=== PATIENT | male | born 1960 | race Caucasian/White ===

== ENCOUNTER 2017-02-06 20:48 | Emergency (ER) | payer BC ==
--- NOTE | 2017-02-06 20:49 | PDOC ---
Rapid Medical Evaluation Time Seen by Provider: 02/06/17 20:49 Medical Evaluation: Allergies Allergy/AdvReac Type Severity Reaction Status Date / Time levofloxacin [From Levaquin] Allergy Verified 06/23/15 22:44 I have performed a brief in-person evaluation of this patient. The patient presents with a chief complaint of: "My catheter does not feel right." Pertinent physical exam findings: ABS: SNTND. No palpable bladder. Davis catheter in place. I have ordered the following: UA, C&S The patient will proceed to the ED for further evaluation.
[2017-02-06 21:01] VITALS: BP 186/102; PULSE 62; TEMP 98.2; BMI 41.1
--- NOTE | 2017-02-07 00:02 | PDOC ---
History of Present Illness - History of Present Illness Initial Comments: 02/07/17 00:05 56 y/o M with a PMHx of HTN, diabetes, enlarged prostate presents to the ED for urinary catheter removal. Patient had a routine visit with his urologist today who placed a catheter due to urinary retention. However, patient states it is normal to have urinary retention without his herbal diuretic, which he forgot to take today. Patient has no other complaints. Denies fever, chills. Allergies: Levaquin <Nanda Cooley - Last Filed: 02/07/17 01:00> <Bossman Garcia - Last Filed: 02/07/17 02:06> - General Chief Complaint: Urinary Catheter Problem Stated Complaint: PERSONAL Time Seen by Provider: 02/06/17 20:49 Past History <Nanda Cooley - Last Filed: 02/07/17 01:00> - Past Medical History COPD: No Diabetes: Yes HTN: Yes - Surgical History Abdominal Surgery: Yes (LEFT INGUINAL AND UMBILICAL HERNIA REPAIR.) - Immunization History Immunization Up to Date: Yes - Suicide/Smoking/Psychosocial Hx Smoking History: Never smoked Have you smoked in the past 12 months: No Number of Cigarettes Smoked Daily: 0 Information on smoking cessation initiated: No Hx Alcohol Use: No Drug/Substance Use Hx: No Substance Use Type: None <Bossman Garcia - Last Filed: 02/07/17 02:06> - Past Medical History Allergies/Adverse Reactions: Allergies Allergy/AdvReac Type Severity Reaction Status Date / Time levofloxacin [From Levaquin] Allergy Verified 02/06/17 20:58 Home Medications: Ambulatory Orders Amlodipine Besylate [Norvasc -] 10 mg PO DAILY 06/23/13 Silodosin [Rapaflo] 8 mg PO DAILY 06/23/13 Glipizide [Glipizide Xl] 0 mg PO DAILY 06/23/15 Clonidine HCl 0.2 mg PO TID 02/07/17 Nebivolol HCl/Valsartan [Byvalson 5 mg-80 mg Tablet] 1 each PO DAILY 02/07/17 Review of Systems - Review of Systems Comments:: 02/07/17 00:06 CONSTITUTIONAL: No fever, no chills, no fatigue EYES: No visual changes ENT: No ear pain, no sore throat CARDIOVASCULAR: No chest pain, no palpitations RESPIRATORY: No cough, no SOB GI: No abdominal pain, no nausea, no vomiting, no constipation, no diarrhea GENITOURINARY: No dysuria, no frequency, no hematuria MUSCULOSKELETAL: No back pain, no joint pain, no myalgias SKIN: No rash NEURO: No headache <Nanda Cooley - Last Filed: 02/07/17 01:00> *Physical Exam - Vital Signs Last Vital Signs Temp Pulse Resp BP Pulse Ox 98.2 F 62 20 186/102 97 02/06/17 20:59 02/06/17 20:59 02/06/17 20:59 02/06/17 20:59 02/06/17 20:59 - Physical Exam Comments: 02/07/17 00:06 CONSTITUTIONAL: Well-appearing; well-nourished; in no apparent distress. Morbidly obese. HEAD: Normocephalic; atraumatic EYES: PERRL; EOM intact ENMT: External appears normal; normal oropharynx NECK: Supple; nontender; no cervical lymphadenopathy CARD: Normal S1, S2; no murmurs, rubs, or gallops RESP: Normal chest excursion with respiration; breath sounds clear and equal bilaterally; no wheezes, rhonchi, or rales ABD: Soft, non-distended; non-tender; no palpable organomegaly, no palpable hernias EXT: Normal ROM in all four extremities; non-tender to palpation; distal pulses intact. +2 pitting edema in bilateral lower extremities. SKIN: Warm, dry, no rash NEURO: No focal neurological deficiencies. <Nanda Cooley - Last Filed: 02/07/17 01:00> - Vital Signs Last Vital Signs Temp Pulse Resp BP Pulse Ox 98.2 F 62 20 186/102 97 02/06/17 20:59 02/06/17 20:59 02/06/17 20:59 02/06/17 20:59 02/06/17 20:59 <Bossman Garcia - Last Filed: 02/07/17 02:06> Medical Decision Making - Medical Decision Making 02/07/17 02:03 Patient's 56-year-old male with history of BPH, diabetes presents to the ER with local discomfort at the site of the Davis catheter insertion. Davis catheter was in inserted at the patient's urologist office. Patient stated that he is unable to ambulate and is unable to sleep due to catheter and patient requested that the catheter be removed. Davis catheter was removed without complications. Patient has not been able to void after the removal but reports that he feels no urgency to urinate at this time and wishes to be discharged. Advised the patient to follow-up with urology promptly if he is unable to void after a period Of several hours begin's to feel pressure sensation in his abdomen or his flanks. Patient's expressed understanding and will be discharged with follow-up. <Bossman Garcia - Last Filed: 02/07/17 02:06> *DC/Admit/Observation/Transfer - Attestations Scribe Attestion: 02/07/17 00:06 Documentation prepared by Nanda Cooley, acting as medical dosimetrist for Bossman Garcia MD. <Nanda Cooley - Last Filed: 02/07/17 01:00> - Attestations Physician Attestion: 02/07/17 02:03 The documentation was prepared by the scribe under my direct supervision. I have reviewed the documentation which correctly represents the findings, medical decision-making and critical action taken by me. <Bossman Garcia - Last Filed: 02/07/17 02:06> Diagnosis at time of Disposition: Retention of urine - Discharge Dispostion Disposition: HOME Condition at time of disposition: Stable - Referrals Referrals: Milton Samuels MD [Staff Physician] - - Patient Instructions Printed Discharge Instructions: DI for Urinary Retention in Men Additional Instructions: Follow-up with urology promptly if you're unable to urinate after a period of several hours we began to experience pressure in the lower abdomen or back return immediately for severe pain, fever, blood in the urine.
== END 2017-02-07 02:13 | disposition home or self-care (01) ==
LOC: JER 20:48
DX: R33.9 Retention of urine, unspecified (principal); I10 Essential (primary) hypertension; E11.9 Type 2 diabetes mellitus without complications; N40.0 Benign prostatic hyperplasia without lower urinary tract symptoms
CPT/HCPCS: 99282-25

== ENCOUNTER 2017-08-07 15:56 | Inpatient (IN) | payer OTHER ==
--- NOTE | 2017-08-07 16:07 | PDOC ---
Rapid Medical Evaluation Time Seen by Provider: 08/07/17 16:07 Medical Evaluation: Allergies Allergy/AdvReac Type Severity Reaction Status Date / Time levofloxacin [From Levaquin] Allergy Verified 07/31/17 01:41 08/07/17 16:08 56 year old male with HTN, NIDDM seen here 07/31 with right great toe infection. Started on Bactrim + Keflex, subsequently started on amoxicillin by our COPY WORKER per culture results. Culture grew multiple organisms. Returns today with continued oozing, also with fevers ("105"), malaise, shortness of breath. T 102.5 orally. Left great toe ulceration without surrounding erythema, dry Plan: -Sepsis labs/styles-culture -Tylenol 650mg -Xray R foot -To Main ED for further evaluation
[2017-08-07] MEDS ORDERED: ACETAMINOPHEN 325 MG TABLET (FP) PO ONE ×2 (16:16→17:04)
[2017-08-07] MEDS ORDERED: VANCOMYCIN 2,000 MG in DEXTROSE 5%-WATER - 250 ML IVPB ONE (16:44)
--- NOTE | 2017-08-07 16:48 | PDOC ---
Attending Attestation - HPI HPI: 08/07/17 18:25 56 year old male with past medical history of HTN and Diabetes presents to the emergency department with right big toe infection. Despite antibiotic prescribed , the patient presents with discharge, fever, SOB, chills, and malaise. <Tamiko Morris - Last Filed: 08/07/17 18:43> - Resident Resident Name: AsiaJay - ED Attending Attestation I have performed the following: I have examined & evaluated the patient, The case was reviewed & discussed with the resident, I agree w/resident's findings & plan, Exceptions are as noted - Physicial Exam PE: 08/07/17 18:47 Patient is awake and alert, morbidly obese, febrile, diaphoretic and tachypneic , in mild respiratory distress Normocephalic, atraumatic + Abrasion to bridge of nose with surrounding erythema No JVD + Diffuse crackles bilaterally, tachypneic and dyspneic RRR +Soft, nondistended, large reducible ventral hernia noted + +3 pitting edema bilaterally with chronic venous stasis dermatitis Right great toe: Large calluses noted with several small areas of coagulated blood and a large ulcer to the base of the right great toe; Dorsalis pedis/tibialis posterior +2 bilaterally - Medical Decision Making 08/07/17 18:49 Patient is a morbidly obese 56-year-old male with multiple comorbidities who presents to the ER with erythematous draining right foot toe infection, malaise , generalized weakness and shortness of breath. In the ER, patient is noted to be tachypneic and dyspneic as well as febrile. Patient is also hypoxemic with room oxygen saturation of 93% improving to 100% on 2 L via nasal cannula. Blood cultures are been obtained. Right great toe Wound culture obtained previously revealed strep group B as well as Enterococcus faecalis. Chest x-ray reveals cardiomegaly, cephalization, prominent pulmonary arteries, as well as interstitial and mild pulmonary edema. Antipyretics a been administered. Vancomycin and Zosyn has been administered for suspected osteomyelitis. Foot x- ray reveals fluid adjacent to the the distal phalanx of the right great toe. Patient is also noted to be hyperglycemic without increased anion gap. Will administer IV Lasix as well as subcutaneous insulin. Will admit for further evaluation and treatment. <Bossman Garcia - Last Filed: 08/07/17 18:52>
[2017-08-07] MEDS ORDERED: PIPERACILLIN/TAZOB 4.5 GM 4.5 GM in DEXTROSE 5%-WATER 100 ML IVPB ONE (16:53)
[2017-08-07] MEDS: SODIUM CHLORIDE 1,000 ML IV STA ×2 (17:33→18:06)
[2017-08-07 17:34] LABS: VENOUS PC02 37.6 mmHg (38-52); VENOUS PH 7.48 (7.32-7.42); VENOUS PO2 32.8 mmHg (28-48)
[2017-08-07 17:34] LABS: BASO % 0.6 % (0-2.0); EOS % 0.7 % (0-4.5); HEMATOCRIT 31.2 % (35.4-49); HEMOGLOBIN 10.8 GM/dL (11.7-16.9); LYMPH % 11.6 % (8-40); MCH 27.8 pg (25.7-33.7); MCHC 34.7 g/dl (32.0-35.9); MEAN CELL VOLUME 80.1 fl (80-96); MEAN PLT VOLUME 9.2 fl (7.5-11.1); MONO % 8.2 % (3.8-10.2); NEUT % 78.9 % (42.8-82.8); PLATELET COUNT 172 K/MM3 (134-434); RBC 3.89 M/mm3 (4.00-5.60); WHITE BLOOD COUNT 5.7 K/mm3 (4.0-10.0)
[2017-08-07] MEDS ORDERED: PIPERACILLIN/TAZOBACTAM 2.25 GM VIAL IVPB ONE (17:36)
[2017-08-07] MEDS ORDERED: ACETAMINOPHEN 325 MG TABLET (FP) ONE (17:36)
[2017-08-07] MEDS ORDERED: VANCOMYCIN 1 GRAM (PRE-DOCKED) 2,000 MG/500 ML BAG IVPB ONE (17:37)
[2017-08-07 17:47] LABS: INR 1.45 (0.82-1.09); PROTHROMBIN TIME (PATIENT) 16.4 SEC (9.7-13.0)
[2017-08-07 17:49] LABS: ACTIVATED PTT 22.1 SECONDS (26.9-34.4)
[2017-08-07 17:58] LABS: ALK PHOS 76 U/L (45-117); ANION GAP 6 (8-16); BLOOD UREA NITROGEN 13 mg/dL (7-18); CHLORIDE 99 mmol/L (98-107); CO2 28 mmol/L (21-32); CREATININE 1.3 mg/dL (0.7-1.3); POTASSIUM 3.6 mmol/L (3.5-5.1); SGOT/AST 18 U/L (15-37); SGPT/ALT 17 U/L (12-78); SODIUM 133 mmol/L (136-145); TOT PROT 6.4 g/dl (6.4-8.2)
[2017-08-07] MEDS ORDERED: FUROSEMIDE 40 MG/4 ML INJECTABLE VIAL ONE (17:58)
[2017-08-07] MEDS ORDERED: FUROSEMIDE 40 MG/4 ML INJECTABLE VIAL IVPUSH ONE (18:01)
[2017-08-07 18:07] LABS: GLUCOSE,RANDOM 433 mg/dL (74-106)
--- NOTE | 2017-08-07 18:10 | PDOC ---
History of Present Illness - General History Source: Patient Exam Limitations: No Limitations - History of Present Illness Initial Comments: 08/07/17 18:03 56 year old male with HTN, NIDDM seen here 07/31 with right 1st toe infection. Started on clinda IV then Rx for Bactrim + Keflex, subsequently started on amoxicillin by our CASKET COVERER per culture results. Culture grew multiple organisms. Returns today with continued oozing, also with fevers ("105"), malaise, shortness of breath and chills. Currently pain-free toe. Denies nausea, vomiting, headache , change in vision. 08/07/17 18:34 <Jay Betancourt - Last Filed: 08/07/17 18:45> <Bossman Garcia - Last Filed: 08/07/17 19:29> - General Chief Complaint: Respiratory Stated Complaint: RT TOE INJURY Time Seen by Provider: 08/07/17 16:07 Past History - Past Medical History COPD: No Diabetes: Yes HTN: Yes - Surgical History Abdominal Surgery: Yes (LEFT INGUINAL AND UMBILICAL HERNIA REPAIR.) - Immunization History Immunization Up to Date: Yes - Suicide/Smoking/Psychosocial Hx Smoking History: Never smoked Have you smoked in the past 12 months: No Number of Cigarettes Smoked Daily: 0 Information on smoking cessation initiated: No Hx Alcohol Use: Yes (socially) Drug/Substance Use Hx: No Substance Use Type: None <Jay Betancourt - Last Filed: 08/07/17 18:45> <Bossman Garcia - Last Filed: 08/07/17 19:29> - Past Medical History Allergies/Adverse Reactions: Allergies Allergy/AdvReac Type Severity Reaction Status Date / Time ciprofloxacin [From Cipro] Allergy pain Verified 08/07/17 16:10 levofloxacin [From Levaquin] Allergy Verified 08/07/17 16:08 Home Medications: Ambulatory Orders Amlodipine Besylate [Norvasc -] 10 mg PO DAILY 06/23/13 Clonidine HCl 0.2 mg PO TID 02/07/17 Valsartan/Hydrochlorothiazide [Valsartan-Hctz 160-12.5 mg Tab] 5 mg PO DAILY 04/25 Cephalexin [Keflex] 500 mg PO TID #21 capsule 07/31/17 Sitagliptin Phosphate [Januvia] 0 mg PO DAILY 07/31/17 Sulfamethoxazole/Trimethoprim [Bactrim Ds -] 1 tab PO BID #14 tablet 07/31/17 Amoxicillin - [Amoxicillin 500mg Capsule -] 500 mg PO BID #14 capsule 08/04/17 Review of Systems - Review of Systems Able to Perform ROS?: Yes Is the patient limited Georgian proficient: No Constitutional: Yes: See HPI, Diaphoresis, Malaise HEENTM: No: Symptoms Reported Respiratory: Yes: Shortness of Breath. No: Productive cough, Hemoptysis Cardiac (ROS): No: Symptoms Reported ABD/GI: No: Symptoms Reported : No: Symptoms Reported Integumentary: Yes: See HPI Neurological: Yes: Paresthesia <Jay Betancourt - Last Filed: 08/07/17 18:45> *Physical Exam - Vital Signs Last Vital Signs Temp Pulse Resp BP Pulse Ox 102.2 F H 69 22 142/77 96 08/07/17 17:50 08/07/17 16:10 08/07/17 16:10 08/07/17 16:10 08/07/17 16:10 - Physical Exam General Appearance: Yes: Appropriately Dressed, Moderate Distress, Obese. No: Alcohol on Breath, Intoxicated HEENT: positive: EOMI, MANDO, Normal ENT Inspection, Other (flushed face) Respiratory/Chest: positive: Rapid RR, Crackles. negative: Chest Tender Cardiovascular: positive: Regular Rhythm, Regular Rate, S1, S2 Gastrointestinal/Abdominal: positive: Normal Bowel Sounds, Flat, Soft. negative : Tender Extremity: positive: Normal Capillary Refill, Normal Inspection, Normal Range of Motion Integumentary: positive: Warm, Diaphoresis, Other Neurologic: positive: Fully Oriented, Alert, Normal Mood/Affect, Normal Response , Motor Strength 5/5, Numbness (over small area of the toe) <Jay Betancourt - Last Filed: 08/07/17 18:45> - Vital Signs Last Vital Signs Temp Pulse Resp BP Pulse Ox 102.2 F H 69 22 142/77 96 08/07/17 17:50 08/07/17 16:10 08/07/17 16:10 08/07/17 16:10 08/07/17 16:10 <Bossman Garcia - Last Filed: 08/07/17 19:29> ED Treatment Course - LABORATORY CBC & Chemistry Diagram: 08/07/17 17:20 05/02/18 17:20 - ADDITIONAL ORDERS Additional order review: Laboratory Results 08/07/17 17:19 VBG pH 7.48 H POC VBG pCO2 37.6 L POC VBG pO2 32.8 Mixed VBG HCO3 27.4 H 08/07/17 17:20 RBC 3.89 L MCV 80.1 MCHC 34.7 RDW 15.0 MPV 9.2 Neutrophils % 78.9 D Lymphocytes % 11.6 D Monocytes % 8.2 Eosinophils % 0.7 D Basophils % 0.6 - RADIOLOGY Radiology Studies Ordered: Category Date Time Status TOE(S) RIGHT [RAD] Stat Radiology 08/07/17 16:51 Taken - Medications Given in the ED: ED Medications Discontinued Medications Generic Name Dose Route Start Last Admin Trade Name Freq PRN Reason Stop Dose Admin Acetaminophen 650 mg 08/07/17 16:16 08/07/17 17:34 Tylenol - PO 08/07/17 16:17 650 mg ONCE ONE Administration Acetaminophen 325 mg 08/07/17 17:04 08/07/17 17:34 Tylenol - PO 08/07/17 17:05 325 mg ONCE ONE Administration Sodium Chloride 1,000 mls @ 1,000 mls/hr 08/07/17 16:15 08/07/17 17:33 Normal Saline - IV 08/07/17 17:14 1,000 mls/hr ASDIR STA Administration Piperacillin Sod/Tazobactam 100 mls @ 200 mls/hr 08/07/17 16:53 08/07/17 17: 34 Sod 4.5 gm/ Dextrose IVPB 08/07/17 17:22 200 mls/hr ONCE ONE Administration Protocol <Jay Betancourt - Last Filed: 08/07/17 18:45> - LABORATORY CBC & Chemistry Diagram: 08/07/17 17:20 08/07/17 17:20 - ADDITIONAL ORDERS Additional order review: Laboratory Results 08/07/17 08/07/17 08/07/17 17:20 17:20 17:20 PT with INR 16.40 H INR 1.45 H D PTT (Actin FS) 22.1 L VBG pH POC VBG pCO2 POC VBG pO2 Mixed VBG HCO3 Sodium 133 L Potassium 3.6 Chloride 99 Carbon Dioxide 28 Anion Gap 6 L BUN 13 Creatinine 1.3 D Creat Clearance w eGFR 57.31 Random Glucose 433 H* Lactic Acid 1.9 Calcium 8.0 L Total Bilirubin 2.0 H D AST 18 D ALT 17 Alkaline Phosphatase 76 D Total Protein 6.4 Albumin 3.0 L 08/07/17 17:19 PT with INR INR PTT (Actin FS) VBG pH 7.48 H POC VBG pCO2 37.6 L POC VBG pO2 32.8 Mixed VBG HCO3 27.4 H Sodium Potassium Chloride Carbon Dioxide Anion Gap BUN Creatinine Creat Clearance w eGFR Random Glucose Lactic Acid Calcium Total Bilirubin AST ALT Alkaline Phosphatase Total Protein Albumin 08/07/17 17:20 RBC 3.89 L MCV 80.1 MCHC 34.7 RDW 15.0 MPV 9.2 Neutrophils % 78.9 D Lymphocytes % 11.6 D Monocytes % 8.2 Eosinophils % 0.7 D Basophils % 0.6 - RADIOLOGY Radiology Studies Ordered: Category Date Time Status DUPLEX VASCUL US-2LEGS [US] Stat Ultrasound 08/07/17 18:45 Ordered - Medications Given in the ED: ED Medications Discontinued Medications Generic Name Dose Route Start Last Admin Trade Name Sanyaq PRN Reason Stop Dose Admin Acetaminophen 650 mg 08/07/17 16:16 08/07/17 17:34 Tylenol - PO 08/07/17 16:17 650 mg ONCE ONE Administration Acetaminophen 325 mg 08/07/17 17:04 08/07/17 17:34 Tylenol - PO 08/07/17 17:05 325 mg ONCE ONE Administration Furosemide 40 mg 08/07/17 18:01 08/07/17 18:05 Lasix Injection - IVPUSH 08/07/17 18:02 40 mg ONCE ONE Administration Sodium Chloride 1,000 mls @ 1,000 mls/hr 08/07/17 16:15 08/07/17 18:06 Normal Saline - IV 08/07/17 17:14 Not Given ASDIR STA Piperacillin Sod/Tazobactam 100 mls @ 200 mls/hr 08/07/17 16:53 08/07/17 17: 34 Sod 4.5 gm/ Dextrose IVPB 08/07/17 17:22 200 mls/hr ONCE ONE Administration Protocol Insulin Detemir 12 units 08/07/17 18:30 08/07/17 19:09 Levemir Vial SQ 08/07/17 18:31 12 units ONCE ONE Administration <Bossman Garcia - Last Filed: 08/07/17 19:29> Medical Decision Making - Medical Decision Making 08/07/17 18:38 56M with pmh of uncontrolled diabetes presents with chronic 1st toes persistent infection. Septic protocol started in [facility] labs pending Chest xray pending but evidence of cephalization on pre-read patient started on nc o2 Toe xray pending with evidence of fluid near distal phalanx Patient diuresed, started on vanc-zosyn Fluids on hold for now. Will admit to hospitalist. <Jay Betancourt - Last Filed: 08/07/17 18:45> *DC/Admit/Observation/Transfer <Jay Betancourt - Last Filed: 08/07/17 18:45> - Discharge Dispostion Admit: Yes <Bossman Garcia - Last Filed: 08/07/17 19:29> Diagnosis at time of Disposition: Acute osteomyelitis of toe of right foot, Hyperglycemia Acute CHF Qualifiers: Heart failure type: unspecified Qualified Code(s): I50.9 - Heart failure, unspecified - Discharge Dispostion Condition at time of disposition: Fair
[2017-08-07] MEDS ORDERED: LACTATED RINGERS SOLUTION 1,000 ML/1,000 ML INFUS.BAG IV SCH (18:30)
[2017-08-07] MEDS ORDERED: INSULIN (LEVEMIR) 100 UNITS/ML UNITS SQ ONE ×2 (18:30→19:03)
[2017-08-07] MEDS ORDERED: VANCOMYCIN 2,000 MG in SODIUM CHLORIDE 500 ML IVPB ONE (18:45)
[2017-08-07 19:06] LABS: URINE APPEARANCE CLEAR; URINE BILIRUBIN NEGATIVE (<2.0 mg/dL); URINE COLOR YELLOW; URINE GLUCOSE (UA) 3+ (NEGATIVE); URINE KETONE NEGATIVE (NEGATIVE); URINE LEUK ESTERASE NEGATIVE (NEGATIVE); URINE NITRITE NEGATIVE (NEGATIVE); URINE UROBILINOGEN NEGATIVE mg/dL (0.2-1.0)
[2017-08-07 20:07] LABS: URINE PROTEIN 1+ (NEGATIVE)
--- NOTE | 2017-08-07 21:25 | HP ---
CHIEF COMPLAINT: Fevers PCP: [facility] on [address] HISTORY OF PRESENT ILLNESS: 56yo M with PMHx of uncontrolled DM who presents w/ R big toe drainage and fevers. Introduced foreign object under nail 1 week ago, has since noticed fluid filled blisters that have opened up and drained clear/yellow fluid. Seen in [facility] couple days ago, sent home on PO abx (Bactrim+Keflex) for cellulitis. It was switched to Amoxicillin when superficial wound cx results returned. He continued to have fevers, diaphoresis, dec PO intake, lightheadedness, and malaise. The drainage has crusted over. Denies toe pain. Doesn't check home BGMs bc he doesnt own a glucometer. In the ER, the patient had Tm 102.5. Given Vanc/Zosyn. As per ER notes he was SOB w/ O2 sats in the low 90s and lung crackles, given Lasix 40mg IV. Recent Travel: Denies PAST MEDICAL HISTORY: HTN, DM2, Sleep Apnea PAST SURGICAL HISTORY: L inguinal hernia repair, umbilical hernia repair Social History: Smoking: None Alcohol: Social drinker Drugs: None Allergies: ciprofloxacin [From Cipro] Allergy (Verified 08/07/17 16:10) pain pain in the tendon of feet levofloxacin [From Levaquin] Allergy (Verified 08/07/17 16:08) HOME MEDICATIONS: Home Medications Medication Instructions Recorded Amlodipine Besylate [Norvasc -] 10 mg PO DAILY 06/23/13 Clonidine HCl 0.2 mg PO TID 02/07/17 Sitagliptin Phosphate [Januvia] 50 mg PO DAILY 07/31/17 Amoxicillin - [Amoxicillin 500mg 500 mg PO BID #14 capsule 08/04/17 Capsule -] Amlodipine Besylate 0.5 mg PO DAILY 08/07/17 Atenolol [Tenormin -] 25 mg PO DAILY 08/07/17 Candesartan Cilexetil [Atacand 4 mg PO DAILY 08/07/17 (Nf) -] Clonidine HCl 0.1 mg PO BID 08/07/17 Furosemide [Lasix -] 40 mg PO Q2D 08/07/17 Glipizide [Glipizide ER] 10 mg PO BID 08/07/17 Metformin HCl [Metformin HCl ER] 500 mg PO DAILY 08/07/17 Nebivolol HCl/Valsartan [Byvalson 1 tab PO BID 08/07/17 5 mg-80 mg Tablet] Omeprazole 10 mg PO 08/07/17 REVIEW OF SYSTEMS CONSTITUTIONAL: +fevers, chills, diaphoresis, malaise, LOAAbsent: weight change HEENT: Absent: rhinorrhea, nasal congestion, throat pain, throat swelling, difficulty swallowing, mouth swelling, ear pain, eye pain, visual changes CARDIOVASCULAR: Absent: chest pain, syncope, palpitations, irregular heart rate , lightheadedness, peripheral edema RESPIRATORY: Absent: cough, shortness of breath, dyspnea with exertion, orthopnea, wheezing, stridor, hemoptysis GASTROINTESTINAL:Absent: abdominal pain, abdominal distension, nausea, vomiting , diarrhea, constipation, melena, hematochezia GENITOURINARY: Absent: dysuria, frequency, urgency, hesitancy, hematuria, flank pain, genital pain MUSCULOSKELETAL: Absent: myalgia, arthralgia, joint swelling, back pain, neck pain SKIN: Absent:itching, pallor HEMATOLOGIC/IMMUNOLOGIC: Absent: easy bleeding, easy bruising, lymphadenopathy, frequent infections ENDOCRINE:Absent: unexplained weight gain, unexplained weight loss, heat intolerance, cold intolerance NEUROLOGIC: Absent: headache, focal weakness or paresthesias, dizziness, unsteady gait, seizure, mental status changes, bladder or bowel incontinence PSYCHIATRIC: Absent: anxiety, depression, suicidal or homicidal ideation, hallucinations. PHYSICAL EXAMINATION Vital Signs Period Temp Pulse Resp BP Sys/Olmedo Pulse Ox Last 24 Hr 102.2 F-102.5 F 69 22 142/77 96-96 GEN: AAOx3, NAD, Lying comfortably HEENT: PERRLA, EOMi, no JVD, white scrapable plaques, mild diaphoresis CV: S1, S2, RRR, 2/6 systolic murmur in RUSB LUNG: CTABL no crackles ABD: Obese, distended, nontender, normoactive BS MSK: Bilateral venous stasis changes w/ 2+ pitting edema. R toe is swollen, mild erythema, linear break in the medial hallux, no active drainage, yellow/crust surrounding toe, dried blood around the nail. No foot ulcers present bilaterally. DP, TP pulses intact. Gross sensation intact. 5/5 musc strength NEURO: CN 2-12 intact, no sensation or msk deficits, no faciald barb ASSESSMENT/PLAN: 56yo M with PMHx of uncontrolled DM who presents w/ R big toe drainage and fevers, found to have diabetic foot infection. # Diabetic Foot Infection -- From direct innoculation of foreign object, has open wound, no drianage. Not septic kit. Broad coverage w/ IV Vanc & Zosyn. ID consult. Podiatry consulted to obtain culture from deeper fluid pocket. Low threshold to suspect osteo in light of elevated ESR/CRP. Will get MRI R foot. # Uncontrolled NIDDM -- Hold januvia for now, continue BGM + ISS ACHS, Start long acting levemir 10u HS, A1c pending. Start preventative ASA # SOB -- According to ER notes, pt was SOB, received Lasix 40, and has cardiomegaly w / pulmonary congestion on CXR. COuld be early CHF? However, not overloaded on our exam. Will obtain echo. O2 as needed. # Diarrhea -- Has had diarrhea for past 2 days, has been on PO abx, r/o C.diff # BLLE Edema -- From venous stasis according to patient. Check echo. F/u duplex. Will provide Tedds. Norvasc held. # GAETANO -- Discussed w/ Dr Guaman, believes pt is dehydrated and advised to start low dose fluids. Careful monitoring in setting of possibly chf. Will get Ulytes calculate FeUrea. Renal sono. Hold ARB # HTN -- Controlled. Continue clonidine, HCTz. Hold norvasc for edema, hold ARB for Gaetano # Elevated Tbili -- No abd tenderness, hold off on imaging. Will trend and fractionate # Pseudohyponatremia -- Corrected for hyperglyc is wnl # Oral j carlos -- Likely from long standing uncontrolled DM, Nystatin s&s # ANA MARÍA -- Uses CPAP at home prn. Continue # FEN/PPx -- IVF 50cc/hr, diabetic diet, HSQ tid # Dispo -- Admit to med/surg Case d/w Dr Chapa & Dr Rowena Alexis MD - pGy1 Night Artificial Limb Fitter Visit type - Emergency Visit Emergency Visit: Yes ED Registration Date: 08/07/17 Care time: The patient presented to the Emergency Department on the above date and was hospitalized for further evaluation of their emergent condition. - New Patient This patient is new to me today: Yes Date on this admission: 08/12/17 - Critical Care Critical Care patient: No Hospitalist Screening - Colonoscopy Questionnaire Colonoscopy Questionnaire: Colonoscopy Questionnaire - Patient: 50 - 75 years old and never had a screening colonoscopy: Unknown History of colon or rectal polyps, or CA: Unknown History of IBD, Crohn's disease or UC: Unknown History of abdominal radiation therapy as a child: Unknown - Relative: 1 with colon or rectal CA, or polyps at age 60 or younger: Unknown Colon or rectal CA diagnosed at age 45 or younger: Unknown Multiple relatives with colon or rectal CA: Unknown - Outcome: Screening Result: Negative Screen
[2017-08-07] MEDS ORDERED: SODIUM CHLORIDE 1,000 ML IV SCH (21:30)
[2017-08-07] MEDS: INSULIN SLIDING SCALE (NOVOLOG) 1 VIAL SQ SCH (21:55)
[2017-08-07] MEDS ORDERED: cloNIDine HCL 0.1 MG TABLET ONE (21:57)
[2017-08-07] MEDS ORDERED: INSULIN (NOVOLOG) ASPART 100 UNITS/ML 10ML VIAL ONE (21:58)
--- NOTE | 2017-08-07 22:01 | MSN ---
Admitting History and Physical - Admission Chief Complaint: Right great toe infection History of Present Illness: Patient is a 56 year old male with pertinent past medical hx of poorly controlled diabetes, and HTN that presented to the ER because of fever, chills, SOB, nausea, diarrhea, and toe lesion. One week prior to presenting to the ER the patient had pain in the right great toe that the patient attributed to an ingrown toenail. The patient took a filing tool form the pharmacy and removed a portion of the nail that he believed to be causing the pain. The patient stated feeling well until he the next day when his right great toe began to blister and drain fluid. The patient went to the ER and was sent home on PO batrim + keflex that was later switched to amoxicillin for suspected superficial skin infection. The patient stated feeling in his usual state of health until yesterday when he began having fevers, chills, nausea, SOB, diaphoresis and two boughts of loose stools. The patient stated that he was having extreme fatigue. The patient denies any vomiting or abdominal pain and was not having any pain in his right great toe. The patient went to to PCP and then returned to the ER where he was started on IV vancomycin and zosyn. He was also treated with lasix for crackles heard by the ER physician. The patient at this time is in no distress and denies any fever, chills, SOB, chest pain, or foot pain. The patients only current complaints are fatigue and diaphoresis. History Source: Patient Limitations to Obtaining History: No Limitations - Past Medical History Cardiovascular: Yes: HTN Musculoskeletal: Yes: Other (ulceration of the right great toe) Endocrine: Yes: Diabetes Mellitus - Past Surgical History Past Surgical History: Yes: Hernia Repair (abdominal hernia repair) - Smoking History Smoking history: Never smoked Have you smoked in the past 12 months: No Aproximately how many cigarettes per day: 0 - Alcohol/Substance Use Hx Alcohol Use: Yes (socially) Home Medications - Allergies Allergies/Adverse Reactions: Allergies Allergy/AdvReac Type Severity Reaction Status Date / Time ciprofloxacin [From Cipro] Allergy pain Verified 08/07/17 16:10 levofloxacin [From Levaquin] Allergy Verified 08/07/17 16:08 - Home Medications Home Medications: Ambulatory Orders Amlodipine Besylate [Norvasc -] 10 mg PO DAILY 03/18/14 Clonidine HCl 0.2 mg PO TID 02/07/17 Sitagliptin Phosphate [Januvia] 50 mg PO DAILY 07/31/17 Amoxicillin - [Amoxicillin 500mg Capsule -] 500 mg PO BID #14 capsule 08/04/17 Amlodipine Besylate 0.5 mg PO DAILY 08/07/17 Atenolol [Tenormin -] 25 mg PO DAILY 08/07/17 Candesartan Cilexetil [Atacand (Nf) -] 4 mg PO DAILY 08/07/17 Clonidine HCl 0.1 mg PO BID 08/07/17 Furosemide [Lasix -] 40 mg PO Q2D 08/07/17 Glipizide [Glipizide ER] 10 mg PO BID 08/07/17 Metformin HCl [Metformin HCl ER] 500 mg PO DAILY 08/07/17 Nebivolol HCl/Valsartan [Byvalson 5 mg-80 mg Tablet] 1 tab PO BID 08/07/17 Omeprazole 10 mg PO 08/07/17 Review of Systems - Review of Systems Constitutional: reports: Chills, Fever Cardiovascular: reports: Edema, Shortness of Breath Respiratory: reports: SOB. denies: Cough Gastrointestinal: reports: Bloating, Diarrhea, Nausea Musculoskeletal: reports: Joint Swelling (swelling redness and lesion on the right great toe) Endocrine: reports: Excessive Sweating Physical Examination Vital Signs: Vital Signs Temperature 102.2 F H 08/07/17 17:50 Pulse Rate 69 08/07/17 16:10 Respiratory Rate 22 08/07/17 16:10 Blood Pressure 142/77 08/07/17 16:10 O2 Sat by Pulse Oximetry (%) 96 08/07/17 16:30 Constitutional: Yes: Well Nourished, No Distress, Diaphoresis Eyes: Yes: Conjunctiva Clear HENT: Yes: Thrush Neck: Yes: Trachea Midline Cardiovascular: Yes: Regular Rate and Rhythm Respiratory: Yes: Regular, CTA Bilaterally Gastrointestinal: Yes: Normal Bowel Sounds, Abdomen, Obese, Distention Extremities: Yes: Other (bilateral venous stasis, changes, intact sensation and 2/4 dorselis pedis pulses bilaterally) Edema: Yes Edema: LLE: 2+, RLE: 2+ Peripheral Pulses WNL: Yes Peripheral Pulses: Left Doralis Pedis: 2+, Right Dorsalis Pedis: 2+ Labs: CBC, BMP 08/07/17 17:20 08/07/17 17:20 Assessment/Plan Patient is a 56 year old male with a pertinent past medical hx of HTN and poorly controlled diabetes presenting for fevers, chills, nauseas, SOB and open rigthgret toe lesion. Plan: # Right great toe wound - osteomyelitis vs cellulitis secondary to foreign object vs infected diabetic foot ulcer secondary to poor diabetic control - continue empiric broad spectrum abx coverage with IV vanc and zosyn - x-ray showed soft tissue swelling of the right great toe inconclusive for osteomylelits - Order MRI to R/O osteomyelitis - obtain deep tissue culture of the wound - obtain ESR and CRP - obtain lactic acid - consult with ID - COnsult with podiatry # SOB - secondary to CHF vs response to systemic infection - chest x-ray showed cardiomegaly and moderately distinguished lung markings inconclusive for CHF - EKG showed left axis deviation - order echo cardiogram to R/O CHF - of BNP to asses for fluid overloaded state - hold lasix for now to allow for gentle hydration # Diarrhea - possibly secondary to C.diff due to previous abx use vs infectious process - will obtain C. diff toxin # Diabetes - uncontrolled diabetic with random glucose of 433 - obtain A1C - start insulin sliding scale - was instructed to follow with endocrinology to better control diabetic glucose level # Thrush - possibly secondary to high blood glucose level - nystatin swish and spit ordered - obtain HIV test to R/O immunocompromised state - # HTN - continue at home medication at this time F/E/N -Diabetic diet Dispo- -admitted for osteomyelitis work up
[2017-08-07] MEDS: cloNIDine HCL 0.1 MG TABLET PO SCH (22:20)
[2017-08-08] MEDS ORDERED: PIPERACILLIN/TAZOB 3.375 GM 3.375 GM in DEXTROSE 5%-WATER - 50 ML IVPB ONE ×3 (01:30→06:00)
--- NOTE | 2017-08-08 01:56 | PN ---
Teaching Attending Note Name of Resident: Christelle Alexis ATTENDING PHYSICIAN STATEMENT I saw and evaluated the patient. Chart, data, imaging reviewed. I reviewed the resident's note and discussed the case with the resident. I agree with the resident's findings and plan as documented. SUBJECTIVE: 56yo man with uncontrolled DM who presents w/ c/o right tor pain and swelling for about 2 weeks. 1 week ago seen in ER and prescribed Bactrim and Keflex for suspected toe cellulitis which later switched to amoxacillin as per superficial culture. Returning now with fever up to 102.5F and worsening right toe pain and swelling. Reported trying to "dig out nail" in his toe with a foreign object. Pt reports never being hospitalized for DM related complications in the past. Given vancomycin/zosyn in ER. Was given IV furosemide in ER due to crackles appreciated on lung auscultation. Patient also with diarrhea with 2-3 loose bms/ day for the last 2 days. OBJECTIVE: Last Vital Signs Temp Pulse Resp BP Pulse Ox 98.9 F 64 20 153/80 99 08/08/17 00:41 08/08/17 00:41 08/08/17 00:41 08/08/17 00:41 08/08/17 00:41 general- morbidly obese, nontoxic heent-oral thrush present cv-s1+S2+rrr chest b/l air entry sounds abdomen -obese, bs+, nontender ext-right toe swollen, warm to touch, crusted drainage, break in skin seen, b/l lower extremity venous stasis changes Abnormal Lab Results 08/07/17 08/07/17 08/07/17 17:19 17:20 17:20 RBC 3.89 L Hgb 10.8 L Hct 31.2 L ESR PT with INR 16.40 H INR 1.45 H D PTT (Actin FS) 22.1 L VBG pH 7.48 H POC VBG pCO2 37.6 L Mixed VBG HCO3 27.4 H Sodium Anion Gap Random Glucose Calcium Total Bilirubin C-Reactive Protein Albumin Urine Protein Urine Glucose (UA) 08/07/17 08/07/17 08/07/17 17:20 18:40 21:50 RBC Hgb Hct ESR PT with INR INR PTT (Actin FS) VBG pH POC VBG pCO2 Mixed VBG HCO3 Sodium 133 L Anion Gap 6 L Random Glucose 433 H* Calcium 8.0 L Total Bilirubin 2.0 H D C-Reactive Protein 6.4 H Albumin 3.0 L Urine Protein 1+ H Urine Glucose (UA) 3+ H 08/07/17 21:50 RBC Hgb Hct ESR 41 H PT with INR INR PTT (Actin FS) VBG pH POC VBG pCO2 Mixed VBG HCO3 Sodium Anion Gap Random Glucose Calcium Total Bilirubin C-Reactive Protein Albumin Urine Protein Urine Glucose (UA) ASSESSMENT AND PLAN: 56yo man w/ uncontrolled DM, probable neuropathy in feet, with right toe soft tissue infection. Moderate suspicion for osteomyelitis of right hallux. Likely infection introduced from foreign object. Does not meet criteria for sepsis. Lactate was wnl. -iv fluid hydration -c/w vancomycin/ zosyn -esr, crp -podiatry consult -id consult -local foot care -f/u right foot xray read -MRI of foot to evaluate for OM #Hyperglycemia - no anion gap. Low suspicion for DKA or HHS. pseudohyponatremia secondary to hyperglycemia. Corrected Na wnl -check urine and serum for ketones -consider endocrine evaluation and clinical unit educator -a1c -lipid panel -Insulin sliding scale -levemir 10 units qhs -start ASA #Diarrhea- should r/o cdiff colitis given recent antibiotic use -send stool for cdiff toxin pcr #GAETANO/ likely prerenal azotemia from dehydration from hyperglycemia -urine lytes, cr -renal u/s -i/o, daily weights -avoid nephrotoxic meds #Lower extremity swelling- likely secondary to venous stasis changes -transthoracic echo to r/o CHF -DVT ppx- heparin sc
[2017-08-08] MEDS ORDERED: VANCOMYCIN 2,000 MG in DEXTROSE 5%-WATER - 500 ML IVPB ONE ×2 (06:00→07:00)
[2017-08-08] MEDS ORDERED: PT OWN MED DRAWER 7, Y5N ONE (06:04)
[2017-08-08] MEDS: cloNIDine HCL 0.1 MG TABLET PO SCH ×3 (06:06→21:52)
[2017-08-08] MEDS: ACETAMINOPHEN 325 MG TABLET (FP) PO PRN ×2 (06:06→18:26)
[2017-08-08] MEDS: HEPARIN NA (PORCINE) 5,000 UNITS/ML 1ML VIAL SQ SCH ×3 (06:07→21:52)
[2017-08-08] MEDS: NYSTATIN 500,000 UNITS/5 ML SUSPENSION PO SCH ×4 (06:14→17:27)
[2017-08-08] MEDS: INSULIN SLIDING SCALE (NOVOLOG) 1 VIAL SQ SCH ×4 (06:15→22:27)
[2017-08-08 07:58] LABS: HEMOGLOBIN 10.8 GM/dL (11.7-16.9); MCH 27.5 pg (25.7-33.7); MCHC 34.9 g/dl (32.0-35.9); MEAN CELL VOLUME 78.7 fl (80-96); MEAN PLT VOLUME 9.4 fl (7.5-11.1); PLATELET COUNT 161 K/MM3 (134-434); RBC 3.94 M/mm3 (4.00-5.60); RDW 14.7 % (11.9-15.9); WHITE BLOOD COUNT 4.8 K/mm3 (4.0-10.0)
[2017-08-08 08:59] LABS: CHLORIDE 101 mmol/L (98-107); POTASSIUM 3.1 mmol/L (3.5-5.1); SODIUM 137 mmol/L (136-145)
[2017-08-08 09:06] LABS: ALBUMIN 2.9 g/dl (3.4-5.0); ALK PHOS 69 U/L (45-117); ANION GAP 7 (8-16); BLOOD UREA NITROGEN 13 mg/dL (7-18); CO2 29 mmol/L (21-32); CREATININE 1.1 mg/dL (0.7-1.3); GLUCOSE,RANDOM 283 mg/dL (74-106); SGOT/AST 14 U/L (15-37); SGPT/ALT 17 U/L (12-78); TOT PROT 6.2 g/dl (6.4-8.2)
--- NOTE | 2017-08-08 09:23 | PN ---
Physical Exam: SUBJECTIVE: Patient seen and examined - Pt with improving SOB on CPAP during interview. No pain, numbness/tingling at lesions site on R foot. Denies PHILLIP, CP, ab pain, back pain. very diaphoretic on exam, states he feels alternating fevers/chills for last few days; endorsing mild fatigue; chronic LE swelling and large abdomen; endorsing diarrhea for last 2 days OBJECTIVE: Vital Signs Intake & Output 08/05/17 08/06/17 08/07/17 08/08/17 23:59 23:59 23:59 23:59 Intake Total 800 Output Total 400 Balance 400 Weight 127.006 kg 144.356 kg Period Temp Pulse Resp BP Sys/Olmedo Pulse Ox Last 24 Hr 98.0 F-102.5 F 64-78 20-22 119-169/69-92 95-99 GENERAL: obese, middle-aged man on CPAP, markedly diaphoretic HEAD: NCAT EYES: PERRL, extraocular movements intact, sclera anicteric, conjunctiva clear. No ptosis. ENT: Ears normal, nares patent, oropharynx clear without exudates, moist mucous membranes. NECK: Trachea midline, full range of motion, supple. LUNGS: decreased air entry at bases, no crackles/rhonchi/wheezing HEART: Regular rate and rhythm, S1, S2 without murmur, rub or gallop. ABDOMEN: Globular, Soft, nontender, normoactive bowel sounds, no guarding, no rebound, no hepatosplenomegaly, no masses. EXTREMITIES: 2+ pulses, warm, well-perfused, 2+ LE non-pitting edema, BL stasis dermatitis NEUROLOGICAL: Cranial nerves II through XII grossly intact. Normal speech, gait not observed. PSYCH: Normal mood, normal affect. SKIN: Warm, dry, normal turgor, no rashes or lesions noted Laboratory Results - last 24 hr CBC, BMP 08/07/17 17:20 08/08/17 06:30 08/07/17 08/07/17 08/07/17 06:30 17:19 17:20 WBC 4.8 5.7 RBC 3.94 L 3.89 L Hgb 10.8 L 10.8 L Hct 31.0 L 31.2 L MCV 78.7 L 80.1 MCH 27.5 27.8 MCHC 34.9 34.7 RDW 14.7 15.0 Plt Count 161 D 172 MPV 9.4 9.2 Neutrophils % 78.9 D Lymphocytes % 11.6 D Monocytes % 8.2 Eosinophils % 0.7 D Basophils % 0.6 ESR PT with INR INR PTT (Actin FS) VBG pH 7.48 H POC VBG pCO2 37.6 L POC VBG pO2 32.8 Mixed VBG HCO3 27.4 H Sodium Potassium Chloride Carbon Dioxide Anion Gap BUN Creatinine Creat Clearance w eGFR POC Glucometer Random Glucose Hemoglobin A1c % Lactic Acid Calcium Phosphorus Magnesium Total Bilirubin Direct Bilirubin AST ALT Alkaline Phosphatase Creatine Kinase Troponin I C-Reactive Protein Total Protein Albumin Triglycerides Cholesterol Total LDL Cholesterol HDL Cholesterol Urine Color Urine Appearance Urine pH Ur Specific [place] Urine Protein Urine Glucose (UA) Urine Ketones Urine Blood Urine Nitrite Urine Bilirubin Urine Urobilinogen Ur Leukocyte Esterase Urine WBC (Auto) Urine RBC (Auto) Blood Type Antibody Screen 08/07/17 08/07/17 08/07/17 17:20 17:20 17:20 WBC RBC Hgb Hct MCV MCH MCHC RDW Plt Count MPV Neutrophils % Lymphocytes % Monocytes % Eosinophils % Basophils % ESR PT with INR 16.40 H INR 1.45 H D PTT (Actin FS) 22.1 L VBG pH POC VBG pCO2 POC VBG pO2 Mixed VBG HCO3 Sodium 133 L Potassium 3.6 Chloride 99 Carbon Dioxide 28 Anion Gap 6 L BUN 13 Creatinine 1.3 D Creat Clearance w eGFR 57.31 POC Glucometer Random Glucose 433 H* Hemoglobin A1c % Lactic Acid 1.9 Calcium 8.0 L Phosphorus Magnesium Total Bilirubin 2.0 H D Direct Bilirubin AST 18 D ALT 17 Alkaline Phosphatase 76 D Creatine Kinase Troponin I C-Reactive Protein Total Protein 6.4 Albumin 3.0 L Triglycerides Cholesterol Total LDL Cholesterol HDL Cholesterol Urine Color Urine Appearance Urine pH Ur Specific [place] Urine Protein Urine Glucose (UA) Urine Ketones Urine Blood Urine Nitrite Urine Bilirubin Urine Urobilinogen Ur Leukocyte Esterase Urine WBC (Auto) Urine RBC (Auto) Blood Type Antibody Screen 08/07/17 08/07/17 08/07/17 18:40 21:45 21:50 WBC RBC Hgb Hct MCV MCH MCHC RDW Plt Count MPV Neutrophils % Lymphocytes % Monocytes % Eosinophils % Basophils % ESR PT with INR INR PTT (Actin FS) VBG pH POC VBG pCO2 POC VBG pO2 Mixed VBG HCO3 Sodium Potassium Chloride Carbon Dioxide Anion Gap BUN Creatinine Creat Clearance w eGFR POC Glucometer [phone] Random Glucose Hemoglobin A1c % Lactic Acid 1.0 Calcium Phosphorus Magnesium Total Bilirubin Direct Bilirubin AST ALT Alkaline Phosphatase Creatine Kinase Troponin I C-Reactive Protein Total Protein Albumin Triglycerides Cholesterol Total LDL Cholesterol HDL Cholesterol Urine Color Yellow Urine Appearance Clear Urine pH 6.0 Ur Specific [place] 1.028 Urine Protein 1+ H Urine Glucose (UA) 3+ H Urine Ketones Negative Urine Blood Negative Urine Nitrite Negative Urine Bilirubin Negative Urine Urobilinogen Negative Ur Leukocyte Esterase Negative Urine WBC (Auto) 2 Urine RBC (Auto) 1 Blood Type Antibody Screen 08/07/17 08/07/17 08/07/17 21:50 21:50 21:50 WBC RBC Hgb Hct MCV MCH MCHC RDW Plt Count MPV Neutrophils % Lymphocytes % Monocytes % Eosinophils % Basophils % ESR 41 H PT with INR INR PTT (Actin FS) VBG pH POC VBG pCO2 POC VBG pO2 Mixed VBG HCO3 Sodium Potassium Chloride Carbon Dioxide Anion Gap BUN Creatinine Creat Clearance w eGFR POC Glucometer Random Glucose Hemoglobin A1c % 11.2 H Lactic Acid Calcium Phosphorus Magnesium Total Bilirubin Direct Bilirubin AST ALT Alkaline Phosphatase Creatine Kinase Troponin I C-Reactive Protein 6.4 H Total Protein Albumin Triglycerides Cholesterol Total LDL Cholesterol HDL Cholesterol Urine Color Urine Appearance Urine pH Ur Specific [place] Urine Protein Urine Glucose (UA) Urine Ketones Urine Blood Urine Nitrite Urine Bilirubin Urine Urobilinogen Ur Leukocyte Esterase Urine WBC (Auto) Urine RBC (Auto) Blood Type Antibody Screen 08/07/17 08/08/17 08/08/17 22:00 02:52 06:13 WBC RBC Hgb Hct MCV MCH MCHC RDW Plt Count MPV Neutrophils % Lymphocytes % Monocytes % Eosinophils % Basophils % ESR PT with INR INR PTT (Actin FS) VBG pH POC VBG pCO2 POC VBG pO2 Mixed VBG HCO3 Sodium Potassium Chloride Carbon Dioxide Anion Gap BUN Creatinine Creat Clearance w eGFR POC Glucometer 357 306 Random Glucose Hemoglobin A1c % Lactic Acid Calcium Phosphorus Magnesium Total Bilirubin Direct Bilirubin AST ALT Alkaline Phosphatase Creatine Kinase Troponin I 0.05 D C-Reactive Protein Total Protein Albumin Triglycerides Cholesterol Total LDL Cholesterol HDL Cholesterol Urine Color Urine Appearance Urine pH Ur Specific [place] Urine Protein Urine Glucose (UA) Urine Ketones Urine Blood Urine Nitrite Urine Bilirubin Urine Urobilinogen Ur Leukocyte Esterase Urine WBC (Auto) Urine RBC (Auto) Blood Type Antibody Screen 08/08/17 08/08/17 08/08/17 06:30 06:30 06:30 WBC RBC Hgb Hct MCV MCH MCHC RDW Plt Count MPV Neutrophils % Lymphocytes % Monocytes % Eosinophils % Basophils % ESR PT with INR INR PTT (Actin FS) VBG pH POC VBG pCO2 POC VBG pO2 Mixed VBG HCO3 Sodium 137 Potassium 3.1 L Chloride 101 Carbon Dioxide 29 Anion Gap 7 L BUN 13 Creatinine 1.1 Creat Clearance w eGFR > 60 POC Glucometer Random Glucose 283 H D Hemoglobin A1c % Lactic Acid Calcium 8.0 L Phosphorus 3.0 Magnesium 2.0 Total Bilirubin 2.0 H Direct Bilirubin AST 14 L D ALT 17 Alkaline Phosphatase 69 Creatine Kinase 56 Troponin I 0.06 H C-Reactive Protein Total Protein 6.2 L Albumin 2.9 L Triglycerides Cholesterol Total LDL Cholesterol HDL Cholesterol Urine Color Urine Appearance Urine pH Ur Specific [place] Urine Protein Urine Glucose (UA) Urine Ketones Urine Blood Urine Nitrite Urine Bilirubin Urine Urobilinogen Ur Leukocyte Esterase Urine WBC (Auto) Urine RBC (Auto) Blood Type B POSITIVE Antibody Screen Negative 08/08/17 08/08/17 07:15 07:15 WBC RBC Hgb Hct MCV MCH MCHC RDW Plt Count MPV Neutrophils % Lymphocytes % Monocytes % Eosinophils % Basophils % ESR PT with INR INR PTT (Actin FS) VBG pH POC VBG pCO2 POC VBG pO2 Mixed VBG HCO3 Sodium Potassium Chloride Carbon Dioxide Anion Gap BUN Creatinine Creat Clearance w eGFR POC Glucometer Random Glucose Hemoglobin A1c % Lactic Acid Calcium Phosphorus Magnesium Total Bilirubin Direct Bilirubin Cancelled AST ALT Alkaline Phosphatase Creatine Kinase Troponin I C-Reactive Protein Total Protein Albumin Triglycerides Cancelled Cholesterol Cancelled Total LDL Cholesterol Cancelled HDL Cholesterol Cancelled Urine Color Urine Appearance Urine pH Ur Specific [place] Urine Protein Urine Glucose (UA) Urine Ketones Urine Blood Urine Nitrite Urine Bilirubin Urine Urobilinogen Ur Leukocyte Esterase Urine WBC (Auto) Urine RBC (Auto) Blood Type Antibody Screen Active Medications Generic Name Dose Route Start Last Admin Trade Name Freq PRN Reason Stop Dose Admin Acetaminophen 650 mg 08/07/17 20:33 08/08/17 06:06 Tylenol - PO 650 mg Q6H PRN Administration FEVER Aspirin 81 mg 08/08/17 10:00 Ecotrin - PO DAILY TROY Clonidine 0.2 mg 08/07/17 22:00 08/08/17 06:06 Catapres - PO 0.2 mg TID TROY Administration Heparin Sodium (Porcine) 5,000 unit 08/08/17 06:00 08/08/17 06:07 Heparin - SQ 5,000 unit TID TROY Administration Hydrochlorothiazide 12.5 mg 08/08/17 10:00 Hctz - PO DAILY TROY Sodium Chloride 1,000 mls @ 50 mls/hr 08/07/17 21:30 08/07/17 23:17 Normal Saline - IV 08/08/17 21:21 50 mls/hr ASDIR TROY Administration Insulin Aspart 1 vial 08/07/17 22:00 08/08/17 06:15 Novolog Vial Sliding Scale - SQ 8 units ACHS TROY Administration Protocol Insulin Detemir 10 units 08/08/17 22:00 Levemir Vial SQ HS TROY Nystatin 500,000 units 08/08/17 00:00 08/08/17 06:14 Nystatin Oral Suspension - PO 500,000 units Q6HPO TROY Administration Micro pending Foot/toe XR R- 08/07 no abnormalities noted CXR 08/07 - cardiomegaly, perihilar fullness Bladder/renal U/s 08/07 - IMPRESSION: Markedly over distended urinary bladder without gross wall thickening. Bilateral ureteral jets were not visualized. Markedly enlarged prostate gland with a volume of 218 cc. Large amount of postvoid urine residue is equal to 1168 cc. Moderate bilateral renal hydronephrosis that may be due to over distended urinary bladder. R foot MRI 08/08 - pending ECHO 08/08 -RV/LR normal, mild AR LE duplex 08/07 - No dvts noted ASSESSMENT/PLAN: 56yo M with PMHx of uncontrolled DM who presents w/ R big toe drainage and fevers, found to have diabetic foot infection. ID, podiatry consulted. r/o osteomyelitis. # Diabetic Foot Infection - suspicion for osteomyelitis; elevated ESR 41 - empiric abx - vanc/zosyn per ID - ID consulted, following - Podiatry consulted, following - f/u all cultures -MRI of R foot pending -XR of R foot normal -HIV pending - bactroban # Uncontrolled NIDDM - A1C 11.2 - hold januvia - BGM, ISS -levemir 10u qhs - ASA # SOB - improved; likely secondary to volume overload - possibly secondary to CHF; no BNP sent - ECHO as above - O2 prn - CPAP at night - Lasix 40mg IV prn if sob # Diarrhea - last two days - f/u c diff studies - monitor # Chronic LE edema/statis dermatitis - hold norvasc - LE duplex neg, echo normal # GAETANO - resolved -c/w home arb # HTN c/w clonidine, hctz # Elevated Tbili -trend, no imaging at this time # Oral j carlos -- nystatin s+s # ANA MARÍA -c/w home CPAP PPX HSQ FEN NS 50cc/hr daily lytes diabetic diet # Dispo M/S Case d/w Dr. Blayne Wooten, PGY1 Visit type - Emergency Visit Emergency Visit: Yes ED Registration Date: 08/07/17 Care time: The patient presented to the Emergency Department on the above date and was hospitalized for further evaluation of their emergent condition. - New Patient This patient is new to me today: No - Critical Care Critical Care patient: No - Discharge Referral Referred to [facility] Med [facility] No
--- NOTE | 2017-08-08 09:35 | PN ---
Progress Note (short form) - Note Progress Note: ID Full note dictated Selected Entries 08/08/17 06:45 Temperature 101.7 F H Pulse Rate 70 Respiratory 20 Rate Blood Pressure 169/88 Toe right foot swollen abscess cellultitis Microbiology 07/31/17 03:05 Toe - Right Hallux Gram Stain - Final 07/31/17 03:05 Toe - Right Hallux Wound Culture - Final Strep Agalactiae Group B Enterococcus Faecalis Staphylococcus Coagulase Neg Laboratory Tests 08/07/17 08/07/17 08/07/17 17:20 21:50 21:50 WBC 5.7 Hgb 10.8 L Hct 31.2 L Plt Count 172 ESR 41 H BUN Creatinine ALT Alkaline Phosphatase Creatine Kinase C-Reactive Protein 6.4 H 08/08/17 08/08/17 06:30 06:30 WBC Hgb Hct Plt Count ESR BUN 13 Creatinine 1.1 ALT 17 Alkaline Phosphatase 69 Creatine Kinase 56 C-Reactive Protein Assessment Diabetic skin and soft tissue infection underlying abscess Rule out osteo Plan Vanco Zosyn MRI Surgical valuation for debridment drainage Marshall HAHN
--- NOTE | 2017-08-08 09:41 | PN ---
Problem List - Problems (1) Diabetic infection of right foot Code(s): E11.628 - TYPE 2 DIABETES MELLITUS WITH OTHER SKIN COMPLICATIONS; L08.9 - LOCAL INFECTION OF THE SKIN AND SUBCUTANEOUS TISSUE, UNSP (2) Diabetes Code(s): E11.9 - TYPE 2 DIABETES MELLITUS WITHOUT COMPLICATIONS
[2017-08-08] MEDS: VANCOMYCIN 2,000 MG in DEXTROSE 5%-WATER - 500 ML IVPB SCH ×2 (09:59→21:53)
[2017-08-08] MEDS ORDERED: VALSARTAN 160 MG TABLET (UD) PO SCH (10:00)
[2017-08-08] MEDS ORDERED: HYDROCHLOROTHIAZIDE 12.5 MG CAPSULE (FP) PO SCH (10:00)
[2017-08-08] MEDS ORDERED: PATIENT'S OWN MEDICATION (NON-FORMULARY) (Valsartan/Hydrochlorothiazide [Valsartan-Hctz 16 PO SCH (10:00)
[2017-08-08] MEDS ORDERED: amLODIPine BESYLATE 10 MG TABLET (FP) PO SCH (10:00)
[2017-08-08] MEDS ORDERED: PIPERACILLIN/TAZOBACTAM 4.5 GM VIAL IVPB ONE ×3 (10:02→22:11)
[2017-08-08] MEDS ORDERED: DEXTROSE 5%-WATER 100 ML IVPB ONE ×3 (10:02→22:11)
[2017-08-08] MEDS: PIPERACILLIN/TAZOB 4.5 GM 4.5 GM in DEXTROSE 5%-WATER 100 ML IVPB SCH ×2 (10:16→17:27)
[2017-08-08] MEDS: ASPIRIN COATED 81 MG TABLET.EC PO SCH (10:16)
--- NOTE | 2017-08-08 10:39 | CONS ---
INFECTIOUS DISEASE CONSULTATION DATE OF CONSULTATION: DATE OF DICTATION: 08/08/2017 This is a 56-year-old diabetic male with morbid obesity, who presents for evaluation of right great toe pain, drainage, and fevers. He notes trying to remove part of the nail over a week ago and had been seen in the emergency room within the last week and prescribed a combination of Bactrim and Keflex for cellulitis. His antibiotic was then apparently switched to amoxicillin. Because of fever, pain in the great toe, lightheadedness, and malaise, he came back to the emergency room where his temperature was noted to be 102.5. He was given a dose of vancomycin and Zosyn. He denies any shortness of breath, abdominal pain, or urinary complaints. He works as a undercar specialist in the [employer], lives alone, does not smoke, has no history of recent travel or HIV risk factors. He has no pets or other unusual hobbies. PAST MEDICAL HISTORY: Includes sleep apnea; diabetes, type 2; hypertension; left inguinal hernia repair; umbilical hernia repair. SOCIAL HISTORY: Nonsmoker, occasional alcohol. No drug use. HIV status unknown. ALLERGIES: QUINOLONES, reportedly with pain in the tendons of his feet. MEDICATIONS: Amlodipine, Januvia, amoxicillin, Atacand, clonidine, Lasix, glipizide, metformin, nebivolol, omeprazole. REVIEW OF SYSTEMS: Respiratory: No cough or shortness of breath. Cardiac: No chest pain, palpitations. Gastrointestinal: No abdominal pain, nausea, vomiting, diarrhea. Genitourinary: No dysuria, hematuria. PHYSICAL EXAMINATION: General: Revealed a morbidly obese male, weighing 318 pounds. Vital Signs: Temperature 101.7, respirations 20, blood pressure 170/88, pulse 70. Neck: Supple. Lungs: Clear P&A. Heart: S1, S2. Regular rhythm without audible murmur. Abdomen: Soft, nontender, without hepatosplenomegaly. Extremities: Bilateral edema noted in both legs with chronic venous stasis changes, some superficial necrotic ulcerations noted on both lower extremities. The right foot was more swollen, with swelling of the right toe. No active drainage noted. Some crusting around the base of the nailbed with dried blood. No actual open ulcers seen. LABORATORY DATA: The white count 5.7, hemoglobin 10.8, platelets 172. INR 1.45. BUN 13, creatinine 1.1. Lactic acid 1. Liver enzymes within normal limit. CRP of 6.4. Total protein 6.2. Urinalysis: WBCs 2, RBCs 1, protein 1+, glucose 3+. HIV test pending. X-ray of the toe shows no evidence of foreign body, soft tissue emphysema. No mention of bone destruction. ASSESSMENT: Suspect diabetic toe abscess with cellulitis. Patient with 102 fever, previously treated with p.o. antibiotics, Bactrim and Keflex, and then amoxicillin. Previous wound culture dated July 31 was streptococcus group B, Enterococcus faecalis, and staphylococcus, coagulase negative. PLAN: Blood and urine cultures sent. Empiric therapy with vancomycin and Zosyn. Surgical consultation for suspected need for incision and drainage of underlying abscess, plantar great toe. Podiatric consult with Dr. Skaggs has been requested. VERITO ADAME M.D. [id number]
--- NOTE | 2017-08-08 11:29 | EKG ---
Test Reason : Blood Pressure : / mmHG Vent. Rate : 069 BPM Atrial Rate : 069 BPM P-R Int : 174 ms QRS Dur : 116 ms QT Int : 386 ms P-R-T Axes : 006 -57 097 degrees QTc Int : 413 ms NORMAL SINUS RHYTHM LEFT AXIS DEVIATION T WAVE ABNORMALITY, CONSIDER LATERAL ISCHEMIA ABNORMAL ECG WHEN COMPARED WITH ECG OF 06-JUN-2017 00:45, T WAVE INVERSION LESS EVIDENT IN LATERAL LEADS Confirmed by THOMAS HAHN, VANDANA ([id number]) on 08/08/2017 11:29:24 AM Referred By: Confirmed By:VANDANA GUZMAN MD
[2017-08-08] MEDS ORDERED: INSULIN (NOVOLOG) ASPART 100 UNITS/ML 10ML VIAL ONE ×2 (12:02→21:38)
--- NOTE | 2017-08-08 12:14 | CONSULT ---
Consult - text type - Consultation Consultation Note: Podiatry Consultation: 56 year old poorly controlled diabetic M presents with R great toe ulcer and infection. Patient states that he had ingrown nail about 7-10 days ago that he treated himself. He noticed progressive pain/swelling and eventually redness which prompted ED visit. Patient presented to ED 07/31 for abx, did not note improvement. Most recent temp is 101.7 F, otherwise VSS. PMHx: DM, HTN, sleep apnea Meds: noted ALL: cipro, levaquin JOSE MIGUEL: R foot: pedal pulses palpable, TG wnl, CFT brisk to all toes. There is chronic swelling bilateral feet and lower extremities. There is a plantar great toe IPJ ulcer with mixed fibrogranular base, probes deep, no purulence, no fluctuance, no streaking cellulitis, no soft tissue crepitus. There is mild purulent drainge from the medial fold of the great toe nail. There are no ischemic changes. WBC: 5.7 ESR: 41 Wound Cx 07/31: strep, staph, enterococcus R foot Xr: no evidence of osteomyelitis, no foreign body Imp: 56 year old DM M with R great toe diabetic ulcer 1. IV abx 2. New wound culture obtained 3. Wound care Rx bactroban 4. F/u MRI 5. Will follow Uma Skaggs DPM
[2017-08-08] MEDS ORDERED: POTASSIUM CHLORIDE ORAL LIQUID 20 MEQ/15 ML PO ONE (13:58)
[2017-08-08 14:49] LABS: BILIRUBIN,DIRECT 0.5 mg/dL (0.0-0.2); CHOLESTEROL 123 mg/dL (50-200); HDL CHOLESTEROL 19 mg/dL (40-60); TRIGLYCERIDES 134 mg/dL (35-160)
--- NOTE | 2017-08-08 15:12 | MSN ---
Progress Note (short form) - Note Progress Note: CHIEF COMPLAINT: fever, malaise, diaphoresis, R toe infection HISTORY OF PRESENT ILLNESS Misha Torres is a 56 year old male with a significant past medical history of uncontrolled diabetes who was admitted to the hospital with a R great toe infection. The patient had used a tool in order to remove an ingrown toenail that was causing him pain and subsequently developed bleeding and drainage of the wound with clear/yellow fluid. The patient originally presented to the hospital several days prior to this admission and was sent out with antibiotics Bactrim/Keflex that was subsequently changed to amoxicillin per cultures. The day prior to admission, the patient developed a fever, diaphoresis, decreased PO intake, lightheadedness, malaise. The patient also endorsed diarrhea that was present for a couple of days after starting antibiotics. In the ED, it was noted that the patient's temperature was 102.5, but had no white count. Additionally, random glucose was 433. the patient was started on Vancomycin/ Zosyn, given fluids. He was noted to have crackles in his lungs and was a given a one time dose of Lasix IV 40mg. Since admission, there were no significant overnight events. Patient was seen and examined at the bedside. Patient stated that he continued to feel feverish, had chills, and was sweating profusely. Patient endorsed weakness and fatigue. Patient stated that he had some mild shortness of breath that was improved from the previous day. Patient denied chest pain, headaches, blurry vision, lightheadedness, abd pain, n/v/c/d. Family History: unremarkable Smoking: denies Alcohol: social Drugs: denies REVIEW OF SYSTEMS CONSTITUTIONAL: fever, chills, diaphoresis, generalized weakness Absent: malaise, loss of appetite, weight change HEENT: Absent: rhinorrhea, nasal congestion, throat pain, throat swelling, difficulty swallowing, mouth swelling, ear pain, eye pain, visual changes CARDIOVASCULAR: Absent: chest pain, syncope, palpitations, irregular heart rate, lightheadedness , peripheral edema RESPIRATORY: shortness of breath (mild) Absent: cough, dyspnea with exertion, orthopnea, wheezing, stridor, hemoptysis GASTROINTESTINAL: Absent: abdominal pain, abdominal distension, nausea, vomiting, diarrhea, constipation, melena, hematochezia GENITOURINARY: Absent: dysuria, frequency, urgency, hesitancy, hematuria, flank pain, genital pain MUSCULOSKELETAL: Absent: myalgia, arthralgia, joint swelling, back pain, neck pain SKIN: swelling of legs Absent: rash, itching, pallor HEMATOLOGIC/IMMUNOLOGIC: Absent: easy bleeding, easy bruising, lymphadenopathy, frequent infections ENDOCRINE: Absent: unexplained weight gain, unexplained weight loss, heat intolerance, cold intolerance NEUROLOGIC: Absent: headache, focal weakness or paresthesias, dizziness, unsteady gait, seizure, mental status changes, bladder or bowel incontinence PSYCHIATRIC: Absent: anxiety, depression, suicidal or homicidal ideation, hallucinations. PHYSICAL EXAMINATION: GENERAL: Awake, alert, and fully oriented, in mild distress. Obese middle aged male laying in bed. HEAD: Normal with no signs of trauma. Redness on the nasal bridge secondary to CPAP mask EYES: Pupils equal, round and reactive to light, extraocular movements intact, sclera anicteric, conjunctiva clear. No lid lag. EARS, NOSE, THROAT: Ears normal, nares patent, oropharynx contains scrapable white plaques. Moist mucous membranes. NECK: Normal range of motion, supple without lymphadenopathy, JVD, or masses. LUNGS: Breath sounds equal, clear to auscultation bilaterally. No wheezes, and no crackles. No accessory muscle use. HEART: Regular rate and rhythm, normal S1 and S2 without murmur, rub or gallop. ABDOMEN: Soft, nontender, obese, normoactive bowel sounds, no guarding, no rebound, no masses. No hepatomegaly or splenomegaly. MUSCULOSKELETAL: Normal range of motion at all joints. No bony deformities or tenderness. No CVA tenderness. UPPER EXTREMITIES: 2+ pulses, warm, well-perfused. No cyanosis. No clubbing. Cap refill <2 seconds. No peripheral edema LOWER EXTREMITIES: 2+ pulses, warm, well-perfused. No calf tenderness. 2+ peripheral edema bilaterally. NEUROLOGICAL: Cranial nerves II-XII intact. Normal speech. PSYCHIATRIC: Cooperative. Good eye contact. Appropriate mood and affect. SKIN: Warm, dry, normal turgor. On bilateral lower extremities, chronic venous stasis dermatitis noted. On R great toe, sloughing of skin present with dried blood and dried discharge from toe. Foul-smelling yellow discharge able to be expressed from toe with pressure. CBC, BMP 08/07/17 17:20 08/08/17 06:30 INR, PTT INR 1.45 (0.82-1.09) H D 08/07/17 17:20 CMP Sodium 137 mmol/L (136-145) 08/08/17 06:30 Potassium 3.1 mmol/L (3.5-5.1) L 08/08/17 06:30 Chloride 101 mmol/L (98-107) 08/08/17 06:30 Carbon Dioxide 29 mmol/L (21-32) 08/08/17 06:30 Anion Gap 7 (8-16) L 08/08/17 06:30 BUN 13 mg/dL (7-18) 08/08/17 06:30 Creatinine 1.1 mg/dL (0.7-1.3) 08/08/17 06:30 Creat Clearance w eGFR > 60 (>60) 08/08/17 06:30 POC Glucometer 301 UNITS (80-120) 08/08/17 12:00 Random Glucose 283 mg/dL (74-106) H D 08/08/17 06:30 Hemoglobin A1c % 11.2 % (4.8-6.0) H 08/07/17 21:50 Lactic Acid 1.0 mmol/L (0.0-2.0) 08/07/17 21:50 Calcium 8.0 mg/dL (8.5-10.1) L 08/08/17 06:30 Phosphorus 3.0 mg/dL (2.5-4.9) 08/08/17 06:30 Magnesium 2.0 mg/dL (1.8-2.4) 08/08/17 06:30 Total Bilirubin 2.0 mg/dL (0.2-1.0) H 08/08/17 06:30 Direct Bilirubin Cancelled 08/08/17 07:15 AST 14 U/L (15-37) L D 08/08/17 06:30 ALT 17 U/L (12-78) 08/08/17 06:30 Alkaline Phosphatase 69 U/L (45-117) 08/08/17 06:30 Creatine Kinase 56 IU/L (39-308) 08/08/17 06:30 Troponin I 0.06 ng/ml (0.00-0.05) H 08/08/17 06:30 C-Reactive Protein 6.4 MG/DL (0.00-0.3) H 08/07/17 21:50 Total Protein 6.2 g/dl (6.4-8.2) L 08/08/17 06:30 Albumin 2.9 g/dl (3.4-5.0) L 08/08/17 06:30 Active Medications Generic Name Dose Route Start Last Admin Trade Name Freq PRN Reason Stop Dose Admin Acetaminophen 650 mg 08/07/17 20:33 08/08/17 06:06 Tylenol - PO 650 mg Q6H PRN Administration FEVER Aspirin 81 mg 08/08/17 10:00 08/08/17 10:16 Ecotrin - PO 81 mg DAILY TROY Administration Clonidine 0.2 mg 08/07/17 22:00 08/08/17 14:31 Catapres - PO 0.2 mg TID TROY Administration Heparin Sodium (Porcine) 5,000 unit 08/08/17 06:00 08/08/17 14:31 Heparin - SQ 5,000 unit TID TROY Administration Hydrochlorothiazide 12.5 mg 08/08/17 10:00 08/08/17 10:16 Hctz - PO 12.5 mg DAILY TROY Administration Sodium Chloride 1,000 mls @ 50 mls/hr 08/07/17 21:30 08/07/17 23:17 Normal Saline - IV 08/08/17 21:21 50 mls/hr ASDIR TROY Administration Vancomycin HCl 2,000 mg/ 500 mls @ 250 mls/hr 08/08/17 10:00 08/08/17 09:59 Dextrose IVPB Not Given BID TROY Piperacillin Sod/Tazobactam 100 mls @ 200 mls/hr 08/08/17 10:00 08/08/17 10: 16 Sod 4.5 gm/ Dextrose IVPB 200 mls/hr Q8H-IV TROY Administration Insulin Aspart 1 vial 08/07/17 22:00 08/08/17 12:03 Novolog Vial Sliding Scale - SQ 8 units ACHS TROY Administration Protocol Insulin Detemir 10 units 08/08/17 22:00 Levemir Vial SQ HS TROY Mupirocin 1 applic 08/09/17 10:00 Bactroban 2% Ointment - TP DAILY TROY Nystatin 500,000 units 08/08/17 00:00 08/08/17 12:03 Nystatin Oral Suspension - PO 500,000 units Q6HPO TROY Administration IMAGING: FOOT X-RAY: Intact osseous structures, no evidence of foreign body. Soft tissue emphysematous changes CHEST X-RAY: enlarged heart, periphilar markings VENOUS DUPLEX: No evidence of DVT ECHOCARDIOGRAM: Left ventricular size and function within normal limits. Right ventricular size within normal limits. Mild aortic regurgitation BLADDER ULTRASOUND: Overdistended bladder, enlarged prostate, postvoid residual of 1168 cc, moderate bilateral renal hydronephrosis FOOT MRI: pending ASSESMENT/PLAN: Diabetic Foot Ulcer - Temp 101.7, no leukocytosis - CRP 6.4, ESR 41 - lactic 1.0 within normal limits - Vancomycin/Zosyn empirically - ID consulted, recs appreciated - Podiatry consulted, recs appreciated - Deep wound culture obtained, pending results - x-ray of foot within normal limits - MRI of foot obtained, results pending - Bactroban wound care Diabetes Mellitus - BGM - ISS - Levemir 10 units qhs - Ha1c 11.2 Shortness of breath - currently breathing well on room air - O2 as needed, continue to monitor - Echo within normal limits Diarrhea - no further episodes since admission - c diff toxin ordered Bilateral lower extremity swelling - venous duplex negative for DVT - Echo within normal limits - follow up outpatient for venous insufficiency HTN - continue home medications - hold home norvasc due to leg edema Oral candidiasis - nystatin - HIV test to rule out immunocompromised state Obstructive sleep apnea - continue CPAP F/E/N - gentle hydration of NS at 50 cc/hr - K 3.1, repleted, continue to monitor - replete as necessary - diabetic diet DVT PPx - heparin 5000 units subq tid Disposition - admitted to med-surg Problem List - Problems (1) Diabetic infection of right foot Code(s): E11.628 - TYPE 2 DIABETES MELLITUS WITH OTHER SKIN COMPLICATIONS; L08.9 - LOCAL INFECTION OF THE SKIN AND SUBCUTANEOUS TISSUE, UNSP (2) Hyperglycemia Code(s): R73.9 - HYPERGLYCEMIA, UNSPECIFIED (3) Cellulitis of toe of right foot Code(s): L03.031 - CELLULITIS OF RIGHT TOE (4) Diabetes Code(s): E11.9 - TYPE 2 DIABETES MELLITUS WITHOUT COMPLICATIONS
--- NOTE | 2017-08-08 18:53 | PN ---
Teaching Attending Note Name of Resident: Reed Wooten ATTENDING PHYSICIAN STATEMENT I saw and evaluated the patient. I reviewed the resident's note and discussed the case with the resident. I agree with the resident's findings and plan as documented. SUBJECTIVE: Patient denies SOB. He says right foot pain is better. OBJECTIVE: Vital Signs Period Temp Pulse Resp BP Sys/Olmedo Pulse Ox Last 24 Hr 98.0 F-101.7 F 53-78 18-20 119-175/69-102 95-99 HEART: S1S2, RRR LUNGS: Clear ABDOMEN: Obese, soft, non-tender, non-distended, normal BS EXTREMITIES: 1+ edema with chronic changes Laboratory Results - last 24 hr 08/07/17 08/07/17 08/07/17 06:30 17:19 17:20 WBC 4.8 5.7 RBC 3.94 L 3.89 L Hgb 10.8 L 10.8 L Hct 31.0 L 31.2 L MCV 78.7 L 80.1 MCH 27.5 27.8 MCHC 34.9 34.7 RDW 14.7 15.0 Plt Count 161 D 172 MPV 9.4 9.2 Neutrophils % 78.9 D Lymphocytes % 11.6 D Monocytes % 8.2 Eosinophils % 0.7 D Basophils % 0.6 ESR PT with INR INR PTT (Actin FS) VBG pH 7.48 H POC VBG pCO2 37.6 L POC VBG pO2 32.8 Mixed VBG HCO3 27.4 H Sodium Potassium Chloride Carbon Dioxide Anion Gap BUN Creatinine Creat Clearance w eGFR POC Glucometer Random Glucose Hemoglobin A1c % Lactic Acid Calcium Phosphorus Magnesium Total Bilirubin Direct Bilirubin AST ALT Alkaline Phosphatase Creatine Kinase Troponin I C-Reactive Protein Total Protein Albumin Triglycerides Cholesterol Total LDL Cholesterol HDL Cholesterol Urine Color Urine Appearance Urine pH Ur Specific Imperial Urine Protein Urine Glucose (UA) Urine Ketones Urine Blood Urine Nitrite Urine Bilirubin Urine Urobilinogen Ur Leukocyte Esterase Urine WBC (Auto) Urine RBC (Auto) Blood Type Antibody Screen 08/07/17 08/07/17 08/07/17 17:20 17:20 18:40 WBC RBC Hgb Hct MCV MCH MCHC RDW Plt Count MPV Neutrophils % Lymphocytes % Monocytes % Eosinophils % Basophils % ESR PT with INR 16.40 H INR 1.45 H D PTT (Actin FS) 22.1 L VBG pH POC VBG pCO2 POC VBG pO2 Mixed VBG HCO3 Sodium Potassium Chloride Carbon Dioxide Anion Gap BUN Creatinine Creat Clearance w eGFR POC Glucometer Random Glucose Hemoglobin A1c % Lactic Acid 1.9 Calcium Phosphorus Magnesium Total Bilirubin Direct Bilirubin AST ALT Alkaline Phosphatase Creatine Kinase Troponin I C-Reactive Protein Total Protein Albumin Triglycerides Cholesterol Total LDL Cholesterol HDL Cholesterol Urine Color Yellow Urine Appearance Clear Urine pH 6.0 Ur Specific Imperial 1.028 Urine Protein 1+ H Urine Glucose (UA) 3+ H Urine Ketones Negative Urine Blood Negative Urine Nitrite Negative Urine Bilirubin Negative Urine Urobilinogen Negative Ur Leukocyte Esterase Negative Urine WBC (Auto) 2 Urine RBC (Auto) 1 Blood Type Antibody Screen 08/07/17 08/07/17 08/07/17 21:45 21:50 21:50 WBC RBC Hgb Hct MCV MCH MCHC RDW Plt Count MPV Neutrophils % Lymphocytes % Monocytes % Eosinophils % Basophils % ESR PT with INR INR PTT (Actin FS) VBG pH POC VBG pCO2 POC VBG pO2 Mixed VBG HCO3 Sodium Potassium Chloride Carbon Dioxide Anion Gap BUN Creatinine Creat Clearance w eGFR POC Glucometer [phone] Random Glucose Hemoglobin A1c % Lactic Acid 1.0 Calcium Phosphorus Magnesium Total Bilirubin Direct Bilirubin AST ALT Alkaline Phosphatase Creatine Kinase Troponin I C-Reactive Protein 6.4 H Total Protein Albumin Triglycerides Cholesterol Total LDL Cholesterol HDL Cholesterol Urine Color Urine Appearance Urine pH Ur Specific Imperial Urine Protein Urine Glucose (UA) Urine Ketones Urine Blood Urine Nitrite Urine Bilirubin Urine Urobilinogen Ur Leukocyte Esterase Urine WBC (Auto) Urine RBC (Auto) Blood Type Antibody Screen 08/07/17 08/07/17 08/07/17 21:50 21:50 22:00 WBC RBC Hgb Hct MCV MCH MCHC RDW Plt Count MPV Neutrophils % Lymphocytes % Monocytes % Eosinophils % Basophils % ESR 41 H PT with INR INR PTT (Actin FS) VBG pH POC VBG pCO2 POC VBG pO2 Mixed VBG HCO3 Sodium Potassium Chloride Carbon Dioxide Anion Gap BUN Creatinine Creat Clearance w eGFR POC Glucometer Random Glucose Hemoglobin A1c % 11.2 H Lactic Acid Calcium Phosphorus Magnesium Total Bilirubin Direct Bilirubin AST ALT Alkaline Phosphatase Creatine Kinase Troponin I 0.05 D C-Reactive Protein Total Protein Albumin Triglycerides Cholesterol Total LDL Cholesterol HDL Cholesterol Urine Color Urine Appearance Urine pH Ur Specific [place] Urine Protein Urine Glucose (UA) Urine Ketones Urine Blood Urine Nitrite Urine Bilirubin Urine Urobilinogen Ur Leukocyte Esterase Urine WBC (Auto) Urine RBC (Auto) Blood Type Antibody Screen 08/08/17 08/08/17 08/08/17 02:52 06:13 06:30 WBC RBC Hgb Hct MCV MCH MCHC RDW Plt Count MPV Neutrophils % Lymphocytes % Monocytes % Eosinophils % Basophils % ESR PT with INR INR PTT (Actin FS) VBG pH POC VBG pCO2 POC VBG pO2 Mixed VBG HCO3 Sodium 137 Potassium 3.1 L Chloride 101 Carbon Dioxide 29 Anion Gap 7 L BUN 13 Creatinine 1.1 Creat Clearance w eGFR > 60 POC Glucometer 357 306 Random Glucose 283 H D Hemoglobin A1c % Lactic Acid Calcium 8.0 L Phosphorus 3.0 Magnesium 2.0 Total Bilirubin 2.0 H Direct Bilirubin 0.5 H AST 14 L D ALT 17 Alkaline Phosphatase 69 Creatine Kinase Troponin I C-Reactive Protein Total Protein 6.2 L Albumin 2.9 L Triglycerides 134 Cholesterol 123 Total LDL Cholesterol 99 HDL Cholesterol 19 L Urine Color Urine Appearance Urine pH Ur Specific [place] Urine Protein Urine Glucose (UA) Urine Ketones Urine Blood Urine Nitrite Urine Bilirubin Urine Urobilinogen Ur Leukocyte Esterase Urine WBC (Auto) Urine RBC (Auto) Blood Type Antibody Screen 08/08/17 08/08/17 08/08/17 06:30 06:30 07:15 WBC RBC Hgb Hct MCV MCH MCHC RDW Plt Count MPV Neutrophils % Lymphocytes % Monocytes % Eosinophils % Basophils % ESR PT with INR INR PTT (Actin FS) VBG pH POC VBG pCO2 POC VBG pO2 Mixed VBG HCO3 Sodium Potassium Chloride Carbon Dioxide Anion Gap BUN Creatinine Creat Clearance w eGFR POC Glucometer Random Glucose Hemoglobin A1c % Lactic Acid Calcium Phosphorus Magnesium Total Bilirubin Direct Bilirubin Cancelled AST ALT Alkaline Phosphatase Creatine Kinase 56 Troponin I 0.06 H C-Reactive Protein Total Protein Albumin Triglycerides Cholesterol Total LDL Cholesterol HDL Cholesterol Urine Color Urine Appearance Urine pH Ur Specific [place] Urine Protein Urine Glucose (UA) Urine Ketones Urine Blood Urine Nitrite Urine Bilirubin Urine Urobilinogen Ur Leukocyte Esterase Urine WBC (Auto) Urine RBC (Auto) Blood Type B POSITIVE Antibody Screen Negative 08/08/17 08/08/17 08/08/17 07:15 12:00 17:19 WBC RBC Hgb Hct MCV MCH MCHC RDW Plt Count MPV Neutrophils % Lymphocytes % Monocytes % Eosinophils % Basophils % ESR PT with INR INR PTT (Actin FS) VBG pH POC VBG pCO2 POC VBG pO2 Mixed VBG HCO3 Sodium Potassium Chloride Carbon Dioxide Anion Gap BUN Creatinine Creat Clearance w eGFR POC Glucometer 301 232 Random Glucose Hemoglobin A1c % Lactic Acid Calcium Phosphorus Magnesium Total Bilirubin Direct Bilirubin AST ALT Alkaline Phosphatase Creatine Kinase Troponin I C-Reactive Protein Total Protein Albumin Triglycerides Cancelled Cholesterol Cancelled Total LDL Cholesterol Cancelled HDL Cholesterol Cancelled Urine Color Urine Appearance Urine pH Ur Specific [place] Urine Protein Urine Glucose (UA) Urine Ketones Urine Blood Urine Nitrite Urine Bilirubin Urine Urobilinogen Ur Leukocyte Esterase Urine WBC (Auto) Urine RBC (Auto) Blood Type Antibody Screen Current Medications Generic Name Dose Route Start Last Admin Trade Name Freq PRN Reason Stop Dose Admin Acetaminophen 650 mg 08/07/17 20:33 08/08/17 18:26 Tylenol - PO 650 mg Q6H PRN Administration FEVER Aspirin 81 mg 08/08/17 10:00 08/08/17 10:16 Ecotrin - PO 81 mg DAILY TROY Administration Clonidine 0.4 mg 08/08/17 22:00 Catapres - PO TID TROY Heparin Sodium (Porcine) 5,000 unit 08/08/17 06:00 08/08/17 14:31 Heparin - SQ 5,000 unit TID TROY Administration Sodium Chloride 1,000 mls @ 50 mls/hr 08/07/17 21:30 08/07/17 23:17 Normal Saline - IV 08/08/17 21:21 50 mls/hr ASDIR TROY Administration Vancomycin HCl 2,000 mg/ 500 mls @ 250 mls/hr 08/08/17 10:00 08/08/17 09:59 Dextrose IVPB Not Given BID TROY Piperacillin Sod/Tazobactam 100 mls @ 200 mls/hr 08/08/17 10:00 08/08/17 17: 27 Sod 4.5 gm/ Dextrose IVPB 200 mls/hr Q8H-IV TROY Administration Insulin Aspart 1 vial 08/07/17 22:00 08/08/17 17:27 Novolog Vial Sliding Scale - SQ 4 units ACHS TROY Administration Protocol Insulin Detemir 10 units 08/08/17 22:00 Levemir Vial SQ HS TROY Mupirocin 1 applic 08/09/17 10:00 Bactroban 2% Ointment - TP DAILY [facility] Nystatin 500,000 units 08/08/17 00:00 08/08/17 17:27 Nystatin Oral Suspension - PO 500,000 units Q6HPO TROY Administration Tamsulosin HCl 0.4 mg 08/09/17 08:30 Flomax - PO 0830 [facility] ASSESSMENT AND PLAN: This is a 56 year old man with a history of type 2 DM, HTN, BPH who presented to the ED with fever and drainage from an ulcer on his right 1st toe. 1. Infected ulcer of right 1st toe with cellulitis and osteomyelitis - Podiatry input appreciated - Follow-up wound culture - Continue Zosyn, Vancomycin - Wound care - MRI shows bone marrow edema of right 1st distal phalanx 2. Type 2 DM, uncontrolled - HgbA1c 11.2 - Januvia held - Start Levemir - Continue Novolog sliding scale 3. Possible acute diastolic heart failure - SOB improved with Lasix IV - Echo shows normal LV, normal RV, mild AR 4. Chronic venous insufficiency of both legs 5. HTN - Continue Clonidine 6. Indirect hyperbilirubinemia 7. Pseudohyponatremia secondary to hyperglycemia 8. Hypokalemia - Replete potassium 9. Oral candidiasis - Continue Nystatin swish and swallow 10. ANA MARÍA - Continue CPAP at night 11. BPH with bladder outlet obstruction, urinary retention, bilateral hydronephrosis - Restart Flomax - Monitor urine output, bladder distention - may need Davis
[2017-08-08] MEDS: INSULIN (LEVEMIR) 100 UNITS/ML UNITS SQ SCH (22:27)
[2017-08-09] MEDS: PIPERACILLIN/TAZOB 4.5 GM 4.5 GM in DEXTROSE 5%-WATER 100 ML IVPB SCH ×3 (02:00→17:16)
[2017-08-09] MEDS: INSULIN SLIDING SCALE (NOVOLOG) 1 VIAL SQ SCH ×4 (06:39→21:12)
[2017-08-09] MEDS: HEPARIN NA (PORCINE) 5,000 UNITS/ML 1ML VIAL SQ SCH ×3 (06:39→21:12)
[2017-08-09] MEDS: cloNIDine HCL 0.1 MG TABLET PO SCH ×3 (06:39→21:12)
[2017-08-09] MEDS: NYSTATIN 500,000 UNITS/5 ML SUSPENSION PO SCH ×5 (06:39→22:59)
--- NOTE | 2017-08-09 06:40 | PN ---
Physical Exam: SUBJECTIVE: Patient seen and examined - temp 101.1 overnight; chester to 53, BP up to 175 systolic overnight; pt complaining of fever/chills overnight, given tylenol with good relief; No BM since admission; No further episodes of SOB or dyspnea; denies n/v/d, PHILLIP, cp, cough, ab pain, back pain; still with LE edema; R medial base of 1st hallux with trace purulent drainage, no erythema or edema, nonpainful to palpation OBJECTIVE: Vital Signs Intake & Output 08/06/17 08/07/17 08/08/17 08/09/17 23:59 23:59 23:59 23:59 Intake Total 800 2200 Output Total 400 300 Balance 400 1900 Weight 127.006 kg 144.356 kg Period Temp Pulse Resp BP Sys/Olmedo Pulse Ox Last 24 Hr 98.2 F-101.7 F 53-71 18-20 125-175/75-102 96-96 GENERAL: Obese man, NAD, on CPAP HEAD: NCAT EYES: PERRL, extraocular movements intact, sclera anicteric, conjunctiva clear. No ptosis. ENT: Ears normal, nares patent, oropharynx clear without exudates, moist mucous membranes. NECK: Trachea midline, full range of motion, supple. LUNGS: CTABL, good air entry, no crackles/rhonchi/wheezing HEART: Regular rate and rhythm, S1, S2 without murmur, rub or gallop. ABDOMEN: Globular, Soft, nontender, normoactive bowel sounds, no guarding, no rebound, no hepatosplenomegaly, no masses. EXTREMITIES: 2+ pulses, warm, well-perfused, 2+ LE non-pitting edema, BL stasis dermatitis. 1st R MTP joint w/ exposed lesion with purulent drainage, minimal erythema/edema; Preserved sensation and motor function in all extremities. 1+ pulses DP/PT BL in LEs. NEUROLOGICAL: Cranial nerves II through XII grossly intact. Normal speech, gait not observed. PSYCH: Normal mood, normal affect. SKIN: Warm, dry, normal turgor, no rashes or lesions noted Laboratory Results - last 24 hr CBC, BMP 08/09/17 05:35 08/09/17 05:35 08/07/17 17:20 08/08/17 06:30 08/07/17 08/07/17 08/07/17 06:30 17:20 21:50 WBC 4.8 5.7 RBC 3.94 L 3.89 L Hgb 10.8 L 10.8 L Hct 31.0 L 31.2 L MCV 78.7 L 80.1 MCH 27.5 27.8 MCHC 34.9 34.7 RDW 14.7 15.0 Plt Count 161 D 172 MPV 9.4 9.2 Neutrophils % 78.9 D Lymphocytes % 11.6 D Monocytes % 8.2 Eosinophils % 0.7 D Basophils % 0.6 Sodium Potassium Chloride Carbon Dioxide Anion Gap BUN Creatinine Creat Clearance w eGFR POC Glucometer Random Glucose Hemoglobin A1c % 11.2 H Calcium Phosphorus Magnesium Total Bilirubin Direct Bilirubin AST ALT Alkaline Phosphatase Creatine Kinase Troponin I Total Protein Albumin Triglycerides Cholesterol Total LDL Cholesterol HDL Cholesterol Ur Random Sodium Ur Random Potassium Ur Random Chloride Ur Random Urea Nitrogn Urine Creatinine HIV 1&2 Ag/Ab, 4th Gen Blood Type Antibody Screen 08/07/17 08/08/17 08/08/17 22:00 06:13 06:30 WBC RBC Hgb Hct MCV MCH MCHC RDW Plt Count MPV Neutrophils % Lymphocytes % Monocytes % Eosinophils % Basophils % Sodium 137 Potassium 3.1 L Chloride 101 Carbon Dioxide 29 Anion Gap 7 L BUN 13 Creatinine 1.1 Creat Clearance w eGFR > 60 POC Glucometer 306 Random Glucose 283 H D Hemoglobin A1c % Calcium 8.0 L Phosphorus 3.0 Magnesium 2.0 Total Bilirubin 2.0 H Direct Bilirubin 0.5 H AST 14 L D ALT 17 Alkaline Phosphatase 69 Creatine Kinase Troponin I Total Protein 6.2 L Albumin 2.9 L Triglycerides 134 Cholesterol 123 Total LDL Cholesterol 99 HDL Cholesterol 19 L Ur Random Sodium Ur Random Potassium Ur Random Chloride Ur Random Urea Nitrogn Urine Creatinine HIV 1&2 Ag/Ab, 4th Gen Non reactive Blood Type Antibody Screen 08/08/17 08/08/17 08/08/17 06:30 06:30 07:15 WBC RBC Hgb Hct MCV MCH MCHC RDW Plt Count MPV Neutrophils % Lymphocytes % Monocytes % Eosinophils % Basophils % Sodium Potassium Chloride Carbon Dioxide Anion Gap BUN Creatinine Creat Clearance w eGFR POC Glucometer Random Glucose Hemoglobin A1c % Calcium Phosphorus Magnesium Total Bilirubin Direct Bilirubin Cancelled AST ALT Alkaline Phosphatase Creatine Kinase 56 Troponin I 0.06 H Total Protein Albumin Triglycerides Cholesterol Total LDL Cholesterol HDL Cholesterol Ur Random Sodium Ur Random Potassium Ur Random Chloride Ur Random Urea Nitrogn Urine Creatinine HIV 1&2 Ag/Ab, 4th Gen Blood Type B POSITIVE Antibody Screen Negative 08/08/17 08/08/17 08/08/17 07:15 12:00 17:19 WBC RBC Hgb Hct MCV MCH MCHC RDW Plt Count MPV Neutrophils % Lymphocytes % Monocytes % Eosinophils % Basophils % Sodium Potassium Chloride Carbon Dioxide Anion Gap BUN Creatinine Creat Clearance w eGFR POC Glucometer 301 232 Random Glucose Hemoglobin A1c % Calcium Phosphorus Magnesium Total Bilirubin Direct Bilirubin AST ALT Alkaline Phosphatase Creatine Kinase Troponin I Total Protein Albumin Triglycerides Cancelled Cholesterol Cancelled Total LDL Cholesterol Cancelled HDL Cholesterol Cancelled Ur Random Sodium Ur Random Potassium Ur Random Chloride Ur Random Urea Nitrogn Urine Creatinine HIV 1&2 Ag/Ab, 4th Gen Blood Type Antibody Screen 08/08/17 08/08/17 08/08/17 18:15 18:15 18:15 WBC RBC Hgb Hct MCV MCH MCHC RDW Plt Count MPV Neutrophils % Lymphocytes % Monocytes % Eosinophils % Basophils % Sodium Potassium Chloride Carbon Dioxide Anion Gap BUN Creatinine Creat Clearance w eGFR POC Glucometer Random Glucose Hemoglobin A1c % Calcium Phosphorus Magnesium Total Bilirubin Direct Bilirubin AST ALT Alkaline Phosphatase Creatine Kinase Troponin I Total Protein Albumin Triglycerides Cholesterol Total LDL Cholesterol HDL Cholesterol Ur Random Sodium 64 Ur Random Potassium 36.8 Ur Random Chloride 86 Ur Random Urea Nitrogn 552 Urine Creatinine 104.0 HIV 1&2 Ag/Ab, 4th Gen Blood Type Antibody Screen 08/08/17 22:25 WBC RBC Hgb Hct MCV MCH MCHC RDW Plt Count MPV Neutrophils % Lymphocytes % Monocytes % Eosinophils % Basophils % Sodium Potassium Chloride Carbon Dioxide Anion Gap BUN Creatinine Creat Clearance w eGFR POC Glucometer 263 Random Glucose Hemoglobin A1c % Calcium Phosphorus Magnesium Total Bilirubin Direct Bilirubin AST ALT Alkaline Phosphatase Creatine Kinase Troponin I Total Protein Albumin Triglycerides Cholesterol Total LDL Cholesterol HDL Cholesterol Ur Random Sodium Ur Random Potassium Ur Random Chloride Ur Random Urea Nitrogn Urine Creatinine HIV 1&2 Ag/Ab, 4th Gen Blood Type Antibody Screen Active Medications Generic Name Dose Route Start Last Admin Trade Name Freq PRN Reason Stop Dose Admin Acetaminophen 650 mg 08/07/17 20:33 08/08/17 18:26 Tylenol - PO 650 mg Q6H PRN Administration FEVER Aspirin 81 mg 08/08/17 10:00 08/08/17 10:16 Ecotrin - PO 81 mg DAILY TROY Administration Clonidine 0.4 mg 08/08/17 22:00 08/08/17 21:52 Catapres - PO 0.4 mg TID TROY Administration Heparin Sodium (Porcine) 5,000 unit 08/08/17 06:00 08/08/17 21:52 Heparin - SQ 5,000 unit TID TROY Administration Vancomycin HCl 2,000 mg/ 500 mls @ 250 mls/hr 08/08/17 10:00 08/08/17 21:53 Dextrose IVPB 250 mls/hr BID TROY Administration Piperacillin Sod/Tazobactam 100 mls @ 200 mls/hr 08/08/17 10:00 08/09/17 02: 00 Sod 4.5 gm/ Dextrose IVPB 200 mls/hr Q8H-IV TROY Administration Insulin Aspart 1 vial 08/07/17 22:00 08/08/17 22:27 Novolog Vial Sliding Scale - SQ 6 units ACHS TROY Administration Protocol Insulin Detemir 10 units 08/08/17 22:00 08/08/17 22:27 Levemir Vial SQ 10 units HS TROY Administration Mupirocin 1 applic 08/09/17 10:00 Bactroban 2% Ointment - TP DAILY [facility] Nystatin 500,000 units 08/08/17 00:00 08/09/17 00:00 Nystatin Oral Suspension - PO 500,000 units Q6HPO TROY Administration Tamsulosin HCl 0.4 mg 08/09/17 08:30 Flomax - PO 0830 [facility] Microbiology 08/07/17 17:28 Blood - Peripheral Venous Blood Culture - Preliminary NO GROWTH OBTAINED AFTER 24 HOURS, INCUBATION TO CONTINUE FOR 4 DAYS. 08/07/17 17:20 Blood - Peripheral Venous Blood Culture - Preliminary NO GROWTH OBTAINED AFTER 24 HOURS, INCUBATION TO CONTINUE FOR 4 DAYS. 08/08/17 12:15 Toe - Right Hallux Gram Stain - Final Foot/toe XR R- 08/07 no abnormalities noted CXR 08/07 - cardiomegaly, perihilar fullness Bladder/renal U/s 08/07 - IMPRESSION: Markedly over distended urinary bladder without gross wall thickening. Bilateral ureteral jets were not visualized. Markedly enlarged prostate gland with a volume of 218 cc. Large amount of postvoid urine residue is equal to 1168 cc. Moderate bilateral renal hydronephrosis that may be due to over distended urinary bladder. R foot MRI 08/08 - Impression: Edema bone long distal phalanx of the great toe compatible with early osteomyelitis. Perifocal extensive soft tissue swelling compatible with cellulitis with small ulceration. Flexor and model photographers' tendons unremarkable. ECHO 5/3 -RV/LR normal, mild AR LE duplex 5/2 - No dvts noted ASSESSMENT/PLAN: 56yo M with PMHx of uncontrolled DM who presents w/ R big toe drainage and fevers, found to have diabetic foot infection. ID, podiatry consulted. r/o osteomyelitis. # Diabetic Foot Infection - Imaging confirmed osteomyelitis; elevated ESR 41 - empiric abx - vanc/zosyn per ID, day 2 - ID consulted, following - Podiatry consulted, following -wound cultures + for group D strep species -HIV negative - bactroban - will f/u podiatry/ID recommendations for further management # Uncontrolled NIDDM - A1C 11.2 - hold januvia - BGM, ISS -levemir 10u qhs - ASA # SOB - no respiratory symptoms; likely secondary to volume overload - ECHO as above - O2 prn - CPAP at night - Lasix 40mg IV prn if sob # Diarrhea - - f/u c diff studies - monitor # Chronic LE edema/statis dermatitis - hold norvasc - LE duplex neg, echo normal # HTN -c/w clonidine; holding HCTZ/ ARB # Elevated Tbili - 2 -> 1.8 -trend, no imaging at this time # Oral j carlos -- nystatin s+s # ANA MARÍA -c/w home CPAP PPX HSQ FEN PO hydration daily lytes diabetic diet # Dispo M/S Discussed with Dr. Myles Wooten, PGY1 Visit type - Emergency Visit Emergency Visit: Yes ED Registration Date: 08/07/17 Care time: The patient presented to the Emergency Department on the above date and was hospitalized for further evaluation of their emergent condition. - New Patient This patient is new to me today: No - Critical Care Critical Care patient: No - Discharge Referral Referred to [facility] Med P.C.: No
[2017-08-09] MEDS ORDERED: INSULIN (NOVOLOG) ASPART 100 UNITS/ML 10ML VIAL ONE ×3 (06:54→21:06)
[2017-08-09] MEDS ORDERED: INSULIN (LEVEMIR) 100 UNITS/ML UNITS SQ ONE (06:55)
[2017-08-09 07:24] LABS: EOS % 6.9 % (0-4.5); HEMOGLOBIN 10.6 GM/dL (11.7-16.9); LYMPH % 21.1 % (8-40); MCH 27.7 pg (25.7-33.7); MCHC 35.5 g/dl (32.0-35.9); MEAN CELL VOLUME 77.9 fl (80-96); MEAN PLT VOLUME 9.3 fl (7.5-11.1); MONO % 12.6 % (3.8-10.2); NEUT % 58.4 % (42.8-82.8); PLATELET COUNT 161 K/MM3 (134-434); RBC 3.84 M/mm3 (4.00-5.60); RDW 14.8 % (11.9-15.9); WHITE BLOOD COUNT 3.9 K/mm3 (4.0-10.0)
[2017-08-09 07:40] LABS: CHLORIDE 99 mmol/L (98-107); POTASSIUM 3.1 mmol/L (3.5-5.1); SODIUM 136 mmol/L (136-145)
[2017-08-09 07:52] LABS: ALBUMIN 2.6 g/dl (3.4-5.0); ALK PHOS 73 U/L (45-117); ANION GAP 9 (8-16); BILIRUBIN,TOTAL 1.8 mg/dL (0.2-1.0); BLOOD UREA NITROGEN 13 mg/dL (7-18); CALCIUM 7.9 mg/dL (8.5-10.1); CO2 28 mmol/L (21-32); CREATININE 0.9 mg/dL (0.7-1.3); GLUCOSE,RANDOM 240 mg/dL (74-106); SGOT/AST 14 U/L (15-37); SGPT/ALT 16 U/L (12-78); TOT PROT 5.8 g/dl (6.4-8.2)
--- NOTE | 2017-08-09 08:34 | MSN ---
Progress Note (short form) - Note Progress Note: CHIEF COMPLAINT: fever, malaise, diaphoresis, R toe infection HISTORY OF PRESENT ILLNESS Overnight, patient did have a fever of 101.1 and complained of diaphoresis but stated that he slept for a couple of hours overall. Patient was seen and examined at the bedside. Patient stated that he continued to feel warm, sweaty, and had generalized weakness but stated it was improved from yesterday. Patient endorsed that his lower extremities were still swollen. Patient stated he was nervous about his current condition. Patient denied any further episodes of diarrhea. Patient denied chest pain, shortness of breath, headaches, dizziness, lightheadedness, abd pain, lower extremity pain, n/v/c/d. Smoking: denies Alcohol: social Drugs: denies REVIEW OF SYSTEMS CONSTITUTIONAL: fever, chills, diaphoresis, generalized weakness Absent: malaise, loss of appetite, weight change HEENT: Absent: rhinorrhea, nasal congestion, throat pain, throat swelling, difficulty swallowing, mouth swelling, ear pain, eye pain, visual changes CARDIOVASCULAR: Absent: chest pain, syncope, palpitations, irregular heart rate, lightheadedness , peripheral edema RESPIRATORY: Absent: cough, shortness of breath, dyspnea with exertion, orthopnea, wheezing, stridor, hemoptysis GASTROINTESTINAL: Absent: abdominal pain, abdominal distension, nausea, vomiting, diarrhea, constipation, melena, hematochezia GENITOURINARY: Absent: dysuria, frequency, urgency, hesitancy, hematuria, flank pain, genital pain MUSCULOSKELETAL: Absent: myalgia, arthralgia, joint swelling, back pain, neck pain SKIN: swelling of legs Absent: rash, itching, pallor HEMATOLOGIC/IMMUNOLOGIC: Absent: easy bleeding, easy bruising, lymphadenopathy, frequent infections ENDOCRINE: Absent: unexplained weight gain, unexplained weight loss, heat intolerance, cold intolerance NEUROLOGIC: Absent: headache, focal weakness or paresthesias, dizziness, unsteady gait, seizure, mental status changes, bladder or bowel incontinence PSYCHIATRIC: Absent: anxiety, depression, suicidal or homicidal ideation, hallucinations. PHYSICAL EXAMINATION: GENERAL: Awake, alert, and fully oriented, in mild distress. Obese middle aged male laying in bed. HEAD: Normal with no signs of trauma. Redness on the nasal bridge secondary to CPAP mask covered by adhesive bandage EYES: Pupils equal, round and reactive to light, extraocular movements intact, sclera anicteric, conjunctiva clear. No lid lag. EARS, NOSE, THROAT: Ears normal, nares patent, oropharynx contains scrapable white plaques. Moist mucous membranes. NECK: Normal range of motion, supple without lymphadenopathy, JVD, or masses. LUNGS: Breath sounds equal, clear to auscultation bilaterally. No wheezes, and no crackles. No accessory muscle use. HEART: Regular rate and rhythm, normal S1 and S2 without murmur, rub or gallop. ABDOMEN: Soft, nontender, obese, normoactive bowel sounds, no guarding, no rebound, no masses. No hepatomegaly or splenomegaly. MUSCULOSKELETAL: Normal range of motion at all joints. No bony deformities or tenderness. No CVA tenderness. UPPER EXTREMITIES: 2+ pulses, warm, well-perfused. No cyanosis. No clubbing. Cap refill <2 seconds. No peripheral edema LOWER EXTREMITIES: 2+ pulses, warm, well-perfused. No calf tenderness. 2+ peripheral edema bilaterally. NEUROLOGICAL: Cranial nerves II-XII intact. Normal speech. PSYCHIATRIC: Cooperative. Good eye contact. Appropriate mood and affect. SKIN: Warm, dry, normal turgor. On bilateral lower extremities, chronic venous stasis dermatitis noted. On R great toe, sloughing of skin present with dried blood and dried discharge from toe. Ulcerated wound present on medial side of R great toe with slough present and purulent drainage. Non-painful to palpation. CBC, BMP 08/09/17 05:35 08/09/17 05:35 CMP Sodium 136 mmol/L (136-145) 08/09/17 05:35 Potassium 3.1 mmol/L (3.5-5.1) L 08/09/17 05:35 Chloride 99 mmol/L (98-107) 08/09/17 05:35 Carbon Dioxide 28 mmol/L (21-32) 08/09/17 05:35 Anion Gap 9 (8-16) 08/09/17 05:35 BUN 13 mg/dL (7-18) 08/09/17 05:35 Creatinine 0.9 mg/dL (0.7-1.3) 08/09/17 05:35 Creat Clearance w eGFR > 60 (>60) 08/09/17 05:35 POC Glucometer 258 UNITS (80-120) 08/09/17 06:30 Random Glucose 240 mg/dL (74-106) H 08/09/17 05:35 Hemoglobin A1c % 11.2 % (4.8-6.0) H 08/07/17 21:50 Lactic Acid 1.0 mmol/L (0.0-2.0) 08/07/17 21:50 Calcium 7.9 mg/dL (8.5-10.1) L 08/09/17 05:35 Phosphorus 3.0 mg/dL (2.5-4.9) 08/08/17 06:30 Magnesium 2.0 mg/dL (1.8-2.4) 08/08/17 06:30 Total Bilirubin 1.8 mg/dL (0.2-1.0) H 08/09/17 05:35 Direct Bilirubin Cancelled 08/08/17 07:15 AST 14 U/L (15-37) L 08/09/17 05:35 ALT 16 U/L (12-78) 08/09/17 05:35 Alkaline Phosphatase 73 U/L (45-117) 08/09/17 05:35 Creatine Kinase 56 IU/L (39-308) 08/08/17 06:30 Troponin I 0.06 ng/ml (0.00-0.05) H 08/08/17 06:30 C-Reactive Protein 6.4 MG/DL (0.00-0.3) H 08/07/17 21:50 Total Protein 5.8 g/dl (6.4-8.2) L 08/09/17 05:35 Albumin 2.6 g/dl (3.4-5.0) L 08/09/17 05:35 Current Medications Generic Name Dose Route Start Last Admin Trade Name Freq PRN Reason Stop Dose Admin Acetaminophen 650 mg 08/07/17 20:33 08/08/17 18:26 Tylenol - PO 650 mg Q6H PRN Administration FEVER Aspirin 81 mg 08/08/17 10:00 08/08/17 10:16 Ecotrin - PO 81 mg DAILY TROY Administration Clonidine 0.4 mg 08/08/17 22:00 08/09/17 06:39 Catapres - PO 0.4 mg TID TROY Administration Heparin Sodium (Porcine) 5,000 unit 08/08/17 06:00 08/09/17 06:39 Heparin - SQ 5,000 unit TID TROY Administration Vancomycin HCl 2,000 mg/ 500 mls @ 250 mls/hr 08/08/17 10:00 08/08/17 21:53 Dextrose IVPB 250 mls/hr BID TROY Administration Piperacillin Sod/Tazobactam 100 mls @ 200 mls/hr 08/08/17 10:00 08/09/17 02: 00 Sod 4.5 gm/ Dextrose IVPB 200 mls/hr Q8H-IV TROY Administration Insulin Aspart 1 vial 08/07/17 22:00 08/09/17 06:39 Novolog Vial Sliding Scale - SQ 6 units ACHS TROY Administration Protocol Insulin Detemir 10 units 08/08/17 22:00 08/08/17 22:27 Levemir Vial SQ 10 units HS TROY Administration Mupirocin 1 applic 08/09/17 10:00 Bactroban 2% Ointment - TP DAILY [facility] Nystatin 500,000 units 08/08/17 00:00 08/09/17 06:39 Nystatin Oral Suspension - PO 500,000 units Q6HPO TROY Administration Tamsulosin HCl 0.4 mg 08/09/17 08:30 Flomax - PO 0830 [facility] IM[facility]: FOOT X-RAY: Intact osseous structures, no evidence of foreign body. Soft tissue emphysematous changes CHEST X-RAY: enlarged heart, periphilar markings VENOUS DUPLEX: No evidence of DVT ECHOCARDIOGRAM: Left ventricular size and function within normal limits. Right ventricular size within normal limits. Mild aortic regurgitation BLADDER ULTRASOUND: Overdistended bladder, enlarged prostate, postvoid residual of 1168 cc, moderate bilateral renal hydronephrosis FOOT MRI: edema compatible with early osteomyelitis, perifocal soft tissue swelling compatible with cellulitis ASSESMENT/PLAN: Diabetic Foot Ulcer - Temp 101.1, no leukocytosis - CRP 6.4, ESR 41 - lactic 1.0 within normal limits - Vancomycin/Zosyn empirically - ID consulted, recs appreciated - Podiatry consulted, recs appreciated - Deep wound culture obtained, pending results - x-ray of foot within normal limits - MRI of foot obtained showing compatibility with early osteomyelitis - cultures growing Group D strep/enterococcus - Bactroban wound care Diabetes Mellitus - BGM - ISS - Levemir 10 units qhs - Ha1c 11.2 Shortness of breath - currently breathing well on room air - O2 as needed, continue to monitor - Echo within normal limits Diarrhea - no further episodes since admission - c diff toxin ordered Bilateral lower extremity swelling - venous duplex negative for DVT - Echo within normal limits - follow up outpatient for venous insufficiency HTN - continue home medications - hold home norvasc due to leg edema Oral candidiasis - nystatin - HIV test to rule out immunocompromised state Obstructive sleep apnea - continue CPAP F/E/N - gentle hydration of NS at 50 cc/hr - K 3.1, repleted, continue to monitor - replete as necessary - diabetic diet DVT PPx - heparin 5000 units subq tid Disposition - admitted to med-surg Problem List - Problems (1) Diabetic infection of right foot Code(s): E11.628 - TYPE 2 DIABETES MELLITUS WITH OTHER SKIN COMPLICATIONS; L08.9 - LOCAL INFECTION OF THE SKIN AND SUBCUTANEOUS TISSUE, UNSP (2) Hyperglycemia Code(s): R73.9 - HYPERGLYCEMIA, UNSPECIFIED (3) Cellulitis of toe of right foot Code(s): L03.031 - CELLULITIS OF RIGHT TOE (4) Diabetes Code(s): E11.9 - TYPE 2 DIABETES MELLITUS WITHOUT COMPLICATIONS
[2017-08-09] MEDS ORDERED: POTASSIUM CHLORIDE ORAL LIQUID 20 MEQ/15 ML PO ONE (08:49)
[2017-08-09] MEDS: TAMSULOSIN HCL 0.4 MG CAP.ER.24H (FP) PO SCH (09:00)
[2017-08-09] MEDS ORDERED: DEXTROSE 5%-WATER 100 ML IVPB ONE ×2 (09:47→17:07)
[2017-08-09] MEDS ORDERED: PIPERACILLIN/TAZOBACTAM 4.5 GM VIAL IVPB ONE ×2 (09:47→17:07)
[2017-08-09] MEDS: ASPIRIN COATED 81 MG TABLET.EC PO SCH (09:50)
[2017-08-09] MEDS: MUPIROCIN 2% TOPICAL OINTMENT 22 GM TUBE TP SCH (09:51)
[2017-08-09] MEDS: VANCOMYCIN 2,000 MG in DEXTROSE 5%-WATER - 500 ML IVPB SCH ×2 (11:42→21:13)
--- NOTE | 2017-08-09 15:14 | PN ---
Progress Note, Physician Chief Complaint: ID Vancomycin and Zosyn - Current Medication List Current Medications: Active Medications Acetaminophen (Tylenol -) 650 mg PO Q6H PRN PRN Reason: FEVER Last Admin: 08/08/17 18:26 Dose: 650 mg Aspirin (Ecotrin -) 81 mg PO DAILY [facility] Last Admin: 08/09/17 09:50 Dose: 81 mg Clonidine (Catapres -) 0.4 mg PO TID [facility] Last Admin: 08/09/17 14:04 Dose: 0.4 mg Heparin Sodium (Porcine) (Heparin -) 5,000 unit SQ TID [facility] Last Admin: 08/09/17 14:04 Dose: 5,000 unit Vancomycin HCl 2,000 mg/ (Dextrose) 500 mls @ 250 mls/hr IVPB BID [facility] Last Admin: 08/09/17 11:42 Dose: 250 mls/hr Piperacillin Sod/Tazobactam (Sod 4.5 gm/ Dextrose) 100 mls @ 200 mls/hr IVPB Q8H-IV [facility] Last Admin: 08/09/17 09:51 Dose: 200 mls/hr Insulin Aspart (Novolog Vial Sliding Scale -) 1 vial SQ ACHS [facility] PRN Reason: Protocol Last Admin: 08/09/17 11:50 Dose: 8 units Insulin Detemir (Levemir Vial) 10 units SQ HS [facility] Last Admin: 08/08/17 22:27 Dose: 10 units Mupirocin (Bactroban 2% Ointment -) 1 applic TP DAILY [facility] Last Admin: 08/09/17 09:51 Dose: 1 appful Nystatin (Nystatin Oral Suspension -) 500,000 units PO Q6HPO [facility] Last Admin: 08/09/17 12:57 Dose: 500,000 units Tamsulosin HCl (Flomax -) 0.4 mg PO 0830 [facility] Last Admin: 08/09/17 09:00 Dose: 0.4 mg - Objective Vital Signs: Vital Signs Temperature 99.7 F H 08/09/17 14:00 Pulse Rate 59 L 08/09/17 14:00 Respiratory Rate 20 08/09/17 09:40 Blood Pressure 133/74 08/09/17 14:00 O2 Sat by Pulse Oximetry (%) 96 08/08/17 21:00 HENT: Yes: WNL, Atraumatic Neck: Yes: Supple Cardiovascular: Yes: S1, S2 Respiratory: Yes: WNL, Regular, CTA Bilaterally Gastrointestinal: Yes: WNL, Normal Bowel Sounds, Soft. No: Tenderness, Tenderness, Rebound Extremities: Yes: Other (Unchanged open toe wound pressure some drainage erythema) Labs: CBC, BMP 08/09/17 05:35 08/09/17 05:35 INR, PTT INR 1.45 (0.82-1.09) H D 08/07/17 17:20 Problem List - Problems (1) Diabetic infection of right foot Code(s): E11.628 - TYPE 2 DIABETES MELLITUS WITH OTHER SKIN COMPLICATIONS; L08.9 - LOCAL INFECTION OF THE SKIN AND SUBCUTANEOUS TISSUE, UNSP (2) Diabetes Code(s): E11.9 - TYPE 2 DIABETES MELLITUS WITHOUT COMPLICATIONS Assessment/Plan Microbiology 08/08/17 12:15 Toe - Right Hallux Gram Stain - Final 08/08/17 12:15 Toe - Right Hallux Wound Culture - Preliminary Group D Strep Or Entero Coccus Pending Organism Laboratory Tests 08/07/17 08/07/17 08/09/17 21:50 22:00 05:35 WBC 3.9 L D Hct 30.0 L Plt Count 161 ESR 41 H BUN Creatinine Total Bilirubin AST ALT Alkaline Phosphatase HIV 1&2 Ag/Ab, 4th Gen Non reactive 08/09/17 05:35 WBC Hct Plt Count ESR BUN 13 Creatinine 0.9 Total Bilirubin 1.8 H AST 14 L ALT 16 Alkaline Phosphatase 73 HIV 1&2 Ag/Ab, 4th Gen Assessment Osteomyelitis in DM Wound c/s preliminary Leukopenic ? HIV is negative Plan Continue current antibiotic Check vanco level trough
--- NOTE | 2017-08-09 18:25 | PN ---
Teaching Attending Note Name of Resident: Reed Wooten ATTENDING PHYSICIAN STATEMENT I saw and evaluated the patient. I reviewed the resident's note and discussed the case with the resident. I agree with the resident's findings and plan as documented. SUBJECTIVE: OBJECTIVE: Vital Signs Temperature 98.8 F 08/09/17 15:17 Pulse Rate 55 L 08/09/17 15:17 Respiratory Rate 18 08/09/17 15:17 Blood Pressure 146/82 08/09/17 15:17 O2 Sat by Pulse Oximetry (%) 98 08/09/17 09:00 CBCD WBC 3.9 K/mm3 (4.0-10.0) L D 08/09/17 05:35 RBC 3.84 M/mm3 (4.00-5.60) L 08/09/17 05:35 Hgb 10.6 GM/dL (11.7-16.9) L 08/09/17 05:35 Hct 30.0 % (35.4-49) L 08/09/17 05:35 MCV 77.9 fl (80-96) L 08/09/17 05:35 MCHC 35.5 g/dl (32.0-35.9) 08/09/17 05:35 RDW 14.8 % (11.9-15.9) 08/09/17 05:35 Plt Count 161 K/MM3 (134-434) 08/09/17 05:35 MPV 9.3 fl (7.5-11.1) 08/09/17 05:35 CMP Sodium 136 mmol/L (136-145) 08/09/17 05:35 Potassium 3.1 mmol/L (3.5-5.1) L 08/09/17 05:35 Chloride 99 mmol/L (98-107) 08/09/17 05:35 Carbon Dioxide 28 mmol/L (21-32) 08/09/17 05:35 Anion Gap 9 (8-16) 08/09/17 05:35 BUN 13 mg/dL (7-18) 08/09/17 05:35 Creatinine 0.9 mg/dL (0.7-1.3) 08/09/17 05:35 Creat Clearance w eGFR > 60 (>60) 08/09/17 05:35 Random Glucose 240 mg/dL (74-106) H 08/09/17 05:35 Calcium 7.9 mg/dL (8.5-10.1) L 08/09/17 05:35 Total Bilirubin 1.8 mg/dL (0.2-1.0) H 08/09/17 05:35 AST 14 U/L (15-37) L 08/09/17 05:35 ALT 16 U/L (12-78) 08/09/17 05:35 Alkaline Phosphatase 73 U/L (45-117) 08/09/17 05:35 Total Protein 5.8 g/dl (6.4-8.2) L 08/09/17 05:35 Albumin 2.6 g/dl (3.4-5.0) L 08/09/17 05:35 CARDIAC ENZYMES Creatine Kinase 56 IU/L (39-308) 08/08/17 06:30 Troponin I 0.06 ng/ml (0.00-0.05) H 08/08/17 06:30 Current Medications Generic Name Dose Route Start Last Admin Trade Name Sanyaq PRN Reason Stop Dose Admin Acetaminophen 650 mg 08/07/17 20:33 08/08/17 18:26 Tylenol - PO 650 mg Q6H PRN Administration FEVER Aspirin 81 mg 08/08/17 10:00 08/09/17 09:50 Ecotrin - PO 81 mg DAILY TROY Administration Clonidine 0.4 mg 08/08/17 22:00 08/09/17 14:04 Catapres - PO 0.4 mg TID TROY Administration Heparin Sodium (Porcine) 5,000 unit 08/08/17 06:00 08/09/17 14:04 Heparin - SQ 5,000 unit TID TROY Administration Vancomycin HCl 2,000 mg/ 500 mls @ 250 mls/hr 08/08/17 10:00 08/09/17 11:42 Dextrose IVPB 250 mls/hr BID TROY Administration Piperacillin Sod/Tazobactam 100 mls @ 200 mls/hr 08/08/17 10:00 08/09/17 17: 16 Sod 4.5 gm/ Dextrose IVPB 200 mls/hr Q8H-IV TROY Administration Insulin Aspart 1 vial 08/07/17 22:00 08/09/17 16:55 Novolog Vial Sliding Scale - SQ 8 units ACHS TROY Administration Protocol Insulin Detemir 10 units 08/08/17 22:00 08/08/17 22:27 Levemir Vial SQ 10 units HS TROY Administration Mupirocin 1 applic 08/09/17 10:00 08/09/17 09:51 Bactroban 2% Ointment - TP 1 appful DAILY TROY Administration Nystatin 500,000 units 08/08/17 00:00 08/09/17 17:16 Nystatin Oral Suspension - PO 500,000 units Q6HPO TROY Administration Tamsulosin HCl 0.4 mg 08/09/17 08:30 08/09/17 09:00 Flomax - PO 0.4 mg 0830 TROY Administration Home Medications Medication Instructions Recorded Amlodipine Besylate [Norvasc -] 10 mg PO DAILY 06/23/13 Clonidine HCl 0.4 mg PO TID 02/07/17 Sitagliptin Phosphate [Januvia] 50 mg PO DAILY 07/31/17 Glipizide [Glipizide ER] 10 mg PO BID 08/07/17 Nebivolol HCl/Valsartan [Byvalson 1 tab PO BID 08/07/17 5 mg-80 mg Tablet] Tamsulosin HCl 0.4 mg PO DAILY 08/08/17 Microbiology 08/07/17 17:28 Blood - Peripheral Venous Blood Culture - Preliminary NO GROWTH OBTAINED AFTER 48 HOURS, INCUBATION TO CONTINUE FOR 3 DAYS. 08/07/17 17:20 Blood - Peripheral Venous Blood Culture - Preliminary NO GROWTH OBTAINED AFTER 48 HOURS, INCUBATION TO CONTINUE FOR 3 DAYS. 08/08/17 12:15 Toe - Right Hallux Gram Stain - Final 08/08/17 12:15 Toe - Right Hallux Wound Culture - Preliminary Group D Strep Or Entero Coccus Pending Organism 08/07/17 18:40 Urine - Urine Clean Catch Urine Culture - Final NO GROWTH OBTAINED ASSESSMENT AND PLAN: This is a 56 year old man with a history of type 2 DM, HTN, BPH who presented to the ED with fever and drainage from an ulcer on his right 1st toe. # Right 1st toe infected ulcer/cellulitis with Osteomyelitis on Zosyn and Vancomycin , pending wound culture, MRI shows bone marrow edema of right 1st distal phalanx # Type 2 DM, uncontrolled , HgbA1c 11.2 ,on Levemir now with sliding scale Novolog , Januvia is on hold # Possible acute diastolic heart failure on IV LAsix ;Echo shows normal LV, normal RV, mild AR # BPH with bladder outlet obstruction, urinary retention, bilateral hydronephrosis, on Flomax , monitor urine output, bladder distention , may need Davis # Chronic venous insufficiency of both legs # HTN continue Clonidine # Indirect hyperbilirubinemia # Pseudohyponatremia secondary to hyperglycemia # Hypokalemia replete potassium # Oral candidiasis continue Nystatin swish and swallow # ANA MARÍA continue CPAP at night DVT Px: Heparin
[2017-08-09] MEDS: INSULIN (LEVEMIR) 100 UNITS/ML UNITS SQ SCH (21:12)
[2017-08-10] MEDS ORDERED: DEXTROSE 5%-WATER 100 ML IVPB ONE ×3 (00:06→16:19)
[2017-08-10] MEDS ORDERED: PIPERACILLIN/TAZOBACTAM 4.5 GM VIAL IVPB ONE ×3 (00:06→16:17)
[2017-08-10] MEDS: PIPERACILLIN/TAZOB 4.5 GM 4.5 GM in DEXTROSE 5%-WATER 100 ML IVPB SCH ×3 (01:01→17:39)
[2017-08-10] MEDS: cloNIDine HCL 0.1 MG TABLET PO SCH ×3 (05:54→21:58)
[2017-08-10] MEDS: NYSTATIN 500,000 UNITS/5 ML SUSPENSION PO SCH ×3 (05:54→17:40)
[2017-08-10] MEDS: HEPARIN NA (PORCINE) 5,000 UNITS/ML 1ML VIAL SQ SCH ×3 (05:54→21:59)
[2017-08-10] MEDS: INSULIN SLIDING SCALE (NOVOLOG) 1 VIAL SQ SCH ×4 (06:10→22:02)
[2017-08-10] MEDS ORDERED: INSULIN (LEVEMIR) 100 UNITS/ML UNITS SQ ONE (06:30)
[2017-08-10] MEDS ORDERED: INSULIN (NOVOLOG) ASPART 100 UNITS/ML 10ML VIAL ONE (06:30)
--- NOTE | 2017-08-10 07:23 | PN ---
Progress Note (short form) - Note Progress Note: Podiatry F/U: Seen/evaluated at bedside, NAD. Denies F/V/N/C/SOB/CP. Afebrile, VSS. JOSE MIGUEL: R foot: plantar medial hallux diabetic ulcer granular base, hyperkeratotic borders, probing present, no purulent drainage, no fluctuance, periwound erythema improving, no soft tissue crepitus, no streaking cellulitis, no signs of active infection. Minimal tenderness to palpation. WBC: 3.9 Wound Cx: group D strep, pending org MRI R Foot: early osteomyelitis distal phalanx hallux Imp: 56 year old DM M with R great toe ulcer, osteomyelitis 1. Discussed treatment options with patient. He wants to attempt to salvage the toe and treat with course of IV abx. I discussed the importance of appropriate glycemic management, protected weightbearing with surgical offloading shoe and good wound care. 2. Will need PICC line, home nursing services for IV abx and dressing changes. Dressing changes with collagen/Ag changed 3x/week. 3. Partial WB R heel with surgical offloading shoe. 4. Glycemic control. 5. Can f/u as outpatient in wound healing center. [phone]. Uma Skaggs DPM
[2017-08-10 07:50] LABS: BASO % 0.8 % (0-2.0); HEMOGLOBIN 10.6 GM/dL (11.7-16.9); LYMPH % 28.2 % (8-40); MCH 27.7 pg (25.7-33.7); MCHC 35.2 g/dl (32.0-35.9); MEAN CELL VOLUME 78.6 fl (80-96); MEAN PLT VOLUME 9.5 fl (7.5-11.1); MONO % 12.2 % (3.8-10.2); NEUT % 50.8 % (42.8-82.8); PLATELET COUNT 183 K/MM3 (134-434); RBC 3.82 M/mm3 (4.00-5.60); RDW 14.9 % (11.9-15.9); WHITE BLOOD COUNT 4.3 K/mm3 (4.0-10.0)
--- NOTE | 2017-08-10 08:34 | PN ---
Progress Note (short form) - Note Progress Note: Vital Signs Temperature 97.8 F 08/10/17 06:00 Pulse Rate 48 L 08/10/17 06:00 Respiratory Rate 14 08/10/17 06:00 Blood Pressure 144/87 08/10/17 06:00 O2 Sat by Pulse Oximetry (%) 96 08/09/17 21:00 GENERAL: Obese man, NAD, on CPAP HEAD: NCAT EYES: PERRL, extraocular movements intact, sclera anicteric, conjunctiva clear. No ptosis. ENT: Ears normal, nares patent, oropharynx clear without exudates, moist mucous membranes. NECK: Trachea midline, full range of motion, supple. LUNGS: CTABL, good air entry, no crackles/rhonchi/wheezing HEART: Regular rate and rhythm, S1, S2 without murmur, rub or gallop. ABDOMEN: Globular, Soft, nontender, normoactive bowel sounds, no guarding, no rebound, no hepatosplenomegaly, no masses. EXTREMITIES: 2+ pulses, warm, well-perfused, 2+ LE non-pitting edema, BL stasis dermatitis. 1st R MTP joint w/ exposed lesion with purulent drainage, minimal erythema/edema; Preserved sensation and motor function in all extremities. 1+ pulses DP/PT BL in LEs. NEUROLOGICAL: Cranial nerves II through XII grossly intact. Normal speech, gait not observed. PSYCH: Normal mood, normal affect. SKIN: Warm, dry, normal turgor, no rashes or lesions noted CBCD WBC 4.3 K/mm3 (4.0-10.0) 08/10/17 06:00 RBC 3.82 M/mm3 (4.00-5.60) L 08/10/17 06:00 Hgb 10.6 GM/dL (11.7-16.9) L 08/10/17 06:00 Hct 30.0 % (35.4-49) L 08/10/17 06:00 MCV 78.6 fl (80-96) L 08/10/17 06:00 MCHC 35.2 g/dl (32.0-35.9) 08/10/17 06:00 RDW 14.9 % (11.9-15.9) 08/10/17 06:00 Plt Count 183 K/MM3 (134-434) 08/10/17 06:00 MPV 9.5 fl (7.5-11.1) 08/10/17 06:00 CMP Sodium 136 mmol/L (136-145) 08/09/17 05:35 Potassium 3.1 mmol/L (3.5-5.1) L 08/09/17 05:35 Chloride 99 mmol/L (98-107) 08/09/17 05:35 Carbon Dioxide 28 mmol/L (21-32) 08/09/17 05:35 Anion Gap 9 (8-16) 08/09/17 05:35 BUN 13 mg/dL (7-18) 08/09/17 05:35 Creatinine 0.9 mg/dL (0.7-1.3) 08/09/17 05:35 Creat Clearance w eGFR > 60 (>60) 08/09/17 05:35 Random Glucose 240 mg/dL (74-106) H 08/09/17 05:35 Calcium 7.9 mg/dL (8.5-10.1) L 08/09/17 05:35 Total Bilirubin 1.8 mg/dL (0.2-1.0) H 08/09/17 05:35 AST 14 U/L (15-37) L 08/09/17 05:35 ALT 16 U/L (12-78) 08/09/17 05:35 Alkaline Phosphatase 73 U/L (45-117) 08/09/17 05:35 Total Protein 5.8 g/dl (6.4-8.2) L 08/09/17 05:35 Albumin 2.6 g/dl (3.4-5.0) L 08/09/17 05:35 CARDIAC ENZYMES Creatine Kinase 56 IU/L (39-308) 08/08/17 06:30 Troponin I 0.06 ng/ml (0.00-0.05) H 08/08/17 06:30 Current Medications Generic Name Dose Route Start Last Admin Trade Name Freq PRN Reason Stop Dose Admin Acetaminophen 650 mg 08/07/17 20:33 08/08/17 18:26 Tylenol - PO 650 mg Q6H PRN Administration FEVER Aspirin 81 mg 08/08/17 10:00 08/09/17 09:50 Ecotrin - PO 81 mg DAILY TROY Administration Clonidine 0.4 mg 08/08/17 22:00 08/10/17 05:54 Catapres - PO 0.4 mg TID TROY Administration Heparin Sodium (Porcine) 5,000 unit 08/08/17 06:00 08/10/17 05:54 Heparin - SQ 5,000 unit TID TROY Administration Vancomycin HCl 2,000 mg/ 500 mls @ 250 mls/hr 08/08/17 10:00 08/09/17 21:13 Dextrose IVPB Not Given BID TROY Piperacillin Sod/Tazobactam 100 mls @ 200 mls/hr 08/08/17 10:00 08/10/17 01: 01 Sod 4.5 gm/ Dextrose IVPB 200 mls/hr Q8H-IV TROY Administration Insulin Aspart 1 vial 08/07/17 22:00 08/10/17 06:10 Novolog Vial Sliding Scale - SQ Not Given ACHS [facility] Protocol Insulin Detemir 10 units 08/08/17 22:00 08/09/17 21:12 Levemir Vial SQ 10 units HS TROY Administration Mupirocin 1 applic 08/09/17 10:00 08/09/17 09:51 Bactroban 2% Ointment - TP 1 appful DAILY TROY Administration Nystatin 500,000 units 08/08/17 00:00 08/10/17 05:54 Nystatin Oral Suspension - PO 500,000 units Q6HPO TROY Administration Tamsulosin HCl 0.4 mg 08/09/17 08:30 08/09/17 09:00 Flomax - PO 0.4 mg 0830 TROY Administration Home Medications Medication Instructions Recorded Amlodipine Besylate [Norvasc -] 10 mg PO DAILY 06/23/13 Clonidine HCl 0.4 mg PO TID 02/07/17 Sitagliptin Phosphate [Januvia] 50 mg PO DAILY 07/31/17 Glipizide [Glipizide ER] 10 mg PO BID 08/07/17 Nebivolol HCl/Valsartan [Byvalson 1 tab PO BID 08/07/17 5 mg-80 mg Tablet] Tamsulosin HCl 0.4 mg PO DAILY 08/08/17 Microbiology 08/07/17 17:28 Blood - Peripheral Venous Blood Culture - Preliminary NO GROWTH OBTAINED AFTER 72 HOURS, INCUBATION TO CONTINUE FOR 2 DAYS. 08/07/17 17:20 Blood - Peripheral Venous Blood Culture - Preliminary NO GROWTH OBTAINED AFTER 72 HOURS, INCUBATION TO CONTINUE FOR 2 DAYS. 08/08/17 12:15 Toe - Right Hallux Gram Stain - Final 08/08/17 12:15 Toe - Right Hallux Wound Culture - Preliminary Group D Strep Or Entero Coccus Staphylococcus Coagulase Neg 08/07/17 18:40 Urine - Urine Clean Catch Urine Culture - Final NO GROWTH OBTAINED ASSESSMENT AND PLAN: This is a 56 year old man with a history of type 2 DM, HTN, BPH who presented to the ED with fever and drainage from an ulcer on his right 1st toe. # Right 1st toe infected ulcer/cellulitis with Osteomyelitis on Zosyn and Vancomycin , pending wound culture, MRI shows bone marrow edema of right 1st distal phalanx # Type 2 DM, uncontrolled , HgbA1c 11.2 ,on Levemir now with sliding scale Novolog , Januvia is on hold # Possible acute diastolic heart failure on IV LAsix ;Echo shows normal LV, normal RV, mild AR # BPH with bladder outlet obstruction, urinary retention, bilateral hydronephrosis, on Flomax , monitor urine output, bladder distention , may need Davis # Chronic venous insufficiency of both legs # HTN continue Clonidine # Indirect hyperbilirubinemia # Pseudohyponatremia secondary to hyperglycemia # Hypokalemia replete potassium # Oral candidiasis continue Nystatin swish and swallow # ANA MARÍA continue CPAP at night DVT Px: Heparin
[2017-08-10 08:56] LABS: ALBUMIN 2.7 g/dl (3.4-5.0); ANION GAP 11 (8-16); BILIRUBIN,TOTAL 1.2 mg/dL (0.2-1.0); BLOOD UREA NITROGEN 14 mg/dL (7-18); CALCIUM 8.5 mg/dL (8.5-10.1); CHLORIDE 100 mmol/L (98-107); CO2 28 mmol/L (21-32); CREATININE 0.9 mg/dL (0.7-1.3); GLUCOSE,RANDOM 110 mg/dL (74-106); MAGNESIUM 2.1 mg/dL (1.8-2.4); PHOSPHOROUS 4.1 mg/dL (2.5-4.9); POTASSIUM 3.1 mmol/L (3.5-5.1); SGOT/AST 18 U/L (15-37); SGPT/ALT 20 U/L (12-78); SODIUM 139 mmol/L (136-145); TOT PROT 6.1 g/dl (6.4-8.2)
[2017-08-10 08:57] LABS: ALK PHOS 87 U/L (45-117)
[2017-08-10] MEDS: ASPIRIN COATED 81 MG TABLET.EC PO SCH (09:52)
[2017-08-10] MEDS: TAMSULOSIN HCL 0.4 MG CAP.ER.24H (FP) PO SCH (09:53)
[2017-08-10] MEDS: MUPIROCIN 2% TOPICAL OINTMENT 22 GM TUBE TP SCH (09:56)
[2017-08-10] MEDS: VANCOMYCIN 2,000 MG in DEXTROSE 5%-WATER - 500 ML IVPB SCH ×2 (12:34→22:21)
[2017-08-10] MEDS: INSULIN (LEVEMIR) 100 UNITS/ML UNITS SQ SCH (21:59)
[2017-08-10] MEDS: ACETAMINOPHEN 325 MG TABLET (FP) PO PRN (22:53)
[2017-08-11] MEDS: NYSTATIN 500,000 UNITS/5 ML SUSPENSION PO SCH ×4 (00:11→17:12)
[2017-08-11] MEDS ORDERED: DEXTROSE 5%-WATER 100 ML IVPB ONE ×3 (02:15→16:45)
[2017-08-11] MEDS ORDERED: PIPERACILLIN/TAZOBACTAM 4.5 GM VIAL IVPB ONE ×3 (02:15→16:45)
[2017-08-11] MEDS: PIPERACILLIN/TAZOB 4.5 GM 4.5 GM in DEXTROSE 5%-WATER 100 ML IVPB SCH ×3 (02:19→17:04)
[2017-08-11] MEDS: INSULIN SLIDING SCALE (NOVOLOG) 1 VIAL SQ SCH ×4 (06:38→21:45)
[2017-08-11] MEDS: HEPARIN NA (PORCINE) 5,000 UNITS/ML 1ML VIAL SQ SCH ×3 (06:39→21:46)
[2017-08-11] MEDS: cloNIDine HCL 0.1 MG TABLET PO SCH ×3 (06:39→21:47)
--- NOTE | 2017-08-11 07:34 | PN ---
Physical Exam: SUBJECTIVE: Patient seen and examined endorsing fevers, copious diaphoresis overnight; No pain, numbness or excessive drainage from wound site; denies c/n/v/d, CP, cough, sob, ab pain, back pain, LE edema; denies any further episodes of dyspnea or sob; plan for discharge with PICC line for IV abx early this week OBJECTIVE: Vital Signs Intake & Output 08/08/17 08/09/17 08/10/17 08/11/17 23:59 23:59 23:59 23:59 Intake Total 2200 1350 2700 Output Total 300 750 Balance 1900 1350 1950 Weight 144.356 kg 144.242 kg Period Temp Pulse Resp BP Sys/Olmedo Pulse Ox Last 24 Hr 97.7 F-98.6 F 49-57 16-18 143-164/85-99 96-96 GENERAL: morbidly obese man, on CPAP, NAD HEAD: NCAT EYES: PERRL, extraocular movements intact, sclera anicteric, conjunctiva clear. No ptosis. ENT: Ears normal, nares patent, oropharynx clear without exudates, moist mucous membranes. NECK: Trachea midline, full range of motion, supple. LUNGS: CTABL, good air entry, no crackles/rhonchi/wheezing HEART: Regular rate and rhythm, S1, S2 without murmur, rub or gallop. ABDOMEN: Globular, Soft, nontender, normoactive bowel sounds, no guarding, no rebound, no hepatosplenomegaly, no masses. EXTREMITIES: 2+ pulses, warm, well-perfused, 2+ LE non-pitting edema, BL stasis dermatitis. 1st R DIP joint w/ exposed lesion with trace purulent drainage, no erythema/edema noted; Preserved sensation and motor function in all extremities. 2+ pulses DP/PT BL in LEs. NEUROLOGICAL: Cranial nerves II through XII grossly intact. Normal speech, gait not observed. PSYCH: Normal mood, normal affect. SKIN: Warm, dry, normal turgor, no rashes or lesions noted Laboratory Results - last 24 hr CBC, BMP 08/10/17 06:00 08/10/17 06:00 08/10/17 08/10/17 08/10/17 06:00 06:00 06:00 WBC 4.3 RBC 3.82 L Hgb 10.6 L Hct 30.0 L MCV 78.6 L MCH 27.7 MCHC 35.2 RDW 14.9 Plt Count 183 MPV 9.5 Neutrophils % 50.8 Lymphocytes % 28.2 D Monocytes % 12.2 H Eosinophils % 8.0 H Basophils % 0.8 Sodium 139 Potassium 3.1 L Chloride 100 Carbon Dioxide 28 Anion Gap 11 BUN 14 Creatinine 0.9 Creat Clearance w eGFR > 60 POC Glucometer Random Glucose 110 H D Calcium 8.5 Phosphorus 4.1 D Magnesium 2.1 Total Bilirubin 1.2 H D AST 18 D ALT 20 D Alkaline Phosphatase 87 Total Protein 6.1 L Albumin 2.7 L Random Vancomycin 10.267 08/10/17 08/10/17 08/10/17 12:30 17:36 21:57 WBC RBC Hgb Hct MCV MCH MCHC RDW Plt Count MPV Neutrophils % Lymphocytes % Monocytes % Eosinophils % Basophils % Sodium Potassium Chloride Carbon Dioxide Anion Gap BUN Creatinine Creat Clearance w eGFR POC Glucometer 169 250 213 Random Glucose Calcium Phosphorus Magnesium Total Bilirubin AST ALT Alkaline Phosphatase Total Protein Albumin Random Vancomycin 08/11/17 05:52 WBC RBC Hgb Hct MCV MCH MCHC RDW Plt Count MPV Neutrophils % Lymphocytes % Monocytes % Eosinophils % Basophils % Sodium Potassium Chloride Carbon Dioxide Anion Gap BUN Creatinine Creat Clearance w eGFR POC Glucometer 175 Random Glucose Calcium Phosphorus Magnesium Total Bilirubin AST ALT Alkaline Phosphatase Total Protein Albumin Random Vancomycin Active Medications Generic Name Dose Route Start Last Admin Trade Name Freq PRN Reason Stop Dose Admin Acetaminophen 650 mg 08/07/17 20:33 08/10/17 22:53 Tylenol - PO 650 mg Q6H PRN Administration FEVER Aspirin 81 mg 08/08/17 10:00 08/10/17 09:52 Ecotrin - PO 81 mg DAILY TROY Administration Clonidine 0.4 mg 08/08/17 22:00 08/11/17 06:39 Catapres - PO 0.4 mg TID TROY Administration Heparin Sodium (Porcine) 5,000 unit 08/08/17 06:00 08/11/17 06:39 Heparin - SQ 5,000 unit TID TROY Administration Vancomycin HCl 2,000 mg/ 500 mls @ 250 mls/hr 08/08/17 10:00 08/10/17 22:21 Dextrose IVPB 250 mls/hr BID TROY Administration Piperacillin Sod/Tazobactam 100 mls @ 200 mls/hr 08/08/17 10:00 08/11/17 02: 19 Sod 4.5 gm/ Dextrose IVPB 200 mls/hr Q8H-IV TROY Administration Insulin Aspart 1 vial 08/07/17 22:00 08/11/17 06:38 Novolog Vial Sliding Scale - SQ 2 units ACHS TROY Administration Protocol Insulin Detemir 10 units 08/08/17 22:00 08/10/17 21:59 Levemir Vial SQ 10 units HS TROY Administration Mupirocin 1 applic 08/09/17 10:00 08/10/17 09:56 Bactroban 2% Ointment - TP 1 appful DAILY TROY Administration Nystatin 500,000 units 08/08/17 00:00 08/11/17 06:38 Nystatin Oral Suspension - PO 500,000 units Q6HPO TROY Administration Tamsulosin HCl 0.4 mg 08/09/17 08:30 08/10/17 09:53 Flomax - PO 0.4 mg 0830 TROY Administration Microbiology 08/07/17 17:28 Blood - Peripheral Venous Blood Culture - Preliminary NO GROWTH OBTAINED AFTER 72 HOURS, INCUBATION TO CONTINUE FOR 2 DAYS. 08/07/17 17:20 Blood - Peripheral Venous Blood Culture - Preliminary NO GROWTH OBTAINED AFTER 72 HOURS, INCUBATION TO CONTINUE FOR 2 DAYS. 08/08/17 12:15 Toe - Right Hallux Gram Stain - Final 08/08/17 12:15 Toe - Right Hallux Wound Culture - Preliminary Group D Strep Or Entero Coccus Staphylococcus Coagulase Neg 08/07/17 18:40 Urine - Urine Clean Catch Urine Culture - Final NO GROWTH OBTAINED 08/08/17 12:15 Toe - Right Hallux Gram Stain - Final Foot/toe XR R- 08/07 no abnormalities noted CXR 08/07 - cardiomegaly, perihilar fullness Bladder/renal U/s 08/07 - IMPRESSION: Markedly over distended urinary bladder without gross wall thickening. Bilateral ureteral jets were not visualized. Markedly enlarged prostate gland with a volume of 218 cc. Large amount of postvoid urine residue is equal to 1168 cc. Moderate bilateral renal hydronephrosis that may be due to over distended urinary bladder. R foot MRI 08/08 - Impression: Edema bone long distal phalanx of the great toe compatible with early osteomyelitis. Perifocal extensive soft tissue swelling compatible with cellulitis with small ulceration. Flexor and ui designer tendons unremarkable. ECHO /3 -RV/LR normal, mild AR LE duplex / - No dvts noted ASSESSMENT/PLAN: 56yo M with PMHx of uncontrolled DM who presents w/ R big toe drainage and fevers, found to have diabetic foot infection. ID, podiatry consulted. r/o osteomyelitis. # Diabetic Foot Infection - Imaging confirmed osteomyelitis; elevated ESR 41 - empiric abx - vanc/zosyn per ID, day 4 - ID consulted, following - Podiatry consulted, following - wound cultures + for Enterococcus, coag negative staph -HIV negative - bactroban - plan for discharge with PICC line ,VNS and IV abx per podiatry - Partial WB, dressing changes 3x/week, Natasha # Uncontrolled NIDDM - A1C 11.2 - hold januvia - BGM, ISS -levemir 10u qhs - ASA # SOB - no respiratory symptoms today; likely secondary to volume overload - ECHO as above - O2 prn - CPAP at night - Lasix 40mg IV prn if sob # Chronic LE edema/statis dermatitis - no significant change from baseline - continue holding norvasc - LE duplex neg, echo normal # HTN -c/w clonidine; holding HCTZ/ ARB # Oral j carlos - nystatin s+s # ANA MARÍA -c/w home CPAP PPX HSQ FEN PO hydration daily lytes diabetic diet # Dispo M/S Discussed with Dr. Myles Wooten, PGY1 Visit type - Emergency Visit Emergency Visit: Yes ED Registration Date: 08/07/17 Care time: The patient presented to the Emergency Department on the above date and was hospitalized for further evaluation of their emergent condition. - New Patient This patient is new to me today: No - Critical Care Critical Care patient: No - Discharge Referral Referred to [facility] Med P.C.: No
[2017-08-11] MEDS: TAMSULOSIN HCL 0.4 MG CAP.ER.24H (FP) PO SCH ×2 (09:30→10:47)
[2017-08-11] MEDS: ASPIRIN COATED 81 MG TABLET.EC PO SCH (10:47)
[2017-08-11] MEDS: VANCOMYCIN 2,000 MG in DEXTROSE 5%-WATER - 500 ML IVPB SCH ×2 (10:48→21:46)
[2017-08-11] MEDS: MUPIROCIN 2% TOPICAL OINTMENT 22 GM TUBE TP SCH (10:56)
--- NOTE | 2017-08-11 13:47 | PN ---
Progress Note, Physician History of Present Illness: Awake, alert in bed No c/o foot pain Mo c/o fever/ chills Afebrile WBC WNL - Current Medication List Current Medications: Active Medications Acetaminophen (Tylenol -) 650 mg PO Q6H PRN PRN Reason: FEVER Last Admin: 08/10/17 22:53 Dose: 650 mg Aspirin (Ecotrin -) 81 mg PO DAILY [facility] Last Admin: 08/11/17 10:47 Dose: 81 mg Clonidine (Catapres -) 0.4 mg PO TID [facility] Last Admin: 08/11/17 06:39 Dose: 0.4 mg Heparin Sodium (Porcine) (Heparin -) 5,000 unit SQ TID [facility] Last Admin: 08/11/17 06:39 Dose: 5,000 unit Vancomycin HCl 2,000 mg/ (Dextrose) 500 mls @ 250 mls/hr IVPB BID [facility] Last Admin: 08/11/17 10:48 Dose: 250 mls/hr Piperacillin Sod/Tazobactam (Sod 4.5 gm/ Dextrose) 100 mls @ 200 mls/hr IVPB Q8H-IV [facility] Last Admin: 08/11/17 10:00 Dose: 200 mls/hr Insulin Aspart (Novolog Vial Sliding Scale -) 1 vial SQ ACHS [facility] PRN Reason: Protocol Last Admin: 08/11/17 06:38 Dose: 2 units Insulin Detemir (Levemir Vial) 10 units SQ HS [facility] Last Admin: 08/10/17 21:59 Dose: 10 units Mupirocin (Bactroban 2% Ointment -) 1 applic TP DAILY [facility] Last Admin: 08/11/17 10:56 Dose: 1 applic Nystatin (Nystatin Oral Suspension -) 500,000 units PO Q6HPO [facility] Last Admin: 08/11/17 06:38 Dose: 500,000 units Tamsulosin HCl (Flomax -) 0.4 mg PO 0830 [facility] Last Admin: 08/11/17 10:47 Dose: 0.4 mg - Objective Vital Signs: Vital Signs Temperature 98.4 F 08/11/17 10:00 Pulse Rate 51 L 08/11/17 10:00 Respiratory Rate 16 08/11/17 10:00 Blood Pressure 155/92 08/11/17 10:00 O2 Sat by Pulse Oximetry (%) 96 08/11/17 09:00 Constitutional: Yes: No Distress, Obese Cardiovascular: Yes: Regular Rate and Rhythm, S1, S2 Respiratory: Yes: CTA Bilaterally Gastrointestinal: Yes: Normal Bowel Sounds, Soft, Abdomen, Obese. No: Tenderness Extremities: Yes: Other (Dry ulcer R great toe. Decreased erythema L LE) Labs: CBC, BMP 08/10/17 06:00 08/10/17 06:00 INR, PTT INR 1.45 (0.82-1.09) H D 08/07/17 17:20 Assessment/Plan Osteomyelitis R great toe Infected foot ulcer Cellulitis L LE Continue vancomycon/ zosyn Local wound care
--- NOTE | 2017-08-11 13:48 | PN ---
Progress Note, Physician History of Present Illness: Awake, alert in bed No c/o foot pain Mo c/o fever/ chills Afebrile WBC WNL - Current Medication List Current Medications: Active Medications Acetaminophen (Tylenol -) 650 mg PO Q6H PRN PRN Reason: FEVER Last Admin: 08/10/17 22:53 Dose: 650 mg Aspirin (Ecotrin -) 81 mg PO DAILY [facility] Last Admin: 08/11/17 10:47 Dose: 81 mg Clonidine (Catapres -) 0.4 mg PO TID [facility] Last Admin: 08/11/17 06:39 Dose: 0.4 mg Heparin Sodium (Porcine) (Heparin -) 5,000 unit SQ TID [facility] Last Admin: 08/11/17 06:39 Dose: 5,000 unit Vancomycin HCl 2,000 mg/ (Dextrose) 500 mls @ 250 mls/hr IVPB BID [facility] Last Admin: 08/11/17 10:48 Dose: 250 mls/hr Piperacillin Sod/Tazobactam (Sod 4.5 gm/ Dextrose) 100 mls @ 200 mls/hr IVPB Q8H-IV [facility] Last Admin: 08/11/17 10:00 Dose: 200 mls/hr Insulin Aspart (Novolog Vial Sliding Scale -) 1 vial SQ ACHS [facility] PRN Reason: Protocol Last Admin: 08/11/17 06:38 Dose: 2 units Insulin Detemir (Levemir Vial) 10 units SQ HS [facility] Last Admin: 08/10/17 21:59 Dose: 10 units Mupirocin (Bactroban 2% Ointment -) 1 applic TP DAILY [facility] Last Admin: 08/11/17 10:56 Dose: 1 applic Nystatin (Nystatin Oral Suspension -) 500,000 units PO Q6HPO [facility] Last Admin: 08/11/17 06:38 Dose: 500,000 units Tamsulosin HCl (Flomax -) 0.4 mg PO 0830 [facility] Last Admin: 08/11/17 10:47 Dose: 0.4 mg - Objective Vital Signs: Vital Signs Temperature 98.4 F 08/11/17 10:00 Pulse Rate 51 L 08/11/17 10:00 Respiratory Rate 16 08/11/17 10:00 Blood Pressure 155/92 08/11/17 10:00 O2 Sat by Pulse Oximetry (%) 96 08/11/17 09:00 Labs: CBC, BMP 08/10/17 06:00 08/10/17 06:00 INR, PTT INR 1.45 (0.82-1.09) H D 08/07/17 17:20
--- NOTE | 2017-08-11 20:50 | PN ---
Teaching Attending Note Name of Resident: Reed Wooten ATTENDING PHYSICIAN STATEMENT I saw and evaluated the patient. I reviewed the resident's note and discussed the case with the resident. I agree with the resident's findings and plan as documented. SUBJECTIVE: Patient is comfortable with no acute distress OBJECTIVE: Vital Signs Temperature 97.1 F L 08/11/17 18:00 Pulse Rate 49 L 08/11/17 18:00 Respiratory Rate 18 08/11/17 18:00 Blood Pressure 146/87 08/11/17 18:00 O2 Sat by Pulse Oximetry (%) 96 08/11/17 09:00 CBCD WBC 4.3 K/mm3 (4.0-10.0) 08/10/17 06:00 RBC 3.82 M/mm3 (4.00-5.60) L 08/10/17 06:00 Hgb 10.6 GM/dL (11.7-16.9) L 08/10/17 06:00 Hct 30.0 % (35.4-49) L 08/10/17 06:00 MCV 78.6 fl (80-96) L 08/10/17 06:00 MCHC 35.2 g/dl (32.0-35.9) 08/10/17 06:00 RDW 14.9 % (11.9-15.9) 08/10/17 06:00 Plt Count 183 K/MM3 (134-434) 08/10/17 06:00 MPV 9.5 fl (7.5-11.1) 08/10/17 06:00 CMP Sodium 139 mmol/L (136-145) 08/10/17 06:00 Potassium 3.1 mmol/L (3.5-5.1) L 08/10/17 06:00 Chloride 100 mmol/L (98-107) 08/10/17 06:00 Carbon Dioxide 28 mmol/L (21-32) 08/10/17 06:00 Anion Gap 11 (8-16) 08/10/17 06:00 BUN 14 mg/dL (7-18) 08/10/17 06:00 Creatinine 0.9 mg/dL (0.7-1.3) 08/10/17 06:00 Creat Clearance w eGFR > 60 (>60) 08/10/17 06:00 Random Glucose 110 mg/dL (74-106) H D 08/10/17 06:00 Calcium 8.5 mg/dL (8.5-10.1) 08/10/17 06:00 Total Bilirubin 1.2 mg/dL (0.2-1.0) H D 08/10/17 06:00 AST 18 U/L (15-37) D 08/10/17 06:00 ALT 20 U/L (12-78) D 08/10/17 06:00 Alkaline Phosphatase 87 U/L (45-117) 08/10/17 06:00 Total Protein 6.1 g/dl (6.4-8.2) L 08/10/17 06:00 Albumin 2.7 g/dl (3.4-5.0) L 08/10/17 06:00 CARDIAC ENZYMES Creatine Kinase 56 IU/L (39-308) 08/08/17 06:30 Troponin I 0.06 ng/ml (0.00-0.05) H 08/08/17 06:30 Current Medications Generic Name Dose Route Start Last Admin Trade Name Sanyaq PRN Reason Stop Dose Admin Acetaminophen 650 mg 08/07/17 20:33 08/10/17 22:53 Tylenol - PO 650 mg Q6H PRN Administration FEVER Aspirin 81 mg 08/08/17 10:00 08/11/17 10:47 Ecotrin - PO 81 mg DAILY TROY Administration Clonidine 0.4 mg 08/08/17 22:00 08/11/17 14:30 Catapres - PO 0.4 mg TID TROY Administration Heparin Sodium (Porcine) 5,000 unit 08/08/17 06:00 08/11/17 14:31 Heparin - SQ 5,000 unit TID TROY Administration Vancomycin HCl 2,000 mg/ 500 mls @ 250 mls/hr 08/08/17 10:00 08/11/17 10:48 Dextrose IVPB 250 mls/hr BID TROY Administration Piperacillin Sod/Tazobactam 100 mls @ 200 mls/hr 08/08/17 10:00 08/11/17 17: 04 Sod 4.5 gm/ Dextrose IVPB 200 mls/hr Q8H-IV TROY Administration Insulin Aspart 1 vial 08/07/17 22:00 08/11/17 17:03 Novolog Vial Sliding Scale - SQ 6 units ACHS TROY Administration Protocol Insulin Detemir 10 units 08/08/17 22:00 08/10/17 21:59 Levemir Vial SQ 10 units HS TROY Administration Mupirocin 1 applic 08/09/17 10:00 08/11/17 10:56 Bactroban 2% Ointment - TP 1 applic DAILY TROY Administration Nystatin 500,000 units 08/08/17 00:00 08/11/17 17:12 Nystatin Oral Suspension - PO 500,000 units Q6HPO TROY Administration Tamsulosin HCl 0.4 mg 08/09/17 08:30 08/11/17 10:47 Flomax - PO 0.4 mg 0830 TROY Administration Home Medications Medication Instructions Recorded Amlodipine Besylate [Norvasc -] 10 mg PO DAILY 06/23/13 Clonidine HCl 0.4 mg PO TID 02/07/17 Sitagliptin Phosphate [Januvia] 50 mg PO DAILY 07/31/17 Glipizide [Glipizide ER] 10 mg PO BID 08/07/17 Nebivolol HCl/Valsartan [Byvalson 1 tab PO BID 08/07/17 5 mg-80 mg Tablet] Tamsulosin HCl 0.4 mg PO DAILY 08/08/17 PE: per resident's note 08/07/17 17:28 Blood - Peripheral Venous Blood Culture - Preliminary NO GROWTH OBTAINED AFTER 72 HOURS, INCUBATION TO CONTINUE FOR 2 DAYS. 08/07/17 17:20 Blood - Peripheral Venous Blood Culture - Preliminary NO GROWTH OBTAINED AFTER 72 HOURS, INCUBATION TO CONTINUE FOR 2 DAYS. 08/08/17 12:15 Toe - Right Hallux Gram Stain - Final 08/08/17 12:15 Toe - Right Hallux Wound Culture - Preliminary Group D Strep Or Entero Coccus Staphylococcus Coagulase Neg 08/07/17 18:40 Urine - Urine Clean Catch Urine Culture - Final NO GROWTH OBTAINED ASSESSMENT AND PLAN: This is a 56 year old man with a history of type 2 DM, HTN, BPH who presented to the ED with fever and drainage from an ulcer on his right 1st toe. # Right 1st toe infected ulcer/cellulitis with Osteomyelitis on Zosyn and Vancomycin , sensitivity of culture is pending .MRI reviewed # Type 2 DM, uncontrolled , HgbA1c 11.2 ,on Levemir now with sliding scale Novolog , Januvia is on hold # Possible acute diastolic heart failure on IV LAsix ;Echo shows normal LV, normal RV, mild AR # BPH with bladder outlet obstruction, urinary retention, bilateral hydronephrosis, on Flomax , monitor urine output, bladder distention , may need Davis # Chronic venous insufficiency of both legs # HTN continue Clonidine # Indirect hyperbilirubinemia # Pseudohyponatremia secondary to hyperglycemia # Hypokalemia replete potassium # Oral candidiasis continue Nystatin swish and swallow # ANA MARÍA continue CPAP at night DVT Px: Heparin
[2017-08-11] MEDS ORDERED: INSULIN (NOVOLOG) ASPART 100 UNITS/ML 10ML VIAL ONE (21:19)
[2017-08-11] MEDS: INSULIN (LEVEMIR) 100 UNITS/ML UNITS SQ SCH (21:46)
[2017-08-11] MEDS ORDERED: PT OWN MED DRAWER 7, Y5N ONE (23:08)
[2017-08-12] MEDS: NYSTATIN 500,000 UNITS/5 ML SUSPENSION PO SCH ×4 (00:17→17:40)
[2017-08-12] MEDS ORDERED: DEXTROSE 5%-WATER 100 ML IVPB ONE ×3 (02:01→17:38)
[2017-08-12] MEDS ORDERED: PIPERACILLIN/TAZOBACTAM 4.5 GM VIAL IVPB ONE ×3 (02:01→17:38)
[2017-08-12] MEDS: PIPERACILLIN/TAZOB 4.5 GM 4.5 GM in DEXTROSE 5%-WATER 100 ML IVPB SCH ×3 (02:09→17:41)
[2017-08-12] MEDS: cloNIDine HCL 0.1 MG TABLET PO SCH ×3 (06:09→21:45)
[2017-08-12] MEDS: HEPARIN NA (PORCINE) 5,000 UNITS/ML 1ML VIAL SQ SCH ×3 (06:09→21:48)
[2017-08-12] MEDS: INSULIN SLIDING SCALE (NOVOLOG) 1 VIAL SQ SCH ×4 (06:10→21:47)
[2017-08-12] MEDS ORDERED: PT OWN MED DRAWER 7, Y5N ONE (07:16)
--- NOTE | 2017-08-12 07:58 | PN ---
Progress Note (short form) - Note Progress Note: 56 yo male with confirmed early osteo to hallux (distal phalynx). Wound Cx: group D strep, Enterococcus Faecalis & Staphylococcus Coagulase Neg WBC 4.3 AVSS. Afebrile Podiatry note appreciated and agree with care plan as outlined below: 1. Patient wants to attempt to salvage the toe and treat with course of IV abx. 2. Importance of glycemic management, protected weightbearing with surgical offloading shoe and good wound care. 3. PICC line, home nursing services for IV abx and dressing changes. Dressing changes with collagen/Ag changed 3x/week. 4. Partial WB R heel with surgical offloading shoe. 5. Tight glycemic control. 6. f/u as outpatient in wound healing center No further vascular intervention at this time. Re-consult PRN. On behalf of Dr. Wick, thank you for the opportunity to participate in your patient's care.
[2017-08-12 08:08] LABS: BASO % 0.7 % (0-2.0); EOS % 4.9 % (0-4.5); HEMATOCRIT 31.2 % (35.4-49); HEMOGLOBIN 10.8 GM/dL (11.7-16.9); LYMPH % 17.5 % (8-40); MCH 27.5 pg (25.7-33.7); MCHC 34.6 g/dl (32.0-35.9); MEAN CELL VOLUME 79.4 fl (80-96); MEAN PLT VOLUME 9.3 fl (7.5-11.1); MONO % 9.5 % (3.8-10.2); NEUT % 67.4 % (42.8-82.8); PLATELET COUNT 200 K/MM3 (134-434); RBC 3.93 M/mm3 (4.00-5.60); RDW 14.7 % (11.9-15.9); WHITE BLOOD COUNT 6.5 K/mm3 (4.0-10.0)
[2017-08-12 08:36] LABS: CHLORIDE 100 mmol/L (98-107); POTASSIUM 3.2 mmol/L (3.5-5.1); SODIUM 139 mmol/L (136-145)
[2017-08-12 08:49] LABS: ALBUMIN 2.7 g/dl (3.4-5.0); ALK PHOS 106 U/L (45-117); ANION GAP 10 (8-16); BILIRUBIN,TOTAL 1.1 mg/dL (0.2-1.0); BLOOD UREA NITROGEN 12 mg/dL (7-18); CALCIUM 8.3 mg/dL (8.5-10.1); CO2 29 mmol/L (21-32); GLUCOSE,RANDOM 162 mg/dL (74-106); MAGNESIUM 2.1 mg/dL (1.8-2.4); PHOSPHOROUS 4.1 mg/dL (2.5-4.9); SGOT/AST 28 U/L (15-37); SGPT/ALT 32 U/L (12-78); TOT PROT 6.1 g/dl (6.4-8.2)
[2017-08-12] MEDS: ASPIRIN COATED 81 MG TABLET.EC PO SCH (10:44)
[2017-08-12] MEDS: TAMSULOSIN HCL 0.4 MG CAP.ER.24H (FP) PO SCH (10:44)
[2017-08-12] MEDS: VANCOMYCIN 2,000 MG in DEXTROSE 5%-WATER - 500 ML IVPB SCH ×2 (10:44→21:48)
[2017-08-12] MEDS: MUPIROCIN 2% TOPICAL OINTMENT 22 GM TUBE TP SCH (10:45)
[2017-08-12] MEDS ORDERED: INSULIN (NOVOLOG) ASPART 100 UNITS/ML 10ML VIAL ONE ×2 (11:59→17:32)
[2017-08-12] MEDS ORDERED: POTASSIUM CHLORIDE TABS 20 MEQ TABLET.ER (FP) PO ONE ×2 (12:09→21:52)
--- NOTE | 2017-08-12 14:15 | MSN ---
Progress Note (short form) - Note Progress Note: CHIEF COMPLAINT: fever, malaise, diaphoresis, R toe infection HISTORY OF PRESENT ILLNESS Overnight, patient did not have any acute events. Patient was seen and examined at the bedside. Patient stated that he continued to feel warm and had diaphoresis overnight but was decreased from previous nights. Patient endorsed constipation and had not moved his bowels since admission. Patient denied any chest pain, sob, abd pain, n/v/d, dizziness, lightheadedness, extremity pain. Smoking: denies Alcohol: social Drugs: denies REVIEW OF SYSTEMS CONSTITUTIONAL: fever, diaphoresis, generalized weakness Absent: malaise, loss of appetite, weight change, chills, HEENT: Absent: rhinorrhea, nasal congestion, throat pain, throat swelling, difficulty swallowing, mouth swelling, ear pain, eye pain, visual changes CARDIOVASCULAR: Absent: chest pain, syncope, palpitations, irregular heart rate, lightheadedness , peripheral edema RESPIRATORY: Absent: cough, shortness of breath, dyspnea with exertion, orthopnea, wheezing, stridor, hemoptysis GASTROINTESTINAL: constipation Absent: abdominal pain, abdominal distension, nausea, vomiting, diarrhea, , melena, hematochezia GENITOURINARY: Absent: dysuria, frequency, urgency, hesitancy, hematuria, flank pain, genital pain MUSCULOSKELETAL: Absent: myalgia, arthralgia, joint swelling, back pain, neck pain SKIN: swelling of legs Absent: rash, itching, pallor HEMATOLOGIC/IMMUNOLOGIC: Absent: easy bleeding, easy bruising, lymphadenopathy, frequent infections ENDOCRINE: Absent: unexplained weight gain, unexplained weight loss, heat intolerance, cold intolerance NEUROLOGIC: Absent: headache, focal weakness or paresthesias, dizziness, unsteady gait, seizure, mental status changes, bladder or bowel incontinence PSYCHIATRIC: Absent: anxiety, depression, suicidal or homicidal ideation, hallucinations. PHYSICAL EXAMINATION: GENERAL: Awake, alert, and fully oriented, in mild distress. Obese middle aged male laying in bed. HEAD: Normal with no signs of trauma. Redness on the nasal bridge secondary to CPAP mask covered by adhesive bandage EYES: Pupils equal, round and reactive to light, extraocular movements intact, sclera anicteric, conjunctiva clear. No lid lag. EARS, NOSE, THROAT: Ears normal, nares patent, oropharynx contains scrapable white plaques. Moist mucous membranes. NECK: Normal range of motion, supple without lymphadenopathy, JVD, or masses. LUNGS: Breath sounds equal, clear to auscultation bilaterally. No wheezes, and no crackles. No accessory muscle use. HEART: Regular rate and rhythm, normal S1 and S2 without murmur, rub or gallop. ABDOMEN: Soft, nontender, obese, normoactive bowel sounds, no guarding, no rebound, no masses. No hepatomegaly or splenomegaly. MUSCULOSKELETAL: Normal range of motion at all joints. No bony deformities or tenderness. No CVA tenderness. UPPER EXTREMITIES: 2+ pulses, warm, well-perfused. No cyanosis. No clubbing. Cap refill <2 seconds. No peripheral edema LOWER EXTREMITIES: 2+ pulses, warm, well-perfused. No calf tenderness. 1+ peripheral edema bilaterally. NEUROLOGICAL: Cranial nerves II-XII intact. Normal speech. PSYCHIATRIC: Cooperative. Good eye contact. Appropriate mood and affect. SKIN: Warm, dry, normal turgor. On bilateral lower extremities, chronic venous stasis dermatitis noted. On R great toe, sloughing of skin present with dried blood and dried discharge from toe. Non-painful to palpation. Allergies Allergy/AdvReac Type Severity Reaction Status Date / Time ciprofloxacin [From Cipro] Allergy pain Verified 08/07/17 16:10 levofloxacin [From Levaquin] Allergy Verified 08/07/17 16:08 CBC, BMP 08/12/17 06:30 08/12/17 06:30 Abnormal Lab Results 08/12/17 08/12/17 06:30 06:30 RBC 3.93 L Hgb 10.8 L Hct 31.2 L MCV 79.4 L Eosinophils % 4.9 H Potassium 3.2 L Random Glucose 162 H D Calcium 8.3 L Total Bilirubin 1.1 H Total Protein 6.1 L Albumin 2.7 L Current Medications Generic Name Dose Route Start Last Admin Trade Name Freq PRN Reason Stop Dose Admin Acetaminophen 650 mg 08/07/17 20:33 08/10/17 22:53 Tylenol - PO 650 mg Q6H PRN Administration FEVER Aspirin 81 mg 08/08/17 10:00 08/12/17 10:44 Ecotrin - PO 81 mg DAILY TROY Administration Clonidine 0.4 mg 08/08/17 22:00 08/12/17 06:09 Catapres - PO 0.4 mg TID TROY Administration Heparin Sodium (Porcine) 5,000 unit 08/08/17 06:00 08/12/17 06:09 Heparin - SQ 5,000 unit TID TROY Administration Vancomycin HCl 2,000 mg/ 500 mls @ 250 mls/hr 08/08/17 10:00 08/12/17 10:44 Dextrose IVPB 250 mls/hr BID TROY Administration Piperacillin Sod/Tazobactam 100 mls @ 200 mls/hr 08/08/17 10:00 08/12/17 10: 44 Sod 4.5 gm/ Dextrose IVPB 200 mls/hr Q8H-IV TROY Administration Insulin Aspart 1 vial 08/07/17 22:00 08/12/17 11:45 Novolog Vial Sliding Scale - SQ 2 units ACHS TROY Administration Protocol Insulin Detemir 10 units 08/08/17 22:00 08/11/17 21:46 Levemir Vial SQ 10 units HS TROY Administration Mupirocin 1 applic 08/09/17 10:00 08/12/17 10:45 Bactroban 2% Ointment - TP 1 applic DAILY TROY Administration Nystatin 500,000 units 08/08/17 00:00 08/12/17 11:45 Nystatin Oral Suspension - PO 500,000 units Q6HPO TROY Administration Tamsulosin HCl 0.4 mg 08/09/17 08:30 08/12/17 10:44 Flomax - PO 0.4 mg 0830 TROY Administration IMAGING: FOOT X-RAY: Intact osseous structures, no evidence of foreign body. Soft tissue emphysematous changes CHEST X-RAY: enlarged heart, periphilar markings VENOUS DUPLEX: No evidence of DVT ECHOCARDIOGRAM: Left ventricular size and function within normal limits. Right ventricular size within normal limits. Mild aortic regurgitation BLADDER ULTRASOUND: Overdistended bladder, enlarged prostate, postvoid residual of 1168 cc, moderate bilateral renal hydronephrosis FOOT MRI: edema compatible with early osteomyelitis, perifocal soft tissue swelling compatible with cellulitis ASSESMENT/PLAN: Diabetic Foot Ulcer - No further temperatures, no leukocytosis - CRP 6.4, ESR 41 - lactic 1.0 within normal limits - Vancomycin/Zosyn day 5 empirically - ID consulted, recs appreciated - Podiatry consulted, recs appreciated, patient will be managed with IV abx - Deep wound culture showed Enterococcus faecalis and coag negative staph - x-ray of foot within normal limits - MRI of foot obtained showing compatibility with early osteomyelitis - Bactroban wound care - PICC line for outpatient IV abx - wound care outpatient and will f/u with Dr. Skaggs - offloading shoe Diabetes Mellitus - BGM - ISS - Levemir 10 units qhs - Ha1c 11.2 Shortness of breath - currently breathing well on room air - O2 as needed, continue to monitor - Echo within normal limits Diarrhea - no further episodes since admission - c diff toxin ordered Bilateral lower extremity swelling - venous duplex negative for DVT - Echo within normal limits - follow up outpatient for venous insufficiency HTN - continue home medications - hold home norvasc due to leg edema Oral candidiasis - nystatin - HIV test negative Obstructive sleep apnea - continue CPAP BPH - continue home Flomax 0.4mg daily F/E/N - no fluids currently - K 3.1, repleted, continue to monitor - replete as necessary - diabetic diet DVT PPx - heparin 5000 units subq tid Disposition - admitted to med-surg Problem List - Problems (1) Diabetic infection of right foot Code(s): E11.628 - TYPE 2 DIABETES MELLITUS WITH OTHER SKIN COMPLICATIONS; L08.9 - LOCAL INFECTION OF THE SKIN AND SUBCUTANEOUS TISSUE, UNSP (2) Hyperglycemia Code(s): R73.9 - HYPERGLYCEMIA, UNSPECIFIED (3) Cellulitis of toe of right foot Code(s): L03.031 - CELLULITIS OF RIGHT TOE (4) Diabetes Code(s): E11.9 - TYPE 2 DIABETES MELLITUS WITHOUT COMPLICATIONS
[2017-08-12] MEDS ORDERED: PICC LINE 8 ML FLUSH PROTOCOL IVPUSH PRN (14:19)
--- NOTE | 2017-08-12 14:24 | PN ---
Teaching Attending Note Name of Resident: Ciro Palma ATTENDING PHYSICIAN STATEMENT I saw and evaluated the patient. I reviewed the resident's note and discussed the case with the resident. I agree with the resident's findings and plan as documented. SUBJECTIVE: No complaints. OBJECTIVE: Vital Signs Period Temp Pulse Resp BP Sys/Olmedo Pulse Ox Last 24 Hr 97.1 F-97.9 F 49-49 18-18 144-146/87-88 96 HEART: S1S2, RRR LUNGS: Clear ABDOMEN: Obese, soft, non-tender, non-distended, normal BS EXTREMITIES: Trace edema, chronic changes both legs Laboratory Results - last 24 hr 08/11/17 08/11/17 08/11/17 17:02 20:26 21:44 WBC RBC Hgb Hct MCV MCH MCHC RDW Plt Count MPV Neutrophils % Lymphocytes % Monocytes % Eosinophils % Basophils % Sodium Potassium Chloride Carbon Dioxide Anion Gap BUN Creatinine Creat Clearance w eGFR POC Glucometer 269 263 257 Random Glucose Calcium Phosphorus Magnesium Total Bilirubin AST ALT Alkaline Phosphatase Total Protein Albumin 08/12/17 08/12/17 08/12/17 05:49 06:30 06:30 WBC 6.5 D RBC 3.93 L Hgb 10.8 L Hct 31.2 L MCV 79.4 L MCH 27.5 MCHC 34.6 RDW 14.7 Plt Count 200 MPV 9.3 Neutrophils % 67.4 D Lymphocytes % 17.5 D Monocytes % 9.5 Eosinophils % 4.9 H Basophils % 0.7 Sodium 139 Potassium 3.2 L Chloride 100 Carbon Dioxide 29 Anion Gap 10 BUN 12 Creatinine 1.0 Creat Clearance w eGFR > 60 POC Glucometer 200 Random Glucose 162 H D Calcium 8.3 L Phosphorus 4.1 Magnesium 2.1 Total Bilirubin 1.1 H AST 28 D ALT 32 D Alkaline Phosphatase 106 D Total Protein 6.1 L Albumin 2.7 L 08/12/17 11:43 WBC RBC Hgb Hct MCV MCH MCHC RDW Plt Count MPV Neutrophils % Lymphocytes % Monocytes % Eosinophils % Basophils % Sodium Potassium Chloride Carbon Dioxide Anion Gap BUN Creatinine Creat Clearance w eGFR POC Glucometer 175 Random Glucose Calcium Phosphorus Magnesium Total Bilirubin AST ALT Alkaline Phosphatase Total Protein Albumin Current Medications Generic Name Dose Route Start Last Admin Trade Name Freq PRN Reason Stop Dose Admin Acetaminophen 650 mg 08/07/17 20:33 08/10/17 22:53 Tylenol - PO 650 mg Q6H PRN Administration FEVER Aspirin 81 mg 08/08/17 10:00 08/12/17 10:44 Ecotrin - PO 81 mg DAILY TROY Administration Clonidine 0.4 mg 08/08/17 22:00 08/12/17 06:09 Catapres - PO 0.4 mg TID TROY Administration Heparin Sodium (Porcine) 5,000 unit 08/08/17 06:00 08/12/17 06:09 Heparin - SQ 5,000 unit TID TROY Administration IV Flush 8 ml 08/12/17 14:19 Picc Line Flush IVPUSH PRN PRN Protocol Vancomycin HCl 2,000 mg/ 500 mls @ 250 mls/hr 08/08/17 10:00 08/12/17 10:44 Dextrose IVPB 250 mls/hr BID TROY Administration Piperacillin Sod/Tazobactam 100 mls @ 200 mls/hr 08/08/17 10:00 08/12/17 10: 44 Sod 4.5 gm/ Dextrose IVPB 200 mls/hr Q8H-IV TROY Administration Insulin Aspart 1 vial 08/07/17 22:00 08/12/17 11:45 Novolog Vial Sliding Scale - SQ 2 units ACHS TROY Administration Protocol Insulin Detemir 10 units 08/08/17 22:00 08/11/17 21:46 Levemir Vial SQ 10 units HS TROY Administration Mupirocin 1 applic 08/09/17 10:00 08/12/17 10:45 Bactroban 2% Ointment - TP 1 applic DAILY TROY Administration Nystatin 500,000 units 08/08/17 00:00 08/12/17 11:45 Nystatin Oral Suspension - PO 500,000 units Q6HPO TROY Administration Tamsulosin HCl 0.4 mg 08/09/17 08:30 08/12/17 10:44 Flomax - PO 0.4 mg 0830 TROY Administration ASSESSMENT AND PLAN: This is a 56 year old man with a history of type 2 DM, HTN, BPH who presented to the ED with fever and drainage from an ulcer on his right 1st toe. 1. Infected ulcer of right 1st toe with cellulitis and osteomyelitis - Patient has chosen medical management with IV antibiotics rather than amputation - Wound culture growing Enterococcus faecalis, coagulase negative Staph - Continue Zosyn, Vancomycin - Wound care - Plan for PICC and antibiotics at home vs SNF 2. Type 2 DM, uncontrolled - HgbA1c 11.2 - Januvia held - Continue Levemir, Novolog sliding scale 3. Possible acute diastolic heart failure - SOB improved with Lasix IV - Echo shows normal LV, normal RV, mild AR 4. Chronic venous insufficiency of both legs 5. HTN - Continue Clonidine 6. Indirect hyperbilirubinemia 7. Pseudohyponatremia secondary to hyperglycemia 8. Hypokalemia - Replete potassium 9. Oral candidiasis - Continue Nystatin swish and swallow 10. ANA MARÍA - Continue CPAP at night 11. BPH with bladder outlet obstruction, urinary retention, bilateral hydronephrosis - Continue Flomax
[2017-08-12] MEDS ORDERED: DOCUSATE SODIUM 100 MG CAPSULE (FP) PO ONE (14:39)
--- NOTE | 2017-08-12 14:47 | PN ---
Progress Note, Physician History of Present Illness: Awake, alert in bed No c/o foot pain No c/o fever/ chills Afebrile WBC WNL - Current Medication List Current Medications: Active Medications Acetaminophen (Tylenol -) 650 mg PO Q6H PRN PRN Reason: FEVER Last Admin: 08/10/17 22:53 Dose: 650 mg Aspirin (Ecotrin -) 81 mg PO DAILY [facility] Last Admin: 08/12/17 10:44 Dose: 81 mg Clonidine (Catapres -) 0.4 mg PO TID [facility] Last Admin: 08/12/17 06:09 Dose: 0.4 mg Heparin Sodium (Porcine) (Heparin -) 5,000 unit SQ TID [facility] Last Admin: 08/12/17 06:09 Dose: 5,000 unit IV Flush (Picc Line Flush) 8 ml IVPUSH PRN PRN PRN Reason: Protocol Vancomycin HCl 2,000 mg/ (Dextrose) 500 mls @ 250 mls/hr IVPB BID [facility] Last Admin: 08/12/17 10:44 Dose: 250 mls/hr Piperacillin Sod/Tazobactam (Sod 4.5 gm/ Dextrose) 100 mls @ 200 mls/hr IVPB Q8H-IV [facility] Last Admin: 08/12/17 10:44 Dose: 200 mls/hr Insulin Aspart (Novolog Vial Sliding Scale -) 1 vial SQ ACHS [facility] PRN Reason: Protocol Last Admin: 08/12/17 11:45 Dose: 2 units Insulin Detemir (Levemir Vial) 10 units SQ HS [facility] Last Admin: 08/11/17 21:46 Dose: 10 units Mupirocin (Bactroban 2% Ointment -) 1 applic TP DAILY [facility] Last Admin: 08/12/17 10:45 Dose: 1 applic Nystatin (Nystatin Oral Suspension -) 500,000 units PO Q6HPO [facility] Last Admin: 08/12/17 11:45 Dose: 500,000 units Tamsulosin HCl (Flomax -) 0.4 mg PO 0830 [facility] Last Admin: 08/12/17 10:44 Dose: 0.4 mg - Objective Vital Signs: Vital Signs Temperature 97.9 F 08/12/17 06:00 Pulse Rate 49 L 08/12/17 06:00 Respiratory Rate 18 08/12/17 06:00 Blood Pressure 144/88 08/12/17 06:00 O2 Sat by Pulse Oximetry (%) 96 08/11/17 21:00 Constitutional: Yes: Obese Cardiovascular: Yes: Regular Rate and Rhythm, S1, S2 Respiratory: Yes: CTA Bilaterally Gastrointestinal: Yes: Normal Bowel Sounds, Soft. No: Tenderness Extremities: Yes: Other (R great toe ulcer dry. Decreased swelling/erythema) Labs: CBC, BMP 08/12/17 06:30 08/12/17 06:30 INR, PTT INR 1.45 (0.82-1.09) H D 08/07/17 17:20 Assessment/Plan Osteomyelitis R great toe Infected foot ulcer Continue vancomycon D/C zosyn PICC for long term care phlebotomist IV antibiotic therapy Vancomycin 2,000mg q12h x 5w Local wound care
[2017-08-12 15:21] LABS: ANION GAP 8 (8-16); BLOOD UREA NITROGEN 13 mg/dL (7-18); CALCIUM 8.2 mg/dL (8.5-10.1); CHLORIDE 102 mmol/L (98-107); CO2 29 mmol/L (21-32); CREATININE 1.3 mg/dL (0.7-1.3); GLUCOSE,RANDOM 216 mg/dL (74-106); MAGNESIUM 2.1 mg/dL (1.8-2.4); POTASSIUM 3.2 mmol/L (3.5-5.1); SODIUM 139 mmol/L (136-145)
--- NOTE | 2017-08-12 15:42 | DS ---
Physical Exam: SUBJECTIVE: Patient seen and examined at bedside. No complaints at this time. Pt 's foot continues to heal slowly. Afebrile and stable. OBJECTIVE: Vital Signs Period Temp Pulse Resp BP Sys/Olmedo Pulse Ox Last 24 Hr 97.1 F-98 F 49-59 18-18 144-166/85-88 96 PHYSICAL EXAM GENERAL: obese. The patient is awake, alert, and fully oriented, in no acute distress. HEAD: Normal with no signs of trauma. EYES: PERRL, extraocular movements intact, sclera anicteric, conjunctiva clear. ENT: Ears normal, nares patent, oropharynx clear without exudates, moist mucous membranes. NECK: Trachea midline, full range of motion, supple. LUNGS: Breath sounds equal, clear to auscultation bilaterally, no wheezes, no crackles, no accessory muscle use. HEART: Regular rate and rhythm, S1, S2 without murmur, rub or gallop. ABDOMEN: Soft, nontender, nondistended, normoactive bowel sounds, no guarding, no rebound, no hepatosplenomegaly, no masses. EXTREMITIES: 2+ pulses, warm, well-perfused, b/l 2+ edema. NEUROLOGICAL: Cranial nerves II through XII grossly intact. Normal speech, gait not observed. PSYCH: Normal mood, normal affect. SKIN: Warm, dry, normal turgor, no rashes or lesions noted. LABS Laboratory Results - last 24 hr 08/11/17 08/11/17 08/11/17 17:02 20:26 21:44 WBC RBC Hgb Hct MCV MCH MCHC RDW Plt Count MPV Neutrophils % Lymphocytes % Monocytes % Eosinophils % Basophils % Sodium Potassium Chloride Carbon Dioxide Anion Gap BUN Creatinine Creat Clearance w eGFR POC Glucometer 269 263 257 Random Glucose Calcium Phosphorus Magnesium Total Bilirubin AST ALT Alkaline Phosphatase Total Protein Albumin 08/12/17 08/12/17 08/12/17 05:49 06:30 06:30 WBC 6.5 D RBC 3.93 L Hgb 10.8 L Hct 31.2 L MCV 79.4 L MCH 27.5 MCHC 34.6 RDW 14.7 Plt Count 200 MPV 9.3 Neutrophils % 67.4 D Lymphocytes % 17.5 D Monocytes % 9.5 Eosinophils % 4.9 H Basophils % 0.7 Sodium 139 Potassium 3.2 L Chloride 100 Carbon Dioxide 29 Anion Gap 10 BUN 12 Creatinine 1.0 Creat Clearance w eGFR > 60 POC Glucometer 200 Random Glucose 162 H D Calcium 8.3 L Phosphorus 4.1 Magnesium 2.1 Total Bilirubin 1.1 H AST 28 D ALT 32 D Alkaline Phosphatase 106 D Total Protein 6.1 L Albumin 2.7 L 08/12/17 08/12/17 11:43 14:45 WBC RBC Hgb Hct MCV MCH MCHC RDW Plt Count MPV Neutrophils % Lymphocytes % Monocytes % Eosinophils % Basophils % Sodium 139 Potassium 3.2 L Chloride 102 Carbon Dioxide 29 Anion Gap 8 BUN 13 Creatinine 1.3 D Creat Clearance w eGFR POC Glucometer 175 Random Glucose 216 H D Calcium 8.2 L Phosphorus Magnesium 2.1 Total Bilirubin AST ALT Alkaline Phosphatase Total Protein Albumin HOSPITAL COURSE: Date of Admission:08/07/17 Date of Discharge: 08/12/17 Pt is a 56 y/o M with PMH uncontrolled DM 2 who came to the ED with R great toe lesion. Lesion was inflamed and draining. Pt had gotten a foreign body lodged under the nail 1 week prior, had been seen at [facility] and sent home with PO abx. During this hospital stay, pt was admitted for early osteomyelitis. Pt was given Vanc/Zosyn in ED, which were continued by ID team. Pt was also seen by vascular surgery and Podiatry. Care team agreed that pt would benefit from custodial IV abx at home. Pt sent to IR for PICC placement with plan to D/C on Vancomycin 2gm q12h for 5 weeks. Pt given instructions to f/u with ID, Podiatry, and wound care. 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 It is a catheter that will remain in place for the duration of your antibiotic course. If your symptoms recur of if you develop new symptoms like fever, chills, or redness/pain around the site of the catheter, please return to the emergency department immediately. Please take your medications only as directed and make sure you follow up with your primary care doctor as well as the infectious diseases specialist. Referrals: Umang Jamison MD [Staff Physician] - 1 Week Disposition: HOME - Home Medications Comprehensive Discharge Medication List: Ambulatory Orders Amlodipine Besylate [Norvasc -] 10 mg PO DAILY 06/23/13 Clonidine HCl 0.4 mg PO TID 02/07/17 Sitagliptin Phosphate [Januvia] 50 mg PO DAILY 07/31/17 Glipizide [Glipizide ER] 10 mg PO BID 08/07/17 Nebivolol HCl/Valsartan [Byvalson 5 mg-80 mg Tablet] 1 tab PO BID 08/07/17 Tamsulosin HCl 0.4 mg PO DAILY 08/08/17 - Discharge Referral Referred to [facility] No
[2017-08-12] MEDS: INSULIN (LEVEMIR) 100 UNITS/ML UNITS SQ SCH (21:47)
[2017-08-13] MEDS: NYSTATIN 500,000 UNITS/5 ML SUSPENSION PO SCH ×4 (00:08→17:27)
[2017-08-13] MEDS ORDERED: PIPERACILLIN/TAZOBACTAM 4.5 GM VIAL IVPB ONE ×3 (02:02→17:25)
[2017-08-13] MEDS ORDERED: DEXTROSE 5%-WATER 100 ML IVPB ONE ×3 (02:03→17:25)
[2017-08-13] MEDS: PIPERACILLIN/TAZOB 4.5 GM 4.5 GM in DEXTROSE 5%-WATER 100 ML IVPB SCH ×3 (02:07→17:27)
[2017-08-13] MEDS: HEPARIN NA (PORCINE) 5,000 UNITS/ML 1ML VIAL SQ SCH ×3 (05:55→22:13)
[2017-08-13] MEDS: cloNIDine HCL 0.1 MG TABLET PO SCH ×3 (05:56→22:12)
[2017-08-13] MEDS: INSULIN SLIDING SCALE (NOVOLOG) 1 VIAL SQ SCH ×4 (06:32→22:14)
[2017-08-13 07:57] LABS: BASO % 0.8 % (0-2.0); EOS % 4.2 % (0-4.5); HEMATOCRIT 31.1 % (35.4-49); HEMOGLOBIN 10.7 GM/dL (11.7-16.9); LYMPH % 16.6 % (8-40); MCH 27.8 pg (25.7-33.7); MCHC 34.5 g/dl (32.0-35.9); MEAN CELL VOLUME 80.6 fl (80-96); MEAN PLT VOLUME 9.4 fl (7.5-11.1); MONO % 9.1 % (3.8-10.2); NEUT % 69.3 % (42.8-82.8); PLATELET COUNT 225 K/MM3 (134-434); RBC 3.86 M/mm3 (4.00-5.60); WHITE BLOOD COUNT 7.6 K/mm3 (4.0-10.0)
[2017-08-13 08:28] LABS: CHLORIDE 106 mmol/L (98-107); POTASSIUM 3.5 mmol/L (3.5-5.1); SODIUM 142 mmol/L (136-145)
[2017-08-13 08:48] LABS: ALBUMIN 2.6 g/dl (3.4-5.0); ALK PHOS 108 U/L (45-117); ANION GAP 7 (8-16); BILIRUBIN,TOTAL 1.2 mg/dL (0.2-1.0); BLOOD UREA NITROGEN 13 mg/dL (7-18); CALCIUM 8.4 mg/dL (8.5-10.1); CO2 29 mmol/L (21-32); CREATININE 1.6 mg/dL (0.7-1.3); GLUCOSE,RANDOM 136 mg/dL (74-106); SGOT/AST 31 U/L (15-37); SGPT/ALT 36 U/L (12-78); TOT PROT 5.9 g/dl (6.4-8.2)
[2017-08-13] MEDS ORDERED: PT OWN MED DRAWER 7, Y5N ONE (09:33)
[2017-08-13] MEDS: VANCOMYCIN 2,000 MG in DEXTROSE 5%-WATER - 500 ML IVPB SCH ×3 (09:41→23:20)
[2017-08-13] MEDS: ASPIRIN COATED 81 MG TABLET.EC PO SCH (09:41)
[2017-08-13] MEDS: TAMSULOSIN HCL 0.4 MG CAP.ER.24H (FP) PO SCH (09:41)
[2017-08-13] MEDS: MUPIROCIN 2% TOPICAL OINTMENT 22 GM TUBE TP SCH (09:42)
[2017-08-13] MEDS ORDERED: INSULIN (NOVOLOG) ASPART 100 UNITS/ML 10ML VIAL ONE ×2 (12:04→17:30)
--- NOTE | 2017-08-13 15:15 | MSN ---
Progress Note (short form) - Note Progress Note: CHIEF COMPLAINT: fever, malaise, diaphoresis, R toe infection HISTORY OF PRESENT ILLNESS Overnight, patient did not have any acute events. Patient was noted to have increased CRE at 1.6 in the morning. Patient was seen and examined at the bedside. Patient stated that he no longer had any complaints of subjective fevers or diaphoresis. Patient endorsed constipation and had not moved his bowels since admission. Patient denied any chest pain, sob, abd pain, n/v/d, dizziness, lightheadedness, extremity pain, cough, headache. Smoking: denies Alcohol: social Drugs: denies REVIEW OF SYSTEMS CONSTITUTIONAL: Absent: malaise, loss of appetite, weight change, chills, fever, diaphoresis, generalized weakness HEENT: Absent: rhinorrhea, nasal congestion, throat pain, throat swelling, difficulty swallowing, mouth swelling, ear pain, eye pain, visual changes CARDIOVASCULAR: Absent: chest pain, syncope, palpitations, irregular heart rate, lightheadedness , peripheral edema RESPIRATORY: Absent: cough, shortness of breath, dyspnea with exertion, orthopnea, wheezing, stridor, hemoptysis GASTROINTESTINAL: constipation Absent: abdominal pain, abdominal distension, nausea, vomiting, diarrhea, , melena, hematochezia GENITOURINARY: Absent: dysuria, frequency, urgency, hesitancy, hematuria, flank pain, genital pain MUSCULOSKELETAL: Absent: myalgia, arthralgia, joint swelling, back pain, neck pain SKIN: swelling of legs Absent: rash, itching, pallor HEMATOLOGIC/IMMUNOLOGIC: Absent: easy bleeding, easy bruising, lymphadenopathy, frequent infections ENDOCRINE: Absent: unexplained weight gain, unexplained weight loss, heat intolerance, cold intolerance NEUROLOGIC: Absent: headache, focal weakness or paresthesias, dizziness, unsteady gait, seizure, mental status changes, bladder or bowel incontinence PSYCHIATRIC: Absent: anxiety, depression, suicidal or homicidal ideation, hallucinations. PHYSICAL EXAMINATION: GENERAL: Awake, alert, and fully oriented, in no apparent distress. Obese middle aged male laying in bed. HEAD: Normal with no signs of trauma. Redness on the nasal bridge secondary to CPAP mask covered by adhesive bandage EYES: Pupils equal, round and reactive to light, extraocular movements intact, sclera anicteric, conjunctiva clear. No lid lag. EARS, NOSE, THROAT: Ears normal, nares patent, oropharynx contains scrapable white plaques. Moist mucous membranes. NECK: Normal range of motion, supple without lymphadenopathy, JVD, or masses. LUNGS: Breath sounds equal, clear to auscultation bilaterally. No wheezes, and no crackles. No accessory muscle use. HEART: Regular rate and rhythm, normal S1 and S2 without murmur, rub or gallop. ABDOMEN: Soft, nontender, obese, normoactive bowel sounds, no guarding, no rebound, no masses. No hepatomegaly or splenomegaly. MUSCULOSKELETAL: Normal range of motion at all joints. No bony deformities or tenderness. No CVA tenderness. UPPER EXTREMITIES: 2+ pulses, warm, well-perfused. No cyanosis. No clubbing. Cap refill <2 seconds. No peripheral edema LOWER EXTREMITIES: 2+ pulses, warm, well-perfused. No calf tenderness. 1+ peripheral edema bilaterally. NEUROLOGICAL: Cranial nerves II-XII intact. Normal speech. PSYCHIATRIC: Cooperative. Good eye contact. Appropriate mood and affect. SKIN: Warm, dry, normal turgor. On bilateral lower extremities, chronic venous stasis dermatitis noted. On R great toe, sloughing of skin present with dried blood and dried discharge from toe. Wound debrided and dry. Non-painful to palpation. Allergies Allergy/AdvReac Type Severity Reaction Status Date / Time ciprofloxacin [From Cipro] Allergy pain Verified 08/07/17 16:10 levofloxacin [From Levaquin] Allergy Verified 08/07/17 16:08 CBC, BMP 08/13/17 07:00 08/13/17 07:00 Abnormal Lab Results 08/12/17 08/13/17 08/13/17 14:45 07:00 07:00 RBC 3.86 L Hgb 10.7 L Hct 31.1 L Potassium 3.2 L Anion Gap 7 L Creatinine 1.6 H D Random Glucose 216 H D 136 H D Calcium 8.2 L 8.4 L Total Bilirubin 1.2 H Total Protein 5.9 L Albumin 2.6 L Active Medications Generic Name Dose Route Start Last Admin Trade Name Freq PRN Reason Stop Dose Admin Acetaminophen 650 mg 08/07/17 20:33 08/10/17 22:53 Tylenol - PO 650 mg Q6H PRN Administration FEVER Aspirin 81 mg 08/08/17 10:00 08/13/17 09:41 Ecotrin - PO 81 mg DAILY TROY Administration Clonidine 0.4 mg 08/08/17 22:00 08/13/17 14:22 Catapres - PO 0.4 mg TID TROY Administration Heparin Sodium (Porcine) 5,000 unit 08/08/17 06:00 08/13/17 14:22 Heparin - SQ 5,000 unit TID TROY Administration IV Flush 8 ml 08/12/17 14:19 Picc Line Flush IVPUSH PRN PRN Protocol Vancomycin HCl 2,000 mg/ 500 mls @ 250 mls/hr 08/08/17 10:00 08/13/17 09:41 Dextrose IVPB 250 mls/hr BID TROY Administration Piperacillin Sod/Tazobactam 100 mls @ 200 mls/hr 08/08/17 10:00 08/13/17 09: 42 Sod 4.5 gm/ Dextrose IVPB 200 mls/hr Q8H-IV TROY Administration Insulin Aspart 1 vial 08/07/17 22:00 08/13/17 12:06 Novolog Vial Sliding Scale - SQ 2 units ACHS TROY Administration Protocol Insulin Detemir 10 units 08/08/17 22:00 08/12/17 21:47 Levemir Vial SQ 10 units HS TROY Administration Mupirocin 1 applic 08/09/17 10:00 08/13/17 09:42 Bactroban 2% Ointment - TP 1 applic DAILY TROY Administration Nystatin 500,000 units 08/08/17 00:00 08/13/17 12:45 Nystatin Oral Suspension - PO Not Given Q6HPO TROY Senna 1 tab 08/13/17 22:00 Senna - PO BID TROY Tamsulosin HCl 0.4 mg 08/09/17 08:30 08/13/17 09:41 Flomax - PO 0.4 mg 0830 TROY Administration IMAGING: FOOT X-RAY: Intact osseous structures, no evidence of foreign body. Soft tissue emphysematous changes CHEST X-RAY: enlarged heart, periphilar markings VENOUS DUPLEX: No evidence of DVT ECHOCARDIOGRAM: Left ventricular size and function within normal limits. Right ventricular size within normal limits. Mild aortic regurgitation BLADDER ULTRASOUND: Overdistended bladder, enlarged prostate, postvoid residual of 1168 cc, moderate bilateral renal hydronephrosis FOOT MRI: edema compatible with early osteomyelitis, perifocal soft tissue swelling compatible with cellulitis ASSESMENT/PLAN: Diabetic Foot Ulcer - No further temperatures, no leukocytosis - CRP 6.4, ESR 41 - Vancomycin day 6 empirically - ID consulted, recs appreciated - Podiatry consulted, recs appreciated, patient will be managed with IV abx - Deep wound culture showed Enterococcus faecalis and coag negative staph - x-ray of foot within normal limits - MRI of foot obtained showing compatibility with early osteomyelitis - Bactroban wound care - PICC line for outpatient IV abx placed and will receive outpatient abx through [facility] - patient counseled on antibiotic regimen by pharmacy - wound care outpatient and will f/u with Dr. Skaggs - offloading shoe Diabetes Mellitus - BGM - ISS - home medications glipizide and januvia restarted - Ha1c 11.2 - continue to monitor and f/u outpatient Shortness of breath - currently breathing well on room air - O2 as needed, continue to monitor - Echo within normal limits GAETANO - possibly due to constipation and BPH obstruction of bladder outlet vs vancomycin associated renal injury - patient does not have any urinary complaints - bladder scan ordered, 990cc retained, second scan 800s. - patient will be given straight cath to drain urine - urine electrolytes ordered - vancomycin level and adjusted dosing - continue to monitor Constipation - colace - senna - Miralax Bilateral lower extremity swelling - venous duplex negative for DVT - Echo within normal limits - follow up outpatient for venous insufficiency HTN - continue home medications - hold home norvasc due to leg edema - hold HCTZ due to repeated hyperkalemia and GAETANO Oral candidiasis - nystatin - HIV test negative Obstructive sleep apnea - continue CPAP BPH - continue home Flomax 0.4mg daily F/E/N - no fluids currently - Potassium repleted, continue to monitor - replete as necessary - diabetic diet DVT PPx - heparin 5000 units subq tid Disposition - admitted to med-surg Problem List - Problems (1) Diabetic infection of right foot Code(s): E11.628 - TYPE 2 DIABETES MELLITUS WITH OTHER SKIN COMPLICATIONS; L08.9 - LOCAL INFECTION OF THE SKIN AND SUBCUTANEOUS TISSUE, UNSP (2) Hyperglycemia Code(s): R73.9 - HYPERGLYCEMIA, UNSPECIFIED (3) Cellulitis of toe of right foot Code(s): L03.031 - CELLULITIS OF RIGHT TOE (4) Diabetes Code(s): E11.9 - TYPE 2 DIABETES MELLITUS WITHOUT COMPLICATIONS
--- NOTE | 2017-08-13 15:27 | PN ---
Teaching Attending Note Name of Resident: Ciro Palma ATTENDING PHYSICIAN STATEMENT I saw and evaluated the patient. I reviewed the resident's note and discussed the case with the resident. I agree with the resident's findings and plan as documented with exceptions below. SUBJECTIVE: patient seen and examined. no new complaints, no back or suprapubic pain, no fevers, chills. OBJECTIVE: Vital Signs Period Temp Pulse Resp BP Sys/Olmedo Pulse Ox Last 24 Hr 97.6 F-98.2 F 52-56 20-20 168-172/95-97 96 Intake & Output 08/10/17 08/11/17 08/12/17 08/13/17 23:59 23:59 23:59 23:59 Intake Total 2700 2900 1400 240 Output Total 750 1150 1350 900 Balance 1950 1750 50 -660 General: sitting in bed in no acute distress Extremities: right great toe with scaling, swelling, no fluctuation, horizontal cur on sole of right great toe, clean with no discharge or active bleeding, non warm non tender, positive Pulses Abdomen; soft, no suprapubic or CVA tenderness Home Medication List Medication Instructions Recorded Confirmed Type Amlodipine Besylate [Norvasc -] 10 mg PO DAILY 06/23/13 08/07/17 History Clonidine HCl 0.4 mg PO TID 02/07/17 08/08/17 History Sitagliptin Phosphate [Januvia] 50 mg PO DAILY 07/31/17 08/07/17 History Glipizide [Glipizide ER] 10 mg PO BID 08/07/17 08/07/17 History Nebivolol HCl/Valsartan [Byvalson 1 tab PO BID 08/07/17 08/07/17 History 5 mg-80 mg Tablet] Tamsulosin HCl 0.4 mg PO DAILY 08/08/17 08/08/17 History Active Medications Generic Name Dose Route Start Last Admin Trade Name Freq PRN Reason Stop Dose Admin Acetaminophen 650 mg 08/07/17 20:33 08/10/17 22:53 Tylenol - PO 650 mg Q6H PRN Administration FEVER Aspirin 81 mg 08/08/17 10:00 08/13/17 09:41 Ecotrin - PO 81 mg DAILY TROY Administration Clonidine 0.4 mg 08/08/17 22:00 08/13/17 14:22 Catapres - PO 0.4 mg TID TROY Administration Glipizide 10 mg 08/13/17 16:30 Glucotrol - PO BID@0700,1630 TROY Heparin Sodium (Porcine) 5,000 unit 08/08/17 06:00 08/13/17 14:22 Heparin - SQ 5,000 unit TID TROY Administration IV Flush 8 ml 08/12/17 14:19 Picc Line Flush IVPUSH PRN PRN Protocol Vancomycin HCl 2,000 mg/ 500 mls @ 250 mls/hr 08/08/17 10:00 08/13/17 09:41 Dextrose IVPB 250 mls/hr BID TROY Administration Piperacillin Sod/Tazobactam 100 mls @ 200 mls/hr 08/08/17 10:00 08/13/17 09: 42 Sod 4.5 gm/ Dextrose IVPB 200 mls/hr Q8H-IV TROY Administration Insulin Aspart 1 vial 08/07/17 22:00 08/13/17 12:06 Novolog Vial Sliding Scale - SQ 2 units ACHS TROY Administration Protocol Mupirocin 1 applic 08/09/17 10:00 08/13/17 09:42 Bactroban 2% Ointment - TP 1 applic DAILY TROY Administration Nystatin 500,000 units 08/08/17 00:00 08/13/17 12:45 Nystatin Oral Suspension - PO Not Given Q6HPO TROY Senna 1 tab 08/13/17 22:00 Senna - PO BID TROY Sitagliptin Phosphate 50 mg 08/13/17 15:22 Januvia - PO 08/13/17 15:23 ONCE ONE Sitagliptin Phosphate 50 mg 08/14/17 07:00 Januvia - PO DAILY@0700 TROY Tamsulosin HCl 0.4 mg 08/09/17 08:30 08/13/17 09:41 Flomax - PO 0.4 mg 0830 TROY Administration Laboratory Results - last 24 hr 08/12/17 08/12/17 08/13/17 17:30 21:26 05:28 WBC RBC Hgb Hct MCV MCH MCHC RDW Plt Count MPV Neutrophils % Lymphocytes % Monocytes % Eosinophils % Basophils % Sodium Potassium Chloride Carbon Dioxide Anion Gap BUN Creatinine Creat Clearance w eGFR POC Glucometer 245 248 174 Random Glucose Calcium Total Bilirubin AST ALT Alkaline Phosphatase Total Protein Albumin 08/13/17 08/13/17 08/13/17 07:00 07:00 12:01 WBC 7.6 RBC 3.86 L Hgb 10.7 L Hct 31.1 L MCV 80.6 MCH 27.8 MCHC 34.5 RDW 15.0 Plt Count 225 MPV 9.4 Neutrophils % 69.3 Lymphocytes % 16.6 Monocytes % 9.1 Eosinophils % 4.2 Basophils % 0.8 Sodium 142 Potassium 3.5 Chloride 106 Carbon Dioxide 29 Anion Gap 7 L BUN 13 Creatinine 1.6 H D Creat Clearance w eGFR 45.10 POC Glucometer 162 Random Glucose 136 H D Calcium 8.4 L Total Bilirubin 1.2 H AST 31 ALT 36 Alkaline Phosphatase 108 Total Protein 5.9 L Albumin 2.6 L Microbiology 08/07/17 17:28 Blood - Peripheral Venous Blood Culture - Final NO GROWTH AFTER 5 DAYS INCUBATION 08/07/17 17:20 Blood - Peripheral Venous Blood Culture - Final NO GROWTH AFTER 5 DAYS INCUBATION 08/08/17 12:15 Toe - Right Hallux Gram Stain - Final 08/08/17 12:15 Toe - Right Hallux Wound Culture - Final Enterococcus Faecalis Staphylococcus Coagulase Neg 08/07/17 18:40 Urine - Urine Clean Catch Urine Culture - Final NO GROWTH OBTAINED MRI right foot findings noted ASSESSMENT AND PLAN: 56 yom with PMHX of uncontrolled DM likely non compliance, comes with right great toe osteomyelitis. -Right great toe osteomyelitis -Uncontrolled DM, A1c 11.2 -GAETANO, r/o urinary retention, ?vanco related -Possible mild acute diastolic HF, resolved, Echo non concerning -Oral candidiasis -HTN -BPH Plan: Creatinine rising, discussed with Dr. Jamison. Vanco level before evening dose today. Bladder scan x 1, continue flomax. Trend for now. Resume home oral glipizide and januvia for now to address home regimen and hold levemir, Suspect non compliance, stressed need for home blood glucose monitoring and compliance. Diabetic education. Nutrition consult. COntinue clonidine DVTPPX dispo planning in 24-48 hours if renal function stable and no new concerns.
[2017-08-13] MEDS ORDERED: sitaGLIPtin PHOSPHATE 50 MG TABLET PO ONE (15:45)
[2017-08-13] MEDS: glipiZIDE 5 MG TABLET (FP) PO SCH (17:28)
--- NOTE | 2017-08-13 20:06 | PN ---
Physical Exam: SUBJECTIVE: Patient seen and examined at bedside. No acute events. Pt complains of constipation. No other complaints. OBJECTIVE: Vital Signs Period Temp Pulse Resp BP Sys/Olmedo Pulse Ox Last 24 Hr 97.6 F-98.2 F 52-56 20-20 168-180/95-97 96-96 GENERAL: The patient is awake, alert, and fully oriented, in no acute distress. HEAD: Normal with no signs of trauma. EYES: sclera anicteric, conjunctiva clear. No ptosis. ENT: oropharynx clear without exudates, moist mucous membranes. NECK: Trachea midline, full range of motion, supple. LUNGS: Breath sounds equal, clear to auscultation bilaterally, no wheezes, no crackles, no accessory muscle use. HEART: Regular rate and rhythm, S1, S2 without murmur, rub or gallop. ABDOMEN: obese, Soft, nontender, nondistended, normoactive bowel sounds, no guarding, no rebound, no hepatosplenomegaly, no masses. EXTREMITIES: R great toe with lesion of toe nail and recently debrieded inferior lesion. 2+ pulses, warm, well-perfused, no edema. NEUROLOGICAL: Cranial nerves II through XII grossly intact. Normal speech, gait not observed. PSYCH: Normal mood, normal affect. SKIN: Warm, dry, normal turgor, no rashes or lesions noted Laboratory Results - last 24 hr 08/12/17 08/13/17 08/13/17 21:26 05:28 07:00 WBC 7.6 RBC 3.86 L Hgb 10.7 L Hct 31.1 L MCV 80.6 MCH 27.8 MCHC 34.5 RDW 15.0 Plt Count 225 MPV 9.4 Neutrophils % 69.3 Lymphocytes % 16.6 Monocytes % 9.1 Eosinophils % 4.2 Basophils % 0.8 Sodium Potassium Chloride Carbon Dioxide Anion Gap BUN Creatinine Creat Clearance w eGFR POC Glucometer 248 174 Random Glucose Calcium Total Bilirubin AST ALT Alkaline Phosphatase Total Protein Albumin 08/13/17 08/13/17 08/13/17 07:00 12:01 17:20 WBC RBC Hgb Hct MCV MCH MCHC RDW Plt Count MPV Neutrophils % Lymphocytes % Monocytes % Eosinophils % Basophils % Sodium 142 Potassium 3.5 Chloride 106 Carbon Dioxide 29 Anion Gap 7 L BUN 13 Creatinine 1.6 H D Creat Clearance w eGFR 45.10 POC Glucometer 162 186 Random Glucose 136 H D Calcium 8.4 L Total Bilirubin 1.2 H AST 31 ALT 36 Alkaline Phosphatase 108 Total Protein 5.9 L Albumin 2.6 L Active Medications Generic Name Dose Route Start Last Admin Trade Name Freq PRN Reason Stop Dose Admin Acetaminophen 650 mg 08/07/17 20:33 08/10/17 22:53 Tylenol - PO 650 mg Q6H PRN Administration FEVER Aspirin 81 mg 08/08/17 10:00 08/13/17 09:41 Ecotrin - PO 81 mg DAILY TROY Administration Clonidine 0.4 mg 08/08/17 22:00 08/13/17 14:22 Catapres - PO 0.4 mg TID TROY Administration Glipizide 10 mg 08/13/17 16:30 08/13/17 17:28 Glucotrol - PO 10 mg BID@0700,1630 TROY Administration Heparin Sodium (Porcine) 5,000 unit 08/08/17 06:00 08/13/17 14:22 Heparin - SQ 5,000 unit TID TRYO Administration IV Flush 8 ml 08/12/17 14:19 Picc Line Flush IVPUSH PRN PRN Protocol Vancomycin HCl 2,000 mg/ 500 mls @ 250 mls/hr 08/08/17 10:00 08/13/17 09:41 Dextrose IVPB 250 mls/hr BID TROY Administration Insulin Aspart 1 vial 08/07/17 22:00 08/13/17 17:32 Novolog Vial Sliding Scale - SQ 2 units ACHS TROY Administration Protocol Mupirocin 1 applic 08/09/17 10:00 08/13/17 09:42 Bactroban 2% Ointment - TP 1 applic DAILY RTOY Administration Nystatin 500,000 units 08/08/17 00:00 08/13/17 17:27 Nystatin Oral Suspension - PO 500,000 units Q6HPO TROY Administration Senna 1 tab 08/13/17 22:00 Senna - PO BID TROY Sitagliptin Phosphate 50 mg 08/14/17 07:00 Januvia - PO DAILY@0700 TROY Tamsulosin HCl 0.4 mg 08/09/17 08:30 08/13/17 09:41 Flomax - PO 0.4 mg 0830 TROY Administration ASSESSMENT/PLAN: 56 y/o M w PMH DM2, HTN, BPH who presented to the ED with fever and drainage from an ulcer on his right great toe. #Osteomyelitis of R great toe -Seen by Podiatry, Vasc surg, ID -Cx pos for E. faecalis, coag neg Staph -on Vanc -PICC in place #GAETANO -Graduate Student increased to 1.6 -? 2/2 urinary retention vs Vanco #DM 2 -home med Glipizide, Januvia -has been on Levemir and ISS in the hospital -A1C 11.2 #HTN -Clonidine #BPH -Flomax -urinary retention -Bladder scan revealed 990 post-void residual. straight cath drained 1200ml #? CHF - Echo shows normal LV, normal RV, mild AR #Venous stasis -chronic #ANA MARÍA -CPAP #FEN -not on fluid -lytes wnl -DM diet #Dispo -Admitted for Osteomyelitis. ? D/C tomorrow Ciro Palma MD PGY-1 IM Visit type - Emergency Visit Emergency Visit: No - New Patient This patient is new to me today: No - Critical Care Critical Care patient: No
[2017-08-13] MEDS: SENNOSIDES 8.6MG TABLET (FP) PO SCH (22:12)
[2017-08-14] MEDS: NYSTATIN 500,000 UNITS/5 ML SUSPENSION PO SCH ×5 (00:52→22:00)
[2017-08-14] MEDS ORDERED: PT OWN MED DRAWER 7, Y5N ONE ×2 (01:11→10:38)
[2017-08-14] MEDS: HEPARIN NA (PORCINE) 5,000 UNITS/ML 1ML VIAL SQ SCH ×3 (05:57→21:59)
[2017-08-14] MEDS: cloNIDine HCL 0.1 MG TABLET PO SCH ×3 (05:57→22:00)
[2017-08-14] MEDS: glipiZIDE 5 MG TABLET (FP) PO SCH ×2 (06:43→18:08)
[2017-08-14] MEDS: sitaGLIPtin PHOSPHATE 50 MG TABLET PO SCH (06:43)
[2017-08-14] MEDS: INSULIN SLIDING SCALE (NOVOLOG) 1 VIAL SQ SCH ×4 (06:46→21:58)
[2017-08-14] MEDS ORDERED: POLYETHYLENE GLYCOL 3350 119 GM BTL PO ONE (09:04)
[2017-08-14 09:19] LABS: BASO % 0.7 % (0-2.0); EOS % 4.5 % (0-4.5); HEMATOCRIT 30.4 % (35.4-49); HEMOGLOBIN 10.5 GM/dL (11.7-16.9); LYMPH % 13.8 % (8-40); MCH 27.8 pg (25.7-33.7); MCHC 34.5 g/dl (32.0-35.9); MEAN CELL VOLUME 80.7 fl (80-96); MEAN PLT VOLUME 9.2 fl (7.5-11.1); MONO % 10.9 % (3.8-10.2); NEUT % 70.1 % (42.8-82.8); PLATELET COUNT 222 K/MM3 (134-434); RBC 3.77 M/mm3 (4.00-5.60); WHITE BLOOD COUNT 6.4 K/mm3 (4.0-10.0)
[2017-08-14 10:07] LABS: CHLORIDE 107 mmol/L (98-107); POTASSIUM 3.4 mmol/L (3.5-5.1); SODIUM 143 mmol/L (136-145)
[2017-08-14 10:33] LABS: ALBUMIN 2.8 g/dl (3.4-5.0); ALK PHOS 107 U/L (45-117); ANION GAP 10 (8-16); BILIRUBIN,TOTAL 1.1 mg/dL (0.2-1.0); BLOOD UREA NITROGEN 13 mg/dL (7-18); CALCIUM 8.6 mg/dL (8.5-10.1); CO2 26 mmol/L (21-32); CREATININE 1.7 mg/dL (0.7-1.3); GLUCOSE,RANDOM 124 mg/dL (74-106); SGOT/AST 31 U/L (15-37); SGPT/ALT 41 U/L (12-78); TOT PROT 6.2 g/dl (6.4-8.2)
[2017-08-14] MEDS: ASPIRIN COATED 81 MG TABLET.EC PO SCH (10:40)
[2017-08-14] MEDS: TAMSULOSIN HCL 0.4 MG CAP.ER.24H (FP) PO SCH ×3 (10:40→22:00)
[2017-08-14] MEDS: DOCUSATE SODIUM 100 MG CAPSULE (FP) PO SCH (10:40)
[2017-08-14] MEDS: SENNOSIDES 8.6MG TABLET (FP) PO SCH ×2 (10:42→22:03)
[2017-08-14] MEDS: MUPIROCIN 2% TOPICAL OINTMENT 22 GM TUBE TP SCH (10:45)
[2017-08-14] MEDS: VANCOMYCIN 2,000 MG in DEXTROSE 5%-WATER - 500 ML IVPB SCH (11:16)
--- NOTE | 2017-08-14 14:53 | MSN ---
Progress Note (short form) - Note Progress Note: CHIEF COMPLAINT: fever, malaise, diaphoresis, R toe infection HISTORY OF PRESENT ILLNESS Overnight, patient did not have any acute events. Patient's CRE increased to 1.7 this morning. Patient was seen and examined at the bedside. Patient had no acute complaints of fevers, chills, diaphoresis. His only complaint was that he wanted to go home. Patient endorsed constipation and had not moved his bowels since admission. Patient denied any chest pain, sob, abd pain, n/v/d, dizziness, lightheadedness, extremity pain, cough, headache. Smoking: denies Alcohol: social Drugs: denies REVIEW OF SYSTEMS CONSTITUTIONAL: Absent: malaise, loss of appetite, weight change, chills, fever, diaphoresis, generalized weakness HEENT: Absent: rhinorrhea, nasal congestion, throat pain, throat swelling, difficulty swallowing, mouth swelling, ear pain, eye pain, visual changes CARDIOVASCULAR: Absent: chest pain, syncope, palpitations, irregular heart rate, lightheadedness , peripheral edema RESPIRATORY: Absent: cough, shortness of breath, dyspnea with exertion, orthopnea, wheezing, stridor, hemoptysis GASTROINTESTINAL: constipation Absent: abdominal pain, abdominal distension, nausea, vomiting, diarrhea, , melena, hematochezia GENITOURINARY: Absent: dysuria, frequency, urgency, hesitancy, hematuria, flank pain, genital pain MUSCULOSKELETAL: Absent: myalgia, arthralgia, joint swelling, back pain, neck pain SKIN: swelling of legs (chronic) Absent: rash, itching, pallor HEMATOLOGIC/IMMUNOLOGIC: Absent: easy bleeding, easy bruising, lymphadenopathy, frequent infections ENDOCRINE: Absent: unexplained weight gain, unexplained weight loss, heat intolerance, cold intolerance NEUROLOGIC: Absent: headache, focal weakness or paresthesias, dizziness, unsteady gait, seizure, mental status changes, bladder or bowel incontinence PSYCHIATRIC: Absent: anxiety, depression, suicidal or homicidal ideation, hallucinations. PHYSICAL EXAMINATION: GENERAL: Awake, alert, and fully oriented, in no apparent distress. Obese middle aged male laying in bed. HEAD: Normal with no signs of trauma. Redness on the nasal bridge secondary to CPAP mask covered by adhesive bandage EYES: Pupils equal, round and reactive to light, extraocular movements intact, sclera anicteric, conjunctiva clear. No lid lag. EARS, NOSE, THROAT: Ears normal, nares patent, oropharynx contains scrapable white plaques. Moist mucous membranes. NECK: Normal range of motion, supple without lymphadenopathy, JVD, or masses. LUNGS: Breath sounds equal, clear to auscultation bilaterally. No wheezes, and no crackles. No accessory muscle use. HEART: Regular rate and rhythm, normal S1 and S2 without murmur, rub or gallop. ABDOMEN: Soft, nontender, obese, normoactive bowel sounds, no guarding, no rebound, no masses. No hepatomegaly or splenomegaly. MUSCULOSKELETAL: Normal range of motion at all joints. No bony deformities or tenderness. No CVA tenderness. UPPER EXTREMITIES: 2+ pulses, warm, well-perfused. No cyanosis. No clubbing. Cap refill <2 seconds. No peripheral edema LOWER EXTREMITIES: 2+ pulses, warm, well-perfused. No calf tenderness. 1+ peripheral edema bilaterally. NEUROLOGICAL: Cranial nerves II-XII intact. Normal speech. PSYCHIATRIC: Cooperative. Good eye contact. Appropriate mood and affect. SKIN: Warm, dry, normal turgor. On bilateral lower extremities, chronic venous stasis dermatitis noted. On R great toe, granulation tissue noted. Wound debrided and was clean and dry. Non-painful to palpation. Last Vital Signs Temp Pulse Resp BP Pulse Ox 97.7 F 54 L 20 185/98 96 08/14/17 07:26 08/14/17 07:26 08/14/17 07:26 08/14/17 07:26 08/13/17 21:00 Allergies Allergy/AdvReac Type Severity Reaction Status Date / Time ciprofloxacin [From Cipro] Allergy pain Verified 08/07/17 16:10 levofloxacin [From Levaquin] Allergy Verified 08/07/17 16:08 CBC, BMP 08/14/17 08:08 08/14/17 08:08 CMP Sodium 143 mmol/L (136-145) 08/14/17 08:08 Potassium 3.4 mmol/L (3.5-5.1) L 08/14/17 08:08 Chloride 107 mmol/L (98-107) 08/14/17 08:08 Carbon Dioxide 26 mmol/L (21-32) 08/14/17 08:08 Anion Gap 10 (8-16) 08/14/17 08:08 BUN 13 mg/dL (7-18) 08/14/17 08:08 Creatinine 1.7 mg/dL (0.7-1.3) H 08/14/17 08:08 Creat Clearance w eGFR 42.05 (>60) 08/14/17 08:08 POC Glucometer 127 UNITS (80-120) 08/14/17 12:08 Random Glucose 124 mg/dL (74-106) H 08/14/17 08:08 Hemoglobin A1c % 11.2 % (4.8-6.0) H 08/07/17 21:50 Lactic Acid 1.0 mmol/L (0.0-2.0) 08/07/17 21:50 Calcium 8.6 mg/dL (8.5-10.1) 08/14/17 08:08 Phosphorus 4.1 mg/dL (2.5-4.9) 08/12/17 06:30 Magnesium 2.1 mg/dL (1.8-2.4) 08/12/17 14:45 Total Bilirubin 1.1 mg/dL (0.2-1.0) H 08/14/17 08:08 Direct Bilirubin Cancelled 08/08/17 07:15 AST 31 U/L (15-37) 08/14/17 08:08 ALT 41 U/L (12-78) 08/14/17 08:08 Alkaline Phosphatase 107 U/L (45-117) 08/14/17 08:08 Creatine Kinase 56 IU/L (39-308) 08/08/17 06:30 Troponin I 0.06 ng/ml (0.00-0.05) H 08/08/17 06:30 C-Reactive Protein 6.4 MG/DL (0.00-0.3) H 08/07/17 21:50 Total Protein 6.2 g/dl (6.4-8.2) L 08/14/17 08:08 Albumin 2.8 g/dl (3.4-5.0) L 08/14/17 08:08 Triglycerides Cancelled 08/08/17 07:15 Cholesterol Cancelled 08/08/17 07:15 Total LDL Cholesterol Cancelled 08/08/17 07:15 HDL Cholesterol Cancelled 08/08/17 07:15 Abnormal Lab Results 05/08/18 05/09/18 05/09/18 20:30 08:08 08:08 RBC 3.77 L Hgb 10.5 L Hct 30.4 L Monocytes % 10.9 H Potassium 3.4 L Creatinine 1.7 H Random Glucose 124 H Total Bilirubin 1.1 H Total Protein 6.2 L Albumin 2.8 L Vancomycin Pre-Dose 31.465 H* D Current Medications Generic Name Dose Route Start Last Admin Trade Name Freq PRN Reason Stop Dose Admin Acetaminophen 650 mg 08/07/17 20:33 08/10/17 22:53 Tylenol - PO 650 mg Q6H PRN Administration FEVER Aspirin 81 mg 08/08/17 10:00 08/14/17 10:40 Ecotrin - PO 81 mg DAILY [facility] Administration Clonidine 0.4 mg 08/08/17 22:00 08/14/17 05:57 Catapres - PO 0.4 mg TID [facility] Administration Docusate Sodium 100 mg 08/14/17 10:00 08/14/17 10:40 Colace - PO 100 mg DAILY [facility] Administration Glipizide 10 mg 08/13/17 16:30 08/14/17 06:43 Glucotrol - PO 10 mg BID@0700,1630 [facility] Administration Heparin Sodium (Porcine) 5,000 unit 08/08/17 06:00 08/14/17 05:57 Heparin - SQ 5,000 unit TID [facility] Administration IV Flush 8 ml 08/12/17 14:19 Picc Line Flush IVPUSH PRN PRN Protocol Insulin Aspart 1 vial 08/07/17 22:00 08/14/17 12:08 Novolog Vial Sliding Scale - SQ Not Given ACHS [facility] Protocol Mupirocin 1 applic 08/09/17 10:00 08/14/17 10:45 Bactroban 2% Ointment - TP 1 applic DAILY [facility] Administration Nystatin 500,000 units 08/08/17 00:00 08/14/17 12:08 Nystatin Oral Suspension - PO Not Given Q6HPO [facility] Senna 1 tab 08/13/17 22:00 08/14/17 10:42 Senna - PO Not Given BID [facility] Sitagliptin Phosphate 50 mg 08/14/17 07:00 08/14/17 06:43 Januvia - PO 50 mg DAILY@0700 [facility] Administration Tamsulosin HCl 0.4 mg 08/14/17 10:00 08/14/17 10:40 Flomax - PO 0.4 mg BID [facility] Administration Microbiology 08/07/17 17:28 Blood - Peripheral Venous Blood Culture - Final NO GROWTH AFTER 5 DAYS INCUBATION 08/07/17 17:20 Blood - Peripheral Venous Blood Culture - Final NO GROWTH AFTER 5 DAYS INCUBATION 08/08/17 12:15 Toe - Right Hallux Gram Stain - Final 08/08/17 12:15 Toe - Right Hallux Wound Culture - Final Enterococcus Faecalis Staphylococcus Coagulase Neg 08/07/17 18:40 Urine - Urine Clean Catch Urine Culture - Final NO GROWTH OBTAINED IMAGING: FOOT X-RAY: Intact osseous structures, no evidence of foreign body. Soft tissue emphysematous changes CHEST X-RAY: enlarged heart, periphilar markings VENOUS DUPLEX: No evidence of DVT ECHOCARDIOGRAM: Left ventricular size and function within normal limits. Right ventricular size within normal limits. Mild aortic regurgitation BLADDER ULTRASOUND: Overdistended bladder, enlarged prostate, postvoid residual of 1168 cc, moderate bilateral renal hydronephrosis FOOT MRI: edema compatible with early osteomyelitis, perifocal soft tissue swelling compatible with cellulitis ASSESMENT/PLAN: Patient is a 56 y/o male with a significant PMHx of uncontrolled diabetes, HTN, HLD, who presented with R great toe infection, fever, malaise and was treated for R great toe osteomyelitis. Diabetic Foot Ulcer - No further temperatures, no leukocytosis - CRP 6.4, ESR 41 - Vancomycin held due to elevated Vancomycin blood levels - vancomycin dose adjusting due to elevated CRE and elevated vancomycin levels - ID consulted, recs appreciated - Podiatry consulted, recs appreciated, patient will be managed with IV abx - Deep wound culture showed Enterococcus faecalis and coag negative staph - x-ray of foot within normal limits - MRI of foot obtained showing compatibility with early osteomyelitis - Bactroban wound care - PICC line for outpatient IV abx placed and will receive outpatient abx through [facility] - patient counseled on antibiotic regimen by pharmacy - wound care outpatient and will f/u with Dr. Skaggs - offloading shoe Diabetes Mellitus - BGM - ISS - home medications glipizide and januvia restarted - Ha1c 11.2 - continue to monitor and f/u outpatient Shortness of breath - currently breathing well on room air - O2 as needed, continue to monitor - Echo within normal limits GAETANO - possibly due to constipation and BPH obstruction of bladder outlet vs vancomycin associated renal injury - patient does not have any urinary complaints - bladder scan ordered, 990cc retained, second scan 800s on 08/13 - patient will be given straight cath to drain urine, 1200mls drained - bladder scan on 08/14 found 970mls residual, received straight cath and drained 920cc - patient amenable to wyatt cath - urine electrolytes ordered, within normal limits - vancomycin level and adjusted dosing - continue to monitor Constipation - colace - senna Bilateral lower extremity swelling - venous duplex negative for DVT - Echo within normal limits - follow up outpatient for venous insufficiency HTN - continue home clonidine - hold home norvasc due to leg edema - hold HCTZ due to repeated hyperkalemia and GAETANO Oral candidiasis - nystatin - HIV test negative Obstructive sleep apnea - continue CPAP BPH - increase home Flomax to 0.4mg bid F/E/N - no fluids currently - mild hypokalemia, repleted - replete as necessary - diabetic diet DVT PPx - heparin 5000 units subq tid Disposition - admitted to med-surg Problem List - Problems (1) Diabetic infection of right foot Code(s): E11.628 - TYPE 2 DIABETES MELLITUS WITH OTHER SKIN COMPLICATIONS; L08.9 - LOCAL INFECTION OF THE SKIN AND SUBCUTANEOUS TISSUE, UNSP (2) Hyperglycemia Code(s): R73.9 - HYPERGLYCEMIA, UNSPECIFIED (3) Cellulitis of toe of right foot Code(s): L03.031 - CELLULITIS OF RIGHT TOE (4) Diabetes Code(s): E11.9 - TYPE 2 DIABETES MELLITUS WITHOUT COMPLICATIONS
--- NOTE | 2017-08-14 15:46 | PN ---
Teaching Attending Note Name of Resident: Ciro Palma ATTENDING PHYSICIAN STATEMENT I saw and evaluated the patient. I reviewed the resident's note and discussed the case with the resident. I agree with the resident's findings and plan as documented with exceptions below. SUBJECTIVE: Patient seen and examined, no new foot pain or concerns. no suprapubic or back pain or new concerns. No new fevers/chills. OBJECTIVE: Vital Signs Period Temp Pulse Resp BP Sys/Olmedo Pulse Ox Last 24 Hr 97.7 F-98.3 F 54-78 18-20 134-190/78-104 96 Intake & Output 08/11/17 08/12/17 08/13/17 08/14/17 23:59 23:59 23:59 23:59 Intake Total 2900 1400 1040 200 Output Total 1150 1350 3900 500 Balance 1750 50 -2860 -300 General: sitting in bed in no acute distress Abdomen:Soft, no suprapubic or CVA tenderness, obese, NT Extremities: right foot dressing (recently changed, exam deferred) Home Medication List Medication Instructions Recorded Confirmed Type Amlodipine Besylate [Norvasc -] 10 mg PO DAILY 06/23/13 08/07/17 History Clonidine HCl 0.4 mg PO TID 02/07/17 08/08/17 History Sitagliptin Phosphate [Januvia] 50 mg PO DAILY 07/31/17 08/07/17 History Glipizide [Glipizide ER] 10 mg PO BID 08/07/17 08/07/17 History Nebivolol HCl/Valsartan [Byvalson 1 tab PO BID 08/07/17 08/07/17 History 5 mg-80 mg Tablet] Tamsulosin HCl 0.4 mg PO DAILY 08/08/17 08/08/17 History Active Medications Generic Name Dose Route Start Last Admin Trade Name Freq PRN Reason Stop Dose Admin Acetaminophen 650 mg 08/07/17 20:33 08/10/17 22:53 Tylenol - PO 650 mg Q6H PRN Administration FEVER Aspirin 81 mg 08/08/17 10:00 08/14/17 10:40 Ecotrin - PO 81 mg DAILY [facility] Administration Clonidine 0.4 mg 08/08/17 22:00 08/14/17 15:32 Catapres - PO 0.4 mg TID [facility] Administration Docusate Sodium 100 mg 08/14/17 10:00 08/14/17 10:40 Colace - PO 100 mg DAILY [facility] Administration Glipizide 10 mg 08/13/17 16:30 08/14/17 06:43 Glucotrol - PO 10 mg BID@0700,1630 [facility] Administration Heparin Sodium (Porcine) 5,000 unit 08/08/17 06:00 08/14/17 15:33 Heparin - SQ 5,000 unit TID [facility] Administration IV Flush 8 ml 08/12/17 14:19 Picc Line Flush IVPUSH PRN PRN Protocol Insulin Aspart 1 vial 08/07/17 22:00 08/14/17 12:08 Novolog Vial Sliding Scale - SQ Not Given ACHS [facility] Protocol Mupirocin 1 applic 08/09/17 10:00 08/14/17 10:45 Bactroban 2% Ointment - TP 1 applic DAILY [facility] Administration Nystatin 500,000 units 08/08/17 00:00 08/14/17 12:08 Nystatin Oral Suspension - PO Not Given Q6HPO [facility] Senna 1 tab 08/13/17 22:00 08/14/17 10:42 Senna - PO Not Given BID [facility] Sitagliptin Phosphate 50 mg 08/14/17 07:00 08/14/17 06:43 Januvia - PO 50 mg DAILY@0700 [facility] Administration Tamsulosin HCl 0.4 mg 08/14/17 10:00 08/14/17 10:40 Flomax - PO 0.4 mg BID [facility] Administration Laboratory Results - last 24 hr 08/13/17 08/13/17 08/13/17 17:20 20:30 20:52 WBC RBC Hgb Hct MCV MCH MCHC RDW Plt Count MPV Neutrophils % Lymphocytes % Monocytes % Eosinophils % Basophils % Sodium Potassium Chloride Carbon Dioxide Anion Gap BUN Creatinine Creat Clearance w eGFR POC Glucometer 186 212 Random Glucose Calcium Total Bilirubin AST ALT Alkaline Phosphatase Total Protein Albumin Ur Random Sodium Ur Random Potassium Ur Random Chloride Random Vancomycin Vancomycin Pre-Dose 31.465 H* D 08/13/17 08/14/17 08/14/17 21:00 05:56 08:08 WBC 6.4 RBC 3.77 L Hgb 10.5 L Hct 30.4 L MCV 80.7 MCH 27.8 MCHC 34.5 RDW 15.0 Plt Count 222 MPV 9.2 Neutrophils % 70.1 Lymphocytes % 13.8 Monocytes % 10.9 H Eosinophils % 4.5 Basophils % 0.7 Sodium Potassium Chloride Carbon Dioxide Anion Gap BUN Creatinine Creat Clearance w eGFR POC Glucometer 120 Random Glucose Calcium Total Bilirubin AST ALT Alkaline Phosphatase Total Protein Albumin Ur Random Sodium 16 Ur Random Potassium 14.6 Ur Random Chloride < 10 Random Vancomycin Vancomycin Pre-Dose 08/14/17 08/14/17 08/14/17 08:08 09:41 12:08 WBC RBC Hgb Hct MCV MCH MCHC RDW Plt Count MPV Neutrophils % Lymphocytes % Monocytes % Eosinophils % Basophils % Sodium 143 Potassium 3.4 L Chloride 107 Carbon Dioxide 26 Anion Gap 10 BUN 13 Creatinine 1.7 H Creat Clearance w eGFR 42.05 POC Glucometer 127 Random Glucose 124 H Calcium 8.6 Total Bilirubin 1.1 H AST 31 ALT 41 Alkaline Phosphatase 107 Total Protein 6.2 L Albumin 2.8 L Ur Random Sodium Ur Random Potassium Ur Random Chloride Random Vancomycin 25.490 Vancomycin Pre-Dose Microbiology 08/07/17 17:28 Blood - Peripheral Venous Blood Culture - Final NO GROWTH AFTER 5 DAYS INCUBATION 08/07/17 17:20 Blood - Peripheral Venous Blood Culture - Final NO GROWTH AFTER 5 DAYS INCUBATION 08/08/17 12:15 Toe - Right Hallux Gram Stain - Final 08/08/17 12:15 Toe - Right Hallux Wound Culture - Final Enterococcus Faecalis Staphylococcus Coagulase Neg 08/07/17 18:40 Urine - Urine Clean Catch Urine Culture - Final NO GROWTH OBTAINED ASSESSMENT AND PLAN: 56 yom with PMHX of uncontrolled DM likely non compliance, comes with right great toe osteomyelitis. -Right great toe osteomyelitis -Uncontrolled DM, A1c 11.2 -GAETANO, suspect urinary retention +/- vanco related. -Possible mild acute diastolic HF, resolved, Echo non concerning -Oral candidiasis -HTN -BPH Plan: Persistent PVR noted. Discussed in detail with patient, agreable to bladder scan and straight cath prn today, if persistent retention, agreable to wyatt placement in 24 hours. Increase flomax. Has outpatient urology follow up arranged for BPH and surgical intervention. Check renal/bladder US. Urine lytes, urine eosinophils. Hold vancomycin. Repeat levels in AM. Discuss with ID for antibiotic dosing and change based on renal function. Continue home oral glipizide and januvia and ISS. Stressed need for home blood glucose monitoring and compliance. Diabetic education. Nutrition consult. Continue clonidine DVTPPX dispo planning on hold given GAETANO and need for antibotics readjustment and monitoring. Plan discussed with patient in detail, all questions answered.
[2017-08-14] MEDS ORDERED: KCL 10 MEQ IVPB 10 MEQ/100 ML INFUS.BAG IVPB SCH (16:00)
[2017-08-14] MEDS ORDERED: POTASSIUM CHLORIDE 20 MEQ in SODIUM CHLORIDE 250 ML IVPB ONE (16:15)
--- NOTE | 2017-08-14 18:52 | PN ---
Physical Exam: SUBJECTIVE: Patient seen and examined at bedside. No acute events. No complaints. Pt states he is amenable to wyatt tomorrow. OBJECTIVE: Vital Signs Period Temp Pulse Resp BP Sys/Olmedo Pulse Ox Last 24 Hr 97.3 F-98.1 F 53-78 18-20 134-190/78-104 93-96 GENERAL: The patient is awake, alert, and fully oriented, in no acute distress. HEAD: Normal with no signs of trauma. EYES: sclera anicteric, conjunctiva clear. No ptosis. ENT: oropharynx clear without exudates, moist mucous membranes. NECK: Trachea midline, full range of motion, supple. LUNGS: Breath sounds equal, clear to auscultation bilaterally, no wheezes, no crackles, no accessory muscle use. HEART: Regular rate and rhythm, S1, S2 without murmur, rub or gallop. ABDOMEN: obese, Soft, nontender, nondistended, normoactive bowel sounds, no guarding, no rebound, no hepatosplenomegaly, no masses. EXTREMITIES: R great toe with lesion of toe nail and recently debrieded inferior lesion. 2+ pulses, warm, well-perfused, no edema. NEUROLOGICAL: Cranial nerves II through XII grossly intact. Normal speech, gait not observed. PSYCH: Normal mood, normal affect. SKIN: Warm, dry, normal turgor, no rashes or lesions noted Laboratory Results - last 24 hr 08/13/17 08/13/17 08/13/17 20:30 20:52 21:00 WBC RBC Hgb Hct MCV MCH MCHC RDW Plt Count MPV Neutrophils % Lymphocytes % Monocytes % Eosinophils % Basophils % Sodium Potassium Chloride Carbon Dioxide Anion Gap BUN Creatinine Creat Clearance w eGFR POC Glucometer 212 Random Glucose Calcium Total Bilirubin AST ALT Alkaline Phosphatase Total Protein Albumin Ur Random Sodium 16 Ur Random Potassium 14.6 Ur Random Chloride < 10 Random Vancomycin Vancomycin Pre-Dose 31.465 H* D 08/14/17 08/14/17 08/14/17 05:56 08:08 08:08 WBC 6.4 RBC 3.77 L Hgb 10.5 L Hct 30.4 L MCV 80.7 MCH 27.8 MCHC 34.5 RDW 15.0 Plt Count 222 MPV 9.2 Neutrophils % 70.1 Lymphocytes % 13.8 Monocytes % 10.9 H Eosinophils % 4.5 Basophils % 0.7 Sodium 143 Potassium 3.4 L Chloride 107 Carbon Dioxide 26 Anion Gap 10 BUN 13 Creatinine 1.7 H Creat Clearance w eGFR 42.05 POC Glucometer 120 Random Glucose 124 H Calcium 8.6 Total Bilirubin 1.1 H AST 31 ALT 41 Alkaline Phosphatase 107 Total Protein 6.2 L Albumin 2.8 L Ur Random Sodium Ur Random Potassium Ur Random Chloride Random Vancomycin Vancomycin Pre-Dose 08/14/17 08/14/17 08/14/17 09:41 12:08 18:05 WBC RBC Hgb Hct MCV MCH MCHC RDW Plt Count MPV Neutrophils % Lymphocytes % Monocytes % Eosinophils % Basophils % Sodium Potassium Chloride Carbon Dioxide Anion Gap BUN Creatinine Creat Clearance w eGFR POC Glucometer 127 120 Random Glucose Calcium Total Bilirubin AST ALT Alkaline Phosphatase Total Protein Albumin Ur Random Sodium Ur Random Potassium Ur Random Chloride Random Vancomycin 25.490 Vancomycin Pre-Dose Active Medications Generic Name Dose Route Start Last Admin Trade Name Freq PRN Reason Stop Dose Admin Acetaminophen 650 mg 08/07/17 20:33 08/10/17 22:53 Tylenol - PO 650 mg Q6H PRN Administration FEVER Aspirin 81 mg 08/08/17 10:00 08/14/17 10:40 Ecotrin - PO 81 mg DAILY [facility] Administration Clonidine 0.4 mg 08/08/17 22:00 08/14/17 15:32 Catapres - PO 0.4 mg TID [facility] Administration Docusate Sodium 100 mg 08/14/17 10:00 08/14/17 10:40 Colace - PO 100 mg DAILY [facility] Administration Glipizide 10 mg 08/13/17 16:30 08/14/17 18:08 Glucotrol - PO 10 mg BID@0700,1630 [facility] Administration Heparin Sodium (Porcine) 5,000 unit 08/08/17 06:00 08/14/17 15:33 Heparin - SQ 5,000 unit TID [facility] Administration IV Flush 8 ml 08/12/17 14:19 Picc Line Flush IVPUSH PRN PRN Protocol Insulin Aspart 1 vial 08/07/17 22:00 08/14/17 18:06 Novolog Vial Sliding Scale - SQ Not Given ACHS [facility] Protocol Mupirocin 1 applic 08/09/17 10:00 08/14/17 10:45 Bactroban 2% Ointment - TP 1 applic DAILY [facility] Administration Nystatin 500,000 units 08/08/17 00:00 08/14/17 17:08 Nystatin Oral Suspension - PO Not Given Q6HPO [facility] Senna 1 tab 08/13/17 22:00 08/14/17 10:42 Senna - PO Not Given BID [facility] Sitagliptin Phosphate 50 mg 08/14/17 07:00 08/14/17 06:43 Januvia - PO 50 mg DAILY@0700 [facility] Administration Tamsulosin HCl 0.4 mg 08/14/17 10:00 08/14/17 10:40 Flomax - PO 0.4 mg BID [facility] Administration ASSESSMENT/PLAN: 56 y/o M w PMH DM2, HTN, BPH who presented to the ED with fever and drainage from an ulcer on his right great toe. #Osteomyelitis of R great toe -Seen by Podiatry, Vasc surg, ID -Cx pos for E. faecalis, coag neg Staph -on Vanc -PICC in place #GAETANO -[employer] Analyst increased to 1.7 -? 2/2 urinary retention vs Vanco -Pt clearly has urinary retention. Multiple episodes of post-void residual of > 900 ml with straight cath yielding > 1L. -Only after extensive counselling by numerous people does pt reluctantly agree to wyatt placement tomorrow. Will not give reasoning for his reticence. #BPH -Flomax -urinary retention -see above #DM 2 -change Levemir to home med Glipizide, Januvia -A1C 11.2 #HTN -Clonidine #? CHF - Echo shows normal LV, normal RV, mild AR #Venous stasis -chronic #ANA MARÍA -CPAP #FEN -not on fluid -hypoK. Replete, f/u. -DM diet #Dispo -Admitted for Osteomyelitis. ? D/C tomorrow Ciro Palma MD PGY-1 IM Visit type - Emergency Visit Emergency Visit: No - New Patient This patient is new to me today: No - Critical Care Critical Care patient: No
[2017-08-14] MEDS: DUTASTERIDE 0.5 MG CAP (FP) PO SCH (22:00)
[2017-08-15] MEDS: NYSTATIN 500,000 UNITS/5 ML SUSPENSION PO SCH ×5 (06:24→22:00)
[2017-08-15] MEDS: sitaGLIPtin PHOSPHATE 50 MG TABLET PO SCH (06:35)
[2017-08-15] MEDS: cloNIDine HCL 0.1 MG TABLET PO SCH ×3 (06:35→22:12)
[2017-08-15] MEDS: glipiZIDE 5 MG TABLET (FP) PO SCH ×2 (06:35→17:44)
[2017-08-15] MEDS: HEPARIN NA (PORCINE) 5,000 UNITS/ML 1ML VIAL SQ SCH ×3 (06:36→22:12)
[2017-08-15] MEDS: INSULIN SLIDING SCALE (NOVOLOG) 1 VIAL SQ SCH ×4 (08:36→22:16)
--- NOTE | 2017-08-15 08:36 | PN ---
Teaching Attending Note Name of Resident: Ciro Palma ATTENDING PHYSICIAN STATEMENT I saw and evaluated the patient. I reviewed the resident's note and discussed the case with the resident. I agree with the resident's findings and plan as documented with exceptions below. SUBJECTIVE: patient seen and examined. no new complaints. OBJECTIVE: Vital Signs Period Temp Pulse Resp BP Sys/Olmedo Pulse Ox Last 24 Hr 97.3 F-98.3 F 53-55 20-20 183-190/99-104 93-93 Intake & Output 08/12/17 08/13/17 08/14/17 08/15/17 23:59 23:59 23:59 23:59 Intake Total 1400 1040 700 Output Total 1350 3900 3600 Balance 50 -2860 -2900 General: sitting in bed in no acute distress Abdomen: soft, obese, no suprapubic or CVA tenderness Extremities: right great toe with some excoriation, non tender/non warm, incision on sole of great toe, clean with no purulence/erythema or discharge Home Medication List Medication Instructions Recorded Confirmed Type Amlodipine Besylate [Norvasc -] 10 mg PO DAILY 06/23/13 08/07/17 History Clonidine HCl 0.4 mg PO TID 02/07/17 08/08/17 History Sitagliptin Phosphate [Januvia] 50 mg PO DAILY 07/31/17 08/07/17 History Glipizide [Glipizide ER] 10 mg PO BID 08/07/17 08/07/17 History Nebivolol HCl/Valsartan [Byvalson 1 tab PO BID 08/07/17 08/07/17 History 5 mg-80 mg Tablet] Tamsulosin HCl 0.4 mg PO DAILY 08/08/17 08/08/17 History Active Medications Generic Name Dose Route Start Last Admin Trade Name Freq PRN Reason Stop Dose Admin Acetaminophen 650 mg 08/07/17 20:33 08/10/17 22:53 Tylenol - PO 650 mg Q6H PRN Administration FEVER Aspirin 81 mg 08/08/17 10:00 08/14/17 10:40 Ecotrin - PO 81 mg DAILY TROY Administration Clonidine 0.4 mg 08/08/17 22:00 08/15/17 06:35 Catapres - PO 0.4 mg TID TROY Administration Docusate Sodium 100 mg 08/14/17 10:00 08/14/17 10:40 Colace - PO 100 mg DAILY TROY Administration Dutasteride 0.5 mg 08/14/17 19:30 08/14/17 22:00 Avodart - PO 0.5 mg DAILY TROY Administration Glipizide 10 mg 08/13/17 16:30 08/15/17 06:35 Glucotrol - PO 10 mg BID@0700,1630 TROY Administration Heparin Sodium (Porcine) 5,000 unit 08/08/17 06:00 08/15/17 06:36 Heparin - SQ 5,000 unit TID TROY Administration IV Flush 8 ml 08/12/17 14:19 Picc Line Flush IVPUSH PRN PRN Protocol Insulin Aspart 1 vial 08/07/17 22:00 08/15/17 08:36 Novolog Vial Sliding Scale - SQ Not Given ACHS [facility] Protocol Mupirocin 1 applic 08/09/17 10:00 08/14/17 10:45 Bactroban 2% Ointment - TP 1 applic DAILY TROY Administration Nystatin 500,000 units 08/08/17 00:00 08/15/17 06:24 Nystatin Oral Suspension - PO Not Given Q6HPO TROY Senna 1 tab 08/13/17 22:00 08/14/17 22:03 Senna - PO 1 tab BID TROY Administration Sitagliptin Phosphate 50 mg 08/14/17 07:00 08/15/17 06:35 Januvia - PO 50 mg DAILY@0700 TROY Administration Tamsulosin HCl 0.4 mg 08/14/17 10:00 08/14/17 22:00 Flomax - PO 0.4 mg BID TROY Administration Microbiology 08/07/17 17:28 Blood - Peripheral Venous Blood Culture - Final NO GROWTH AFTER 5 DAYS INCUBATION 08/07/17 17:20 Blood - Peripheral Venous Blood Culture - Final NO GROWTH AFTER 5 DAYS INCUBATION 08/08/17 12:15 Toe - Right Hallux Gram Stain - Final 08/08/17 12:15 Toe - Right Hallux Wound Culture - Final Enterococcus Faecalis Staphylococcus Coagulase Neg 08/07/17 18:40 Urine - Urine Clean Catch Urine Culture - Final NO GROWTH OBTAINED ASSESSMENT AND PLAN: 56 yom with PMHX of uncontrolled DM likely non compliance, comes with right great toe osteomyelitis. -Right great toe osteomyelitis -Uncontrolled DM, A1c 11.2 -GAETANO, suspect urinary retention +/- vanco related. -BPH with bilateral hydronephrosis and Bladder wall thickening -Possible mild acute diastolic HF, resolved, Echo non concerning -Oral candidiasis -HTN -BPH Plan: Garcia placement. Discussed risks, patient agreable. Will need urology follow up in 1 week of discharge. Flomax increased, started on dutasteride. REnal/bladder US noted. Urine studies noted. Follow up urine eosinophils. Renal input if fails to improve with garcia and holding Vancomycin. Vanco level 15, discuss with Dr. Jamison, for alternate treatment regimen. Wound cultures reviewed. Continue home oral glipizide and januvia and ISS. Stressed need for home blood glucose monitoring and compliance. Diabetic education. Nutrition consult. Continue clonidine, resume amlodipine. Hold ARB for now. HOld nebivolol given baseline HR 50s. DVTPPX dispo planning on hold given GAETANO and need for antibotics readjustment and monitoring. Plan discussed with patient in detail, all questions answered
[2017-08-15 09:07] LABS: BASO % 0.8 % (0-2.0); EOS % 3.8 % (0-4.5); HEMATOCRIT 32.7 % (35.4-49); LYMPH % 13.9 % (8-40); MCH 27.4 pg (25.7-33.7); MCHC 33.7 g/dl (32.0-35.9); MEAN CELL VOLUME 81.4 fl (80-96); MEAN PLT VOLUME 8.9 fl (7.5-11.1); NEUT % 70.5 % (42.8-82.8); PLATELET COUNT 240 K/MM3 (134-434); RBC 4.02 M/mm3 (4.00-5.60); RDW 15.5 % (11.9-15.9)
[2017-08-15 09:37] LABS: ANION GAP 10 (8-16); BLOOD UREA NITROGEN 14 mg/dL (7-18); CALCIUM 8.8 mg/dL (8.5-10.1); CHLORIDE 109 mmol/L (98-107); CO2 26 mmol/L (21-32); CREATININE 1.8 mg/dL (0.7-1.3); GLUCOSE,RANDOM 131 mg/dL (74-106); POTASSIUM 3.9 mmol/L (3.5-5.1); SGOT/AST 28 U/L (15-37); SGPT/ALT 40 U/L (12-78); SODIUM 145 mmol/L (136-145)
[2017-08-15 09:42] LABS: ALK PHOS 115 U/L (45-117); BILIRUBIN,TOTAL 1.5 mg/dL (0.2-1.0); TOT PROT 6.7 g/dl (6.4-8.2)
[2017-08-15] MEDS ORDERED: amLODIPine BESYLATE 10 MG TABLET (FP) PO ONE (10:11)
[2017-08-15] MEDS: SENNOSIDES 8.6MG TABLET (FP) PO SCH ×2 (11:12→22:12)
[2017-08-15] MEDS: DOCUSATE SODIUM 100 MG CAPSULE (FP) PO SCH (11:12)
[2017-08-15] MEDS: TAMSULOSIN HCL 0.4 MG CAP.ER.24H (FP) PO SCH ×2 (11:12→22:12)
[2017-08-15] MEDS: ASPIRIN COATED 81 MG TABLET.EC PO SCH (11:13)
[2017-08-15] MEDS: DUTASTERIDE 0.5 MG CAP (FP) PO SCH (11:13)
[2017-08-15] MEDS: MUPIROCIN 2% TOPICAL OINTMENT 22 GM TUBE TP SCH (11:13)
--- NOTE | 2017-08-15 11:48 | PN ---
Physical Exam: SUBJECTIVE: Patient seen and examined at bedside. No acute events. No complaints. Pt states he is amenable to wyatt today. Repeat U/S confirmed hydroneprhosis and urinary retention. OBJECTIVE: Vital Signs Period Temp Pulse Resp BP Sys/Olmedo Pulse Ox Last 24 Hr 97.3 F-98.3 F 53-55 20-20 183-190/99-104 93 GENERAL: The patient is awake, alert, and fully oriented, in no acute distress. HEAD: Normal with no signs of trauma. EYES: sclera anicteric, conjunctiva clear. No ptosis. ENT: oropharynx clear without exudates, moist mucous membranes. NECK: Trachea midline, full range of motion, supple. LUNGS: Breath sounds equal, clear to auscultation bilaterally, no wheezes, no crackles, no accessory muscle use. HEART: Regular rate and rhythm, S1, S2 without murmur, rub or gallop. ABDOMEN: obese, Soft, nontender, nondistended, normoactive bowel sounds, no guarding, no rebound, no hepatosplenomegaly, no masses. EXTREMITIES: R great toe with lesion of toe nail and recently debrieded inferior lesion. 2+ pulses, warm, well-perfused, no edema. NEUROLOGICAL: Cranial nerves II through XII grossly intact. Normal speech, gait not observed. PSYCH: Normal mood, normal affect. SKIN: Warm, dry, normal turgor, no rashes or lesions noted Laboratory Results - last 24 hr 08/14/17 08/14/17 08/14/17 09:41 12:08 18:05 WBC RBC Hgb Hct MCV MCH MCHC RDW Plt Count MPV Neutrophils % Lymphocytes % Monocytes % Eosinophils % Basophils % Sodium Potassium Chloride Carbon Dioxide Anion Gap BUN Creatinine Creat Clearance w eGFR POC Glucometer 127 120 Random Glucose Calcium Total Bilirubin AST ALT Alkaline Phosphatase Total Protein Albumin Urine Osmolality Ur Random Sodium Ur Random Potassium Ur Random Chloride Urine Creatinine Random Vancomycin 25.490 08/14/17 08/14/17 08/14/17 19:00 19:00 19:00 WBC RBC Hgb Hct MCV MCH MCHC RDW Plt Count MPV Neutrophils % Lymphocytes % Monocytes % Eosinophils % Basophils % Sodium Potassium Chloride Carbon Dioxide Anion Gap BUN Creatinine Creat Clearance w eGFR POC Glucometer Random Glucose Calcium Total Bilirubin AST ALT Alkaline Phosphatase Total Protein Albumin Urine Osmolality 192 L Ur Random Sodium 56 Ur Random Potassium 13.2 Ur Random Chloride 46 Urine Creatinine 34.7 Random Vancomycin 08/14/17 08/14/17 08/15/17 21:03 21:53 06:23 WBC RBC Hgb Hct MCV MCH MCHC RDW Plt Count MPV Neutrophils % Lymphocytes % Monocytes % Eosinophils % Basophils % Sodium Potassium Chloride Carbon Dioxide Anion Gap BUN Creatinine Creat Clearance w eGFR POC Glucometer 168 174 131 Random Glucose Calcium Total Bilirubin AST ALT Alkaline Phosphatase Total Protein Albumin Urine Osmolality Ur Random Sodium Ur Random Potassium Ur Random Chloride Urine Creatinine Random Vancomycin 08/15/17 08/15/17 08/15/17 07:41 07:41 07:41 WBC 7.0 RBC 4.02 Hgb 11.0 L Hct 32.7 L MCV 81.4 MCH 27.4 MCHC 33.7 RDW 15.5 Plt Count 240 MPV 8.9 Neutrophils % 70.5 Lymphocytes % 13.9 Monocytes % 11.0 H Eosinophils % 3.8 Basophils % 0.8 Sodium 145 Potassium 3.9 Chloride 109 H Carbon Dioxide 26 Anion Gap 10 BUN 14 Creatinine 1.8 H Creat Clearance w eGFR 39.37 POC Glucometer Random Glucose 131 H Calcium 8.8 Total Bilirubin 1.5 H D AST 28 ALT 40 Alkaline Phosphatase 115 Total Protein 6.7 Albumin 3.0 L Urine Osmolality Ur Random Sodium Ur Random Potassium Ur Random Chloride Urine Creatinine Random Vancomycin 15.495 Active Medications Generic Name Dose Route Start Last Admin Trade Name Freq PRN Reason Stop Dose Admin Acetaminophen 650 mg 08/07/17 20:33 08/10/17 22:53 Tylenol - PO 650 mg Q6H PRN Administration FEVER Amlodipine Besylate 10 mg 08/16/17 10:00 Norvasc - PO DAILY TROY Aspirin 81 mg 08/08/17 10:00 08/15/17 11:13 Ecotrin - PO 81 mg DAILY TROY Administration Clonidine 0.4 mg 08/08/17 22:00 08/15/17 06:35 Catapres - PO 0.4 mg TID TROY Administration Docusate Sodium 100 mg 08/14/17 10:00 08/15/17 11:12 Colace - PO 100 mg DAILY TROY Administration Dutasteride 0.5 mg 08/14/17 19:30 08/15/17 11:13 Avodart - PO 0.5 mg DAILY TROY Administration Glipizide 10 mg 08/13/17 16:30 08/15/17 06:35 Glucotrol - PO 10 mg BID@0700,1630 TROY Administration Heparin Sodium (Porcine) 5,000 unit 08/08/17 06:00 08/15/17 06:36 Heparin - SQ 5,000 unit TID TROY Administration IV Flush 8 ml 08/12/17 14:19 Picc Line Flush IVPUSH PRN PRN Protocol Insulin Aspart 1 vial 08/07/17 22:00 08/15/17 08:36 Novolog Vial Sliding Scale - SQ Not Given ACHS [facility] Protocol Mupirocin 1 applic 08/09/17 10:00 08/15/17 11:13 Bactroban 2% Ointment - TP 1 applic DAILY TROY Administration Nystatin 500,000 units 08/08/17 00:00 08/15/17 11:15 Nystatin Oral Suspension - PO Not Given Q6HPO TROY Senna 1 tab 08/13/17 22:00 08/15/17 11:12 Senna - PO 1 tab BID TROY Administration Sitagliptin Phosphate 50 mg 08/14/17 07:00 08/15/17 06:35 Januvia - PO 50 mg DAILY@0700 TROY Administration Tamsulosin HCl 0.4 mg 08/14/17 10:00 08/15/17 11:12 Flomax - PO 0.4 mg BID TROY Administration ASSESSMENT/PLAN: 56 y/o M w PMH DM2, HTN, BPH who presented to the ED with fever and drainage from an ulcer on his right great toe. #Osteomyelitis of R great toe -Seen by Podiatry, Vasc surg, ID -Cx pos for E. faecalis, coag neg Staph -on Vanc. -PICC in place -Waiting for level renal function for renal dosing of ABX #GAETANO 2/2 hydronephrosis 2/2 BPH -Chief Digital Officer increased to 1.8 -? 2/2 urinary retention vs Vanco -U/S showed bladder distention with high post-void residual, bladder wall thickening, hydronephrosis -Pt clearly has urinary retention. Multiple episodes of post-void residual of > 900 ml with straight cath yielding > 1L. -Despite extensive counselling by numerous members of care team, pt continues to refuse wyatt cath. Risks have been explained. -flomax and dutasteride -FeNa 2 & BUN:Chief Digital Officer 7.7 consistent with post-renal azotemia #DM 2 -change Levemir to home med Glipizide, Januvia -A1C 11.2 #HTN -Clonidine -restart amlodipine #? CHF - Echo shows normal LV, normal RV, mild AR #Venous stasis -chronic #ANA MARÍA -CPAP #FEN -not on fluid -lytes wnl -DM diet #Dispo -Admitted for Osteomyelitis Ciro Palma MD PGY-1 IM Visit type - Emergency Visit Emergency Visit: No - New Patient This patient is new to me today: No - Critical Care Critical Care patient: No
[2017-08-15] MEDS ORDERED: INSULIN (NOVOLOG) ASPART 100 UNITS/ML 10ML VIAL ONE (12:30)
--- NOTE | 2017-08-15 13:49 | MSN ---
Progress Note (short form) - Note Progress Note: CHIEF COMPLAINT: fever, malaise, diaphoresis, R toe infection HISTORY OF PRESENT ILLNESS Overnight, patient did not have any acute events. Patient's CRE increased to 1.8 this morning. Patient was seen and examined at the bedside. Patient had no acute complaints of fevers, chills, diaphoresis. His only complaint was that he wanted to go home. Patient endorsed one bowel movement and good appetite. Patient denied any chest pain, sob, abd pain, n/v/d, dizziness, lightheadedness, extremity pain, cough, headache. Smoking: denies Alcohol: social Drugs: denies REVIEW OF SYSTEMS CONSTITUTIONAL: Absent: malaise, loss of appetite, weight change, chills, fever, diaphoresis, generalized weakness HEENT: Absent: rhinorrhea, nasal congestion, throat pain, throat swelling, difficulty swallowing, mouth swelling, ear pain, eye pain, visual changes CARDIOVASCULAR: Absent: chest pain, syncope, palpitations, irregular heart rate, lightheadedness , peripheral edema RESPIRATORY: Absent: cough, shortness of breath, dyspnea with exertion, orthopnea, wheezing, stridor, hemoptysis GASTROINTESTINAL: Absent: abdominal pain, abdominal distension, nausea, vomiting, diarrhea, constipation, melena, hematochezia GENITOURINARY: Absent: dysuria, frequency, urgency, hesitancy, hematuria, flank pain, genital pain MUSCULOSKELETAL: Absent: myalgia, arthralgia, joint swelling, back pain, neck pain SKIN: swelling of legs (chronic) Absent: rash, itching, pallor HEMATOLOGIC/IMMUNOLOGIC: Absent: easy bleeding, easy bruising, lymphadenopathy, frequent infections ENDOCRINE: Absent: unexplained weight gain, unexplained weight loss, heat intolerance, cold intolerance NEUROLOGIC: Absent: headache, focal weakness or paresthesias, dizziness, unsteady gait, seizure, mental status changes, bladder or bowel incontinence PSYCHIATRIC: Absent: anxiety, depression, suicidal or homicidal ideation, hallucinations. PHYSICAL EXAMINATION: GENERAL: Awake, alert, and fully oriented, in no apparent distress. Obese middle aged male laying in bed. HEAD: Normal with no signs of trauma. Redness on the nasal bridge secondary to CPAP mask covered by adhesive bandage EYES: Pupils equal, round and reactive to light, extraocular movements intact, sclera anicteric, conjunctiva clear. No lid lag. EARS, NOSE, THROAT: Ears normal, nares patent, oropharynx clear. Moist mucous membranes. NECK: Normal range of motion, supple without lymphadenopathy, JVD, or masses. LUNGS: Breath sounds equal, clear to auscultation bilaterally. No wheezes, and no crackles. No accessory muscle use. HEART: Regular rate and rhythm, normal S1 and S2 without murmur, rub or gallop. ABDOMEN: Soft, nontender, obese, normoactive bowel sounds, no guarding, no rebound, no masses. No hepatomegaly or splenomegaly. MUSCULOSKELETAL: Normal range of motion at all joints. No bony deformities or tenderness. No CVA tenderness. UPPER EXTREMITIES: 2+ pulses, warm, well-perfused. No cyanosis. No clubbing. Cap refill <2 seconds. No peripheral edema LOWER EXTREMITIES: 2+ pulses, warm, well-perfused. No calf tenderness. 1+ peripheral edema bilaterally. NEUROLOGICAL: Cranial nerves II-XII intact. Normal speech. PSYCHIATRIC: Cooperative. Good eye contact. Appropriate mood and affect. SKIN: Warm, dry, normal turgor. On bilateral lower extremities, chronic venous stasis dermatitis noted. On R great toe, granulation tissue noted. Wound debrided and was clean and dry. Non-painful to palpation. Last Vital Signs Temp Pulse Resp BP Pulse Ox 98.2 F 55 L 20 188/100 93 L 08/15/17 06:33 08/15/17 06:33 08/15/17 06:33 08/15/17 06:33 08/14/17 21:00 CBC, BMP 08/15/17 07:41 08/15/17 07:41 CMP Sodium 145 mmol/L (136-145) 08/15/17 07:41 Potassium 3.9 mmol/L (3.5-5.1) 08/15/17 07:41 Chloride 109 mmol/L (98-107) H 08/15/17 07:41 Carbon Dioxide 26 mmol/L (21-32) 08/15/17 07:41 Anion Gap 10 (8-16) 08/15/17 07:41 BUN 14 mg/dL (7-18) 08/15/17 07:41 Creatinine 1.8 mg/dL (0.7-1.3) H 08/15/17 07:41 Creat Clearance w eGFR 39.37 (>60) 05/10/18 07:41 POC Glucometer 152 UNITS (80-120) 08/15/17 12:23 Random Glucose 131 mg/dL (74-106) H 08/15/17 07:41 Hemoglobin A1c % 11.2 % (4.8-6.0) H 08/07/17 21:50 Lactic Acid 1.0 mmol/L (0.0-2.0) 08/07/17 21:50 Calcium 8.8 mg/dL (8.5-10.1) 08/15/17 07:41 Phosphorus 4.1 mg/dL (2.5-4.9) 08/12/17 06:30 Magnesium 2.1 mg/dL (1.8-2.4) 08/12/17 14:45 Total Bilirubin 1.5 mg/dL (0.2-1.0) H D 08/15/17 07:41 Direct Bilirubin Cancelled 08/08/17 07:15 AST 28 U/L (15-37) 08/15/17 07:41 ALT 40 U/L (12-78) 08/15/17 07:41 Alkaline Phosphatase 115 U/L (45-117) 08/15/17 07:41 Creatine Kinase 56 IU/L (39-308) 08/08/17 06:30 Troponin I 0.06 ng/ml (0.00-0.05) H 08/08/17 06:30 C-Reactive Protein 6.4 MG/DL (0.00-0.3) H 08/07/17 21:50 Total Protein 6.7 g/dl (6.4-8.2) 08/15/17 07:41 Albumin 3.0 g/dl (3.4-5.0) L 08/15/17 07:41 Triglycerides Cancelled 08/08/17 07:15 Cholesterol Cancelled 08/08/17 07:15 Total LDL Cholesterol Cancelled 08/08/17 07:15 HDL Cholesterol Cancelled 08/08/17 07:15 Abnormal Lab Results 08/14/17 08/15/17 08/15/17 19:00 07:41 07:41 Hgb 11.0 L Hct 32.7 L Monocytes % 11.0 H Chloride 109 H Creatinine 1.8 H Random Glucose 131 H Total Bilirubin 1.5 H D Albumin 3.0 L Urine Osmolality 192 L Current Medications Generic Name Dose Route Start Last Admin Trade Name Freq PRN Reason Stop Dose Admin Acetaminophen 650 mg 08/07/17 20:33 08/10/17 22:53 Tylenol - PO 650 mg Q6H PRN Administration FEVER Amlodipine Besylate 10 mg 08/16/17 10:00 Norvasc - PO DAILY TROY Aspirin 81 mg 08/08/17 10:00 08/15/17 11:13 Ecotrin - PO 81 mg DAILY TROY Administration Clonidine 0.4 mg 08/08/17 22:00 08/15/17 06:35 Catapres - PO 0.4 mg TID TROY Administration Docusate Sodium 100 mg 08/14/17 10:00 08/15/17 11:12 Colace - PO 100 mg DAILY TROY Administration Dutasteride 0.5 mg 08/14/17 19:30 08/15/17 11:13 Avodart - PO 0.5 mg DAILY TROY Administration Glipizide 10 mg 08/13/17 16:30 08/15/17 06:35 Glucotrol - PO 10 mg BID@0700,1630 TROY Administration Heparin Sodium (Porcine) 5,000 unit 08/08/17 06:00 08/15/17 06:36 Heparin - SQ 5,000 unit TID TROY Administration IV Flush 8 ml 08/12/17 14:19 Picc Line Flush IVPUSH PRN PRN Protocol Insulin Aspart 1 vial 08/07/17 22:00 08/15/17 12:31 Novolog Vial Sliding Scale - SQ 2 units ACHS TROY Administration Protocol Mupirocin 1 applic 08/09/17 10:00 08/15/17 11:13 Bactroban 2% Ointment - TP 1 applic DAILY TROY Administration Nystatin 500,000 units 08/08/17 00:00 08/15/17 11:15 Nystatin Oral Suspension - PO Not Given Q6HPO TROY Senna 1 tab 08/13/17 22:00 08/15/17 11:12 Senna - PO 1 tab BID TROY Administration Sitagliptin Phosphate 50 mg 08/14/17 07:00 08/15/17 06:35 Januvia - PO 50 mg DAILY@0700 TROY Administration Tamsulosin HCl 0.4 mg 08/14/17 10:00 08/15/17 11:12 Flomax - PO 0.4 mg BID TROY Administration Microbiology 08/07/17 17:28 Blood - Peripheral Venous Blood Culture - Final NO GROWTH AFTER 5 DAYS INCUBATION 08/07/17 17:20 Blood - Peripheral Venous Blood Culture - Final NO GROWTH AFTER 5 DAYS INCUBATION 08/08/17 12:15 Toe - Right Hallux Gram Stain - Final 08/08/17 12:15 Toe - Right Hallux Wound Culture - Final Enterococcus Faecalis Staphylococcus Coagulase Neg 08/07/17 18:40 Urine - Urine Clean Catch Urine Culture - Final NO GROWTH OBTAINED IMAGING: FOOT X-RAY: Intact osseous structures, no evidence of foreign body. Soft tissue emphysematous changes CHEST X-RAY: enlarged heart, periphilar markings VENOUS DUPLEX: No evidence of DVT ECHOCARDIOGRAM: Left ventricular size and function within normal limits. Right ventricular size within normal limits. Mild aortic regurgitation BLADDER ULTRASOUND: Overdistended bladder, enlarged prostate, postvoid residual of 1168 cc, moderate bilateral renal hydronephrosis FOOT MRI: edema compatible with early osteomyelitis, perifocal soft tissue swelling compatible with cellulitis RENAL/BLADDER ULTRASOUND: mild to moderate hydronephrosis, markedly enlarged prostate, thickening of urinary bladder, post void residual of 445cc, R renal cyst 4.2x3.7cm ASSESMENT/PLAN: Patient is a 56 y/o male with a significant PMHx of uncontrolled diabetes, HTN, HLD, who presented with R great toe infection, fever, malaise and was treated for R great toe osteomyelitis. Diabetic Foot Ulcer - No further temperatures, no leukocytosis - CRP 6.4, ESR 41 - Vancomycin held due to vancomycin level 15 - vancomycin dose adjusting due to elevated CRE and elevated vancomycin levels - ID consulted, recs appreciated - Patient to receive 1g vancomycin daily for osteomyelitis treatment until stabilization of kidney function - Podiatry consulted, recs appreciated, patient will be managed with IV abx - Deep wound culture showed Enterococcus faecalis and coag negative staph - x-ray of foot within normal limits - MRI of foot obtained showing compatibility with early osteomyelitis - Bactroban wound care - PICC line for outpatient IV abx placed and will receive outpatient abx through [facility] - patient counseled on antibiotic regimen by pharmacy - wound care outpatient and will f/u with Dr. Skaggs - offloading shoe Diabetes Mellitus - BGM - ISS - home medications glipizide and januvia restarted - Ha1c 11.2 - continue to monitor and f/u outpatient Shortness of breath - currently breathing well on room air - O2 as needed, continue to monitor - Echo within normal limits GAETANO - possibly due to constipation and BPH obstruction of bladder outlet vs vancomycin associated renal injury - patient does not have any urinary complaints - renal and bladder u/s as above - wyatt cath ordered, pending placement - urine electrolytes ordered, within normal limits - vancomycin level and adjusted dosing - continue to monitor - will need f/u with urology Constipation - colace - senna Bilateral lower extremity swelling - venous duplex negative for DVT - Echo within normal limits - follow up outpatient for venous insufficiency HTN - continue home clonidine - amlodipine 10mg daily - hold HCTZ due to repeated hyperkalemia and GAETANO Oral candidiasis - nystatin - HIV test negative Obstructive sleep apnea - continue CPAP BPH - Flomax to 0.4mg bid - dutasteride 0.5mg daily F/E/N - no fluids currently - mild hypokalemia, repleted - replete as necessary - diabetic diet DVT PPx - heparin 5000 units subq tid Disposition - admitted to med-surg Problem List - Problems (1) Diabetic infection of right foot Code(s): E11.628 - TYPE 2 DIABETES MELLITUS WITH OTHER SKIN COMPLICATIONS; L08.9 - LOCAL INFECTION OF THE SKIN AND SUBCUTANEOUS TISSUE, UNSP (2) Hyperglycemia Code(s): R73.9 - HYPERGLYCEMIA, UNSPECIFIED (3) Cellulitis of toe of right foot Code(s): L03.031 - CELLULITIS OF RIGHT TOE (4) Diabetes Code(s): E11.9 - TYPE 2 DIABETES MELLITUS WITHOUT COMPLICATIONS
[2017-08-15] MEDS: VANCOMYCIN 1,000 MG in DEXTROSE 5%-WATER - 250 ML IVPB SCH (16:12)
--- NOTE | 2017-08-15 18:35 | PN ---
Progress Note, Physician History of Present Illness: Awake, alert in bed No c/o foot pain No c/o fever/ chills Afebrile WBC WNL Cr elevated 1.8 Refusing wyatt catheter insertion for obstructive uropathy - Current Medication List Current Medications: Active Medications Acetaminophen (Tylenol -) 650 mg PO Q6H PRN PRN Reason: FEVER Last Admin: 08/10/17 22:53 Dose: 650 mg Amlodipine Besylate (Norvasc -) 10 mg PO DAILY [facility] Aspirin (Ecotrin -) 81 mg PO DAILY [facility] Last Admin: 08/15/17 11:13 Dose: 81 mg Clonidine (Catapres -) 0.4 mg PO TID [facility] Last Admin: 08/15/17 14:59 Dose: 0.4 mg Docusate Sodium (Colace -) 100 mg PO DAILY [facility] Last Admin: 08/15/17 11:12 Dose: 100 mg Dutasteride (Avodart -) 0.5 mg PO DAILY [facility] Last Admin: 08/15/17 11:13 Dose: 0.5 mg Glipizide (Glucotrol -) 10 mg PO BID@0700,1630 [facility] Last Admin: 08/15/17 17:44 Dose: 10 mg Heparin Sodium (Porcine) (Heparin -) 5,000 unit SQ TID [facility] Last Admin: 08/15/17 14:59 Dose: 5,000 unit IV Flush (Picc Line Flush) 8 ml IVPUSH PRN PRN PRN Reason: Protocol Vancomycin HCl 1,000 mg/ (Dextrose) 250 mls @ 150 mls/hr IVPB DAILY@1500 [facility] PRN Reason: Protocol Last Admin: 08/15/17 16:12 Dose: 150 mls/hr Insulin Aspart (Novolog Vial Sliding Scale -) 1 vial SQ ACHS [facility] PRN Reason: Protocol Last Admin: 08/15/17 17:44 Dose: 2 units Mupirocin (Bactroban 2% Ointment -) 1 applic TP DAILY [facility] Last Admin: 08/15/17 11:13 Dose: 1 applic Nystatin (Nystatin Oral Suspension -) 500,000 units PO Q6HPO [facility] Last Admin: 08/15/17 17:45 Dose: Not Given Senna (Senna -) 1 tab PO BID [facility] Last Admin: 08/15/17 11:12 Dose: 1 tab Sitagliptin Phosphate (Januvia -) 50 mg PO DAILY@0700 [facility] Last Admin: 08/15/17 06:35 Dose: 50 mg Tamsulosin HCl (Flomax -) 0.4 mg PO BID [facility] Last Admin: 08/15/17 11:12 Dose: 0.4 mg - Objective Vital Signs: Vital Signs Temperature 98.4 F 08/15/17 15:16 Pulse Rate 53 L 08/15/17 15:16 Respiratory Rate 20 08/15/17 15:16 Blood Pressure 166/96 08/15/17 15:16 O2 Sat by Pulse Oximetry (%) 93 L 08/14/17 21:00 Constitutional: Yes: No Distress, Obese Eyes: Yes: Conjunctiva Clear Cardiovascular: Yes: Regular Rate and Rhythm, S1, S2 Respiratory: Yes: CTA Bilaterally Gastrointestinal: Yes: Normal Bowel Sounds, Soft. No: Tenderness Extremities: Yes: Other (dry ulcer, R great toe) Labs: CBC, BMP 08/15/17 07:41 08/15/17 07:41 INR, PTT INR 1.45 (0.82-1.09) H D 08/07/17 17:20 Assessment/Plan Osteomyelitis R great toe Infected foot ulcer Continue vancomycin @ 1gm q24h Repeat Cr, vancomycin trough Local wound care
[2017-08-16] MEDS: cloNIDine HCL 0.1 MG TABLET PO SCH ×3 (06:46→22:02)
[2017-08-16] MEDS: glipiZIDE 5 MG TABLET (FP) PO SCH ×2 (06:47→16:53)
[2017-08-16] MEDS: sitaGLIPtin PHOSPHATE 50 MG TABLET PO SCH (06:47)
[2017-08-16] MEDS: HEPARIN NA (PORCINE) 5,000 UNITS/ML 1ML VIAL SQ SCH ×3 (06:48→21:59)
[2017-08-16] MEDS: NYSTATIN 500,000 UNITS/5 ML SUSPENSION PO SCH ×3 (06:48→18:03)
[2017-08-16] MEDS: INSULIN SLIDING SCALE (NOVOLOG) 1 VIAL SQ SCH ×4 (06:48→21:59)
--- NOTE | 2017-08-16 07:40 | PN ---
Physical Exam: SUBJECTIVE: Patient seen and examined at bedside. No acute events. No complaints. Pt again states he is amenable to wyatt today. OBJECTIVE: Vital Signs Period Temp Pulse Resp BP Sys/Olmedo Pulse Ox Last 24 Hr 98.0 F-98.7 F 47-54 18-20 117-198/79-102 97 GENERAL: The patient is awake, alert, and fully oriented, in no acute distress. HEAD: Normal with no signs of trauma. EYES: sclera anicteric, conjunctiva clear. No ptosis. ENT: oropharynx clear without exudates, moist mucous membranes. NECK: Trachea midline, full range of motion, supple. LUNGS: Breath sounds equal, clear to auscultation bilaterally, no wheezes, no crackles, no accessory muscle use. HEART: Regular rate and rhythm, S1, S2 without murmur, rub or gallop. ABDOMEN: obese, diastasis recti, Soft, nontender, nondistended, normoactive bowel sounds, no guarding, no rebound, no hepatosplenomegaly, no masses. EXTREMITIES: R great toe with lesion of toe nail and recently debrieded inferior lesion. healing. Dressing cdi. No oozing 2+ pulses, warm, well-perfused , no edema. NEUROLOGICAL: Cranial nerves II through XII grossly intact. Normal speech, gait not observed. PSYCH: Normal mood, normal affect. SKIN: Warm, dry, normal turgor, no rashes or lesions noted Laboratory Results - last 24 hr 08/15/17 08/15/17 08/15/17 07:41 07:41 07:41 WBC 7.0 RBC 4.02 Hgb 11.0 L Hct 32.7 L MCV 81.4 MCH 27.4 MCHC 33.7 RDW 15.5 Plt Count 240 MPV 8.9 Neutrophils % 70.5 Lymphocytes % 13.9 Monocytes % 11.0 H Eosinophils % 3.8 Basophils % 0.8 Sodium 145 Potassium 3.9 Chloride 109 H Carbon Dioxide 26 Anion Gap 10 BUN 14 Creatinine 1.8 H Creat Clearance w eGFR 39.37 POC Glucometer Random Glucose 131 H Calcium 8.8 Total Bilirubin 1.5 H D AST 28 ALT 40 Alkaline Phosphatase 115 Total Protein 6.7 Albumin 3.0 L Random Vancomycin 15.495 08/15/17 08/15/17 08/15/17 12:23 17:40 22:15 WBC RBC Hgb Hct MCV MCH MCHC RDW Plt Count MPV Neutrophils % Lymphocytes % Monocytes % Eosinophils % Basophils % Sodium Potassium Chloride Carbon Dioxide Anion Gap BUN Creatinine Creat Clearance w eGFR POC Glucometer 152 178 174 Random Glucose Calcium Total Bilirubin AST ALT Alkaline Phosphatase Total Protein Albumin Random Vancomycin 08/16/17 06:41 WBC RBC Hgb Hct MCV MCH MCHC RDW Plt Count MPV Neutrophils % Lymphocytes % Monocytes % Eosinophils % Basophils % Sodium Potassium Chloride Carbon Dioxide Anion Gap BUN Creatinine Creat Clearance w eGFR POC Glucometer 171 Random Glucose Calcium Total Bilirubin AST ALT Alkaline Phosphatase Total Protein Albumin Random Vancomycin Active Medications Generic Name Dose Route Start Last Admin Trade Name Freq PRN Reason Stop Dose Admin Acetaminophen 650 mg 08/07/17 20:33 08/10/17 22:53 Tylenol - PO 650 mg Q6H PRN Administration FEVER Amlodipine Besylate 10 mg 08/16/17 10:00 Norvasc - PO DAILY [facility] Aspirin 81 mg 08/08/17 10:00 08/15/17 11:13 Ecotrin - PO 81 mg DAILY [facility] Administration Clonidine 0.4 mg 08/08/17 22:00 08/16/17 06:46 Catapres - PO 0.4 mg TID [facility] Administration Docusate Sodium 100 mg 08/14/17 10:00 08/15/17 11:12 Colace - PO 100 mg DAILY [facility] Administration Dutasteride 0.5 mg 08/14/17 19:30 08/15/17 11:13 Avodart - PO 0.5 mg DAILY [facility] Administration Glipizide 10 mg 08/13/17 16:30 08/16/17 06:47 Glucotrol - PO 10 mg BID@0700,1630 [facility] Administration Heparin Sodium (Porcine) 5,000 unit 08/08/17 06:00 08/16/17 06:48 Heparin - SQ 5,000 unit TID [facility] Administration IV Flush 8 ml 08/12/17 14:19 Picc Line Flush IVPUSH PRN PRN Protocol Vancomycin HCl 1,000 mg/ 250 mls @ 150 mls/hr 08/15/17 15:00 08/15/17 16:12 Dextrose IVPB 150 mls/hr DAILY@1500 [facility] Administration Protocol Insulin Aspart 1 vial 08/07/17 22:00 08/16/17 06:48 Novolog Vial Sliding Scale - SQ 2 units ACHS [facility] Administration Protocol Mupirocin 1 applic 08/09/17 10:00 08/15/17 11:13 Bactroban 2% Ointment - TP 1 applic DAILY [facility] Administration Nystatin 500,000 units 08/08/17 00:00 08/16/17 06:48 Nystatin Oral Suspension - PO Not Given Q6HPO [facility] Senna 1 tab 08/13/17 22:00 08/15/17 22:12 Senna - PO 1 tab BID [facility] Administration Sitagliptin Phosphate 50 mg 08/14/17 07:00 08/16/17 06:47 Januvia - PO 50 mg DAILY@0700 [facility] Administration Tamsulosin HCl 0.4 mg 08/14/17 10:00 08/15/17 22:12 Flomax - PO 0.4 mg BID [facility] Administration ASSESSMENT/PLAN: 56 y/o M w PMH DM2, HTN, BPH who presented to the ED with fever and drainage from an ulcer on his right great toe. #Osteomyelitis of R great toe -Seen by Podiatry, Vasc surg, ID -Cx pos for E. faecalis, coag neg Staph -on Vanc -PICC in place -Waiting for level renal function for renal dosing of ABX #GAETANO 2/2 hydronephrosis 2/2 BPH -Physician/Internist increased to 1.8 -? 2/2 urinary retention vs Vanco -U/S showed bladder distention with high post-void residual, bladder wall thickening, hydronephrosis -Pt clearly has urinary retention. Multiple episodes of post-void residual of > 900 ml with straight cath yielding > 1L. -Despite extensive counselling by numerous members of care team, pt continues to refuse wyatt cath. Risks have been explained. -flomax and dutasteride -FeNa 2 & BUN:Physician/Internist 7.7 consistent with post-renal azotemia -Pt consented to Wyatt cath today. Drained > 600 cc on placement. Will f/u Physician/Internist #DM 2 -change Levemir to home med Glipizide, Januvia -A1C 11.2 #HTN -Clonidine -restart amlodipine #? CHF - Echo shows normal LV, normal RV, mild AR #Venous stasis -chronic #ANA MARÍA -CPAP #FEN -not on fluid -lytes wnl -DM diet #Dispo -Admitted for Osteomyelitis Ciro Palma MD PGY-1 IM Visit type - Emergency Visit Emergency Visit: No - New Patient This patient is new to me today: No - Critical Care Critical Care patient: No - Discharge Referral Referred to [facility] Med [facility] No
[2017-08-16 09:45] LABS: EOS % 3.7 % (0-4.5); HEMATOCRIT 32.6 % (35.4-49); HEMOGLOBIN 11.1 GM/dL (11.7-16.9); LYMPH % 13.5 % (8-40); MCH 27.6 pg (25.7-33.7); MCHC 34.1 g/dl (32.0-35.9); MEAN PLT VOLUME 8.7 fl (7.5-11.1); MONO % 11.6 % (3.8-10.2); NEUT % 70.2 % (42.8-82.8); PLATELET COUNT 229 K/MM3 (134-434); RBC 4.02 M/mm3 (4.00-5.60); RDW 15.3 % (11.9-15.9); WHITE BLOOD COUNT 6.8 K/mm3 (4.0-10.0)
[2017-08-16 10:01] LABS: ANION GAP 7 (8-16); BLOOD UREA NITROGEN 16 mg/dL (7-18); CALCIUM 8.7 mg/dL (8.5-10.1); CHLORIDE 107 mmol/L (98-107); CO2 29 mmol/L (21-32); CREATININE 1.8 mg/dL (0.7-1.3); GLUCOSE,RANDOM 125 mg/dL (74-106); POTASSIUM 3.4 mmol/L (3.5-5.1); SODIUM 143 mmol/L (136-145)
[2017-08-16] MEDS: DOCUSATE SODIUM 100 MG CAPSULE (FP) PO SCH (10:03)
[2017-08-16] MEDS: SENNOSIDES 8.6MG TABLET (FP) PO SCH ×2 (10:03→21:59)
[2017-08-16] MEDS: ASPIRIN COATED 81 MG TABLET.EC PO SCH (10:03)
[2017-08-16] MEDS: TAMSULOSIN HCL 0.4 MG CAP.ER.24H (FP) PO SCH ×2 (10:03→21:59)
[2017-08-16] MEDS: DUTASTERIDE 0.5 MG CAP (FP) PO SCH (10:04)
[2017-08-16] MEDS: amLODIPine BESYLATE 10 MG TABLET (FP) PO SCH (10:04)
--- NOTE | 2017-08-16 13:12 | PN ---
Progress Note, Physician History of Present Illness: Awake, alert No c/o foot pain No c/o fever/ chills Afebrile WBC WNL Cr elevated but stable @ 1.8 Refusing wyatt catheter insertion for obstructive uropathy - Current Medication List Current Medications: Active Medications Acetaminophen (Tylenol -) 650 mg PO Q6H PRN PRN Reason: FEVER Last Admin: 08/10/17 22:53 Dose: 650 mg Amlodipine Besylate (Norvasc -) 10 mg PO DAILY [facility] Last Admin: 08/16/17 10:04 Dose: 10 mg Aspirin (Ecotrin -) 81 mg PO DAILY [facility] Last Admin: 08/16/17 10:03 Dose: 81 mg Clonidine (Catapres -) 0.4 mg PO TID [facility] Last Admin: 08/16/17 06:46 Dose: 0.4 mg Docusate Sodium (Colace -) 100 mg PO DAILY [facility] Last Admin: 08/16/17 10:03 Dose: 100 mg Dutasteride (Avodart -) 0.5 mg PO DAILY [facility] Last Admin: 08/16/17 10:04 Dose: 0.5 mg Glipizide (Glucotrol -) 10 mg PO BID@0700,1630 [facility] Last Admin: 08/16/17 06:47 Dose: 10 mg Heparin Sodium (Porcine) (Heparin -) 5,000 unit SQ TID [facility] Last Admin: 08/16/17 06:48 Dose: 5,000 unit IV Flush (Picc Line Flush) 8 ml IVPUSH PRN PRN PRN Reason: Protocol Vancomycin HCl 1,000 mg/ (Dextrose) 250 mls @ 150 mls/hr IVPB DAILY@1500 [facility] PRN Reason: Protocol Last Admin: 08/15/17 16:12 Dose: 150 mls/hr Insulin Aspart (Novolog Vial Sliding Scale -) 1 vial SQ ACHS [facility] PRN Reason: Protocol Last Admin: 08/16/17 06:48 Dose: 2 units Mupirocin (Bactroban 2% Ointment -) 1 applic TP DAILY [facility] Last Admin: 08/15/17 11:13 Dose: 1 applic Nystatin (Nystatin Oral Suspension -) 500,000 units PO Q6HPO [facility] Last Admin: 08/16/17 06:48 Dose: Not Given Senna (Senna -) 1 tab PO BID [facility] Last Admin: 08/16/17 10:03 Dose: 1 tab Sitagliptin Phosphate (Januvia -) 50 mg PO DAILY@0700 [facility] Last Admin: 08/16/17 06:47 Dose: 50 mg Tamsulosin HCl (Flomax -) 0.4 mg PO BID [facility] Last Admin: 08/16/17 10:03 Dose: 0.4 mg - Objective Vital Signs: Vital Signs Temperature 98.2 F 08/16/17 10:00 Pulse Rate 50 L 08/16/17 10:00 Respiratory Rate 20 08/16/17 10:00 Blood Pressure 151/85 08/16/17 10:00 O2 Sat by Pulse Oximetry (%) 97 08/15/17 09:00 Constitutional: Yes: No Distress, Obese Cardiovascular: Yes: Regular Rate and Rhythm, S1, S2 Respiratory: Yes: CTA Bilaterally Gastrointestinal: Yes: Normal Bowel Sounds, Soft. No: Tenderness Extremities: Yes: Other (dry ulcer R great toe) Labs: CBC, BMP 08/16/17 09:30 08/16/17 09:30 INR, PTT INR 1.45 (0.82-1.09) H D 08/07/17 17:20 Assessment/Plan Osteomyelitis R great toe Infected foot ulcer Continue vancomycin @ 1gm q24h Repeat vancomycin trough prior to today's dose ? Discharge home on vancomycin 1gm daily with close monitoring Local wound care
[2017-08-16] MEDS: MUPIROCIN 2% TOPICAL OINTMENT 22 GM TUBE TP SCH (14:24)
--- NOTE | 2017-08-16 15:04 | MSN ---
Progress Note (short form) - Note Progress Note: CHIEF COMPLAINT: fever, malaise, diaphoresis, R toe infection HISTORY OF PRESENT ILLNESS Overnight, patient did not have any acute events. Patient yesterday refused wyatt catheter. Patient's CRE remained at 1.8 this morning. Patient was seen and examined at the bedside. Patient denied any acute complaints and stated that he was comfortable and just waiting for the results of his CRE. Patient stated that his appetite was fair and that he had moved his bowels twice since yesterday. Patient denied cp, sob, abd pain, headache, n/v/c/ d, dizziness, lightheadedness, extremity pain/swelling. Today, patient was amenable to wyatt catheter placement and wyatt was placed. Smoking: denies Alcohol: social Drugs: denies REVIEW OF SYSTEMS CONSTITUTIONAL: Absent: malaise, loss of appetite, weight change, chills, fever, diaphoresis, generalized weakness HEENT: Absent: rhinorrhea, nasal congestion, throat pain, throat swelling, difficulty swallowing, mouth swelling, ear pain, eye pain, visual changes CARDIOVASCULAR: Absent: chest pain, syncope, palpitations, irregular heart rate, lightheadedness , peripheral edema RESPIRATORY: Absent: cough, shortness of breath, dyspnea with exertion, orthopnea, wheezing, stridor, hemoptysis GASTROINTESTINAL: Absent: abdominal pain, abdominal distension, nausea, vomiting, diarrhea, constipation, melena, hematochezia GENITOURINARY: Absent: dysuria, frequency, urgency, hesitancy, hematuria, flank pain, genital pain MUSCULOSKELETAL: Absent: myalgia, arthralgia, joint swelling, back pain, neck pain SKIN: swelling of legs (chronic) Absent: rash, itching, pallor HEMATOLOGIC/IMMUNOLOGIC: Absent: easy bleeding, easy bruising, lymphadenopathy, frequent infections ENDOCRINE: Absent: unexplained weight gain, unexplained weight loss, heat intolerance, cold intolerance NEUROLOGIC: Absent: headache, focal weakness or paresthesias, dizziness, unsteady gait, seizure, mental status changes, bladder or bowel incontinence PSYCHIATRIC: Absent: anxiety, depression, suicidal or homicidal ideation, hallucinations. PHYSICAL EXAMINATION: GENERAL: Awake, alert, and fully oriented, in no apparent distress. Obese middle aged male laying in bed. HEAD: Normal with no signs of trauma. Redness on the nasal bridge secondary to CPAP mask covered by adhesive bandage EYES: Pupils equal, round and reactive to light, extraocular movements intact, sclera anicteric, conjunctiva clear. No lid lag. EARS, NOSE, THROAT: Ears normal, nares patent, oropharynx clear. Moist mucous membranes. NECK: Normal range of motion, supple without lymphadenopathy, JVD, or masses. LUNGS: Breath sounds equal, clear to auscultation bilaterally. No wheezes, and no crackles. No accessory muscle use. HEART: Regular rate and rhythm, normal S1 and S2 without murmur, rub or gallop. ABDOMEN: Soft, nontender, obese, normoactive bowel sounds, no guarding, no rebound, no masses. No hepatomegaly or splenomegaly. MUSCULOSKELETAL: Normal range of motion at all joints. No bony deformities or tenderness. No CVA tenderness. UPPER EXTREMITIES: 2+ pulses, warm, well-perfused. No cyanosis. No clubbing. Cap refill <2 seconds. No peripheral edema LOWER EXTREMITIES: 2+ pulses, warm, well-perfused. No calf tenderness. 1+ peripheral edema bilaterally. NEUROLOGICAL: Cranial nerves II-XII intact. Normal speech. PSYCHIATRIC: Cooperative. Good eye contact. Appropriate mood and affect. SKIN: Warm, dry, normal turgor. On bilateral lower extremities, chronic venous stasis dermatitis noted. On R great toe, granulation tissue noted. Wound debrided and was clean and dry. Non-painful to palpation. Last Vital Signs Temp Pulse Resp BP Pulse Ox 98.2 F 50 L 20 151/85 98 08/16/17 10:00 08/16/17 10:00 08/16/17 10:00 08/16/17 10:00 08/16/17 09:00 CBC, BMP 08/16/17 09:30 08/16/17 09:30 CMP Sodium 143 mmol/L (136-145) 08/16/17 09:30 Potassium 3.4 mmol/L (3.5-5.1) L 08/16/17 09:30 Chloride 107 mmol/L (98-107) 08/16/17 09:30 Carbon Dioxide 29 mmol/L (21-32) 08/16/17 09:30 Anion Gap 7 (8-16) L 08/16/17 09:30 BUN 16 mg/dL (7-18) 08/16/17 09:30 Creatinine 1.8 mg/dL (0.7-1.3) H 08/16/17 09:30 Creat Clearance w eGFR 39.37 (>60) 08/15/17 07:41 POC Glucometer 171 UNITS (80-120) 08/16/17 06:41 Random Glucose 125 mg/dL (74-106) H 08/16/17 09:30 Hemoglobin A1c % 11.2 % (4.8-6.0) H 08/07/17 21:50 Lactic Acid 1.0 mmol/L (0.0-2.0) 08/07/17 21:50 Calcium 8.7 mg/dL (8.5-10.1) 08/16/17 09:30 Phosphorus 4.1 mg/dL (2.5-4.9) 08/12/17 06:30 Magnesium 2.1 mg/dL (1.8-2.4) 08/12/17 14:45 Total Bilirubin 1.5 mg/dL (0.2-1.0) H D 08/15/17 07:41 Direct Bilirubin Cancelled 08/08/17 07:15 AST 28 U/L (15-37) 08/15/17 07:41 ALT 40 U/L (12-78) 08/15/17 07:41 Alkaline Phosphatase 115 U/L (45-117) 08/15/17 07:41 Creatine Kinase 56 IU/L (39-308) 08/08/17 06:30 Troponin I 0.06 ng/ml (0.00-0.05) H 08/08/17 06:30 C-Reactive Protein 6.4 MG/DL (0.00-0.3) H 08/07/17 21:50 Total Protein 6.7 g/dl (6.4-8.2) 08/15/17 07:41 Albumin 3.0 g/dl (3.4-5.0) L 08/15/17 07:41 Triglycerides Cancelled 08/08/17 07:15 Cholesterol Cancelled 08/08/17 07:15 Total LDL Cholesterol Cancelled 08/08/17 07:15 HDL Cholesterol Cancelled 08/08/17 07:15 Abnormal Lab Results 08/16/17 08/16/17 08/16/17 09:30 09:30 13:34 Hgb 11.1 L Hct 32.6 L Monocytes % 11.6 H Potassium 3.4 L Anion Gap 7 L Creatinine 1.8 H Random Glucose 125 H Vancomycin Pre-Dose 13.398 H D Current Medications Generic Name Dose Route Start Last Admin Trade Name Ramon PRN Reason Stop Dose Admin Acetaminophen 650 mg 08/07/17 20:33 08/10/17 22:53 Tylenol - PO 650 mg Q6H PRN Administration FEVER Amlodipine Besylate 10 mg 08/16/17 10:00 08/16/17 10:04 Norvasc - PO 10 mg DAILY [facility] Administration Aspirin 81 mg 08/08/17 10:00 08/16/17 10:03 Ecotrin - PO 81 mg DAILY [facility] Administration Clonidine 0.4 mg 08/08/17 22:00 08/16/17 14:24 Catapres - PO 0.4 mg TID [facility] Administration Docusate Sodium 100 mg 08/14/17 10:00 08/16/17 10:03 Colace - PO 100 mg DAILY [facility] Administration Dutasteride 0.5 mg 08/14/17 19:30 08/16/17 10:04 Avodart - PO 0.5 mg DAILY [facility] Administration Glipizide 10 mg 08/13/17 16:30 08/16/17 06:47 Glucotrol - PO 10 mg BID@0700,1630 [facility] Administration Heparin Sodium (Porcine) 5,000 unit 08/08/17 06:00 08/16/17 14:24 Heparin - SQ 5,000 unit TID [facility] Administration IV Flush 8 ml 08/12/17 14:19 Picc Line Flush IVPUSH PRN PRN Protocol Vancomycin HCl 1,000 mg/ 250 mls @ 150 mls/hr 08/15/17 15:00 08/15/17 16:12 Dextrose IVPB 150 mls/hr DAILY@1500 [facility] Administration Protocol Insulin Aspart 1 vial 08/07/17 22:00 08/16/17 13:29 Novolog Vial Sliding Scale - SQ Not Given ACHS [facility] Protocol Mupirocin 1 applic 08/09/17 10:00 08/16/17 14:24 Bactroban 2% Ointment - TP 1 applic DAILY [facility] Administration Nystatin 500,000 units 08/08/17 00:00 08/16/17 13:30 Nystatin Oral Suspension - PO Not Given Q6HPO [facility] Senna 1 tab 08/13/17 22:00 08/16/17 10:03 Senna - PO 1 tab BID [facility] Administration Sitagliptin Phosphate 50 mg 08/14/17 07:00 08/16/17 06:47 Januvia - PO 50 mg DAILY@0700 [facility] Administration Tamsulosin HCl 0.4 mg 08/14/17 10:00 08/16/17 10:03 Flomax - PO 0.4 mg BID [facility] Administration Microbiology 08/07/17 17:28 Blood - Peripheral Venous Blood Culture - Final NO GROWTH AFTER 5 DAYS INCUBATION 08/07/17 17:20 Blood - Peripheral Venous Blood Culture - Final NO GROWTH AFTER 5 DAYS INCUBATION 08/08/17 12:15 Toe - Right Hallux Gram Stain - Final 08/08/17 12:15 Toe - Right Hallux Wound Culture - Final Enterococcus Faecalis Staphylococcus Coagulase Neg 08/07/17 18:40 Urine - Urine Clean Catch Urine Culture - Final NO GROWTH OBTAINED IMAGING: FOOT X-RAY: Intact osseous structures, no evidence of foreign body. Soft tissue emphysematous changes CHEST X-RAY: enlarged heart, periphilar markings VENOUS DUPLEX: No evidence of DVT ECHOCARDIOGRAM: Left ventricular size and function within normal limits. Right ventricular size within normal limits. Mild aortic regurgitation BLADDER ULTRASOUND: Overdistended bladder, enlarged prostate, postvoid residual of 1168 cc, moderate bilateral renal hydronephrosis FOOT MRI: edema compatible with early osteomyelitis, perifocal soft tissue swelling compatible with cellulitis RENAL/BLADDER ULTRASOUND: mild to moderate hydronephrosis, markedly enlarged prostate, thickening of urinary bladder, post void residual of 445cc, R renal cyst 4.2x3.7cm ASSESMENT/PLAN: Patient is a 56 y/o male with a significant PMHx of uncontrolled diabetes, HTN, HLD, who presented with R great toe infection, fever, malaise and was treated for R great toe osteomyelitis. Diabetic Foot Ulcer - No further temperatures, no leukocytosis - CRP 6.4, ESR 41 - Vancomycin held due to vancomycin level 15 - vancomycin dose adjusting due to elevated CRE and elevated vancomycin levels - ID consulted, recs appreciated - Patient to receive 1g vancomycin daily for osteomyelitis treatment until stabilization of kidney function - Podiatry consulted, recs appreciated, patient will be managed with IV abx - Deep wound culture showed Enterococcus faecalis and coag negative staph - x-ray of foot within normal limits - MRI of foot obtained showing compatibility with early osteomyelitis - Bactroban wound care - PICC line for outpatient IV abx placed and will receive outpatient abx through [facility] - patient counseled on antibiotic regimen by pharmacy - wound care outpatient and will f/u with Dr. Skaggs - offloading shoe Diabetes Mellitus - BGM - ISS - home medications glipizide and januvia restarted - Ha1c 11.2 - continue to monitor and f/u outpatient Shortness of breath - currently breathing well on room air - O2 as needed, continue to monitor - Echo within normal limits GAETANO - possibly due to constipation and BPH obstruction of bladder outlet vs vancomycin associated renal injury - patient does not have any urinary complaints - renal and bladder u/s as above - wyatt cath placed - urine electrolytes ordered, within normal limits - vancomycin level and adjusted dosing - continue to monitor - will need f/u with urology Constipation - colace - senna Bilateral lower extremity swelling - venous duplex negative for DVT - Echo within normal limits - follow up outpatient for venous insufficiency HTN - continue home clonidine - amlodipine 10mg daily - hold HCTZ due to repeated hyperkalemia and GAETANO Oral candidiasis - nystatin - HIV test negative Obstructive sleep apnea - continue CPAP BPH - Flomax to 0.4mg bid - dutasteride 0.5mg daily F/E/N - no fluids currently - mild hypokalemia, repleted - replete as necessary - diabetic diet DVT PPx - heparin 5000 units subq tid Disposition - admitted to med-surg Problem List - Problems (1) Diabetic infection of right foot Code(s): E11.628 - TYPE 2 DIABETES MELLITUS WITH OTHER SKIN COMPLICATIONS; L08.9 - LOCAL INFECTION OF THE SKIN AND SUBCUTANEOUS TISSUE, UNSP (2) Hyperglycemia Code(s): R73.9 - HYPERGLYCEMIA, UNSPECIFIED (3) Cellulitis of toe of right foot Code(s): L03.031 - CELLULITIS OF RIGHT TOE (4) Diabetes Code(s): E11.9 - TYPE 2 DIABETES MELLITUS WITHOUT COMPLICATIONS
[2017-08-16] MEDS: VANCOMYCIN 1,000 MG in DEXTROSE 5%-WATER - 250 ML IVPB SCH (15:53)
[2017-08-16] MEDS ORDERED: POTASSIUM CHLORIDE TABS 20 MEQ TABLET.ER (FP) PO ONE (16:02)
[2017-08-16] MEDS ORDERED: INSULIN (NOVOLOG) ASPART 100 UNITS/ML 10ML VIAL ONE (16:42)
--- NOTE | 2017-08-16 18:30 | PN ---
Teaching Attending Note Name of Resident: Ciro Palma ATTENDING PHYSICIAN STATEMENT I saw and evaluated the patient. I reviewed the resident's note and discussed the case with the resident. I agree with the resident's findings and plan as documented with exceptions below. SUBJECTIVE: Patient seen and examined. no new complaints. OBJECTIVE: Vital Signs Period Temp Pulse Resp BP Sys/Olmedo Pulse Ox Last 24 Hr 97.7 F-98.6 F 48-87 18-20 147-170/81-91 98 Intake & Output 08/13/17 08/14/17 08/15/17 08/16/17 23:59 23:59 23:59 23:59 Intake Total 2357 407 9444 680 Output Total 3900 3600 300 2300 Balance -2860 -2900 890 -1620 General: sitting in bed in no acute distress Abdomen: soft, no suprapubic or CVA tenderness Extremities: right foot dressing Home Medication List Medication Instructions Recorded Confirmed Type Amlodipine Besylate [Norvasc -] 10 mg PO DAILY 06/23/13 08/07/17 History Clonidine HCl 0.4 mg PO TID 02/07/17 08/08/17 History Sitagliptin Phosphate [Januvia] 50 mg PO DAILY 07/31/17 08/07/17 History Glipizide [Glipizide ER] 10 mg PO BID 08/07/17 08/07/17 History Nebivolol HCl/Valsartan [Byvalson 1 tab PO BID 08/07/17 08/07/17 History 5 mg-80 mg Tablet] Tamsulosin HCl 0.4 mg PO DAILY 08/08/17 08/08/17 History Active Medications Generic Name Dose Route Start Last Admin Trade Name Freq PRN Reason Stop Dose Admin Acetaminophen 650 mg 08/07/17 20:33 08/10/17 22:53 Tylenol - PO 650 mg Q6H PRN Administration FEVER Amlodipine Besylate 10 mg 08/16/17 10:00 08/16/17 10:04 Norvasc - PO 10 mg DAILY TROY Administration Aspirin 81 mg 08/08/17 10:08/16/17 10:03 Ecotrin - PO 81 mg DAILY TROY Administration Clonidine 0.4 mg 08/08/17 22:00 08/16/17 14:24 Catapres - PO 0.4 mg TID TROY Administration Docusate Sodium 100 mg 08/14/17 10:00 08/16/17 10:03 Colace - PO 100 mg DAILY TROY Administration Dutasteride 0.5 mg 08/14/17 19:30 08/16/17 10:04 Avodart - PO 0.5 mg DAILY TROY Administration Glipizide 10 mg 08/13/17 16:30 08/16/17 16:53 Glucotrol - PO 10 mg BID@0700,1630 TROY Administration Heparin Sodium (Porcine) 5,000 unit 08/08/17 06:00 08/16/17 14:24 Heparin - SQ 5,000 unit TID TROY Administration IV Flush 8 ml 08/12/17 14:19 Picc Line Flush IVPUSH PRN PRN Protocol Vancomycin HCl 1,000 mg/ 250 mls @ 150 mls/hr 08/15/17 15:00 08/16/17 15:53 Dextrose IVPB 150 mls/hr DAILY@1500 TROY Administration Protocol Insulin Aspart 1 vial 08/07/17 22:00 08/16/17 16:53 Novolog Vial Sliding Scale - SQ 6 units ACHS TROY Administration Protocol Mupirocin 1 applic 08/09/17 10:00 08/16/17 14:24 Bactroban 2% Ointment - TP 1 applic DAILY TROY Administration Nystatin 500,000 units 08/08/17 00:00 08/16/17 18:03 Nystatin Oral Suspension - PO Not Given Q6HPO TROY Senna 1 tab 08/13/17 22:00 08/16/17 10:03 Senna - PO 1 tab BID TROY Administration Sitagliptin Phosphate 50 mg 08/14/17 07:00 08/16/17 06:47 Januvia - PO 50 mg DAILY@0700 TROY Administration Tamsulosin HCl 0.4 mg 08/14/17 10:00 08/16/17 10:03 Flomax - PO 0.4 mg BID TROY Administration Laboratory Results - last 24 hr 08/15/17 08/16/17 08/16/17 22:15 06:41 09:30 WBC 6.8 RBC 4.02 Hgb 11.1 L Hct 32.6 L MCV 81.0 MCH 27.6 MCHC 34.1 RDW 15.3 Plt Count 229 MPV 8.7 Neutrophils % 70.2 Lymphocytes % 13.5 Monocytes % 11.6 H Eosinophils % 3.7 Basophils % 1.0 Sodium Potassium Chloride Carbon Dioxide Anion Gap BUN Creatinine POC Glucometer 174 171 Random Glucose Calcium Vancomycin Pre-Dose 08/16/17 08/16/17 08/16/17 09:30 13:34 16:52 WBC RBC Hgb Hct MCV MCH MCHC RDW Plt Count MPV Neutrophils % Lymphocytes % Monocytes % Eosinophils % Basophils % Sodium 143 Potassium 3.4 L Chloride 107 Carbon Dioxide 29 Anion Gap 7 L BUN 16 Creatinine 1.8 H POC Glucometer 291 Random Glucose 125 H Calcium 8.7 Vancomycin Pre-Dose 13.398 H D Microbiology 08/07/17 17:28 Blood - Peripheral Venous Blood Culture - Final NO GROWTH AFTER 5 DAYS INCUBATION 08/07/17 17:20 Blood - Peripheral Venous Blood Culture - Final NO GROWTH AFTER 5 DAYS INCUBATION 08/08/17 12:15 Toe - Right Hallux Gram Stain - Final 08/08/17 12:15 Toe - Right Hallux Wound Culture - Final Enterococcus Faecalis Staphylococcus Coagulase Neg 08/07/17 18:40 Urine - Urine Clean Catch Urine Culture - Final NO GROWTH OBTAINED ASSESSMENT AND PLAN: 56 yom with PMHX of uncontrolled DM likely non compliance, comes with right great toe osteomyelitis. -Right great toe osteomyelitis -Uncontrolled DM, A1c 11.2 -GAETANO, suspect urinary retention +/- vanco related. -BPH with bilateral hydronephrosis and Bladder wall thickening -Possible mild acute diastolic HF, resolved, Echo non concerning -Oral candidiasis -HTN -BPH Plan: Wyatt placed, continue flomax/dutesteride, outpatient urology follow up. REnal/bladder US noted. Urine studies noted. Follow up urine eosinophils. Renal input if fails to improve with wyatt and holding Vancomycin. Vanco level 13, ID input noted, Vancomycin 1g IV daily. Wound cultures reviewed. Continue home oral glipizide and januvia and ISS. Stressed need for home blood glucose monitoring and compliance. Diabetic education. Nutrition consult. Continue clonidine, resumed amlodipine. Hold ARB for now. HOld nebivolol given baseline HR 50s. DVTPPX dispo planning by saturday if renal function stable on vancomycin and wyatt. Plan discussed with patient in detail, all questions answered
[2017-08-17] MEDS: NYSTATIN 500,000 UNITS/5 ML SUSPENSION PO SCH ×6 (00:35→17:25)
[2017-08-17] MEDS: glipiZIDE 5 MG TABLET (FP) PO SCH ×2 (06:33→18:18)
[2017-08-17] MEDS: cloNIDine HCL 0.1 MG TABLET PO SCH ×3 (06:33→21:53)
[2017-08-17] MEDS: HEPARIN NA (PORCINE) 5,000 UNITS/ML 1ML VIAL SQ SCH ×3 (06:33→21:53)
[2017-08-17] MEDS: INSULIN SLIDING SCALE (NOVOLOG) 1 VIAL SQ SCH ×4 (06:34→22:00)
[2017-08-17] MEDS: sitaGLIPtin PHOSPHATE 50 MG TABLET PO SCH (06:35)
[2017-08-17 08:03] LABS: BASO % 0.9 % (0-2.0); EOS % 3.7 % (0-4.5); HEMATOCRIT 33.1 % (35.4-49); HEMOGLOBIN 11.2 GM/dL (11.7-16.9); LYMPH % 16.6 % (8-40); MCH 27.6 pg (25.7-33.7); MEAN CELL VOLUME 81.3 fl (80-96); MONO % 12.8 % (3.8-10.2); PLATELET COUNT 241 K/MM3 (134-434); RBC 4.07 M/mm3 (4.00-5.60); WHITE BLOOD COUNT 7.7 K/mm3 (4.0-10.0)
[2017-08-17 08:33] LABS: CHLORIDE 104 mmol/L (98-107); POTASSIUM 3.7 mmol/L (3.5-5.1); SODIUM 140 mmol/L (136-145)
[2017-08-17 08:58] LABS: ANION GAP 10 (8-16); BLOOD UREA NITROGEN 15 mg/dL (7-18); CALCIUM 8.5 mg/dL (8.5-10.1); CO2 26 mmol/L (21-32); CREATININE 1.8 mg/dL (0.7-1.3); GLUCOSE,RANDOM 92 mg/dL (74-106)
--- NOTE | 2017-08-17 09:30 | PN ---
Physical Exam: SUBJECTIVE: Patient seen and examined at bedside. Pt complains of swelling in his feet. Wyatt is draining well 2600ml (yest). No other complaints. OBJECTIVE: Vital Signs Period Temp Pulse Resp BP Sys/Olmedo Pulse Ox Last 24 Hr 97.5 F-98.6 F 48-87 20-20 151-170/82-91 98 GENERAL: The patient is awake, alert, and fully oriented, in no acute distress. HEAD: Normal with no signs of trauma. EYES: sclera anicteric, conjunctiva clear. No ptosis. ENT: oropharynx clear without exudates, moist mucous membranes. NECK: Trachea midline, full range of motion, supple. LUNGS: Breath sounds equal, clear to auscultation bilaterally, no wheezes, no crackles, no accessory muscle use. HEART: Regular rate and rhythm, S1, S2 without murmur, rub or gallop. ABDOMEN: obese, diastasis recti, Soft, nontender, nondistended, normoactive bowel sounds, no guarding, no rebound, no hepatosplenomegaly, no masses. EXTREMITIES: R great toe with lesion of toe nail and recently debrieded inferior lesion. healing. Dressing cdi. No oozing 2+ pulses, warm, well-perfused , no edema. NEUROLOGICAL: Cranial nerves II through XII grossly intact. Normal speech, gait not observed. PSYCH: Normal mood, normal affect. SKIN: Warm, dry, normal turgor, no rashes or lesions noted Laboratory Results - last 24 hr 08/14/17 08/16/17 08/16/17 19:00 09:30 09:30 WBC 6.8 RBC 4.02 Hgb 11.1 L Hct 32.6 L MCV 81.0 MCH 27.6 MCHC 34.1 RDW 15.3 Plt Count 229 MPV 8.7 Neutrophils % 70.2 Lymphocytes % 13.5 Monocytes % 11.6 H Eosinophils % 3.7 Basophils % 1.0 Sodium 143 Potassium 3.4 L Chloride 107 Carbon Dioxide 29 Anion Gap 7 L BUN 16 Creatinine 1.8 H POC Glucometer Random Glucose 125 H Calcium 8.7 Urine Eosinophils None seen Vancomycin Pre-Dose 08/16/17 08/16/17 08/16/17 13:34 16:52 21:57 WBC RBC Hgb Hct MCV MCH MCHC RDW Plt Count MPV Neutrophils % Lymphocytes % Monocytes % Eosinophils % Basophils % Sodium Potassium Chloride Carbon Dioxide Anion Gap BUN Creatinine POC Glucometer 291 204 Random Glucose Calcium Urine Eosinophils Vancomycin Pre-Dose 13.398 H D 08/17/17 08/17/17 08/17/17 05:55 06:15 06:15 WBC 7.7 RBC 4.07 Hgb 11.2 L Hct 33.1 L MCV 81.3 MCH 27.6 MCHC 34.0 RDW 15.0 Plt Count 241 MPV 9.0 Neutrophils % 66.0 Lymphocytes % 16.6 D Monocytes % 12.8 H Eosinophils % 3.7 Basophils % 0.9 Sodium 140 Potassium 3.7 Chloride 104 Carbon Dioxide 26 Anion Gap 10 BUN 15 Creatinine 1.8 H POC Glucometer 103 Random Glucose 92 D Calcium 8.5 Urine Eosinophils Vancomycin Pre-Dose Active Medications Generic Name Dose Route Start Last Admin Trade Name Freq PRN Reason Stop Dose Admin Acetaminophen 650 mg 08/07/17 20:33 08/10/17 22:53 Tylenol - PO 650 mg Q6H PRN Administration FEVER Amlodipine Besylate 10 mg 08/16/17 10:00 08/16/17 10:04 Norvasc - PO 10 mg DAILY TROY Administration Aspirin 81 mg 08/08/17 10:00 08/16/17 10:03 Ecotrin - PO 81 mg DAILY TROY Administration Clonidine 0.4 mg 08/08/17 22:00 08/17/17 06:33 Catapres - PO 0.4 mg TID TROY Administration Docusate Sodium 100 mg 08/14/17 10:00 08/16/17 10:03 Colace - PO 100 mg DAILY TROY Administration Dutasteride 0.5 mg 08/14/17 19:30 08/16/17 10:04 Avodart - PO 0.5 mg DAILY TROY Administration Glipizide 10 mg 08/13/17 16:30 08/17/17 06:33 Glucotrol - PO 10 mg BID@0700,1630 TROY Administration Heparin Sodium (Porcine) 5,000 unit 08/08/17 06:00 08/17/17 06:33 Heparin - SQ 5,000 unit TID TROY Administration IV Flush 8 ml 08/12/17 14:19 Picc Line Flush IVPUSH PRN PRN Protocol Vancomycin HCl 1,000 mg/ 250 mls @ 150 mls/hr 08/15/17 15:00 05/11/18 15:53 Dextrose IVPB 150 mls/hr DAILY@1500 TROY Administration Protocol Insulin Aspart 1 vial 08/07/17 22:00 08/17/17 06:34 Novolog Vial Sliding Scale - SQ Not Given ACHS [facility] Protocol Mupirocin 1 applic 08/09/17 10:00 08/16/17 14:24 Bactroban 2% Ointment - TP 1 applic DAILY TROY Administration Nystatin 500,000 units 08/08/17 00:00 08/17/17 06:33 Nystatin Oral Suspension - PO Not Given Q6HPO TROY Senna 1 tab 08/13/17 22:00 08/16/17 21:59 Senna - PO 1 tab BID TROY Administration Sitagliptin Phosphate 50 mg 08/14/17 07:00 08/17/17 06:35 Januvia - PO 50 mg DAILY@0700 TROY Administration Tamsulosin HCl 0.4 mg 08/14/17 10:00 08/16/17 21:59 Flomax - PO 0.4 mg BID TROY Administration ASSESSMENT/PLAN: 56 y/o M w PMH DM2, HTN, BPH who presented to the ED with fever and drainage from an ulcer on his right great toe. #Osteomyelitis of R great toe -Seen by Podiatry, Vasc surg, ID -Cx pos for E. faecalis, coag neg Staph -on Vanc -PICC in place -Waiting for level renal function for renal dosing of ABX #GAETANO 2/2 hydronephrosis 2/2 BPH -Renewal Specialist 1.8 -? 2/2 urinary retention vs Vanco -U/S showed bladder distention with high post-void residual, bladder wall thickening, hydronephrosis -Pt clearly has urinary retention -Despite extensive counselling by numerous members of care team, pt continues to refuse wyatt cath. Risks have been explained. -flomax and dutasteride -Pt consented to Wyatt cath today. Drained > 600 cc on placement. #DM 2 -change Levemir to home med Glipizide, Januvia -A1C 11.2 #HTN -Clonidine -amlodipine #? CHF - Echo shows normal LV, normal RV, mild AR #Venous stasis -chronic #ANA MARÍA -CPAP #FEN -not on fluid -lytes wnl -DM diet #Dispo -Admitted for Osteomyelitis Ciro Palma MD PGY-1 IM Visit type - Emergency Visit Emergency Visit: No - New Patient This patient is new to me today: No - Critical Care Critical Care patient: No - Discharge Referral Referred to [facility] Med P.C.: No
[2017-08-17] MEDS: TAMSULOSIN HCL 0.4 MG CAP.ER.24H (FP) PO SCH ×2 (11:00→21:53)
[2017-08-17] MEDS: DOCUSATE SODIUM 100 MG CAPSULE (FP) PO SCH (11:00)
[2017-08-17] MEDS: SENNOSIDES 8.6MG TABLET (FP) PO SCH ×2 (11:01→21:53)
[2017-08-17] MEDS: DUTASTERIDE 0.5 MG CAP (FP) PO SCH (11:01)
[2017-08-17] MEDS: ASPIRIN COATED 81 MG TABLET.EC PO SCH (11:01)
[2017-08-17] MEDS: amLODIPine BESYLATE 10 MG TABLET (FP) PO SCH (11:01)
--- NOTE | 2017-08-17 11:15 | PN ---
Teaching Attending Note Name of Resident: Ciro Palma ATTENDING PHYSICIAN STATEMENT I saw and evaluated the patient. I reviewed the resident's note and discussed the case with the resident. I agree with the resident's findings and plan as documented with exceptions below. SUBJECTIVE: Patient seen and examined, no new foot pain, abdominal or flank pain. No fevers , chills or new concerns. Concerned about his chronic leg swelling and wants to keep his legs elevated. OBJECTIVE: Vital Signs Period Temp Pulse Resp BP Sys/Olmedo Pulse Ox Last 24 Hr 97.5 F-98.6 F 48-87 20-20 156-170/82-91 98 Intake & Output 08/14/17 08/15/17 08/16/17 08/17/17 23:59 23:59 23:59 23:59 Intake Total 700 1190 1680 400 Output Total 3600 300 3750 800 Balance -2900 890 -2070 -400 General: sitting in bed in no acute distress Abdomen: soft, NT, no flank or CVA tenderness Extremities: bilateral 2+ pitting edema, chronic per patient, nonwarm nontender , right foot dressing Home Medication List Medication Instructions Recorded Confirmed Type Amlodipine Besylate [Norvasc -] 10 mg PO DAILY 06/23/13 08/07/17 History Clonidine HCl 0.4 mg PO TID 02/07/17 08/08/17 History Sitagliptin Phosphate [Januvia] 50 mg PO DAILY 07/31/17 08/07/17 History Glipizide [Glipizide ER] 10 mg PO BID 08/07/17 08/07/17 History Nebivolol HCl/Valsartan [Byvalson 1 tab PO BID 08/07/17 08/07/17 History 5 mg-80 mg Tablet] Tamsulosin HCl 0.4 mg PO DAILY 08/08/17 08/08/17 History Active Medications Generic Name Dose Route Start Last Admin Trade Name Freq PRN Reason Stop Dose Admin Acetaminophen 650 mg 08/07/17 20:33 08/10/17 22:53 Tylenol - PO 650 mg Q6H PRN Administration FEVER Amlodipine Besylate 10 mg 08/16/17 10:00 08/17/17 11:01 Norvasc - PO 10 mg DAILY TROY Administration Aspirin 81 mg 08/08/17 10:00 08/17/17 11:01 Ecotrin - PO 81 mg DAILY TROY Administration Clonidine 0.4 mg 08/08/17 22:00 08/17/17 06:33 Catapres - PO 0.4 mg TID TROY Administration Docusate Sodium 100 mg 08/14/17 10:00 08/17/17 11:00 Colace - PO 100 mg DAILY TROY Administration Dutasteride 0.5 mg 08/14/17 19:30 08/17/17 11:01 Avodart - PO 0.5 mg DAILY TROY Administration Glipizide 10 mg 08/13/17 16:30 08/17/17 06:33 Glucotrol - PO 10 mg BID@0700,1630 TROY Administration Heparin Sodium (Porcine) 5,000 unit 08/08/17 06:00 08/17/17 06:33 Heparin - SQ 5,000 unit TID TROY Administration IV Flush 8 ml 08/12/17 14:19 Picc Line Flush IVPUSH PRN PRN Protocol Vancomycin HCl 1,000 mg/ 250 mls @ 150 mls/hr 08/15/17 15:00 08/16/17 15:53 Dextrose IVPB 150 mls/hr DAILY@1500 [facility] Administration Protocol Insulin Aspart 1 vial 08/07/17 22:00 08/17/17 06:34 Novolog Vial Sliding Scale - SQ Not Given ACHS [facility] Protocol Mupirocin 1 applic 08/09/17 10:00 08/16/17 14:24 Bactroban 2% Ointment - TP 1 applic DAILY TROY Administration Nystatin 500,000 units 08/08/17 00:00 08/17/17 06:33 Nystatin Oral Suspension - PO Not Given Q6HPO TROY Senna 1 tab 08/13/17 22:00 08/17/17 11:01 Senna - PO 1 tab BID TROY Administration Sitagliptin Phosphate 50 mg 08/14/17 07:00 08/17/17 06:35 Januvia - PO 50 mg DAILY@0700 [facility] Administration Tamsulosin HCl 0.4 mg 08/14/17 10:00 08/17/17 11:00 Flomax - PO 0.4 mg BID TROY Administration Laboratory Results - last 24 hr 08/14/17 08/16/17 08/16/17 19:00 13:34 16:52 WBC RBC Hgb Hct MCV MCH MCHC RDW Plt Count MPV Neutrophils % Lymphocytes % Monocytes % Eosinophils % Basophils % Sodium Potassium Chloride Carbon Dioxide Anion Gap BUN Creatinine POC Glucometer 291 Random Glucose Calcium Urine Eosinophils None seen Vancomycin Pre-Dose 13.398 H D 08/16/17 08/17/17 08/17/17 21:57 05:55 06:15 WBC 7.7 RBC 4.07 Hgb 11.2 L Hct 33.1 L MCV 81.3 MCH 27.6 MCHC 34.0 RDW 15.0 Plt Count 241 MPV 9.0 Neutrophils % 66.0 Lymphocytes % 16.6 D Monocytes % 12.8 H Eosinophils % 3.7 Basophils % 0.9 Sodium Potassium Chloride Carbon Dioxide Anion Gap BUN Creatinine POC Glucometer 204 103 Random Glucose Calcium Urine Eosinophils Vancomycin Pre-Dose 08/17/17 06:15 WBC RBC Hgb Hct MCV MCH MCHC RDW Plt Count MPV Neutrophils % Lymphocytes % Monocytes % Eosinophils % Basophils % Sodium 140 Potassium 3.7 Chloride 104 Carbon Dioxide 26 Anion Gap 10 BUN 15 Creatinine 1.8 H POC Glucometer Random Glucose 92 D Calcium 8.5 Urine Eosinophils Vancomycin Pre-Dose Microbiology 08/07/17 17:28 Blood - Peripheral Venous Blood Culture - Final NO GROWTH AFTER 5 DAYS INCUBATION 08/07/17 17:20 Blood - Peripheral Venous Blood Culture - Final NO GROWTH AFTER 5 DAYS INCUBATION 08/08/17 12:15 Toe - Right Hallux Gram Stain - Final 08/08/17 12:15 Toe - Right Hallux Wound Culture - Final Enterococcus Faecalis Staphylococcus Coagulase Neg 08/07/17 18:40 Urine - Urine Clean Catch Urine Culture - Final NO GROWTH OBTAINED ASSESSMENT AND PLAN: 56 yom with PMHX of uncontrolled DM likely non compliance, comes with right great toe osteomyelitis. -Right great toe osteomyelitis -Uncontrolled DM, A1c 11.2 -GAETANO, suspect urinary retention +/- vanco related. -BPH with bilateral hydronephrosis and Bladder wall thickening -Possible mild acute diastolic HF, resolved, Echo non concerning -Oral candidiasis -HTN -BPH Plan: Wyatt placed, continue flomax/dutesteride, outpatient urology follow up. REnal/bladder US noted. Urine studies noted. Follow up urine eosinophils. Renal input if fails to improve with wyatt and holding Vancomycin. Vanco level 13, ID input noted, Vancomycin 1g IV daily. Repeat level on saturday. Wound cultures reviewed. Continue home oral glipizide and januvia and ISS. Stressed need for home blood glucose monitoring and compliance. Diabetic education. Nutrition consult. Continue clonidine, resumed amlodipine. Hold ARB for now. HOld nebivolol given baseline HR 50s. DVTPPX dispo planning by saturday if renal function stable on vancomycin and wyatt. Discussed home with wyatt/IV abx and VNS vs SNF. Patient wants to go home. Will continue to address dispo planning, anticipated Saturday. Plan discussed with patient in detail, all questions answered
[2017-08-17] MEDS ORDERED: PT OWN MED DRAWER 7, Y5N ONE ×2 (11:45→13:13)
[2017-08-17] MEDS: MUPIROCIN 2% TOPICAL OINTMENT 22 GM TUBE TP SCH (12:14)
[2017-08-17] MEDS: VANCOMYCIN 1,000 MG in DEXTROSE 5%-WATER - 250 ML IVPB SCH (14:46)
[2017-08-18] MEDS: NYSTATIN 500,000 UNITS/5 ML SUSPENSION PO SCH ×4 (00:18→17:40)
[2017-08-18] MEDS: cloNIDine HCL 0.1 MG TABLET PO SCH ×3 (05:56→21:33)
[2017-08-18] MEDS: HEPARIN NA (PORCINE) 5,000 UNITS/ML 1ML VIAL SQ SCH ×3 (05:58→21:34)
[2017-08-18] MEDS: sitaGLIPtin PHOSPHATE 50 MG TABLET PO SCH (06:40)
[2017-08-18] MEDS: glipiZIDE 5 MG TABLET (FP) PO SCH ×2 (06:40→17:43)
[2017-08-18] MEDS ORDERED: INSULIN (LEVEMIR) 100 UNITS/ML UNITS SQ ONE (06:58)
[2017-08-18] MEDS ORDERED: INSULIN (NOVOLOG) ASPART 100 UNITS/ML 10ML VIAL ONE (06:58)
[2017-08-18 07:57] LABS: BASO % 0.7 % (0-2.0); EOS % 1.2 % (0-4.5); HEMATOCRIT 32.1 % (35.4-49); HEMOGLOBIN 11.3 GM/dL (11.7-16.9); LYMPH % 11.8 % (8-40); MCHC 35.4 g/dl (32.0-35.9); MEAN CELL VOLUME 79.1 fl (80-96); MEAN PLT VOLUME 8.4 fl (7.5-11.1); NEUT % 79.3 % (42.8-82.8); PLATELET COUNT 249 K/MM3 (134-434); RBC 4.06 M/mm3 (4.00-5.60); RDW 14.8 % (11.9-15.9); WHITE BLOOD COUNT 6.5 K/mm3 (4.0-10.0)
[2017-08-18 08:45] LABS: ANION GAP 10 (8-16); BLOOD UREA NITROGEN 19 mg/dL (7-18); CALCIUM 8.7 mg/dL (8.5-10.1); CHLORIDE 104 mmol/L (98-107); CO2 28 mmol/L (21-32); CREATININE 1.8 mg/dL (0.7-1.3); GLUCOSE,RANDOM 175 mg/dL (74-106); POTASSIUM 3.6 mmol/L (3.5-5.1); SODIUM 142 mmol/L (136-145)
[2017-08-18] MEDS ORDERED: ONDANSETRON 4 MG/2 ML VIAL IVPUSH PRN (09:25)
[2017-08-18] MEDS: DOCUSATE SODIUM 100 MG CAPSULE (FP) PO SCH (11:04)
[2017-08-18] MEDS: amLODIPine BESYLATE 10 MG TABLET (FP) PO SCH (11:04)
[2017-08-18] MEDS: RANITIDINE HCL 150 MG TABLET (FP) PO SCH (11:04)
[2017-08-18] MEDS: SENNOSIDES 8.6MG TABLET (FP) PO SCH ×2 (11:04→21:33)
[2017-08-18] MEDS: ASPIRIN COATED 81 MG TABLET.EC PO SCH (11:04)
[2017-08-18] MEDS: TAMSULOSIN HCL 0.4 MG CAP.ER.24H (FP) PO SCH ×2 (11:04→21:33)
[2017-08-18] MEDS: INSULIN SLIDING SCALE (NOVOLOG) 1 VIAL SQ SCH ×4 (11:06→21:46)
[2017-08-18] MEDS: DUTASTERIDE 0.5 MG CAP (FP) PO SCH (11:06)
[2017-08-18] MEDS: MUPIROCIN 2% TOPICAL OINTMENT 22 GM TUBE TP SCH (11:09)
[2017-08-18] MEDS ORDERED: PT OWN MED DRAWER 7, Y5N ONE ×3 (12:34→21:31)
[2017-08-18] MEDS: hydrALAZINE HCL 10 MG TABLET PO SCH ×2 (15:12→21:33)
[2017-08-18] MEDS: VANCOMYCIN 1,000 MG in DEXTROSE 5%-WATER - 250 ML IVPB SCH (15:14)
--- NOTE | 2017-08-18 16:01 | PN ---
Teaching Attending Note Name of Resident: Marco Bautista SUBJECTIVE: Patient seen and examined, some vomitting overnight and this AM. reports acid reflux and attributes to steak he had last night. No other new complaints. OBJECTIVE: Vital Signs Period Temp Pulse Resp BP Sys/Olmedo Pulse Ox Last 24 Hr 98 F-99.6 F 53-61 20-22 147-197/64-98 Intake & Output 08/15/17 08/16/17 08/17/17 08/18/17 23:59 23:59 23:59 23:59 Intake Total 1190 1680 1750 700 Output Total 300 3750 1800 1900 Balance 890 -3960 -50 -1200 General: sitting in bed in no acute distress Abdomen; soft obese, mild epigastric tenderness, no voluntary or involuntary guarding or rigidity Extremities: unchanged pedal edema, right foot dressing chest: no rales or wheezing Home Medication List Medication Instructions Recorded Confirmed Type Amlodipine Besylate [Norvasc -] 10 mg PO DAILY 06/23/13 08/07/17 History Clonidine HCl 0.4 mg PO TID 02/07/17 08/08/17 History Sitagliptin Phosphate [Januvia] 50 mg PO DAILY 07/31/17 08/07/17 History Glipizide [Glipizide ER] 10 mg PO BID 08/07/17 08/07/17 History Nebivolol HCl/Valsartan [Byvalson 1 tab PO BID 08/07/17 08/07/17 History 5 mg-80 mg Tablet] Tamsulosin HCl 0.4 mg PO DAILY 08/08/17 08/08/17 History Active Medications Generic Name Dose Route Start Last Admin Trade Name Freq PRN Reason Stop Dose Admin Acetaminophen 650 mg 08/07/17 20:33 08/10/17 22:53 Tylenol - PO 650 mg Q6H PRN Administration FEVER Amlodipine Besylate 10 mg 08/16/17 10:00 08/18/17 11:04 Norvasc - PO 10 mg DAILY TROY Administration Aspirin 81 mg 08/08/17 10:00 08/18/17 11:04 Ecotrin - PO 81 mg DAILY TROY Administration Clonidine 0.4 mg 08/08/17 22:00 08/18/17 15:12 Catapres - PO 0.4 mg TID TROY Administration Docusate Sodium 100 mg 08/14/17 10:00 08/18/17 11:04 Colace - PO 100 mg DAILY TROY Administration Dutasteride 0.5 mg 08/14/17 19:30 08/18/17 11:06 Avodart - PO 0.5 mg DAILY TROY Administration Glipizide 10 mg 08/13/17 16:30 08/18/17 06:40 Glucotrol - PO 10 mg BID@0700,1630 TROY Administration Heparin Sodium (Porcine) 5,000 unit 08/08/17 06:00 08/18/17 15:12 Heparin - SQ 5,000 unit TID TROY Administration Hydralazine HCl 10 mg 08/18/17 14:00 08/18/17 15:12 Apresoline - PO 10 mg TID TROY Administration IV Flush 8 ml 08/12/17 14:19 Picc Line Flush IVPUSH PRN PRN Protocol Vancomycin HCl 1,000 mg/ 250 mls @ 150 mls/hr 08/15/17 15:00 08/18/17 15:14 Dextrose IVPB 150 mls/hr DAILY@1500 [facility] OF [facility] Administration Protocol Insulin Aspart 1 vial 08/07/17 22:00 08/18/17 12:01 Novolog Vial Sliding Scale - SQ 2 units ACHS [facility] Administration Protocol Mupirocin 1 applic 08/09/17 10:00 08/18/17 11:09 Bactroban 2% Ointment - TP 1 applic DAILY TROY Administration Nystatin 500,000 units 08/08/17 00:00 08/18/17 11:46 Nystatin Oral Suspension - PO Not Given Q6HPO ON LICENSE OF [facility] Ondansetron HCl 4 mg 08/18/17 09:25 Zofran Injection IVPUSH Q6H PRN NAUSEA Ranitidine HCl 150 mg 08/18/17 10:00 08/18/17 11:04 Zantac - PO 150 mg DAILY TROY Administration Senna 1 tab 08/13/17 22:00 08/18/17 11:04 Senna - PO 1 tab BID TROY Administration Sitagliptin Phosphate 50 mg 08/14/17 07:00 08/18/17 06:40 Januvia - PO 50 mg DAILY@0700 TROY Administration Tamsulosin HCl 0.4 mg 08/14/17 10:00 08/18/17 11:04 Flomax - PO 0.4 mg BID TROY Administration Laboratory Results - last 24 hr 08/17/17 08/17/17 08/18/17 17:40 21:59 05:49 WBC RBC Hgb Hct MCV MCH MCHC RDW Plt Count MPV Neutrophils % Lymphocytes % Monocytes % Eosinophils % Basophils % Sodium Potassium Chloride Carbon Dioxide Anion Gap BUN Creatinine POC Glucometer 151 169 206 Random Glucose Calcium 08/18/17 08/18/17 08/18/17 06:56 06:56 11:59 WBC 6.5 RBC 4.06 Hgb 11.3 L Hct 32.1 L MCV 79.1 L MCH 28.0 MCHC 35.4 RDW 14.8 Plt Count 249 MPV 8.4 Neutrophils % 79.3 D Lymphocytes % 11.8 D Monocytes % 7.0 Eosinophils % 1.2 Basophils % 0.7 Sodium 142 Potassium 3.6 Chloride 104 Carbon Dioxide 28 Anion Gap 10 BUN 19 H D Creatinine 1.8 H POC Glucometer 159 Random Glucose 175 H D Calcium 8.7 Microbiology 08/07/17 17:28 Blood - Peripheral Venous Blood Culture - Final NO GROWTH AFTER 5 DAYS INCUBATION 08/07/17 17:20 Blood - Peripheral Venous Blood Culture - Final NO GROWTH AFTER 5 DAYS INCUBATION 08/08/17 12:15 Toe - Right Hallux Gram Stain - Final 08/08/17 12:15 Toe - Right Hallux Wound Culture - Final Enterococcus Faecalis Staphylococcus Coagulase Neg 08/07/17 18:40 Urine - Urine Clean Catch Urine Culture - Final NO GROWTH OBTAINED ASSESSMENT AND PLAN: 56 yom with PMHX of uncontrolled DM likely non compliance, comes with right great toe osteomyelitis. -Right great toe osteomyelitis -Uncontrolled DM, A1c 11.2 -GAETANO, suspect urinary retention +/- vanco related. -BPH with bilateral hydronephrosis and Bladder wall thickening -Possible mild acute diastolic HF, resolved, Echo non concerning -Vomiting, ?GERD vs food poisoning. -Oral candidiasis -HTN -BPH Plan: Wyatt placed, continue flomax/dutesteride, outpatient urology follow up. REnal/bladder US noted. Urine studies noted. Follow up urine eosinophils. Renal input if fails to improve with wyatt and holding Vancomycin. Vanco level 13, ID input noted, Vancomycin 1g IV daily. Repeat level tomorrow. Wound cultures reviewed. Add zantac, and zofran prn. Check LFTs, monitor for new episodes of vomiting. Continue home oral glipizide and januvia and ISS. Stressed need for home blood glucose monitoring and compliance. Diabetic education. Nutrition consult. Continue clonidine, resumed amlodipine. Hold ARB for now. HOld nebivolol given baseline HR 50s. DVTPPX dispo planning by saturday if renal function stable on vancomycin and wyatt. Discussed home with wyatt/IV abx and VNS vs SNF. Patient wants to go home. Will continue to address dispo planning, anticipated Saturday. Plan discussed with patient in detail, all questions answered
[2017-08-19] MEDS: NYSTATIN 500,000 UNITS/5 ML SUSPENSION PO SCH ×4 (06:04→23:21)
[2017-08-19] MEDS: INSULIN SLIDING SCALE (NOVOLOG) 1 VIAL SQ SCH ×4 (06:04→21:56)
[2017-08-19] MEDS: hydrALAZINE HCL 10 MG TABLET PO SCH ×3 (06:10→21:56)
[2017-08-19] MEDS: HEPARIN NA (PORCINE) 5,000 UNITS/ML 1ML VIAL SQ SCH ×3 (06:11→21:56)
[2017-08-19] MEDS: glipiZIDE 5 MG TABLET (FP) PO SCH ×2 (06:11→18:06)
[2017-08-19] MEDS: cloNIDine HCL 0.1 MG TABLET PO SCH ×3 (06:11→21:56)
[2017-08-19] MEDS: sitaGLIPtin PHOSPHATE 50 MG TABLET PO SCH (06:12)
[2017-08-19 07:17] LABS: BASO % 0.8 % (0-2.0); EOS % 5.4 % (0-4.5); HEMATOCRIT 30.7 % (35.4-49); HEMOGLOBIN 10.8 GM/dL (11.7-16.9); LYMPH % 14.1 % (8-40); MCH 27.8 pg (25.7-33.7); MCHC 35.1 g/dl (32.0-35.9); MEAN CELL VOLUME 79.2 fl (80-96); MEAN PLT VOLUME 8.3 fl (7.5-11.1); MONO % 12.5 % (3.8-10.2); NEUT % 67.2 % (42.8-82.8); PLATELET COUNT 237 K/MM3 (134-434); RBC 3.88 M/mm3 (4.00-5.60); RDW 14.5 % (11.9-15.9); WHITE BLOOD COUNT 6.8 K/mm3 (4.0-10.0)
[2017-08-19 07:57] LABS: CHLORIDE 104 mmol/L (98-107); POTASSIUM 3.5 mmol/L (3.5-5.1); SODIUM 142 mmol/L (136-145)
[2017-08-19 08:06] LABS: ALBUMIN 2.6 g/dl (3.4-5.0); ALK PHOS 100 U/L (45-117); ANION GAP 9 (8-16); BILIRUBIN,DIRECT 0.3 mg/dL (0.0-0.2); BILIRUBIN,TOTAL 1.1 mg/dL (0.2-1.0); BLOOD UREA NITROGEN 18 mg/dL (7-18); CALCIUM 8.4 mg/dL (8.5-10.1); CO2 29 mmol/L (21-32); CREATININE 1.6 mg/dL (0.7-1.3); GLUCOSE,RANDOM 114 mg/dL (74-106); SGOT/AST 7 U/L (15-37); SGPT/ALT 15 U/L (12-78); TOT PROT 6.1 g/dl (6.4-8.2)
[2017-08-19] MEDS: TAMSULOSIN HCL 0.4 MG CAP.ER.24H (FP) PO SCH ×2 (11:47→21:56)
[2017-08-19] MEDS: DOCUSATE SODIUM 100 MG CAPSULE (FP) PO SCH (11:47)
[2017-08-19] MEDS: SENNOSIDES 8.6MG TABLET (FP) PO SCH ×2 (11:48→21:57)
[2017-08-19] MEDS: amLODIPine BESYLATE 10 MG TABLET (FP) PO SCH (11:48)
[2017-08-19] MEDS: ASPIRIN COATED 81 MG TABLET.EC PO SCH (11:48)
[2017-08-19] MEDS: DUTASTERIDE 0.5 MG CAP (FP) PO SCH (11:48)
[2017-08-19] MEDS: RANITIDINE HCL 150 MG TABLET (FP) PO SCH (11:48)
--- NOTE | 2017-08-19 12:58 | MSN ---
Progress Note (short form) - Note Progress Note: CHIEF COMPLAINT: fever, malaise, diaphoresis, R toe infection HISTORY OF PRESENT ILLNESS Overnight, patient did not have any acute events. Patient stated that his episodes of nausea and vomiting that had occurred 2 days prior had resolved. This morning, CRE improved to 1.6. Patient was seen and examined at the bedside. Patient denied chest pain, shortness of breath, abd pain, n/v/c/d, headaches, dizziness, lightheadedness, extremity pain, toe discharge, toe pain, back aches, Smoking: denies Alcohol: social Drugs: denies REVIEW OF SYSTEMS CONSTITUTIONAL: Absent: malaise, loss of appetite, weight change, chills, fever, diaphoresis, generalized weakness HEENT: Absent: rhinorrhea, nasal congestion, throat pain, throat swelling, difficulty swallowing, mouth swelling, ear pain, eye pain, visual changes CARDIOVASCULAR: Absent: chest pain, syncope, palpitations, irregular heart rate, lightheadedness , peripheral edema RESPIRATORY: Absent: cough, shortness of breath, dyspnea with exertion, orthopnea, wheezing, stridor, hemoptysis GASTROINTESTINAL: Absent: abdominal pain, abdominal distension, nausea, vomiting, diarrhea, constipation, melena, hematochezia GENITOURINARY: Absent: dysuria, frequency, urgency, hesitancy, hematuria, flank pain, genital pain MUSCULOSKELETAL: Absent: myalgia, arthralgia, joint swelling, back pain, neck pain SKIN: swelling of legs (chronic) Absent: rash, itching, pallor HEMATOLOGIC/IMMUNOLOGIC: Absent: easy bleeding, easy bruising, lymphadenopathy, frequent infections ENDOCRINE: Absent: unexplained weight gain, unexplained weight loss, heat intolerance, cold intolerance NEUROLOGIC: Absent: headache, focal weakness or paresthesias, dizziness, unsteady gait, seizure, mental status changes, bladder or bowel incontinence PSYCHIATRIC: Absent: anxiety, depression, suicidal or homicidal ideation, hallucinations. PHYSICAL EXAMINATION: GENERAL: Awake, alert, and fully oriented, in no apparent distress. Obese middle aged male laying in bed. HEAD: Normal with no signs of trauma. Redness on the nasal bridge secondary to CPAP mask covered by adhesive bandage EYES: Pupils equal, round and reactive to light, extraocular movements intact, sclera anicteric, conjunctiva clear. No lid lag. NECK: Normal range of motion, supple without lymphadenopathy, JVD, or masses. LUNGS: Breath sounds equal, clear to auscultation bilaterally. No wheezes, and no crackles. No accessory muscle use. HEART: Regular rate and rhythm, normal S1 and S2 without murmur, rub or gallop. ABDOMEN: Soft, nontender, obese, normoactive bowel sounds, no guarding, no rebound, no masses. No hepatomegaly or splenomegaly. MUSCULOSKELETAL: Normal range of motion at all joints. No bony deformities or tenderness. No CVA tenderness. UPPER EXTREMITIES: 2+ pulses, warm, well-perfused. No cyanosis. No clubbing. Cap refill <2 seconds. No peripheral edema LOWER EXTREMITIES: 2+ pulses, warm, well-perfused. No calf tenderness. 1+ peripheral edema bilaterally. NEUROLOGICAL: Cranial nerves II-XII intact. Normal speech. PSYCHIATRIC: Cooperative. Good eye contact. Appropriate mood and affect. SKIN: Warm, dry, normal turgor. On bilateral lower extremities, chronic venous stasis dermatitis noted. On R great toe, granulation tissue noted. Wound debrided and was clean and dry with bacitracin covering the wound. Non-painful to palpation. Allergies Allergy/AdvReac Type Severity Reaction Status Date / Time ciprofloxacin [From Cipro] Allergy pain Verified 08/07/17 16:10 levofloxacin [From Levaquin] Allergy Verified 08/07/17 16:08 Last Vital Signs Temp Pulse Resp BP Pulse Ox 98 F 42 L 18 139/87 98 08/19/17 06:46 08/19/17 06:46 08/19/17 06:46 08/19/17 06:46 08/16/17 21:00 CBC, BMP 08/19/17 05:35 08/19/17 05:35 CMP Sodium 142 mmol/L (136-145) 08/19/17 05:35 Potassium 3.5 mmol/L (3.5-5.1) 08/19/17 05:35 Chloride 104 mmol/L (98-107) 08/19/17 05:35 Carbon Dioxide 29 mmol/L (21-32) 08/19/17 05:35 Anion Gap 9 (8-16) 08/19/17 05:35 BUN 18 mg/dL (7-18) 08/19/17 05:35 Creatinine 1.6 mg/dL (0.7-1.3) H 08/19/17 05:35 Creat Clearance w eGFR 39.37 (>60) 08/15/17 07:41 POC Glucometer 156 UNITS (80-120) 08/19/17 12:29 Random Glucose 114 mg/dL (74-106) H D 08/19/17 05:35 Hemoglobin A1c % 11.2 % (4.8-6.0) H 08/07/17 21:50 Lactic Acid 1.0 mmol/L (0.0-2.0) 08/07/17 21:50 Calcium 8.4 mg/dL (8.5-10.1) L 08/19/17 05:35 Phosphorus 4.1 mg/dL (2.5-4.9) 08/12/17 06:30 Magnesium 2.1 mg/dL (1.8-2.4) 08/12/17 14:45 Total Bilirubin 1.1 mg/dL (0.2-1.0) H D 08/19/17 05:35 Direct Bilirubin 0.3 mg/dL (0.0-0.2) H D 08/19/17 05:35 AST 7 U/L (15-37) L D 08/19/17 05:35 ALT 15 U/L (12-78) D 08/19/17 05:35 Alkaline Phosphatase 100 U/L (45-117) 08/19/17 05:35 Creatine Kinase 56 IU/L (39-308) 08/08/17 06:30 Troponin I 0.06 ng/ml (0.00-0.05) H 08/08/17 06:30 C-Reactive Protein 6.4 MG/DL (0.00-0.3) H 08/07/17 21:50 Total Protein 6.1 g/dl (6.4-8.2) L 08/19/17 05:35 Albumin 2.6 g/dl (3.4-5.0) L 08/19/17 05:35 Triglycerides Cancelled 08/08/17 07:15 Cholesterol Cancelled 08/08/17 07:15 Total LDL Cholesterol Cancelled 08/08/17 07:15 HDL Cholesterol Cancelled 08/08/17 07:15 Abnormal Lab Results 08/19/17 08/19/17 05:35 05:35 RBC 3.88 L Hgb 10.8 L Hct 30.7 L MCV 79.2 L Monocytes % 12.5 H Eosinophils % 5.4 H D Creatinine 1.6 H Random Glucose 114 H D Calcium 8.4 L Total Bilirubin 1.1 H D Direct Bilirubin 0.3 H D AST 7 L D Total Protein 6.1 L Albumin 2.6 L Active Medications Generic Name Dose Route Start Last Admin Trade Name Freq PRN Reason Stop Dose Admin Acetaminophen 650 mg 08/07/17 20:33 08/10/17 22:53 Tylenol - PO 650 mg Q6H PRN Administration FEVER Amlodipine Besylate 10 mg 08/16/17 10:00 08/19/17 11:48 Norvasc - PO 10 mg DAILY TROY Administration Aspirin 81 mg 08/08/17 10:00 08/19/17 11:48 Ecotrin - PO 81 mg DAILY TROY Administration Clonidine 0.4 mg 08/08/17 22:00 08/19/17 06:11 Catapres - PO 0.4 mg TID TROY Administration Docusate Sodium 100 mg 08/14/17 10:00 08/19/17 11:47 Colace - PO 100 mg DAILY TROY Administration Dutasteride 0.5 mg 08/14/17 19:30 08/19/17 11:48 Avodart - PO 0.5 mg DAILY TROY Administration Glipizide 10 mg 08/13/17 16:30 08/19/17 06:11 Glucotrol - PO 10 mg BID@0700,1630 TROY Administration Heparin Sodium (Porcine) 5,000 unit 08/08/17 06:00 08/19/17 06:11 Heparin - SQ 5,000 unit TID TROY Administration Hydralazine HCl 10 mg 08/18/17 14:00 08/19/17 06:10 Apresoline - PO 10 mg TID TROY Administration IV Flush 8 ml 08/12/17 14:19 Picc Line Flush IVPUSH PRN PRN Protocol Vancomycin HCl 1,000 mg/ 250 mls @ 150 mls/hr 08/15/17 15:00 08/18/17 15:14 Dextrose IVPB 150 mls/hr DAILY@1500 TROY Administration Protocol Insulin Aspart 1 vial 08/07/17 22:00 08/19/17 06:04 Novolog Vial Sliding Scale - SQ Not Given ACHS [facility] Protocol Mupirocin 1 applic 08/09/17 10:00 08/18/17 11:09 Bactroban 2% Ointment - TP 1 applic DAILY TROY Administration Nystatin 500,000 units 08/08/17 00:00 08/19/17 11:48 Nystatin Oral Suspension - PO 500,000 units Q6HPO TROY Administration Ondansetron HCl 4 mg 08/18/17 09:25 Zofran Injection IVPUSH Q6H PRN NAUSEA Ranitidine HCl 150 mg 08/18/17 10:00 08/19/17 11:48 Zantac - PO 150 mg DAILY TROY Administration Senna 1 tab 08/13/17 22:00 08/19/17 11:48 Senna - PO 1 tab BID TROY Administration Sitagliptin Phosphate 50 mg 08/14/17 07:00 08/19/17 06:12 Januvia - PO 50 mg DAILY@0700 TROY Administration Tamsulosin HCl 0.4 mg 08/14/17 10:00 08/19/17 11:47 Flomax - PO 0.4 mg BID TROY Administration Microbiology 08/07/17 17:28 Blood - Peripheral Venous Blood Culture - Final NO GROWTH AFTER 5 DAYS INCUBATION 08/07/17 17:20 Blood - Peripheral Venous Blood Culture - Final NO GROWTH AFTER 5 DAYS INCUBATION 08/08/17 12:15 Toe - Right Hallux Gram Stain - Final 08/08/17 12:15 Toe - Right Hallux Wound Culture - Final Enterococcus Faecalis Staphylococcus Coagulase Neg 08/07/17 18:40 Urine - Urine Clean Catch Urine Culture - Final NO GROWTH OBTAINED IMAGING: FOOT X-RAY: Intact osseous structures, no evidence of foreign body. Soft tissue emphysematous changes CHEST X-RAY: enlarged heart, periphilar markings VENOUS DUPLEX: No evidence of DVT ECHOCARDIOGRAM: Left ventricular size and function within normal limits. Right ventricular size within normal limits. Mild aortic regurgitation BLADDER ULTRASOUND: Overdistended bladder, enlarged prostate, postvoid residual of 1168 cc, moderate bilateral renal hydronephrosis FOOT MRI: edema compatible with early osteomyelitis, perifocal soft tissue swelling compatible with cellulitis RENAL/BLADDER ULTRASOUND: mild to moderate hydronephrosis, markedly enlarged prostate, thickening of urinary bladder, post void residual of 445cc, R renal cyst 4.2x3.7cm ASSESMENT/PLAN: Patient is a 56 y/o male with a significant PMHx of uncontrolled diabetes, HTN, HLD, who presented with R great toe infection, fever, malaise and was treated for R great toe osteomyelitis. Diabetic Foot Ulcer - No further temperatures, no leukocytosis - CRP 6.4, ESR 41 - vancomycin dose adjusting due to elevated CRE and elevated vancomycin levels - ID consulted, recs appreciated - Patient to receive 1g vancomycin daily for osteomyelitis treatment until stabilization of kidney function - Podiatry consulted, recs appreciated, patient will be managed with IV abx - Deep wound culture showed Enterococcus faecalis and coag negative staph - x-ray of foot within normal limits - MRI of foot obtained showing compatibility with early osteomyelitis - Bactroban wound care - PICC line for outpatient IV abx placed and will receive outpatient abx through [facility] - patient counseled on antibiotic regimen by pharmacy - wound dressing to be changed and managed through [facility] - wound care outpatient and will f/u with Dr. Skaggs - offloading shoe Diabetes Mellitus - BGM - ISS - home medications glipizide and januvia restarted - Ha1c 11.2 - continue to monitor and f/u outpatient Shortness of breath - currently breathing well on room air - O2 as needed, continue to monitor - Echo within normal limits GAETANO - possibly due to constipation and BPH obstruction of bladder outlet vs vancomycin associated renal injury - patient does not have any urinary complaints - renal and bladder u/s as above - wyatt cath placed - urine electrolytes ordered, within normal limits - vancomycin level and adjusted dosing - continue to monitor - will need f/u with urology outpatient Constipation - colace - senna Bilateral lower extremity swelling - venous duplex negative for DVT - Echo within normal limits - follow up outpatient for venous insufficiency HTN - continue home clonidine - amlodipine 10mg daily - hold HCTZ due to repeated hyperkalemia and GAETANO Oral candidiasis - nystatin - HIV test negative Obstructive sleep apnea - continue CPAP BPH - Flomax to 0.4mg bid - dutasteride 0.5mg daily - continue medications outpatient F/E/N - no fluids currently - mild hypokalemia, repleted - replete as necessary - diabetic diet DVT PPx - heparin 5000 units subq tid Disposition - stable for discharge with home antibiotics through [facility] and wound dressing changes through [facility] - will follow up with PCP, urology - blood work to be done outpatient to monitor CRE, vancomycin Problem List - Problems (1) Diabetic infection of right foot Code(s): E11.628 - TYPE 2 DIABETES MELLITUS WITH OTHER SKIN COMPLICATIONS; L08.9 - LOCAL INFECTION OF THE SKIN AND SUBCUTANEOUS TISSUE, UNSP (2) Hyperglycemia Code(s): R73.9 - HYPERGLYCEMIA, UNSPECIFIED (3) Cellulitis of toe of right foot Code(s): L03.031 - CELLULITIS OF RIGHT TOE (4) Diabetes Code(s): E11.9 - TYPE 2 DIABETES MELLITUS WITHOUT COMPLICATIONS
[2017-08-19] MEDS: MUPIROCIN 2% TOPICAL OINTMENT 22 GM TUBE TP SCH (13:35)
[2017-08-19] MEDS: VANCOMYCIN 1,000 MG in DEXTROSE 5%-WATER - 250 ML IVPB SCH ×2 (13:55→16:19)
--- NOTE | 2017-08-19 13:57 | PN ---
Teaching Attending Note Name of Resident: Ciro Palma ATTENDING PHYSICIAN STATEMENT I saw and evaluated the patient. I reviewed the resident's note and discussed the case with the resident. I agree with the resident's findings and plan as documented with exceptions below. SUBJECTIVE: Patient seen and examined. no complaints, no further vomitting. OBJECTIVE: Vital Signs Period Temp Pulse Resp BP Sys/Olmedo Pulse Ox Last 24 Hr 98 F-99.1 F 42-65 18-22 120-149/76-98 Intake & Output 08/16/17 08/17/17 08/18/17 08/19/17 23:59 23:59 23:59 23:59 Intake Total 1680 1750 950 575 Output Total 3750 1800 2800 700 Balance -2070 -50 -1850 -125 general: sitting in bed in no acute distress Abdomen:soft, obese, NT Extremities: right foot dressing Home Medication List Medication Instructions Recorded Confirmed Type Amlodipine Besylate [Norvasc -] 10 mg PO DAILY 06/23/13 08/07/17 History Clonidine HCl 0.4 mg PO TID 02/07/17 08/08/17 History Sitagliptin Phosphate [Januvia] 50 mg PO DAILY 07/31/17 08/07/17 History Glipizide [Glipizide ER] 10 mg PO BID 08/07/17 08/07/17 History Nebivolol HCl/Valsartan [Byvalson 1 tab PO BID 08/07/17 08/07/17 History 5 mg-80 mg Tablet] Tamsulosin HCl 0.4 mg PO DAILY 08/08/17 08/08/17 History Active Medications Generic Name Dose Route Start Last Admin Trade Name Freq PRN Reason Stop Dose Admin Acetaminophen 650 mg 08/07/17 20:33 08/10/17 22:53 Tylenol - PO 650 mg Q6H PRN Administration FEVER Amlodipine Besylate 10 mg 08/16/17 10:00 08/19/17 11:48 Norvasc - PO 10 mg DAILY TROY Administration Aspirin 81 mg 08/08/17 10:08/19/17 11:48 Ecotrin - PO 81 mg DAILY TROY Administration Clonidine 0.4 mg 08/08/17 22:00 08/19/17 13:39 Catapres - PO 0.4 mg TID TROY Administration Docusate Sodium 100 mg 08/14/17 10:00 08/19/17 11:47 Colace - PO 100 mg DAILY TROY Administration Dutasteride 0.5 mg 08/14/17 19:30 08/19/17 11:48 Avodart - PO 0.5 mg DAILY TROY Administration Glipizide 10 mg 08/13/17 16:30 08/19/17 06:11 Glucotrol - PO 10 mg BID@0700,1630 TROY Administration Heparin Sodium (Porcine) 5,000 unit 08/08/17 06:00 08/19/17 06:11 Heparin - SQ 5,000 unit TID TROY Administration Hydralazine HCl 10 mg 08/18/17 14:00 08/19/17 13:40 Apresoline - PO 10 mg TID TROY Administration IV Flush 8 ml 08/12/17 14:19 Picc Line Flush IVPUSH PRN PRN Protocol Vancomycin HCl 1,000 mg/ 250 mls @ 150 mls/hr 08/15/17 15:00 08/19/17 13:55 Dextrose IVPB 150 mls/hr DAILY@1500 TROY Administration Protocol Insulin Aspart 1 vial 08/07/17 22:00 08/19/17 13:36 Novolog Vial Sliding Scale - SQ 2 units ACHS TROY Administration Protocol Mupirocin 1 applic 08/09/17 10:00 08/19/17 13:35 Bactroban 2% Ointment - TP 1 applic DAILY TROY Administration Nystatin 500,000 units 08/08/17 00:00 08/19/17 11:48 Nystatin Oral Suspension - PO 500,000 units Q6HPO TROY Administration Ondansetron HCl 4 mg 08/18/17 09:25 Zofran Injection IVPUSH Q6H PRN NAUSEA Ranitidine HCl 150 mg 08/18/17 10:00 08/19/17 11:48 Zantac - PO 150 mg DAILY TROY Administration Senna 1 tab 08/13/17 22:00 08/19/17 11:48 Senna - PO 1 tab BID TROY Administration Sitagliptin Phosphate 50 mg 08/14/17 07:00 08/19/17 06:12 Januvia - PO 50 mg DAILY@0700 TROY Administration Tamsulosin HCl 0.4 mg 08/14/17 10:00 08/19/17 11:47 Flomax - PO 0.4 mg BID TROY Administration Laboratory Results - last 24 hr 08/18/17 08/18/17 08/19/17 17:25 21:44 05:35 WBC 6.8 RBC 3.88 L Hgb 10.8 L Hct 30.7 L MCV 79.2 L MCH 27.8 MCHC 35.1 RDW 14.5 Plt Count 237 MPV 8.3 Neutrophils % 67.2 Lymphocytes % 14.1 Monocytes % 12.5 H Eosinophils % 5.4 H D Basophils % 0.8 Sodium Potassium Chloride Carbon Dioxide Anion Gap BUN Creatinine POC Glucometer 180 167 Random Glucose Calcium Total Bilirubin Direct Bilirubin AST ALT Alkaline Phosphatase Total Protein Albumin 08/19/17 08/19/17 08/19/17 05:35 06:02 12:29 WBC RBC Hgb Hct MCV MCH MCHC RDW Plt Count MPV Neutrophils % Lymphocytes % Monocytes % Eosinophils % Basophils % Sodium 142 Potassium 3.5 Chloride 104 Carbon Dioxide 29 Anion Gap 9 BUN 18 Creatinine 1.6 H POC Glucometer 129 156 Random Glucose 114 H D Calcium 8.4 L Total Bilirubin 1.1 H D Direct Bilirubin 0.3 H D AST 7 L D ALT 15 D Alkaline Phosphatase 100 Total Protein 6.1 L Albumin 2.6 L Microbiology 08/07/17 17:28 Blood - Peripheral Venous Blood Culture - Final NO GROWTH AFTER 5 DAYS INCUBATION 08/07/17 17:20 Blood - Peripheral Venous Blood Culture - Final NO GROWTH AFTER 5 DAYS INCUBATION 08/08/17 12:15 Toe - Right Hallux Gram Stain - Final 08/08/17 12:15 Toe - Right Hallux Wound Culture - Final Enterococcus Faecalis Staphylococcus Coagulase Neg 08/07/17 18:40 Urine - Urine Clean Catch Urine Culture - Final NO GROWTH OBTAINED ASSESSMENT AND PLAN: 56 yom with PMHX of uncontrolled DM likely non compliance, comes with right great toe osteomyelitis. -Right great toe osteomyelitis -Uncontrolled DM, A1c 11.2 -GAETANO, suspect urinary retention +/- vanco related. -BPH with bilateral hydronephrosis and Bladder wall thickening -Possible mild acute diastolic HF, resolved, Echo non concerning -Vomiting, ?GERD vs food poisoning. -Oral candidiasis -HTN -BPH Plan: Renal function stable. Discussed with ID, vancomycin 1 g IV q24 hours wiht outpatient level monitoring. Continue flomax/dutasteride, outpatient urology follow up. D/c with wyatt. Wyatt teaching provided. Outpatient wound care/ID/podiatry follow up. HOme services arranged. Continue home oral hypoglycemics. Nebivolol/ARB on hold. Continue amlodipine/Hydralazine till renal function improved. Baseline HR 50s, hold Beta elana for now. D/.c home with IV antibiotics/services with outpatient urology/ID/podiatry and wound care follow up. Plan discussed with patient in detail, all questions answered.
--- NOTE | 2017-08-19 14:06 | PN ---
Progress Note, Physician History of Present Illness: Awake, alert No c/o foot pain No c/o fever/ chills Afebrile WBC WNL Cr elevated but stable @ 1.[address]- gross hematuria noted - Current Medication List Current Medications: Active Medications Acetaminophen (Tylenol -) 650 mg PO Q6H PRN PRN Reason: FEVER Last Admin: 08/10/17 22:53 Dose: 650 mg Amlodipine Besylate (Norvasc -) 10 mg PO DAILY [facility] Last Admin: 08/19/17 11:48 Dose: 10 mg Aspirin (Ecotrin -) 81 mg PO DAILY [facility] Last Admin: 08/19/17 11:48 Dose: 81 mg Clonidine (Catapres -) 0.4 mg PO TID [facility] Last Admin: 08/19/17 13:39 Dose: 0.4 mg Docusate Sodium (Colace -) 100 mg PO DAILY [facility] Last Admin: 08/19/17 11:47 Dose: 100 mg Dutasteride (Avodart -) 0.5 mg PO DAILY [facility] Last Admin: 08/19/17 11:48 Dose: 0.5 mg Glipizide (Glucotrol -) 10 mg PO BID@0700,1630 [facility] Last Admin: 08/19/17 06:11 Dose: 10 mg Heparin Sodium (Porcine) (Heparin -) 5,000 unit SQ TID [facility] Last Admin: 08/19/17 13:57 Dose: 5,000 unit Hydralazine HCl (Apresoline -) 10 mg PO TID [facility] Last Admin: 08/19/17 13:40 Dose: 10 mg IV Flush (Picc Line Flush) 8 ml IVPUSH PRN PRN PRN Reason: Protocol Vancomycin HCl 1,000 mg/ (Dextrose) 250 mls @ 150 mls/hr IVPB DAILY@1500 TROY PRN Reason: Protocol Last Admin: 08/19/17 13:55 Dose: 150 mls/hr Insulin Aspart (Novolog Vial Sliding Scale -) 1 vial SQ ACHS [facility] PRN Reason: Protocol Last Admin: 08/19/17 13:36 Dose: 2 units Mupirocin (Bactroban 2% Ointment -) 1 applic TP DAILY [facility] Last Admin: 08/19/17 13:35 Dose: 1 applic Nystatin (Nystatin Oral Suspension -) 500,000 units PO Q6HPO [facility] Last Admin: 08/19/17 11:48 Dose: 500,000 units Ondansetron HCl (Zofran Injection) 4 mg IVPUSH Q6H PRN PRN Reason: NAUSEA Ranitidine HCl (Zantac -) 150 mg PO DAILY [facility] Last Admin: 08/19/17 11:48 Dose: 150 mg Senna (Senna -) 1 tab PO BID [facility] Last Admin: 08/19/17 11:48 Dose: 1 tab Sitagliptin Phosphate (Januvia -) 50 mg PO DAILY@0700 [facility] Last Admin: 08/19/17 06:12 Dose: 50 mg Tamsulosin HCl (Flomax -) 0.4 mg PO BID [facility] Last Admin: 08/19/17 11:47 Dose: 0.4 mg - Objective Vital Signs: Vital Signs Temperature 98 F 08/19/17 06:46 Pulse Rate 42 L 08/19/17 06:46 Respiratory Rate 18 08/19/17 06:46 Blood Pressure 139/87 08/19/17 06:46 O2 Sat by Pulse Oximetry (%) 98 08/16/17 21:00 Constitutional: Yes: No Distress Cardiovascular: Yes: Regular Rate and Rhythm, S1, S2 Respiratory: Yes: CTA Bilaterally Gastrointestinal: Yes: Normal Bowel Sounds, Soft Extremities: Yes: Other (R great toe ulcer with granulation tissue No drainage) Labs: CBC, BMP 08/19/17 05:35 08/19/17 05:35 INR, PTT INR 1.45 (0.82-1.09) H D 08/07/17 17:20 Assessment/Plan Osteomyelitis R great toe Infected foot ulcer Continue vancomycin @ 1gm q24h Discharge home on vancomycin 1gm daily x 4weeks Outpatient follow up wound care center
--- NOTE | 2017-08-19 18:17 | PN ---
Physical Exam: SUBJECTIVE: Patient seen and examined at bedside. This afternoon, pt complained of pain from wyatt and had hematuria in wyatt bag. OBJECTIVE: Vital Signs Period Temp Pulse Resp BP Sys/Olmedo Pulse Ox Last 24 Hr 98 F-98.6 F 42-65 18-20 120-156/76-93 GENERAL: The patient is awake, alert, and fully oriented, in no acute distress. HEAD: Normal with no signs of trauma. EYES: sclera anicteric, conjunctiva clear. No ptosis. ENT: oropharynx clear without exudates, moist mucous membranes. NECK: Trachea midline, full range of motion, supple. LUNGS: Breath sounds equal, clear to auscultation bilaterally, no wheezes, no crackles, no accessory muscle use. HEART: Regular rate and rhythm, S1, S2 without murmur, rub or gallop. ABDOMEN: obese, diastasis recti, Soft, nontender, nondistended, normoactive bowel sounds, no guarding, no rebound, no hepatosplenomegaly, no masses. EXTREMITIES: R great toe with lesion of toe nail and recently debrieded inferior lesion. healing. Dressing cdi. No oozing 2+ pulses, warm, well-perfused , no edema. NEUROLOGICAL: Cranial nerves II through XII grossly intact. Normal speech, gait not observed. PSYCH: Normal mood, normal affect. SKIN: Warm, dry, normal turgor, no rashes or lesions noted Laboratory Results - last 24 hr 08/18/17 08/19/17 08/19/17 21:44 05:35 05:35 WBC 6.8 RBC 3.88 L Hgb 10.8 L Hct 30.7 L MCV 79.2 L MCH 27.8 MCHC 35.1 RDW 14.5 Plt Count 237 MPV 8.3 Neutrophils % 67.2 Lymphocytes % 14.1 Monocytes % 12.5 H Eosinophils % 5.4 H D Basophils % 0.8 Sodium 142 Potassium 3.5 Chloride 104 Carbon Dioxide 29 Anion Gap 9 BUN 18 Creatinine 1.6 H POC Glucometer 167 Random Glucose 114 H D Calcium 8.4 L Total Bilirubin 1.1 H D Direct Bilirubin 0.3 H D AST 7 L D ALT 15 D Alkaline Phosphatase 100 Total Protein 6.1 L Albumin 2.6 L 08/19/17 08/19/17 08/19/17 06:02 12:29 17:13 WBC RBC Hgb Hct MCV MCH MCHC RDW Plt Count MPV Neutrophils % Lymphocytes % Monocytes % Eosinophils % Basophils % Sodium Potassium Chloride Carbon Dioxide Anion Gap BUN Creatinine POC Glucometer 129 156 179 Random Glucose Calcium Total Bilirubin Direct Bilirubin AST ALT Alkaline Phosphatase Total Protein Albumin Active Medications Generic Name Dose Route Start Last Admin Trade Name Freq PRN Reason Stop Dose Admin Acetaminophen 650 mg 08/07/17 20:33 08/10/17 22:53 Tylenol - PO 650 mg Q6H PRN Administration FEVER Amlodipine Besylate 10 mg 08/16/17 10:00 08/19/17 11:48 Norvasc - PO 10 mg DAILY TROY Administration Aspirin 81 mg 08/08/17 10:00 08/19/17 11:48 Ecotrin - PO 81 mg DAILY TROY Administration Clonidine 0.4 mg 08/08/17 22:00 08/19/17 13:39 Catapres - PO 0.4 mg TID TROY Administration Docusate Sodium 100 mg 08/14/17 10:00 08/19/17 11:47 Colace - PO 100 mg DAILY TROY Administration Dutasteride 0.5 mg 08/14/17 19:30 08/19/17 11:48 Avodart - PO 0.5 mg DAILY TROY Administration Glipizide 10 mg 08/13/17 16:30 08/19/17 18:06 Glucotrol - PO 10 mg BID@0700,1630 TROY Administration Heparin Sodium (Porcine) 5,000 unit 08/08/17 06:00 08/19/17 13:57 Heparin - SQ 5,000 unit TID TROY Administration Hydralazine HCl 10 mg 08/18/17 14:00 08/19/17 13:40 Apresoline - PO 10 mg TID TROY Administration IV Flush 8 ml 08/12/17 14:19 Picc Line Flush IVPUSH PRN PRN Protocol Vancomycin HCl 1,000 mg/ 250 mls @ 150 mls/hr 08/15/17 15:00 08/19/17 16:19 Dextrose IVPB Not Given DAILY@1500 TROY Protocol Insulin Aspart 1 vial 08/07/17 22:00 08/19/17 18:06 Novolog Vial Sliding Scale - SQ 2 units ACHS TROY Administration Protocol Mupirocin 1 applic 08/09/17 10:00 05/14/18 13:35 Bactroban 2% Ointment - TP 1 applic DAILY TROY Administration Nystatin 500,000 units 08/08/17 00:00 08/19/17 18:07 Nystatin Oral Suspension - PO 500,000 units Q6HPO TROY Administration Nystatin 1 applic 08/19/17 18:15 Nystop Powder - TP DAILY TROY Ondansetron HCl 4 mg 08/18/17 09:25 Zofran Injection IVPUSH Q6H PRN NAUSEA Ranitidine HCl 150 mg 08/18/17 10:00 08/19/17 11:48 Zantac - PO 150 mg DAILY TROY Administration Senna 1 tab 08/13/17 22:00 08/19/17 11:48 Senna - PO 1 tab BID TROY Administration Sitagliptin Phosphate 50 mg 08/14/17 07:00 08/19/17 06:12 Januvia - PO 50 mg DAILY@0700 TROY Administration Tamsulosin HCl 0.4 mg 08/14/17 10:00 08/19/17 11:47 Flomax - PO 0.4 mg BID TROY Administration ASSESSMENT/PLAN: 56 y/o M w PMH DM2, HTN, BPH who presented to the ED with fever and drainage from an ulcer on his right great toe. #Osteomyelitis of R great toe -Seen by Podiatry, Vasc surg, ID -Cx pos for E. faecalis, coag neg Staph -on Vanc -PICC in place -Pt to be sent out with Vanc 1gm daily and dose titrated by ID as out pt #GAETANO 2/2 hydronephrosis 2/2 BPH: Improving -Termite Control Service Representative 1.6 -? 2/2 urinary retention vs Vanco -U/S showed bladder distention with high post-void residual, bladder wall thickening, hydronephrosis -Pt clearly has urinary retention -Despite extensive counselling by numerous members of care team, pt continues to refuse wyatt cath. Risks have been explained. -flomax and dutasteride -Pt had pain with Ywatt cath today and hematuria. Put on continuous irrigation. #DM 2 -Glipizide, Januvia -A1C 11.2 #HTN -Clonidine -amlodipine #? CHF - Echo shows normal LV, normal RV, mild AR #Venous stasis -chronic #ANA MARÍA -CPAP #FEN -not on fluid -lytes wnl -DM diet #Dispo -Admitted for Osteomyelitis Ciro Palma MD PGY-1 IM Visit type - Emergency Visit Emergency Visit: No - New Patient This patient is new to me today: No - Critical Care Critical Care patient: No - Discharge Referral Referred to [facility] Med P.C.: No
[2017-08-19 20:13] VITALS: BMI 24.3
[2017-08-19] MEDS: ACETAMINOPHEN 325 MG TABLET (FP) PO PRN (20:16)
[2017-08-19] MEDS: NYSTATIN POWDER 100,000 UNITS/GM - 15 GM TOPICAL POWDER TP SCH (21:55)
[2017-08-20] MEDS: glipiZIDE 5 MG TABLET (FP) PO SCH ×2 (06:09→17:55)
[2017-08-20] MEDS: NYSTATIN 500,000 UNITS/5 ML SUSPENSION PO SCH ×3 (06:09→17:55)
[2017-08-20] MEDS: HEPARIN NA (PORCINE) 5,000 UNITS/ML 1ML VIAL SQ SCH ×3 (06:09→21:01)
[2017-08-20] MEDS: cloNIDine HCL 0.1 MG TABLET PO SCH ×3 (06:09→21:01)
[2017-08-20] MEDS: hydrALAZINE HCL 10 MG TABLET PO SCH ×3 (06:09→21:01)
[2017-08-20] MEDS: sitaGLIPtin PHOSPHATE 50 MG TABLET PO SCH (06:09)
[2017-08-20] MEDS: INSULIN SLIDING SCALE (NOVOLOG) 1 VIAL SQ SCH ×4 (06:10→21:05)
[2017-08-20] MEDS ORDERED: INSULIN (LEVEMIR) 100 UNITS/ML UNITS SQ ONE (07:02)
[2017-08-20] MEDS ORDERED: INSULIN (NOVOLOG) ASPART 100 UNITS/ML 10ML VIAL ONE ×2 (07:02→21:09)
[2017-08-20 08:33] LABS: BASO % 0.7 % (0-2.0); EOS % 6.2 % (0-4.5); HEMATOCRIT 31.2 % (35.4-49); HEMOGLOBIN 10.8 GM/dL (11.7-16.9); LYMPH % 13.5 % (8-40); MCH 27.7 pg (25.7-33.7); MCHC 34.6 g/dl (32.0-35.9); MEAN CELL VOLUME 80.2 fl (80-96); MEAN PLT VOLUME 8.2 fl (7.5-11.1); MONO % 11.7 % (3.8-10.2); NEUT % 67.9 % (42.8-82.8); PLATELET COUNT 227 K/MM3 (134-434); RBC 3.89 M/mm3 (4.00-5.60); RDW 14.9 % (11.9-15.9); WHITE BLOOD COUNT 6.9 K/mm3 (4.0-10.0)
[2017-08-20 09:00] LABS: ALBUMIN 2.6 g/dl (3.4-5.0); ALK PHOS 94 U/L (45-117); ANION GAP 7 (8-16); BILIRUBIN,TOTAL 1.3 mg/dL (0.2-1.0); BLOOD UREA NITROGEN 21 mg/dL (7-18); CALCIUM 8.3 mg/dL (8.5-10.1); CHLORIDE 104 mmol/L (98-107); CO2 30 mmol/L (21-32); CREATININE 1.6 mg/dL (0.7-1.3); GLUCOSE,RANDOM 93 mg/dL (74-106); POTASSIUM 3.2 mmol/L (3.5-5.1); SGOT/AST 9 U/L (15-37); SGPT/ALT 15 U/L (12-78); SODIUM 141 mmol/L (136-145)
[2017-08-20] MEDS ORDERED: PT OWN MED DRAWER 7, Y5N ONE ×2 (09:14→14:01)
[2017-08-20] MEDS: NYSTATIN POWDER 100,000 UNITS/GM - 15 GM TOPICAL POWDER TP SCH (09:21)
[2017-08-20] MEDS: amLODIPine BESYLATE 10 MG TABLET (FP) PO SCH (09:21)
[2017-08-20] MEDS: DOCUSATE SODIUM 100 MG CAPSULE (FP) PO SCH (09:21)
[2017-08-20] MEDS: ASPIRIN COATED 81 MG TABLET.EC PO SCH (09:21)
[2017-08-20] MEDS: RANITIDINE HCL 150 MG TABLET (FP) PO SCH (09:21)
[2017-08-20] MEDS: SENNOSIDES 8.6MG TABLET (FP) PO SCH ×2 (09:21→21:01)
[2017-08-20] MEDS: TAMSULOSIN HCL 0.4 MG CAP.ER.24H (FP) PO SCH (09:21)
[2017-08-20] MEDS: DUTASTERIDE 0.5 MG CAP (FP) PO SCH (09:22)
[2017-08-20] MEDS: MUPIROCIN 2% TOPICAL OINTMENT 22 GM TUBE TP SCH (11:35)
[2017-08-20] MEDS: VANCOMYCIN 1,000 MG in DEXTROSE 5%-WATER - 250 ML IVPB SCH ×2 (11:36→15:12)
[2017-08-20] MEDS ORDERED: POTASSIUM CHLORIDE TABS 20 MEQ TABLET.ER (FP) PO ONE (13:32)
--- NOTE | 2017-08-20 14:22 | MSN ---
Progress Note (short form) - Note Progress Note: CHIEF COMPLAINT: fever, malaise, diaphoresis, R toe infection HISTORY OF PRESENT ILLNESS Overnight, patient had clots in the wyatt bag. Wyatt was removed, bladder was irrigated, and new wyatt was placed. Patient complained of pain in the suprapubic area during the episode and stated that it had occurred after ambulating. Morning CRE was stable at 1.6. Patient was seen and examined at the bedside. Patient denied fevers, chills, chest pain, shortness of breath, abd pain, n/v/c/d, dizziness, lightheadedness, toe pain, headaches, suprapubic pain, back pain. Smoking: denies Alcohol: social Drugs: denies REVIEW OF SYSTEMS CONSTITUTIONAL: Absent: malaise, loss of appetite, weight change, chills, fever, diaphoresis, generalized weakness HEENT: Absent: rhinorrhea, nasal congestion, throat pain, throat swelling, difficulty swallowing, mouth swelling, ear pain, eye pain, visual changes CARDIOVASCULAR: Absent: chest pain, syncope, palpitations, irregular heart rate, lightheadedness , peripheral edema RESPIRATORY: Absent: cough, shortness of breath, dyspnea with exertion, orthopnea, wheezing, stridor, hemoptysis GASTROINTESTINAL: Absent: abdominal pain, abdominal distension, nausea, vomiting, diarrhea, constipation, melena, hematochezia GENITOURINARY: Absent: dysuria, frequency, urgency, hesitancy, hematuria, flank pain, genital pain MUSCULOSKELETAL: Absent: myalgia, arthralgia, joint swelling, back pain, neck pain SKIN: swelling of legs (chronic) Absent: rash, itching, pallor HEMATOLOGIC/IMMUNOLOGIC: Absent: easy bleeding, easy bruising, lymphadenopathy, frequent infections ENDOCRINE: Absent: unexplained weight gain, unexplained weight loss, heat intolerance, cold intolerance NEUROLOGIC: Absent: headache, focal weakness or paresthesias, dizziness, unsteady gait, seizure, mental status changes, bladder or bowel incontinence PSYCHIATRIC: Absent: anxiety, depression, suicidal or homicidal ideation, hallucinations. PHYSICAL EXAMINATION: GENERAL: Awake, alert, and fully oriented, in no apparent distress. Obese middle aged male laying in bed. HEAD: Normal with no signs of trauma. Redness on the nasal bridge secondary to CPAP mask covered by adhesive bandage EYES: Pupils equal, round and reactive to light, extraocular movements intact, sclera anicteric, conjunctiva clear. No lid lag. NECK: Normal range of motion, supple without lymphadenopathy, JVD, or masses. LUNGS: Breath sounds equal, clear to auscultation bilaterally. No wheezes, and no crackles. No accessory muscle use. HEART: Regular rate and rhythm, normal S1 and S2 without murmur, rub or gallop. ABDOMEN: Soft, nontender, obese, normoactive bowel sounds, no guarding, no rebound, no masses. No hepatomegaly or splenomegaly. MUSCULOSKELETAL: Normal range of motion at all joints. No bony deformities or tenderness. No CVA tenderness. UPPER EXTREMITIES: 2+ pulses, warm, well-perfused. No cyanosis. No clubbing. Cap refill <2 seconds. No peripheral edema LOWER EXTREMITIES: 2+ pulses, warm, well-perfused. No calf tenderness. 1+ peripheral edema bilaterally. NEUROLOGICAL: Cranial nerves II-XII intact. Normal speech. PSYCHIATRIC: Cooperative. Good eye contact. Appropriate mood and affect. SKIN: Warm, dry, normal turgor. On bilateral lower extremities, chronic venous stasis dermatitis noted. On R great toe, granulation tissue noted. Wound debrided and was clean and dry with bacitracin covering the wound. Non-painful to palpation. Allergies Allergy/AdvReac Type Severity Reaction Status Date / Time ciprofloxacin [From Cipro] Allergy pain Verified 08/07/17 16:10 levofloxacin [From Levaquin] Allergy Verified 08/07/17 16:08 Last Vital Signs Temp Pulse Resp BP Pulse Ox 98.0 F 51 L 18 172/82 95 08/20/17 13:58 08/20/17 13:58 08/20/17 13:58 08/20/17 13:58 08/19/17 21:00 CBC, BMP 08/20/17 08:20 08/20/17 08:20 CMP Sodium 141 mmol/L (136-145) 08/20/17 08:20 Potassium 3.2 mmol/L (3.5-5.1) L 08/20/17 08:20 Chloride 104 mmol/L (98-107) 08/20/17 08:20 Carbon Dioxide 30 mmol/L (21-32) 08/20/17 08:20 Anion Gap 7 (8-16) L 08/20/17 08:20 BUN 21 mg/dL (7-18) H 08/20/17 08:20 Creatinine 1.6 mg/dL (0.7-1.3) H 08/20/17 08:20 Creat Clearance w eGFR 45.10 (>60) 08/20/17 08:20 POC Glucometer 111 UNITS (80-120) 08/20/17 11:29 Random Glucose 93 mg/dL (74-106) 08/20/17 08:20 Hemoglobin A1c % 11.2 % (4.8-6.0) H 08/07/17 21:50 Lactic Acid 1.0 mmol/L (0.0-2.0) 08/07/17 21:50 Calcium 8.3 mg/dL (8.5-10.1) L 08/20/17 08:20 Phosphorus 4.1 mg/dL (2.5-4.9) 08/12/17 06:30 Magnesium 2.1 mg/dL (1.8-2.4) 08/12/17 14:45 Total Bilirubin 1.3 mg/dL (0.2-1.0) H 08/20/17 08:20 Direct Bilirubin 0.3 mg/dL (0.0-0.2) H D 08/19/17 05:35 AST 9 U/L (15-37) L D 08/20/17 08:20 ALT 15 U/L (12-78) 08/20/17 08:20 Alkaline Phosphatase 94 U/L (45-117) 08/20/17 08:20 Creatine Kinase 56 IU/L (39-308) 08/08/17 06:30 Troponin I 0.06 ng/ml (0.00-0.05) H 08/08/17 06:30 C-Reactive Protein 6.4 MG/DL (0.00-0.3) H 08/07/17 21:50 Total Protein 6.0 g/dl (6.4-8.2) L 08/20/17 08:20 Albumin 2.6 g/dl (3.4-5.0) L 08/20/17 08:20 Triglycerides Cancelled 08/08/17 07:15 Cholesterol Cancelled 08/08/17 07:15 Total LDL Cholesterol Cancelled 08/08/17 07:15 HDL Cholesterol Cancelled 08/08/17 07:15 Abnormal Lab Results 08/20/17 08/20/17 08:20 08:20 RBC 3.89 L Hgb 10.8 L Hct 31.2 L Monocytes % 11.7 H Eosinophils % 6.2 H Potassium 3.2 L Anion Gap 7 L BUN 21 H Creatinine 1.6 H Calcium 8.3 L Total Bilirubin 1.3 H AST 9 L D Total Protein 6.0 L Albumin 2.6 L Active Medications Generic Name Dose Route Start Last Admin Trade Name Freq PRN Reason Stop Dose Admin Acetaminophen 650 mg 08/07/17 20:33 08/19/17 20:16 Tylenol - PO 650 mg Q6H PRN Administration FEVER Amlodipine Besylate 10 mg 08/16/17 10:00 08/20/17 09:21 Norvasc - PO 10 mg DAILY TROY Administration Aspirin 81 mg 08/08/17 10:00 08/20/17 09:21 Ecotrin - PO 81 mg DAILY TROY Administration Clonidine 0.4 mg 08/08/17 22:00 08/20/17 13:51 Catapres - PO 0.4 mg TID TROY Administration Docusate Sodium 100 mg 08/14/17 10:00 08/20/17 09:21 Colace - PO 100 mg DAILY TROY Administration Dutasteride 0.5 mg 08/14/17 19:30 08/20/17 09:22 Avodart - PO 0.5 mg DAILY TROY Administration Glipizide 10 mg 08/13/17 16:30 08/20/17 06:09 Glucotrol - PO 10 mg BID@0700,1630 TROY Administration Heparin Sodium (Porcine) 5,000 unit 08/08/17 06:00 08/20/17 06:09 Heparin - SQ 5,000 unit TID TROY Administration Hydralazine HCl 10 mg 08/18/17 14:00 08/20/17 13:51 Apresoline - PO 10 mg TID TROY Administration IV Flush 8 ml 08/12/17 14:19 08/19/17 14:30 Picc Line Flush IVPUSH 8 ml PRN PRN Administration Protocol Vancomycin HCl 1,000 mg/ 250 mls @ 150 mls/hr 08/15/17 15:00 08/20/17 11:36 Dextrose IVPB 150 mls/hr DAILY@1500 TROY Administration Protocol Insulin Aspart 1 vial 08/07/17 22:00 08/20/17 11:36 Novolog Vial Sliding Scale - SQ Not Given ACHS [facility] Protocol Mupirocin 1 applic 08/09/17 10:00 08/20/17 11:35 Bactroban 2% Ointment - TP 1 applic DAILY TROY Administration Nystatin 500,000 units 08/08/17 00:00 08/20/17 13:52 Nystatin Oral Suspension - PO 500,000 units Q6HPO TROY Administration Nystatin 1 applic 08/19/17 18:15 08/20/17 09:21 Nystop Powder - TP 1 applic DAILY TROY Administration Ondansetron HCl 4 mg 08/18/17 09:25 Zofran Injection IVPUSH Q6H PRN NAUSEA Ranitidine HCl 150 mg 08/18/17 10:00 08/20/17 09:21 Zantac - PO 150 mg DAILY TROY Administration Senna 1 tab 08/13/17 22:00 08/20/17 09:21 Senna - PO 1 tab BID TROY Administration Sitagliptin Phosphate 50 mg 08/14/17 07:00 08/20/17 06:09 Januvia - PO 50 mg DAILY@0700 TROY Administration Tamsulosin HCl 0.4 mg 08/14/17 10:00 08/20/17 09:21 Flomax - PO 0.4 mg BID TROY Administration Microbiology 08/07/17 17:28 Blood - Peripheral Venous Blood Culture - Final NO GROWTH AFTER 5 DAYS INCUBATION 08/07/17 17:20 Blood - Peripheral Venous Blood Culture - Final NO GROWTH AFTER 5 DAYS INCUBATION 08/08/17 12:15 Toe - Right Hallux Gram Stain - Final 08/08/17 12:15 Toe - Right Hallux Wound Culture - Final Enterococcus Faecalis Staphylococcus Coagulase Neg 08/07/17 18:40 Urine - Urine Clean Catch Urine Culture - Final NO GROWTH OBTAINED IMAGING: FOOT X-RAY: Intact osseous structures, no evidence of foreign body. Soft tissue emphysematous changes CHEST X-RAY: enlarged heart, periphilar markings VENOUS DUPLEX: No evidence of DVT ECHOCARDIOGRAM: Left ventricular size and function within normal limits. Right ventricular size within normal limits. Mild aortic regurgitation BLADDER ULTRASOUND: Overdistended bladder, enlarged prostate, postvoid residual of 1168 cc, moderate bilateral renal hydronephrosis FOOT MRI: edema compatible with early osteomyelitis, perifocal soft tissue swelling compatible with cellulitis RENAL/BLADDER ULTRASOUND: mild to moderate hydronephrosis, markedly enlarged prostate, thickening of urinary bladder, post void residual of 445cc, R renal cyst 4.2x3.7cm ASSESMENT/PLAN: Patient is a 56 y/o male with a significant PMHx of uncontrolled diabetes, HTN, HLD, who presented with R great toe infection, fever, malaise and was treated for R great toe osteomyelitis. Diabetic Foot Ulcer - No further temperatures, no leukocytosis - CRP 6.4, ESR 41 - vancomycin dose adjusting due to elevated CRE and elevated vancomycin levels - ID consulted, recs appreciated - Patient to receive 1g vancomycin daily for osteomyelitis treatment until stabilization of kidney function - Podiatry consulted, recs appreciated, patient will be managed with IV abx - Deep wound culture showed Enterococcus faecalis and coag negative staph - x-ray of foot within normal limits - MRI of foot obtained showing compatibility with early osteomyelitis - Bactroban wound care - PICC line for outpatient IV abx placed and will receive outpatient abx through [facility] - patient counseled on antibiotic regimen by pharmacy - wound dressing to be changed and managed through [facility] - wound care outpatient and will f/u with Dr. Skaggs - offloading shoe Diabetes Mellitus - BGM - ISS - home medications glipizide and januvia restarted - Ha1c 11.2 - continue to monitor and f/u outpatient Shortness of breath - currently breathing well on room air - O2 as needed, continue to monitor - Echo within normal limits GAETANO - possibly due to constipation and BPH obstruction of bladder outlet vs vancomycin associated renal injury - patient does not have any urinary complaints - renal and bladder u/s as above - wyatt cath placed, bladder irrigated, new wyatt placed - urine electrolytes ordered, within normal limits - vancomycin level and adjusted dosing - continue to monitor - CRE stable at 1.6, will need monitoring outpatient - will need f/u with urology outpatient Constipation - colace - senna Bilateral lower extremity swelling - venous duplex negative for DVT - Echo within normal limits - follow up outpatient for venous insufficiency HTN - continue home clonidine - amlodipine 10mg daily - hydralazine 10mg tid - hold HCTZ due to repeated hyperkalemia and GAETANO Oral candidiasis - nystatin - HIV test negative Obstructive sleep apnea - continue CPAP BPH - Flomax to 0.8mg daily - dutasteride 0.5mg daily - continue medications outpatient F/E/N - no fluids currently - mild hypokalemia, repleted - replete as necessary - diabetic diet DVT PPx - heparin 5000 units subq tid Disposition - stable for discharge with home antibiotics through [facility] and wound dressing changes through [facility] - will follow up with PCP, urology - blood work to be done outpatient to monitor CRE, vancomycin Problem List - Problems (1) Diabetic infection of right foot Code(s): E11.628 - TYPE 2 DIABETES MELLITUS WITH OTHER SKIN COMPLICATIONS; L08.9 - LOCAL INFECTION OF THE SKIN AND SUBCUTANEOUS TISSUE, UNSP (2) Hyperglycemia Code(s): R73.9 - HYPERGLYCEMIA, UNSPECIFIED (3) Cellulitis of toe of right foot Code(s): L03.031 - CELLULITIS OF RIGHT TOE (4) Diabetes Code(s): E11.9 - TYPE 2 DIABETES MELLITUS WITHOUT COMPLICATIONS
[2017-08-20] MEDS ORDERED: LIDOCAINE HCL 2% JELLY (30 ML/TUBE) TP ONE (14:37)
--- NOTE | 2017-08-20 15:01 | DS ---
Physical Exam: SUBJECTIVE: Patient seen and examined at bedside. OBJECTIVE: Vital Signs Period Temp Pulse Resp BP Sys/Olmedo Pulse Ox Last 24 Hr 97.2 F-98.6 F 41-54 18-20 117-172/75-93 95 PHYSICAL EXAM GENERAL: The patient is awake, alert, and fully oriented, in no acute distress. HEAD: Normal with no signs of trauma. EYES: PERRL, extraocular movements intact, sclera anicteric, conjunctiva clear. ENT: Ears normal, nares patent, oropharynx clear without exudates, moist mucous membranes. NECK: Trachea midline, full range of motion, supple. LUNGS: Breath sounds equal, clear to auscultation bilaterally, no wheezes, no crackles, no accessory muscle use. HEART: Regular rate and rhythm, S1, S2 without murmur, rub or gallop. ABDOMEN: Soft, nontender, nondistended, normoactive bowel sounds, no guarding, no rebound, no hepatosplenomegaly, no masses. EXTREMITIES: 2+ pulses, warm, well-perfused, no edema. NEUROLOGICAL: Cranial nerves II through XII grossly intact. Normal speech, gait not observed. PSYCH: Normal mood, normal affect. SKIN: Warm, dry, normal turgor, no rashes or lesions noted. LABS Laboratory Results - last 24 hr 08/19/17 08/19/17 08/20/17 17:13 21:43 05:39 WBC RBC Hgb Hct MCV MCH MCHC RDW Plt Count MPV Neutrophils % Lymphocytes % Monocytes % Eosinophils % Basophils % Sodium Potassium Chloride Carbon Dioxide Anion Gap BUN Creatinine Creat Clearance w eGFR POC Glucometer 179 207 104 Random Glucose Calcium Total Bilirubin AST ALT Alkaline Phosphatase Total Protein Albumin 08/20/17 08/20/17 08/20/17 08:20 08:20 11:29 WBC 6.9 RBC 3.89 L Hgb 10.8 L Hct 31.2 L MCV 80.2 MCH 27.7 MCHC 34.6 RDW 14.9 Plt Count 227 MPV 8.2 Neutrophils % 67.9 Lymphocytes % 13.5 Monocytes % 11.7 H Eosinophils % 6.2 H Basophils % 0.7 Sodium 141 Potassium 3.2 L Chloride 104 Carbon Dioxide 30 Anion Gap 7 L BUN 21 H Creatinine 1.6 H Creat Clearance w eGFR 45.10 POC Glucometer 111 Random Glucose 93 Calcium 8.3 L Total Bilirubin 1.3 H AST 9 L D ALT 15 Alkaline Phosphatase 94 Total Protein 6.0 L Albumin 2.6 L HOSPITAL COURSE: Date of Admission:08/07/17 Date of Discharge: 08/20/17 56 y/o M w PMH DM2, HTN, BPH who presented to the ED with fever and drainage from an ulcer on his right great toe. Pt wsa seen by podiatry, vascular surgery, id. He had a debriedment done and decided he did not want amputation. A picc line was placed and plans were made for him to have home vancomycin. Wound cultures were positive for E. faecalis & coag neg Staph. Prior to being discharged, the patient developed an emilia. Renal and bladder U/S revealed obstructive hydronephrosis 2/2 BPH. Pt ultimately consented to a wyatt. 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 However, pt developed blood clots in the wyatt. He had bladder irrigation, and his hematuria resolved. Pt's tamsulosin was increased to 0.8 daily, and pt had dutasteride added. DM was treated effectively with home meds (Glipizide, Januvia). HTN was treated with home meds (Clonidine, amlodipine) Pt had an echo which showed normal LV, normal RV, mild AR. He used his own CPAP throughout his hospital stay. 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 It is a catheter that will remain in place for the duration of your antibiotic course. Take tylenol as needed for pain. You will have a visiting nurse come to your residence several times weekly to help with your antibiotic infusion as well as the dressings on your foot. You will need to follow up with infectious diseases doctor to adjust the dosing of your antibiotics. You will be on Vancomycin 1g IV daily for 4 weeks. You are being sent home with a wyatt catheter. You need to follow up with your primary care doctor. You should repeat your blood work, especially your kidney function, with your primary care doctor. You should also have a repeat ultrasound of your kidneys to ensure the swelling has gone down with the wyatt catheter in place. If your symptoms recur of if you develop new symptoms like fever, chills, or redness/pain around the site of the catheter, please return to the emergency department immediately. Please take your medications only as directed and make sure you follow up with your primary care doctor as well as the infectious diseases, vascular surgery, and podiatry specialists. You are being sent home with: Norvasc 5mg daily Clonidine 0.4 mg three times daily Glipizide 10 mg twice daily Januvia 50mg daily Tamsulosin 0.8mg daily Hydralazine 10 mg three times daily Dutasteride 0.5 mg daily Ditropan XL 5 mg daily Please follow up with your doctor. You need to have the following lab work done: CBC, CMP, ESR, CRP weekly Referrals: Umang Jamison MD [Staff Physician] - 1 Week Zain Skaggs MD [Staff Physician] - 1 Week Joel Wick MD [Staff Physician] - 1 Week Disposition: HOME - Home Medications Comprehensive Discharge Medication List: Ambulatory Orders Amlodipine Besylate [Norvasc -] 10 mg PO DAILY 06/23/13 Clonidine HCl 0.4 mg PO TID 02/07/17 Sitagliptin Phosphate [Januvia] 50 mg PO DAILY 07/31/17 Glipizide [Glipizide ER] 10 mg PO BID 08/07/17 Nebivolol HCl/Valsartan [Byvalson 5 mg-80 mg Tablet] 1 tab PO BID 08/07/17 Aspirin Coated [Ecotrin -] 81 mg PO DAILY #30 tablet.ec 08/19/17 Dutasteride [Avodart] 0.5 mg PO DAILY #30 cap 08/19/17 Mupirocin Ointment [Bactroban 2% Ointment -] 1 applic TP DAILY #1 tube 08/19/17 Tamsulosin HCl 0.4 mg PO BID #60 cap.er.24h 08/19/17 hydrALAZINE HCL [Apresoline -] 10 mg PO TID #90 tablet 08/19/17 Oxybutynin Chloride [Ditropan Xl] 5 mg PO DAILY #30 tab.er.24 08/20/17 This patient is new to me today: No Emergency Visit: No Critical Care patient: No - Discharge Referral Referred to [facility] Med P.C.: No
--- NOTE | 2017-08-20 16:22 | PN ---
Teaching Attending Note Name of Resident: Ciro Palma ATTENDING PHYSICIAN STATEMENT I saw and evaluated the patient. I reviewed the resident's note and discussed the case with the resident. I agree with the resident's findings and plan as documented. SUBJECTIVE:having intermittent bladder spasms. states that the bleeding started yesterday after getting out of bed and ambulating. however clots and bleeding have now resolved. denies CP, SOB, fever, chills, N/V/C/D OBJECTIVE: Last Vital Signs Temp Pulse Resp BP Pulse Ox 98.0 F 51 L 18 172/82 95 08/20/17 13:58 08/20/17 13:58 08/20/17 13:58 08/20/17 13:58 08/19/17 21:00 General NAD CV S1 S2 RRR no murmur/rub/gallop Lungs CTA B/L no wheezing/rales/rhonchi ABdomen soft NT/ND Extremities R foot wrapped in dressing C/D/I genital no bleeding noted at penile meatus, clear urine draining in the tube. ASSESSMENT AND PLAN: 56 yo M with PMHX of uncontrolled DM likely non compliance, comes with right great toe osteomyelitis. 1. Right great toe osteomyelitis- pt refused ampuation of the toe and attempt of medical salvage therapy. on Vanco 1g daily will need 4 more weeks of IV abx. will need weekly labs CBC/CMP/ESR/CRP. infusion set up at the home. offloading shoe. wound care clinic 2. Hematuria-likely trauma induced while moving around. now resolved. Hgb stable. will start oxybutnin for spasms. 3. Uncontrolled DM, A1c 11.2- on home medications 4. GAETANO, suspect urinary retention +/- vanco related. Cr stable. will need repeat Renal u/s in several weeks to f/u hydronephrosis 5. BPH with bilateral hydronephrosis and Bladder wall thickening- likely induced by BPH. has plan for TURP in the next month. d/c with wyatt. instructed to f/u sooner with urology. increased flomax/dutasteride dosing 6.Possible mild acute diastolic HF, resolved, Echo non concerning 7. Vomiting, ?GERD vs food poisoning.-resolved 8. Oral candidiasis- nystatin 9. HTN- controlled 10. BPH 11. d/c home with wyatt and PICC line
--- NOTE | 2017-08-20 19:32 | HOSP ---
Subjective - Review of Symptoms Events since last encounter: called because pt did not want to leave. pt had been informed he was being discharge earlier. As per nursing he had been comfortable all day, took a nap, took a shower and when given discharge paperwork this afternoon started to complain of "bladder pain." he thinks it is internal, irritating type of pain. pt is unclear about the pain, initially describing it as continuous then changing his mind to intermittent, starts and stops, nonradiating, lasting a few seconds at a time and self resolves without intervention. This is pain he has had in the past which he has not needed to take any pain medications to resolve. Requests to start oxybutinin while he is here prior to leaving the hospital. says once he takes it here and he has observed how he feels on it, he will be ready to go home. Informed him that his medications have been sent to the pharmacy and are ready for pick-up and as per dc instructions, pt is stable for outpatient follow-up. pt was in NAD during interview, breathing comfortably on room arm, wyatt in place to thigh bag with pink urine. stat dose of oxybuytanin ordered for patient. Physical Examination Vital Signs: Vital Signs Temperature 98.0 F 08/20/17 13:58 Pulse Rate 51 L 08/20/17 13:58 Respiratory Rate 18 08/20/17 13:58 Blood Pressure 172/82 08/20/17 13:58 O2 Sat by Pulse Oximetry (%) 95 08/20/17 09:00 Labs: CBC, BMP 08/20/17 08:20 08/20/17 08:20 Visit type - Emergency Visit Emergency Visit: No - New Patient This patient is new to me today: Yes Date on this admission: 08/20/17 - Critical Care Critical Care patient: No
[2017-08-20] MEDS ORDERED: OXYBUTYNIN CHLORIDE 5 MG TABLET PO STA (19:34)
[2017-08-20 22:05] VITALS: BP 150/79; PULSE 53; TEMP 98.4
[2017-08-21] MEDS ORDERED: TAMSULOSIN HCL 0.4 MG CAP.ER.24H (FP) PO SCH (08:30)
== END 2017-08-20 22:54 | disposition home or self-care (01) | DRG 637 ==
LOC: JER 15:56 → JERBED 19:43 → J8W 08-08 00:22
PROVIDERS: ADMIT Internal Medicine; ATTEND Internal Medicine
PROC: 02HV33Z Insertion of Infusion Device into Superior Vena Cava, Percutaneous Approach (ICD-10-PCS; principal; 2017-08-12)
PROC: B518ZZA Fluoroscopy of Superior Vena Cava, Guidance (ICD-10-PCS; 2017-08-12)
DX: E11.628 Type 2 diabetes mellitus with other skin complications (principal); I50.31 Acute diastolic (congestive) heart failure; B37.0 Candidal stomatitis; N13.30 Unspecified hydronephrosis; M86.9 Osteomyelitis, unspecified; E87.1 Hypo-osmolality and hyponatremia; Z68.41 Body mass index [BMI] 40.0-44.9, adult; E11.65 Type 2 diabetes mellitus with hyperglycemia; N17.9 Acute kidney failure, unspecified; I11.0 Hypertensive heart disease with heart failure; K59.00 Constipation, unspecified; G47.33 Obstructive sleep apnea (adult) (pediatric); E87.6 Hypokalemia; L03.031 Cellulitis of right toe; E11.69 Type 2 diabetes mellitus with other specified complication; R19.7 Diarrhea, unspecified; E78.5 Hyperlipidemia, unspecified; E11.621 Type 2 diabetes mellitus with foot ulcer; R33.9 Retention of urine, unspecified; N40.1 Benign prostatic hyperplasia with lower urinary tract symptoms; E66.01 Morbid (severe) obesity due to excess calories; R31.9 Hematuria, unspecified
CPT/HCPCS: 36415; 36569; 71045-TC-FY; 73630-TC-RT-FY; 73660-TC-FY; 73718-TC; 76775-TC; 76856-TC; 77001-TC-FY; 80048; 80053; 80061; 80076; 81003; 81015; 82248; 82436; 82550; 82570; 82803; 82962; 83036; 83605; 83721; 83735; 83935; 84100; 84133; 84300; 84484; 84540; 85025; 85027; 85610; 85651; 85730; 86140; 86850; 86900; 86901; 87040; 87070; 87086; 87186; 87205; 93005; 93010; 93306-TC; 93970-TC; 97116-GP; 97161-GP; 99284-25; C1751; G0480; J0735; J1644; J7030

== ENCOUNTER 2018-12-03 16:08 | Emergency (ER) | payer OTHER ==
[2018-12-03 16:16] VITALS: TEMP 98.2; BMI 41.1
--- NOTE | 2018-12-03 16:19 | PDOC ---
Rapid Medical Evaluation Chief Complaint: Pain Time Seen by Provider: 12/03/18 16:12 Medical Evaluation: Allergies Allergy/AdvReac Type Severity Reaction Status Date / Time ciprofloxacin [From Cipro] Allergy pain Verified 08/07/17 16:10 levofloxacin [From Levaquin] Allergy Verified 08/07/17 16:08 12/03/18 16:15 I have performed a brief in-person evaluation of this patient. The patient presents with a chief complaint of: LLE pain/swelling x 3-4 days. No f/c, CP, SOB or palpitations. H/o NIDDM, venous stasis, chronic edema, LE cellulitis, HTN, sleep apnea Pertinent physical exam findings:Stable w/ compression stockings in place b/l, 2 /3+ edema to LLE w/ diffuse ttp I have ordered the following:labs/US The patient will proceed to the ED for further evaluation. 12/03/18 16:18 Discharge Disposition - Diagnosis Leg pain Qualifiers: Laterality: left Qualified Code(s): M79.605 - Pain in left leg - Referrals - Patient Instructions - Post Discharge Activity
[2018-12-03 17:50] LABS: BASO % 0.7 % (0-2.0); EOS % 3.9 % (0-4.5); HEMATOCRIT 24.8 % (35.4-49); HEMOGLOBIN 8.7 GM/dL (11.7-16.9); LYMPH % 11.6 % (8-40); MCH 28.1 pg (25.7-33.7); MEAN CELL VOLUME 80.1 fl (80-96); MEAN PLT VOLUME 8.9 fl (7.5-11.1); MONO % 7.1 % (3.8-10.2); NEUT % 76.7 % (42.8-82.8); RBC 3.09 M/mm3 (4.00-5.60); WHITE BLOOD COUNT 9.1 K/mm3 (4.0-10.0)
[2018-12-03 18:11] LABS: ALBUMIN 2.9 g/dl (3.4-5.0); BILIRUBIN,TOTAL 0.9 mg/dL (0.2-1); BLOOD UREA NITROGEN 33.8 mg/dL (7-18); CALCIUM 8.4 mg/dL (8.5-10.1); POTASSIUM 3.2 mmol/L (3.5-5.1)
[2018-12-03 18:26] LABS: PLATELET COUNT 275 K/MM3 (134-434); PLATELET ESTIMATE ADEQUATE
[2018-12-03] MEDS ORDERED: POTASSIUM CHLORIDE ORAL LIQUID 20 MEQ/15 ML PO ONE (18:49)
[2018-12-03] MEDS ORDERED: POTASSIUM CHLORIDE ORAL LIQUID 20 MEQ/15 ML ONE (18:57)
[2018-12-03 19:08] LABS: MAGNESIUM 1.8 mg/dL (1.8-2.4)
--- NOTE | 2018-12-03 19:33 | PDOC ---
History of Present Illness - General History Source: Patient Exam Limitations: No Limitations <Tammy,Neha - Last Filed: 12/03/18 19:34> <Misael Madrigal - Last Filed: 12/03/18 20:15> - General Chief Complaint: Pain Stated Complaint: BLOOD CLOT Time Seen by Provider: 12/03/18 16:12 Past History - Past Medical History COPD: No Diabetes: Yes (NIDDM) HTN: Yes Other medical history: sleep apnea - Surgical History Abdominal Surgery: Yes (LEFT INGUINAL AND UMBILICAL HERNIA REPAIR.) - Immunization History Immunization Up to Date: Yes - Suicide/Smoking/Psychosocial Hx Smoking History: Never smoked Have you smoked in the past 12 months: No Number of Cigarettes Smoked Daily: 0 Hx Alcohol Use: Yes (socially) Drug/Substance Use Hx: No Substance Use Type: None <Xiomy Munoz - Last Filed: 12/03/18 19:34> <Misael Madrigal - Last Filed: 12/03/18 20:15> - Past Medical History Allergies/Adverse Reactions: Allergies Allergy/AdvReac Type Severity Reaction Status Date / Time ciprofloxacin [From Cipro] Allergy pain Verified 12/03/18 16:16 levofloxacin [From Levaquin] Allergy Verified 12/03/18 16:16 Home Medications: Ambulatory Orders Amlodipine Besylate [Norvasc -] 10 mg PO DAILY 06/23/13 Clonidine HCl 0.4 mg PO TID 02/07/17 Glipizide [Glipizide ER] 10 mg PO BID 08/07/17 hydrALAZINE HCL [Apresoline -] 10 mg PO TID #90 tablet 08/19/17 *Physical Exam - Vital Signs Last Vital Signs Temp Pulse Resp BP Pulse Ox 98.2 F 64 18 141/76 99 12/03/18 16:12 12/03/18 16:12 12/03/18 16:12 12/03/18 16:12 12/03/18 16:12 - Physical Exam General Appearance: No: Apparent Distress Respiratory/Chest: positive: Lungs Clear, Normal Breath Sounds. negative: Respiratory Distress Cardiovascular: positive: Regular Rhythm, Regular Rate, S1, S2. negative: Murmur Gastrointestinal/Abdominal: positive: Normal Bowel Sounds, Soft. negative: Tender, Distended, Guarding, Rebound Extremity: positive: Pedal Edema, Swelling, Other (BLE (L>>R), LLE pulses intact , venous stasis changes to LLE, no warmth or erythema to extremity noted). negative: Coldness, Cyanosis, Erythema Integumentary: negative: Erythema, Ecchymosis, Bruising Neurologic: positive: Alert, Normal Mood/Affect <Xiomy Munoz - Last Filed: 12/03/18 19:34> - Vital Signs Last Vital Signs Temp Pulse Resp BP Pulse Ox 98.2 F 63 18 150/92 99 12/03/18 16:12 12/03/18 19:10 12/03/18 19:10 12/03/18 19:10 12/03/18 19:10 <Misael Madrigal - Last Filed: 12/03/18 20:15> ED Treatment Course - LABORATORY CBC & Chemistry Diagram: 12/03/18 17:28 12/03/18 17:28 - ADDITIONAL ORDERS Additional order review: Laboratory Results 12/03/18 12/03/18 17:28 17:28 Sodium 142 Potassium 3.2 L Chloride 104 Carbon Dioxide 29 Anion Gap 8 BUN 33.8 H Creatinine 2.0 H Est GFR (CKD-EPI)AfAm 41.70 Est GFR (CKD-EPI)NonAf 35.98 Random Glucose 258 H Calcium 8.4 L Magnesium 1.8 Total Bilirubin 0.9 AST 9 L ALT 19 Alkaline Phosphatase 81 B-Natriuretic Peptide 1494.9 H Total Protein 6.0 L Albumin 2.9 L 12/03/18 17:28 RBC 3.09 L MCV 80.1 MCHC 35.0 RDW 14.0 MPV 8.9 Neutrophils % 76.7 Lymphocytes % 11.6 Monocytes % 7.1 Eosinophils % 3.9 Basophils % 0.7 - Medications Given in the ED: ED Medications Discontinued Medications Generic Name Dose Route Start Last Admin Trade Name Freq PRN Reason Stop Dose Admin Potassium Chloride 40 meq 12/03/18 18:49 12/03/18 19:04 Potassium Chloride Oral Liquid PO 12/03/18 18:50 40 meq ONCE ONE Administration <Xiomy Munoz - Last Filed: 12/03/18 19:34> - LABORATORY CBC & Chemistry Diagram: 12/03/18 17:28 12/03/18 17:28 - ADDITIONAL ORDERS Additional order review: Laboratory Results 12/03/18 12/03/18 17:28 17:28 Sodium 142 Potassium 3.2 L Chloride 104 Carbon Dioxide 29 Anion Gap 8 BUN 33.8 H Creatinine 2.0 H Est GFR (CKD-EPI)AfAm 41.70 Est GFR (CKD-EPI)NonAf 35.98 Random Glucose 258 H Calcium 8.4 L Magnesium 1.8 Total Bilirubin 0.9 AST 9 L ALT 19 Alkaline Phosphatase 81 B-Natriuretic Peptide 1494.9 H Total Protein 6.0 L Albumin 2.9 L 12/03/18 17:28 RBC 3.09 L MCV 80.1 MCHC 35.0 RDW 14.0 MPV 8.9 Neutrophils % 76.7 Lymphocytes % 11.6 Monocytes % 7.1 Eosinophils % 3.9 Basophils % 0.7 - Medications Given in the ED: ED Medications Discontinued Medications Generic Name Dose Route Start Last Admin Trade Name Freq PRN Reason Stop Dose Admin Potassium Chloride 40 meq 12/03/18 18:49 12/03/18 19:04 Potassium Chloride Oral Liquid PO 12/03/18 18:50 40 meq ONCE ONE Administration <Misael Madrigal - Last Filed: 12/03/18 20:15> Medical Decision Making - Medical Decision Making 58 y/o M hx of HTN, T2DM, BPH, ANA MARÍA, chronic lymphedema, R 1st toe OM (no longer on abx) presents with L calf cramping x 4 days. Went to see vascular, Dr. Wick , today, but states person in front edger told him to come to ED for evaluation. Denies fever, cough, sob, cp, abd pain, vomiting. LLE DVT study negative Given intact pulses, unlikely PAD Abnormal Lab Results 12/03/18 12/03/18 12/03/18 17:28 17:28 17:28 RBC 3.09 L Hgb 8.7 L Hct 24.8 L D Potassium 3.2 L BUN 33.8 H Creatinine 2.0 H Random Glucose 258 H Calcium 8.4 L AST 9 L B-Natriuretic Peptide 1494.9 H Total Protein 6.0 L Albumin 2.9 L Labs reviewed Hgb is lower from last year, but patient without active bleeding BUN/Cr also slightly elevated from last year BNP was in same range from last year; no current suspicion for acute CHF exacerbation K was 3.2 - repleted Mg checked and was normal Attempted to reach patient's PCP, Dr. Raymond, but unable to (works in [facility]) Findings were d/w attending, Dr. Madrigal - recommend outpatient follow-up 12/03/18 19:28 <Xiomy Munoz - Last Filed: 12/03/18 19:34> *DC/Admit/Observation/Transfer - Discharge Dispostion Decision to Admit order: No <Xiomy Munoz - Last Filed: 12/03/18 19:34> - Attestations Physician Attestion: 12/03/18 20:15 I have reviewed the plan as documented and agree with current plan as documented. Electronically co-signed by Misael Madrigal MD <Misael Madrigal - Last Filed: 12/03/18 20:15> Diagnosis at time of Disposition: Leg pain Qualifiers: Laterality: left Qualified Code(s): M79.605 - Pain in left leg - Discharge Dispostion Disposition: HOME Condition at time of disposition: Stable - Referrals Referrals: Joel Wick MD [Non Staff, Medical] - 2 Days Kevin Raymond MD [Non Staff, Medical] - 2 Days - Patient Instructions Printed Discharge Instructions: DI for Leg Pain Additional Instructions: Thank you for choosing [facility]. It was a pleasure taking care of you. There was no clot noted in your leg Please avoid NSAIDs like Motrin, Alleve, Naprosyn given your elevated kidney function Follow-up with your vascular doctor and your primary care doctor Return to the Emergency Department if your symptoms worsen or persist, you have fever, shortness of breath, chest pain, change in color of extremities, severe leg pain, redness or other concerning symptoms.
[2018-12-03 19:52] VITALS: BP 150/92; PULSE 63
== END 2018-12-03 19:52 | disposition home or self-care (01) ==
LOC: JER 16:08
DX: M79.605 Pain in left leg (principal); I10 Essential (primary) hypertension; E11.9 Type 2 diabetes mellitus without complications; N40.0 Benign prostatic hyperplasia without lower urinary tract symptoms
CPT/HCPCS: 36415; 80053; 83735; 83880; 85025; 93971-TC; 99283-25

== ENCOUNTER 2020-06-23 14:56 | Inpatient (IN) | payer BC ==
[2020-06-23] MEDS ORDERED: ACETAMINOPHEN 1000 MG/100 ML VIAL (NON FORMULARY) IVPB ONE (16:10)
[2020-06-23] MEDS ORDERED: HYOSCYAMINE SULFATE 0.125 MG *ODT PO ONE (16:20)
[2020-06-23 16:39] LABS: BASO % 0.3 % (0-2.0); HEMATOCRIT 32.9 % (35.4-49); HEMOGLOBIN 11.2 GM/dL (11.7-16.9); LYMPH % 2.7 % (8-40); MCH 27.6 pg (25.7-33.7); MEAN CELL VOLUME 81.1 fl (80-96); MEAN PLT VOLUME 7.6 fl (7.5-11.1); MONO % 3.6 % (3.8-10.2); NEUT % 93.4 % (42.8-82.8); PLATELET COUNT 300 K/MM3 (134-434); RBC 4.06 M/mm3 (4.00-5.60); RDW 16.9 % (11.9-15.9); WHITE BLOOD COUNT 14.2 K/mm3 (4.0-10.0)
[2020-06-23 16:43] LABS: INR 1.16 (0.83-1.09)
[2020-06-23 16:45] LABS: ACTIVATED PTT 31.8 SECONDS (25.2-36.5)
[2020-06-23 16:54] LABS: BLOOD UREA NITROGEN 65.4 mg/dL (7-18); CALCIUM 9.7 mg/dL (8.5-10.1)
[2020-06-23 16:55] LABS: ALBUMIN 3.9 g/dl (3.4-5.0)
[2020-06-23 16:58] LABS: CREATININE 4.4 mg/dL (0.55-1.3)
[2020-06-23 16:59] LABS: TOT PROT 7.8 g/dl (6.4-8.2)
[2020-06-23 17:35] LABS: ANISOCYTOSIS 1+; MACROCYTOSIS 0; PLATELET ESTIMATE NORMAL
[2020-06-23] MEDS ORDERED: CEFTRIAXONE 1 GM in DEXTROSE 5%-WATER - 50 ML IVPB ONE (18:11)
[2020-06-23] MEDS ORDERED: SODIUM CHLORIDE 0.9% 1000 ML INFUS.BAG IV ONE (18:11)
[2020-06-23] MEDS ORDERED: CEFTRIAXONE 1 GM/50 ML BAG ONE (18:18)
[2020-06-23 18:19] LABS: EPI CELLS 1 /uL (0-25.1); HYALINE CASTS 1 /uL (0-3.1); PH,URINE 7.5 (5.0-8.0); URINE APPEARANCE TURBID; URINE BACTERIA 848 /uL (0-1359); URINE BILIRUBIN NEGATIVE (NEGATIVE); URINE COLOR ORANGE; URINE GLUCOSE (UA) NEGATIVE (NEGATIVE); URINE KETONE NEGATIVE (NEGATIVE); URINE LEUK ESTERASE 3+ (NEGATIVE); URINE NITRITE NEGATIVE (NEGATIVE); URINE PROTEIN 2+ (NEGATIVE); URINE RBC 3526 /uL (0-23.9); URINE UROBILINOGEN 0.2 mg/dL (0.2-1.0); URINE WBC 3236 /uL (0-25.8)
[2020-06-23] MEDS ORDERED: CEFTRIAXONE 1,000 MG in DEXTROSE 5%-WATER - 50 ML IVPB ONE (18:31)
[2020-06-23] MEDS ORDERED: ACETAMINOPHEN 325 MG TABLET (FP) PO PRN (22:54)
[2020-06-23] MEDS ORDERED: SODIUM CHLORIDE 1,000 ML IV SCH (23:00)
[2020-06-24 01:36] VITALS: BMI 32.5
[2020-06-24] MEDS: amLODIPine BESYLATE 10 MG TABLET (FP) PO SCH (02:05)
[2020-06-24] MEDS: cloNIDine HCL 0.1 MG TABLET PO SCH ×3 (06:15→21:29)
[2020-06-24] MEDS: HEPARIN NA (PORCINE) 5,000 UNITS/ML 1ML VIAL SQ SCH ×3 (06:16→21:29)
[2020-06-24] MEDS: hydrALAZINE HCL 10 MG TABLET PO SCH ×3 (06:16→21:29)
[2020-06-24] MEDS: INSULIN SLIDING SCALE (NOVOLOG) 1 VIAL SQ SCH ×4 (06:20→21:30)
[2020-06-24] MEDS ORDERED: INSULIN (LEVEMIR) 100 UNITS/ML UNITS SQ ONE (06:43)
[2020-06-24 09:30] LABS: BASO % 0.5 % (0-2.0); EOS % 1.1 % (0-4.5); HEMATOCRIT 26.2 % (35.4-49); HEMOGLOBIN 9.1 GM/dL (11.7-16.9); LYMPH % 5.7 % (8-40); MCH 28.7 pg (25.7-33.7); MCHC 34.9 g/dl (32.0-35.9); MEAN CELL VOLUME 82.3 fl (80-96); MEAN PLT VOLUME 8.1 fl (7.5-11.1); MONO % 10.9 % (3.8-10.2); NEUT % 81.8 % (42.8-82.8); PLATELET COUNT 226 K/MM3 (134-434); RBC 3.18 M/mm3 (4.00-5.60); RDW 16.6 % (11.9-15.9); WHITE BLOOD COUNT 10.9 K/mm3 (4.0-10.0)
[2020-06-24 09:55] LABS: POTASSIUM 3.3 mmol/L (3.5-5.1)
[2020-06-24] MEDS ORDERED: PT OWN MED DRAWER 7, Y5N ONE (09:56)
[2020-06-24] MEDS ORDERED: cefTRIAXone SODIUM 1 GM VIAL ONE (09:56)
[2020-06-24] MEDS ORDERED: DEXTROSE 5%-WATER - 50 ML IVPB ONE (09:57)
[2020-06-24 09:58] LABS: CALCIUM 8.4 mg/dL (8.5-10.1)
[2020-06-24 09:59] LABS: BLOOD UREA NITROGEN 61.7 mg/dL (7-18)
[2020-06-24] MEDS ORDERED: TERAZOSIN HCL 5 MG CAPSULE PO SCH (10:00)
[2020-06-24 10:02] LABS: CREATININE 3.9 mg/dL (0.55-1.3); PHOSPHOROUS 3.7 mg/dL (2.5-4.9)
[2020-06-24 10:03] LABS: BILIRUBIN,TOTAL 1.2 mg/dL (0.2-1)
[2020-06-24] MEDS: CEFTRIAXONE 1 GM in DEXTROSE 5%-WATER - 50 ML IVPB SCH (10:19)
[2020-06-24] MEDS ORDERED: SODIUM CHLORIDE 1,000 ML IV SCH (11:00)
[2020-06-24] MEDS: SODIUM CHLORIDE 0.45% 1,000 ML with POTASSIUM CHLORIDE 20 MEQ IV SCH (14:13)
[2020-06-24] MEDS: SILVER SULFADIAZINE 1% TOP CREAM 50 GM JAR TP SCH (14:13)
[2020-06-24] MEDS ORDERED: INSULIN (NOVOLOG) ASPART 100 UNITS/ML 10ML VIAL ONE ×2 (18:13→20:52)
[2020-06-25] MEDS: SODIUM CHLORIDE 0.45% 1,000 ML with POTASSIUM CHLORIDE 20 MEQ IV SCH ×4 (03:09→23:08)
[2020-06-25] MEDS: INSULIN SLIDING SCALE (NOVOLOG) 1 VIAL SQ SCH ×4 (06:44→21:26)
[2020-06-25] MEDS: cloNIDine HCL 0.1 MG TABLET PO SCH ×3 (06:44→21:26)
[2020-06-25] MEDS: hydrALAZINE HCL 10 MG TABLET PO SCH ×3 (06:44→21:25)
[2020-06-25] MEDS: HEPARIN NA (PORCINE) 5,000 UNITS/ML 1ML VIAL SQ SCH ×3 (06:45→21:26)
[2020-06-25 08:47] LABS: BASO % 0.7 % (0-2.0); EOS % 3.6 % (0-4.5); HEMATOCRIT 25.1 % (35.4-49); HEMOGLOBIN 8.6 GM/dL (11.7-16.9); LYMPH % 9.2 % (8-40); MCH 28.5 pg (25.7-33.7); MCHC 34.4 g/dl (32.0-35.9); MEAN CELL VOLUME 82.9 fl (80-96); MEAN PLT VOLUME 8.1 fl (7.5-11.1); MONO % 12.2 % (3.8-10.2); NEUT % 74.3 % (42.8-82.8); PLATELET COUNT 181 K/MM3 (134-434); RBC 3.03 M/mm3 (4.00-5.60); RDW 16.2 % (11.9-15.9); WHITE BLOOD COUNT 7.6 K/mm3 (4.0-10.0)
[2020-06-25 09:06] LABS: POTASSIUM 3.6 mmol/L (3.5-5.1)
[2020-06-25 09:11] LABS: ALBUMIN 2.7 g/dl (3.4-5.0); BLOOD UREA NITROGEN 56.3 mg/dL (7-18)
[2020-06-25 09:12] LABS: CALCIUM 8.3 mg/dL (8.5-10.1); MAGNESIUM 1.8 mg/dL (1.8-2.4)
[2020-06-25 09:14] LABS: CREATININE 3.8 mg/dL (0.55-1.3); PHOSPHOROUS 3.5 mg/dL (2.5-4.9)
[2020-06-25 09:15] LABS: BILIRUBIN,TOTAL 0.8 mg/dL (0.2-1); TOT PROT 5.7 g/dl (6.4-8.2)
[2020-06-25] MEDS ORDERED: cefTRIAXone SODIUM 1 GM VIAL ONE (10:43)
[2020-06-25] MEDS ORDERED: DEXTROSE 5%-WATER - 50 ML IVPB ONE (10:43)
[2020-06-25] MEDS: amLODIPine BESYLATE 10 MG TABLET (FP) PO SCH (10:47)
[2020-06-25] MEDS: TERAZOSIN HCL 5 MG CAPSULE PO SCH (10:48)
[2020-06-25] MEDS: CEFTRIAXONE 1 GM in DEXTROSE 5%-WATER - 50 ML IVPB SCH (10:48)
[2020-06-25] MEDS: AMMONIUM LACTATE 12% LOTION 225 GM BOTTLE TP PRN (15:00)
[2020-06-25] MEDS: SILVER SULFADIAZINE 1% TOP CREAM 50 GM JAR TP SCH (15:00)
[2020-06-25] MEDS ORDERED: SODIUM CHLORIDE 0.45% 1,000 ML with POTASSIUM CHLORIDE 20 MEQ IV SCH (16:57)
[2020-06-25] MEDS ORDERED: INSULIN (NOVOLOG) ASPART 100 UNITS/ML 10ML VIAL ONE (21:10)
[2020-06-26] MEDS: INSULIN SLIDING SCALE (NOVOLOG) 1 VIAL SQ SCH ×4 (06:18→21:28)
[2020-06-26] MEDS: hydrALAZINE HCL 10 MG TABLET PO SCH ×3 (06:21→21:26)
[2020-06-26] MEDS: cloNIDine HCL 0.1 MG TABLET PO SCH ×3 (06:21→21:28)
[2020-06-26] MEDS: HEPARIN NA (PORCINE) 5,000 UNITS/ML 1ML VIAL SQ SCH ×3 (06:21→21:28)
[2020-06-26] MEDS: SODIUM CHLORIDE 0.45% 1,000 ML with POTASSIUM CHLORIDE 20 MEQ IV SCH (07:10)
[2020-06-26] MEDS ORDERED: PT OWN MED DRAWER 7, Y5N ONE (08:44)
[2020-06-26] MEDS ORDERED: DEXTROSE 5%-WATER - 50 ML IVPB ONE (08:45)
[2020-06-26] MEDS ORDERED: cefTRIAXone SODIUM 1 GM VIAL ONE (08:45)
[2020-06-26] MEDS: amLODIPine BESYLATE 10 MG TABLET (FP) PO SCH (09:16)
[2020-06-26] MEDS: CEFTRIAXONE 1 GM in DEXTROSE 5%-WATER - 50 ML IVPB SCH (09:16)
[2020-06-26] MEDS: TERAZOSIN HCL 5 MG CAPSULE PO SCH (09:16)
[2020-06-26 09:40] LABS: BASO % 1.1 % (0-2.0); EOS % 4.6 % (0-4.5); HEMATOCRIT 24.1 % (35.4-49); HEMOGLOBIN 8.4 GM/dL (11.7-16.9); LYMPH % 11.9 % (8-40); MCH 28.8 pg (25.7-33.7); MEAN CELL VOLUME 82.1 fl (80-96); MEAN PLT VOLUME 8.2 fl (7.5-11.1); MONO % 11.9 % (3.8-10.2); NEUT % 70.5 % (42.8-82.8); PLATELET COUNT 171 K/MM3 (134-434); RBC 2.94 M/mm3 (4.00-5.60); RDW 16.1 % (11.9-15.9); WHITE BLOOD COUNT 5.7 K/mm3 (4.0-10.0)
[2020-06-26 10:04] LABS: POTASSIUM 3.9 mmol/L (3.5-5.1)
[2020-06-26 10:11] LABS: ALBUMIN 2.6 g/dl (3.4-5.0); BLOOD UREA NITROGEN 59.2 mg/dL (7-18)
[2020-06-26 10:13] LABS: CALCIUM 8.1 mg/dL (8.5-10.1)
[2020-06-26 10:17] LABS: CREATININE 3.7 mg/dL (0.55-1.3); PHOSPHOROUS 3.7 mg/dL (2.5-4.9)
[2020-06-26 10:18] LABS: BILIRUBIN,TOTAL 0.6 mg/dL (0.2-1); TOT PROT 5.6 g/dl (6.4-8.2)
[2020-06-26] MEDS ORDERED: INSULIN (NOVOLOG) ASPART 100 UNITS/ML 10ML VIAL ONE (11:22)
[2020-06-26] MEDS: SILVER SULFADIAZINE 1% TOP CREAM 50 GM JAR TP SCH (13:30)
[2020-06-26] MEDS: AMMONIUM LACTATE 12% LOTION 225 GM BOTTLE TP PRN (13:30)
[2020-06-26] MEDS ORDERED: SODIUM CHLORIDE 0.45%/POT 20 MEQ/1,000 ML INFUS.BAG IV SCH (13:51)
[2020-06-26] MEDS: SODIUM CHLORIDE 0.45%/POT 20 MEQ/1,000 ML INFUS.BAG IV SCH ×2 (14:30→18:49)
[2020-06-27] MEDS: cloNIDine HCL 0.1 MG TABLET PO SCH ×3 (06:36→23:45)
[2020-06-27] MEDS: INSULIN SLIDING SCALE (NOVOLOG) 1 VIAL SQ SCH ×4 (06:36→23:08)
[2020-06-27] MEDS: HEPARIN NA (PORCINE) 5,000 UNITS/ML 1ML VIAL SQ SCH ×3 (06:36→23:13)
[2020-06-27] MEDS: hydrALAZINE HCL 10 MG TABLET PO SCH ×3 (06:36→23:13)
[2020-06-27 09:45] LABS: HEMATOCRIT 23.8 % (35.4-49); HEMOGLOBIN 8.2 GM/dL (11.7-16.9); MCH 28.3 pg (25.7-33.7); MCHC 34.3 g/dl (32.0-35.9); MEAN CELL VOLUME 82.5 fl (80-96); MEAN PLT VOLUME 8.6 fl (7.5-11.1); PLATELET COUNT 180 K/MM3 (134-434); RBC 2.89 M/mm3 (4.00-5.60); RDW 15.9 % (11.9-15.9); WHITE BLOOD COUNT 5.4 K/mm3 (4.0-10.0)
[2020-06-27] MEDS ORDERED: PT OWN MED DRAWER 7, Y5N ONE ×2 (09:45→13:54)
[2020-06-27] MEDS ORDERED: DEXTROSE 5%-WATER - 50 ML IVPB ONE (09:45)
[2020-06-27] MEDS ORDERED: cefTRIAXone SODIUM 1 GM VIAL ONE (09:45)
[2020-06-27] MEDS: CEFTRIAXONE 1 GM in DEXTROSE 5%-WATER - 50 ML IVPB SCH (09:47)
[2020-06-27] MEDS: TERAZOSIN HCL 5 MG CAPSULE PO SCH (09:52)
[2020-06-27] MEDS: amLODIPine BESYLATE 10 MG TABLET (FP) PO SCH (09:53)
[2020-06-27] MEDS: AMMONIUM LACTATE 12% LOTION 225 GM BOTTLE TP PRN (09:54)
[2020-06-27] MEDS: SILVER SULFADIAZINE 1% TOP CREAM 50 GM JAR TP SCH (09:54)
[2020-06-27 10:09] LABS: POTASSIUM 4.3 mmol/L (3.5-5.1)
[2020-06-27 10:17] LABS: BILIRUBIN,TOTAL 0.4 mg/dL (0.2-1); TOT PROT 5.5 g/dl (6.4-8.2)
[2020-06-27 10:20] LABS: BLOOD UREA NITROGEN 58.9 mg/dL (7-18)
[2020-06-27 10:23] LABS: ALBUMIN 2.5 g/dl (3.4-5.0); CALCIUM 7.9 mg/dL (8.5-10.1); CREATININE 3.6 mg/dL (0.55-1.3)
[2020-06-27] MEDS: SODIUM CHLORIDE 0.45%/POT 20 MEQ/1,000 ML INFUS.BAG IV SCH (13:55)
[2020-06-28] MEDS: INSULIN SLIDING SCALE (NOVOLOG) 1 VIAL SQ SCH ×4 (07:09→21:54)
[2020-06-28] MEDS ORDERED: INSULIN (NOVOLOG) ASPART 100 UNITS/ML 10ML VIAL ONE ×2 (07:10→21:41)
[2020-06-28] MEDS: hydrALAZINE HCL 10 MG TABLET PO SCH ×3 (07:23→21:54)
[2020-06-28] MEDS: cloNIDine HCL 0.1 MG TABLET PO SCH ×3 (07:23→21:55)
[2020-06-28 08:39] LABS: BASO % 1.2 % (0-2.0); EOS % 6.1 % (0-4.5); HEMATOCRIT 24.8 % (35.4-49); HEMOGLOBIN 8.8 GM/dL (11.7-16.9); LYMPH % 12.6 % (8-40); MCH 28.8 pg (25.7-33.7); MCHC 35.5 g/dl (32.0-35.9); MEAN PLT VOLUME 8.3 fl (7.5-11.1); MONO % 11.4 % (3.8-10.2); NEUT % 68.7 % (42.8-82.8); PLATELET COUNT 190 K/MM3 (134-434); RBC 3.07 M/mm3 (4.00-5.60); RDW 15.6 % (11.9-15.9); WHITE BLOOD COUNT 5.3 K/mm3 (4.0-10.0)
[2020-06-28] MEDS ORDERED: LIDOCAINE HCL 2% (20ML MULTI-DOSE VIAL) NR ONE (09:00)
[2020-06-28 09:08] LABS: CALCIUM 8.1 mg/dL (8.5-10.1)
[2020-06-28 09:09] LABS: ALBUMIN 2.6 g/dl (3.4-5.0); BLOOD UREA NITROGEN 54.6 mg/dL (7-18); MAGNESIUM 1.7 mg/dL (1.8-2.4)
[2020-06-28 09:12] LABS: CREATININE 3.4 mg/dL (0.55-1.3); PHOSPHOROUS 4.1 mg/dL (2.5-4.9)
[2020-06-28 09:13] LABS: BILIRUBIN,TOTAL 0.4 mg/dL (0.2-1); TOT PROT 5.5 g/dl (6.4-8.2)
[2020-06-28] MEDS ORDERED: PT OWN MED DRAWER 7, Y5N ONE ×2 (09:30→11:50)
[2020-06-28] MEDS ORDERED: cefTRIAXone SODIUM 1 GM VIAL ONE (09:41)
[2020-06-28] MEDS ORDERED: DEXTROSE 5%-WATER - 50 ML IVPB ONE (09:41)
[2020-06-28] MEDS: TERAZOSIN HCL 5 MG CAPSULE PO SCH (09:43)
[2020-06-28] MEDS: CEFTRIAXONE 1 GM in DEXTROSE 5%-WATER - 50 ML IVPB SCH (09:44)
[2020-06-28] MEDS: amLODIPine BESYLATE 10 MG TABLET (FP) PO SCH (09:47)
[2020-06-28] MEDS: SILVER SULFADIAZINE 1% TOP CREAM 50 GM JAR TP SCH (09:54)
[2020-06-28] MEDS: AMMONIUM LACTATE 12% LOTION 225 GM BOTTLE TP PRN (09:54)
[2020-06-28] MEDS: SODIUM CHLORIDE 0.45%/POT 20 MEQ/1,000 ML INFUS.BAG IV SCH ×2 (09:55→17:37)
[2020-06-28] MEDS ORDERED: MAGNESIUM SULF 50% (8.12 MEQ/2 ML-1 GM VIAL) IVPB ONE (11:08)
[2020-06-28] MEDS ORDERED: IOHEXOL 300 MG/ML INFUS..BTL IV ONE ×2 (13:49)
[2020-06-28] MEDS ORDERED: LIDOCAINE HCL/PF 2% SDV 5ML VIAL ONE (13:50)
[2020-06-28] MEDS ORDERED: PROPOFOL 20 ML ONE ×2 (13:50→14:03)
[2020-06-28] MEDS ORDERED: ceFAZolin SODIUM 1 GM VIAL ONE (13:56)
[2020-06-28] MEDS ORDERED: AMMONIUM LACTATE 12% LOTION 225 GM BOTTLE TP PRN (15:29)
[2020-06-28] MEDS ORDERED: ACETAMINOPHEN 325 MG TABLET (FP) PO PRN ×2 (15:29→16:15)
[2020-06-28] MEDS ORDERED: ONDANSETRON 4 MG/2 ML VIAL IVPUSH PRN (15:31)
[2020-06-28] MEDS ORDERED: ACETAMINOPHEN 1000 MG/100 ML VIAL (NON FORMULARY) IVPB PRN (15:34)
[2020-06-28] MEDS: oxyCODONE HCL 5 MG TABLET PO PRN (18:09)
[2020-06-28] MEDS: HEPARIN NA (PORCINE) 5,000 UNITS/ML 1ML VIAL SQ SCH (21:55)
[2020-06-29] MEDS: SODIUM CHLORIDE 0.45%/POT 20 MEQ/1,000 ML INFUS.BAG IV SCH (03:02)
[2020-06-29] MEDS: oxyCODONE HCL 5 MG TABLET PO PRN ×2 (04:46→10:43)
[2020-06-29] MEDS: INSULIN SLIDING SCALE (NOVOLOG) 1 VIAL SQ SCH ×4 (07:08→22:06)
[2020-06-29] MEDS: HEPARIN NA (PORCINE) 5,000 UNITS/ML 1ML VIAL SQ SCH ×3 (07:10→22:05)
[2020-06-29] MEDS: cloNIDine HCL 0.1 MG TABLET PO SCH ×3 (07:10→22:06)
[2020-06-29] MEDS: hydrALAZINE HCL 10 MG TABLET PO SCH (07:10)
[2020-06-29 08:44] LABS: BASO % 0.7 % (0-2.0); EOS % 4.7 % (0-4.5); HEMATOCRIT 23.4 % (35.4-49); HEMOGLOBIN 8.3 GM/dL (11.7-16.9); LYMPH % 8.3 % (8-40); MCH 28.8 pg (25.7-33.7); MCHC 35.7 g/dl (32.0-35.9); MEAN CELL VOLUME 80.7 fl (80-96); MEAN PLT VOLUME 8.2 fl (7.5-11.1); MONO % 11.5 % (3.8-10.2); NEUT % 74.8 % (42.8-82.8); PLATELET COUNT 201 K/MM3 (134-434); RDW 15.4 % (11.9-15.9); WHITE BLOOD COUNT 7.6 K/mm3 (4.0-10.0)
[2020-06-29] MEDS ORDERED: cefTRIAXone SODIUM 1 GM VIAL ONE (09:13)
[2020-06-29] MEDS ORDERED: DEXTROSE 5%-WATER - 50 ML IVPB ONE (09:14)
[2020-06-29 09:38] LABS: PHOSPHOROUS 3.4 mg/dL (2.5-4.9)
[2020-06-29 09:39] LABS: CREATININE 3.5 mg/dL (0.55-1.3)
[2020-06-29 09:40] LABS: BILIRUBIN,TOTAL 0.5 mg/dL (0.2-1); TOT PROT 5.4 g/dl (6.4-8.2)
[2020-06-29 10:05] LABS: ALBUMIN 2.5 g/dl (3.4-5.0); BLOOD UREA NITROGEN 51.3 mg/dL (7-18)
[2020-06-29 10:06] LABS: MAGNESIUM 1.9 mg/dL (1.8-2.4)
[2020-06-29] MEDS: CEFTRIAXONE 1 GM in DEXTROSE 5%-WATER - 50 ML IVPB SCH (10:28)
[2020-06-29] MEDS: TERAZOSIN HCL 5 MG CAPSULE PO SCH (10:29)
[2020-06-29] MEDS: amLODIPine BESYLATE 10 MG TABLET (FP) PO SCH (10:29)
[2020-06-29] MEDS: SILVER SULFADIAZINE 1% TOP CREAM 50 GM JAR TP SCH (10:30)
[2020-06-29] MEDS ORDERED: IRON SUCROSE INJECTION 200 MG in SODIUM CHLORIDE 90 ML IVPB ONE (13:30)
[2020-06-29] MEDS ORDERED: SODIUM CHLORIDE 0.45% 1,000 ML IV SCH (13:45)
[2020-06-29] MEDS: hydrALAZINE HCL 25 MG TABLET (FP) PO SCH ×2 (14:42→22:06)
[2020-06-30] MEDS ORDERED: SODIUM CHLORIDE 0.45% 1,000 ML IV SCH (02:00)
[2020-06-30] MEDS: cloNIDine HCL 0.1 MG TABLET PO SCH ×3 (06:00→22:31)
[2020-06-30] MEDS: hydrALAZINE HCL 25 MG TABLET (FP) PO SCH ×3 (06:01→22:31)
[2020-06-30] MEDS: HEPARIN NA (PORCINE) 5,000 UNITS/ML 1ML VIAL SQ SCH ×3 (06:01→22:31)
[2020-06-30] MEDS: INSULIN SLIDING SCALE (NOVOLOG) 1 VIAL SQ SCH ×3 (06:01→22:33)
[2020-06-30] MEDS ORDERED: cefTRIAXone SODIUM 1 GM VIAL ONE (08:50)
[2020-06-30] MEDS ORDERED: DEXTROSE 5%-WATER - 50 ML IVPB ONE (08:50)
[2020-06-30 09:31] LABS: BASO % 0.8 % (0-2.0); EOS % 6.9 % (0-4.5); HEMATOCRIT 23.9 % (35.4-49); HEMOGLOBIN 8.2 GM/dL (11.7-16.9); LYMPH % 14.1 % (8-40); MCH 28.3 pg (25.7-33.7); MCHC 34.2 g/dl (32.0-35.9); MEAN CELL VOLUME 82.7 fl (80-96); MEAN PLT VOLUME 8.4 fl (7.5-11.1); MONO % 11.7 % (3.8-10.2); NEUT % 66.5 % (42.8-82.8); PLATELET COUNT 190 K/MM3 (134-434); RBC 2.89 M/mm3 (4.00-5.60); WHITE BLOOD COUNT 5.8 K/mm3 (4.0-10.0)
[2020-06-30 10:01] LABS: ALBUMIN 2.5 g/dl (3.4-5.0); BLOOD UREA NITROGEN 51.9 mg/dL (7-18); CALCIUM 8.4 mg/dL (8.5-10.1)
[2020-06-30 10:04] LABS: BILIRUBIN,TOTAL 0.4 mg/dL (0.2-1); CREATININE 3.5 mg/dL (0.55-1.3); PHOSPHOROUS 3.7 mg/dL (2.5-4.9)
[2020-06-30 10:05] LABS: TOT PROT 5.4 g/dl (6.4-8.2)
[2020-06-30] MEDS: SILVER SULFADIAZINE 1% TOP CREAM 50 GM JAR TP SCH (10:25)
[2020-06-30] MEDS: TERAZOSIN HCL 5 MG CAPSULE PO SCH (10:31)
[2020-06-30] MEDS: amLODIPine BESYLATE 10 MG TABLET (FP) PO SCH (10:32)
[2020-06-30] MEDS: CEFTRIAXONE 1 GM in DEXTROSE 5%-WATER - 50 ML IVPB SCH (10:32)
[2020-06-30] MEDS: BACITRACIN 15 GM TUBE TOPICAL OINTMENT TP SCH (10:33)
[2020-07-01] MEDS: hydrALAZINE HCL 25 MG TABLET (FP) PO SCH ×2 (06:09→13:32)
[2020-07-01] MEDS: cloNIDine HCL 0.1 MG TABLET PO SCH ×2 (06:09→13:32)
[2020-07-01] MEDS: HEPARIN NA (PORCINE) 5,000 UNITS/ML 1ML VIAL SQ SCH ×2 (06:12→13:34)
[2020-07-01] MEDS: INSULIN SLIDING SCALE (NOVOLOG) 1 VIAL SQ SCH ×2 (06:24→11:52)
[2020-07-01] MEDS ORDERED: PT OWN MED DRAWER 7, Y5N ONE (10:28)
[2020-07-01] MEDS ORDERED: DEXTROSE 5%-WATER - 50 ML IVPB ONE (10:28)
[2020-07-01] MEDS ORDERED: cefTRIAXone SODIUM 1 GM VIAL ONE (10:28)
[2020-07-01] MEDS: CEFTRIAXONE 1 GM in DEXTROSE 5%-WATER - 50 ML IVPB SCH (10:38)
[2020-07-01] MEDS: amLODIPine BESYLATE 10 MG TABLET (FP) PO SCH (10:59)
[2020-07-01] MEDS: TERAZOSIN HCL 5 MG CAPSULE PO SCH (13:33)
[2020-07-01 14:09] VITALS: BP 170/81; PULSE 74; TEMP 97.5
[2020-07-01] MEDS: SILVER SULFADIAZINE 1% TOP CREAM 50 GM JAR TP SCH (15:30)
[2020-07-01] MEDS: BACITRACIN 15 GM TUBE TOPICAL OINTMENT TP SCH (15:30)
== END 2020-07-01 17:02 | disposition home health service (06) | DRG 660 ==
LOC: JER 14:56 → JERBED 19:34 → J6S 06-24 00:55
PROVIDERS: ADMIT Internal Medicine; ATTEND Internal Medicine
PROC: 0HBRXZZ Excision of Toe Nail, External Approach (ICD-10-PCS; 2020-06-28)
PROC: 0TF78ZZ Fragmentation in Left Ureter, Via Natural or Artificial Opening Endoscopic (ICD-10-PCS; 2020-06-28)
PROC: 0T778DZ Dilation of Left Ureter with Intraluminal Device, Via Natural or Artificial Opening Endoscopic (ICD-10-PCS; principal; 2020-06-28 12:00)
PROC: BT1FZZZ Fluoroscopy of Left Kidney, Ureter and Bladder (ICD-10-PCS; 2020-06-28 12:00)
DX: N13.6 Pyonephrosis (principal); L97.828 Non-pressure chronic ulcer of other part of left lower leg with other specified severity; N17.9 Acute kidney failure, unspecified; N40.0 Benign prostatic hyperplasia without lower urinary tract symptoms; G47.33 Obstructive sleep apnea (adult) (pediatric); I10 Essential (primary) hypertension; E11.9 Type 2 diabetes mellitus without complications; R33.8 Other retention of urine; I44.0 Atrioventricular block, first degree; I12.9 Hypertensive chronic kidney disease with stage 1 through stage 4 chronic kidney disease, or unspecified chronic kidney disease; E11.22 Type 2 diabetes mellitus with diabetic chronic kidney disease; N18.9 Chronic kidney disease, unspecified; E66.9 Obesity, unspecified; Z68.32 Body mass index [BMI] 32.0-32.9, adult; T83.018A Breakdown (mechanical) of other urinary catheter, initial encounter; Y84.8 Other medical procedures as the cause of abnormal reaction of the patient, or of later complication, without mention of misadventure at the time of the procedure; D72.829 Elevated white blood cell count, unspecified; D63.1 Anemia in chronic kidney disease; N40.1 Benign prostatic hyperplasia with lower urinary tract symptoms; N32.89 Other specified disorders of bladder; E11.622 Type 2 diabetes mellitus with other skin ulcer; L03.039 Cellulitis of unspecified toe; N28.1 Cyst of kidney, acquired; L60.0 Ingrowing nail
CPT/HCPCS: 36415; 71045-TC-FY; 74176-TC; 76000-TC-FY; 76775; 76775-TC; 76856-TC; 80053; 81003; 82607; 82728; 82746; 82962; 83540; 83550; 83735; 84100; 85025; 85027; 85045; 85610; 85730; 86850; 86900; 86901; 87086; 87186; 93005; 93010; 94010; 94760; 97116-GP; 97162-GP; 99285-25; C9803; J0131; J0735; J1644; J1756; J3480; U0003

== ENCOUNTER 2020-12-28 04:38 | Day surgery (SDC) | payer BC ==
[2020-12-27 17:40] VITALS: BMI 36.1
[2020-12-28] MEDS ORDERED: LIDOCAINE HCL 1%, 10 MG/ML (20ML VIAL) ONE (11:10)
[2020-12-28] MEDS ORDERED: MIDAZOLAM HCL 2 MG/2 ML SINGLE DOSE VIAL ONE ×3 (11:28→11:56)
[2020-12-28] MEDS ORDERED: PROPOFOL 20 ML ONE ×3 (11:29→13:10)
[2020-12-28] MEDS ORDERED: LIDOCAINE HCL/PF 2% SDV 5ML VIAL ONE (11:37)
[2020-12-28] MEDS ORDERED: ROPIVACAINE HCL 0.5% 30ML VIAL ONE (11:56)
[2020-12-28] MEDS ORDERED: ceFAZolin SODIUM 1 GM VIAL IVPB ONE (12:30)
[2020-12-28] MEDS ORDERED: oxyCODONE HCL 5 MG TABLET PO PRN (13:42)
[2020-12-28] MEDS ORDERED: ONDANSETRON 4 MG/2 ML VIAL IVPUSH PRN (13:42)
[2020-12-28 17:21] VITALS: BP 122/63; PULSE 59; TEMP 98.2
== END 2020-12-28 16:45 | disposition home or self-care (01) ==
LOC: JASU-SURG 04:38
PROVIDERS: ATTEND Surgery
PROC: 031C0ZF Bypass Left Radial Artery to Lower Arm Vein, Open Approach (ICD-10-PCS; principal; 2020-12-28 12:00)
DX: E11.22 Type 2 diabetes mellitus with diabetic chronic kidney disease (principal); I12.0 Hypertensive chronic kidney disease with stage 5 chronic kidney disease or end stage renal disease; N18.5 Chronic kidney disease, stage 5; Z79.84 Long term (current) use of oral hypoglycemic drugs; L97.519 Non-pressure chronic ulcer of other part of right foot with unspecified severity
CPT/HCPCS: 82962; 94760